=== PATIENT | female | born 2000 | race Caucasian/White ===

== ENCOUNTER 2024-05-12 10:10 | Emergency (ER) | payer BC, OTHER ==
[2024-05-12] MEDS ORDERED: KETOROLAC 30 MG/ML INJ ONE (10:41)
[2024-05-12] MEDS ORDERED: ACETAMINOPHEN 500 MG TAB ONE (10:41)
--- NOTE | 2024-05-12 11:19 | RAD REPORT ---
Exam:Ankle Left 3 View HISTORY: left ankle pain FINDINGS: No fracture or dislocation is seen
--- NOTE | 2024-05-12 11:22 | EDPHYS ---
Physician Documentation [facility] Name: Eugene Andrew Age: 23 yrs Sex: Female : 2000 Arrival Date: 05/12/2024 Time: 10:10 Bed 7 Private MD: ED Physician Desean Hammer HPI: 05/12 10:45 This 23 yrs old Female presents to ER via Wheelchair with complaints of Ankle ec2 Injury. 10:45 Patient arrives today for evaluation of a left ankle injury. Patient reports that she ec2 was walking and subsequently twisted her ankle while trying to get off a seesaw. No other injuries. No head injury. No neck pain. Complaining of isolated left ankle pain. No wounds.. 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 - Infectious Disease History:: Denies. - Social history:: Smoking status: Reported history of juuling and/or vaping. Patient denies any tobacco usage or history of. ROS: 10:45 Constitutional: as per hpi ec2 Exam: 10:45 Constitutional: GEN: NAD Head: atraumatic Eyes: EOMI Ears: External ears are ec2 normal. CV: regular rate LUNGS: no respiratory distress ABD: non-distended SKIN: no evidence of rashes MSK: Left lower extremity with TTP throughout, worse at the medial malleolus. Intact distal neurovascular status. Vital Signs: 10:21 BP 127 / 82; Pulse 78; Resp 18; Temp 97.3; Pulse Ox 98% ; Weight 99.79 kg; Height 5 ft. ll1 5 in. ; Pain 10/10; 11:35 BP 116 / 65; Pulse 78; Resp 16; Temp 97.5; Pulse Ox 98% on R/A; ap3 10:21 Body Mass Index 36.61 (99.79 kg, 165.1 cm) ll1 10:21 Pain Scale: Adult ll1 MDM: 10:45 Data reviewed: vital signs. ED course: Patient arrives today for evaluation of a left ec2 ankle injury. Examination remarkable for well-appearing nontoxic dividual's otherwise in no acute distress with a reassuring examination with left ankle findings above. Will obtain radiograph of left ankle. Differential includes ankle sprain, fracture. . 11:21 ED course: Ankle x-ray independently reviewed and interpreted by me, shows no bony ec2 fracture or dislocation. Suspect ankle sprain. Will discharge home. Return precautions given. . 11:21 Patient medically screened. ec2 05/12 10:23 Order name: Ankle Left 3 View XRAY; Complete Time: 11:21 ec2 05/12 11:24 Order name: Jose E Wrap; Complete Time: 11:35 ec2 05/12 11:24 Order name: Crutches; Complete Time: 11:35 ec2 Administered Medications: 10:47 Drug: Acetaminophen PO 1000 mg PO once Route: PO; ap3 11:35 Follow up: Response: No adverse reaction; Pain is decreased ap3 10:47 Drug: Ketorolac IM 30 mg IM once Route: IM; Site: right vastus lateralis; ap3 11:35 Follow up: Response: No adverse reaction; Pain is decreased ap3 Disposition Summary: 05/12/24 11:21 Discharge Ordered Notes: Location: Home ec2 Condition: Stable ec2 Diagnosis - Sprain of ankle ec2 Followup: ec2 - With: Private Physician - When: - Reason: Re-evaluation by your physician Discharge Instructions: - Discharge Summary Sheet ec2 - Ankle Sprain, [id number] ec2 Forms: - Medication Reconciliation Form ec2 - Antibiotic Education ec2 - Prescription Opioid Use ec2 - Patient Portal Instructions ec2 - Leadership Thank You Letter ec2 Prescriptions: - methocarbamol 500 mg Oral tablet - take 2 tablet ORAL route 4 times per day; 30 tablet; Refills: 0, Product ec2 Selection Permitted Signatures: Dispatcher [employer] Michelle Mcgarry RN RN ap3 Mariza Jones RN RN ll1 Desean Hammer MD MD ec2
--- NOTE | 2024-05-12 11:22 | ER ---
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 Coronavirus screen: Client denies travel out of the [place] in the last 14 days. At this time, the client does not indicate any symptoms associated with coronavirus-19. Ebola Screen: Patient denies travel to an Ebola-affected area in the 21 days before illness onset. Initial Sepsis Screen: Does the patient meet any 2 criteria? No. Patient's initial sepsis screen is negative. Does the patient have a suspected source of infection? No. Patient's initial sepsis screen is negative. Risk Assessment: Do you want to hurt yourself or someone else? Patient reports no desire to harm self or others. Onset of symptoms was May 12, 2024. 10:21 Method Of Arrival: Wheelchair ll1 10:21 Acuity: MIRTHA 4 ll1 Triage Assessment: 10:22 General: Appears uncomfortable, Behavior is calm, cooperative, appropriate for age. ll1 Pain: Complains of pain in left ankle Quality of pain is described as aching. Musculoskeletal: Circulation, motion, and sensation intact. Capillary refill < 3 seconds, in left toes. Reports pain in left ankle. Injury Description: Bruise. 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 - Infectious Disease History:: Denies. - Social history:: Smoking status: Reported history of juuling and/or vaping. Patient denies any tobacco usage or history of. Screenin:48 [facility] ED Fall Risk Assessment (Adult) History of falling in the last 3 months, ap3 including since admission Yes- single mechanical fall (1 pt) Confusion or Disorientation No (0 pts) Intoxicated or Sedated No (0 pts) Impaired Gait No (0 pts) Mobility Assist Device Used No (0 pt) Altered Elimination No (0 pt) Score/Fall Risk Level 0 - 2 = Low Risk Oriented to surroundings, Maintained a safe environment, Educated pt \T\ family on fall prevention, incl call for assistance when getting out of bed, Assessed \T\ reinforced patient's understanding of fall precautions, Hourly rounding (assess needs \T\ fall precautionary measures) done, Used ambulatory aids as needed (educated on \T\ assisted with), Used gait belt as appropriate. Abuse screen: Denies threats or abuse. Nutritional screening: No deficits noted. Tuberculosis screening: No symptoms or risk factors identified. Assessment: 10:47 General: Appears in no apparent distress. Behavior is calm, cooperative, appropriate ap3 for age. Pain: Complains of pain in left ankle Pain currently is 7 out of 10 on a pain scale. Neuro: Level of Consciousness is awake, alert, obeys commands, Oriented to person, place, time, situation, Appropriate for age. Cardiovascular: Patient's skin is warm and dry. Respiratory: Airway is patent Respiratory effort is even, unlabored, Respiratory pattern is regular, symmetrical. Musculoskeletal: Range of motion: limited in left ankle. Vital Signs: 10:21 BP 127 / 82; Pulse 78; Resp 18; Temp 97.3; Pulse Ox 98% ; Weight 99.79 kg; Height 5 ft. ll1 5 in. ; Pain 10/10; 11:35 BP 116 / 65; Pulse 78; Resp 16; Temp 97.5; Pulse Ox 98% on R/A; ap3 10:21 Body Mass Index 36.61 (99.79 kg, 165.1 cm) ll1 10:21 Pain Scale: Adult ll1 ED Course: 10:15 Patient arrived in ED. mg5 10:15 Desean Hammer MD is Attending Physician. ec2 10:22 Triage completed. ll1 10:22 Arm band placed on Patient placed in an exam room, on a stretcher. ll1 10:29 Nayana Acuña RN is Primary Nurse. mb9 10:49 Patient has correct armband on for positive identification. Call light in reach. Side ap3 rails up X 1. Adult w/ patient. Pulse ox on. NIBP on. 10:50 Provided Education on: medications prior to administration . ap3 11:06 Ankle Left 3 View XRAY In Process Unspecified. EDMS 11:36 No provider procedures requiring assistance completed. Patient did not have IV access ap3 during this emergency room visit. Administered Medications: 10:47 Drug: Acetaminophen PO 1000 mg PO once Route: PO; ap3 11:35 Follow up: Response: No adverse reaction; Pain is decreased ap3 10:47 Drug: Ketorolac IM 30 mg IM once Route: IM; Site: right vastus lateralis; ap3 11:35 Follow up: Response: No adverse reaction; Pain is decreased ap3 Medication: 11:36 VIS not applicable for this client. ap3 Outcome: 11:21 Discharge ordered by . ec2 11:36 Discharged to home with crutches, ap3 11:36 Condition: good 11:36 Discharge instructions given to patient, family, Instructed on discharge instructions, follow up and referral plans. crutch walking, Demonstrated understanding of instructions, follow-up care, medications, Prescriptions given X 1, 11:36 Patient left the ED. ap3 Signatures: Dispatcher [employer] Michelle Mcgarry RN RN ap3 Mariza Jones RN RN ll1 Nayana Acuña RN RN mb9 Rochelle Acosta mg5 Desean Hammer MD MD ec2
[2024-05-12 11:50] VITALS: O2SAT 98
[2024-05-12 11:51] VITALS: BP 127/82; TEMP 97.3
== END 2024-05-12 11:36 | disposition home or self-care (01) ==
LOC: ER 10:10
DX: S93.402A Sprain of unspecified ligament of left ankle, initial encounter (principal)

== ENCOUNTER 2024-09-26 23:46 | Emergency (ER) | payer SELFPAY ==
--- OUTSIDE RECORDS SUMMARY | 2024-09-26 23:52 | XMS REPORT | Continuity of Care Document ---
Author Name Unknown Address [address] [facility] [address] [place] [address] [facility] thconnect Address [address] [facility] [address] [place] [address] Support Name Relationship Address Phone OTHER, UNK O [address] [place] [address] [phone] Unavailable E Unknown Unavailable Unavailable Personal Relationship Unknown UnaSALLIE Grijalva F Unknown [phone] [place] [address] MARTITA COLES Personal Relationship [address] [place] [address] ZABRINA COLES Personal Relationship [address] [place] [address] JEANNE COLES Personal Relationship [address] [place] [address] 1 SALLIE Unknown Unavailable 2 SALLIE Unknown Unavailable 3 Personal Relationship Unknown SALLIE Yuan F [address] [place] [address] Unavailable MARTITA COLES [address] [place] [address] Unavailable RAMSEY TRIANA Significant Unknown JEANNE TAM F [address] [place] [address] MARTITA COLES M [address] [place] [address] Unavailable RAAD CERDA Significant [address] [place] [address] L Martita Coles Mother [address] [place] [address] RAAD CERDA Significant [address] [place] [address] Care Team Providers Care Supervisor Baking Name Role Phone PCP, PATIENT DOES NOT HAVE A Primary Care Physic jose Unavailable DULCE MERCEDES Attending Clinician Unavailable DULCE MERCEDES Attending Clinician Unavailable Doctor Unassigned, [place] Attending Clinician U navailable ARLEY BARRY Attending Clinician Unavailable ARLEY BARRY Attending Clinician Unavailable Arley Barry PA-C Attending Clinician [phone] SHAD COMER Attending Clinician Unavailable Richard Eason MD Attending Clinician RICHARD EASON Attending Clinician Porsha vailable Shad Marin Attending Clinician [phone] AMIE ZHANG Attending Clinician Unavailable Amie Zhang PA-C Attending Clinician [phone] Unknown, Attending Attending Clinician Unavailab le UNKNOWN, ATTENDING Attending Clinician Unavailab le Lab, Ang - Db Attending Clinician Unavailable Nurse, [facility] Attending Clinician Un available Dulce Mercedes MD Attending Clinician [phone] DONALD WATSON Attending Clinician Unavailabl MARISA Finch Attending Clinician Unavailable MARISA GAGE Attending Clinician Unavailable DALTON HAWKINS Attending Clinician Unavailable Dalton Hawkins MD Attending Clinician [phone] Shad Marin Attending Clinician [phone] TOBIN SANTOS Attending Clinician Unava ilMILAGRO Billy Attending Clinician UnavailMilagro Mauro Attending Clinician + [phone] Doctor Unassigned, [place] Attending Clinician U navailable IVAN DUVAL Attending Clinician Unav ailable GC_GCBZW_Kadiyala_S Attending Clinician Unavaila ROCIO Menon Attending Clinician Unavailable Lab, Ang - Db Attending Clinician Unavailable ROCIO WESTON Attending Clinician Unavailable Alexandru TOLBERT, Amna Abarca Attending Clinician + Stevo Sow MD Attending Clinicia n Kristen De León RN Attending Clinician Unavailab le TRITSCHLER, CHERYAL Attending Clinician UnavailJOSEPH Ortiz Attending Clinician Unavaila Graham Jordan PT Attending Clinician Unavailable Rina, [facility] Attending Clinician Unavailfidelia Sung RN, Janna Attending Clinician UnavailJudd Holley MD Attending Clinician [phone] JUDD AUGUSTIN Attending Clinician Unavailable 2, [facility] Attending Clinician UnavailSorin Kathleen MD Attending Clinician [phone] SORIN MONTERROSO Attending Clinician UnavailGERMÁN Jones Attending Clinician Unavailable Germán Moses MD Attending Clinician [phone] Dulce GERMAN Attending Clinician Unavailable Dulce Linton Attending Clinician [phone] SUMMER BURK Attending Clinician Unavailable BRITNEY BLUM Attending Clinician Unavailab Britney Green DO Attending Clinician [phone] Maxi GRAF-CSummer Attending Clinician [phone] MARSHALL BORJA Attending Clinician Unava manju Ascencio RN, Pinky Rand Attending Clinician Unavailab Jeanette Rodney Attending Clinician + JEANETTE LEMUS Attending Clinician UnaNed Barney DO Attending Clinician [phone] Radiology Attending Clinician Unavailable RADIOLOGY Attending Clinician Unavailable Shaun Sheridan Attending Clinician Unavailable DULCE MERCEDES Admitting Clinician Unavailable MILAGRO CLIFTON Admitting Clinician Unavaila henry GC_GCBZW_Kadiyala_S Admitting Clinician Unavaila Dulce Erwin MD Admitting Clinician [phone] Dulce GERMAN Admitting Clinician Unavailable JOSEPH LIU Admitting Clinician Unavaillanden reddy Payers Payer Name Policy Type Policy Number Effective Date Expirati on Date Source [employer] [place] - OUT OF STATE [id number] 2016 00:00:00 [facility] [place] [facility] [id number] 2021 00:00:00 [facility] KIDS [id number] 2020 00:00:00 [place] [id number] 2021 00:00:00 BCBS 2 [id number] 2020 00:00:00 Problems Condition Name Condition Details Condition Category Status Onset Date Resolution Date Last Treatment Date Treating Clinician Comments Source Epigastric pain Epigastric pain Disease Active 2023-07 0- 00:00: 00 [facility] Family history of Crohn's disease Family history of Crohn's disease Disease Active 2023-07 0- 00:00: 00 [facility] Chronic nonintract able headache, unspecifie d headache type Chronic nonintract able headache, unspecifie d headache type Disease Active 8 00:00: 00 [facility] Nausea Nausea Disease Active 03-08 00:00: 00 [facility] Gastroesop hageal reflux disease without esophagiti s Gastroesop hageal reflux disease without esophagiti s Disease Active 03-08 00:00: 00 [facility] Diarrhea, unspecifie d type Diarrhea, unspecifie d type Disease Active 03-08 00:00: 00 [facility] Chronic idiopathic constipati on Chronic idiopathic constipati on Disease Active 03-08 00:00: 00 [facility] Fatigue, unspecifie d type Fatigue, unspecifie d type Disease Active 5 00:00: 00 [facility] Anemia of mother in , antepartum Anemia of mother in , antepartum Disease Active 9 00:00: 00 [facility] Vitamin D deficiency Vitamin D deficiency Disease Active 8- 00:00: 00 [facility] Hypothyroi dism Hypothyroi dism Disease Active 8 00:00: 00 [facility] History of depression History of depression Disease Active 4 00:00: 00 [facility] Current every day vaping Current every day vaping Disease Active 4 00:00: 00 [facility] Current mild episode of major depressive disorder without prior episode Current mild episode of major depressive disorder without prior episode Disease Active 406 00:00: 00 Overview: Formattin g of this note might be different from the original. Formattin g of this note might be different from the original. Dr. Bruno in [facility] AMY (generaliz ed anxiety disorder) AMY (generaliz ed anxiety disorder) Disease Active 4-06 00:00: 00 [facility] History of suicide attempt History of suicide attempt Disease Active 406 00:00: 00 [facility] Panic attacks Panic attacks Disease Active 4 00:00: 00 [facility] No known active problems No known active problems Disease [facility] Anemia due to acute blood loss Anemia due to acute blood loss Disease Resolve d 2022-0 5-09 00:00: 00 2023-06-01 00:00:00 2023-06-01 13:21:09 [facility] Other immediate hemorrhage Other immediate hemorrhage Disease Resolve d 2021-1 2-30 00:00: 00 2022-08-17 00:00:00 2022-08-17 17:11:10 Overview: Formattin g of this note might be different from the original. Uterine atony [facility] Morbid obesity with body mass index of 40.0-49.9 Morbid obesity with body mass index of 40.0-49.9 Disease Resolve d 2021-1 2-30 00:00: 00 2022-08-17 00:00:00 2022-08-17 17:11:23 [facility] Liveborn infant by vaginal delivery Liveborn infant by vaginal delivery Disease Resolve d 2021-1 2-29 00:00: 00 2022-08-17 00:00:00 2022-08-17 15:56:38 [facility] Anemia of mother in , antepartum Anemia of mother in , antepartum Disease Resolve d 2021-0 9-27 00:00: 00 2022-08-17 00:00:00 2022-08-17 17:11:13 [facility] Obesity in , antepartum Obesity in , antepartum Disease Resolve d 2021-0 8-02 00:00: 00 2022-08-17 00:00:00 2022-08-17 17:11:25 [facility] Nausea and vomiting in prior to 22 weeks gestation Nausea and vomiting in prior to 22 weeks gestation Disease Resolve d 2021-0 5-23 00:00: 00 2022-08-17 00:00:00 2022-08-17 17:11:24 [facility] Nausea and vomiting in prior to 22 weeks gestation Nausea and vomiting in prior to 22 weeks gestation Disease Resolve d 2021-0 5-23 00:00: 00 2022-08-17 00:00:00 2022-08-17 17:11:24 [facility] 39 weeks gestation of 39 weeks gestation of Disease Resolve d 2021-1 2-29 00:00: 00 2022-07-30 00:00:00 2022-07-30 07:52:05 [facility] Encounter for induction of labor Encounter for induction of labor Disease Resolve d 2021-1 2-28 00:00: 00 2022-07-30 00:00:00 2022-07-30 07:52:04 [facility] Pelvic pressure in Pelvic pressure in Disease Resolve d 2021-1 1-10 00:00: 00 2022-07-30 00:00:00 2022-07-30 07:51:25 [facility] History of hypothyroi dism History of hypothyroi dism Disease Resolve d 2021-1 0-11 00:00: 00 2022-07-30 00:00:00 2022-07-30 07:51:34 [facility] 10 weeks gestation of 10 weeks gestation of Disease Resolve d 2021-0 6-06 00:00: 00 2022-07-30 00:00:00 2022-07-30 07:52:17 [facility] Genetic screening Genetic screening Disease Resolve d 2021-0 6-06 00:00: 00 2022-07-30 00:00:00 2022-07-30 07:52:19 [facility] Supervisio n of normal first , antepartum Supervisio n of normal first , antepartum Disease Resolve d 2021-0 5-23 00:00: 00 2022-07-30 00:00:00 2022-07-30 07:52:23 [facility] with inconclusi ve viability, single or unspecifie d fetus with inconclusi ve viability, single or unspecifie d fetus Disease Resolve d 2021-0 4-25 00:00: 00 2022-07-30 00:00:00 2022-07-30 07:51:52 [facility] Missed menses Missed menses Disease Resolve d 2021-0 4-25 00:00: 00 2022-07-30 00:00:00 2022-07-30 07:51:47 [facility] Vaginal discharge during , antepartum Vaginal discharge during , antepartum Disease Resolve d 2021-0 4-25 00:00: 00 2022-07-30 00:00:00 2022-07-30 07:51:43 [facility] Dysuria Dysuria Disease Resolve d 2021-0 4-25 00:00: 00 2022-07-30 00:00:00 2022-07-30 07:51:41 [facility] with inconclusi ve viability, single or unspecifie d fetus with inconclusi ve viability, single or unspecifie d fetus Disease Resolve d 2021-0 4-25 00:00: 00 2022-07-30 00:00:00 2022-07-30 07:51:52 [facility] Allergies, Adverse Reactions, Alerts Allergy Name Allergy Type Status Severity Reaction(s) Onset Date Inactive Date Treating Clinician Comments Source NO KNOWN ALLERGIE S Drug Class Active [facility] Social History Social Habit Start Date Stop Date Quantity Comments Source ASSERTION 2021-11-06 00:00:00 [facility] Gender identity [facility] Alcoholic beverage intake 2024-05-23 00:00:00 2024-05-23 00:00:00 Ex-drinker (finding) [facility] History of Social function 2024-05-01 00:00:00 2024-05-01 00:00:00 [facility] Alcohol intake 2023-11-01 00:00:00 2023-11-01 00:00:00 Ex-drinker (finding) [facility] Exposure to SARS-CoV-2 (event) 2022-11-26 00:00:00 2022-12-06 09:51:00 Not sure [facility] Tobacco Comment 2022-07-27 00:00:00 2022-07-27 00:00:00 Use of vape prior to [facility] Tobacco use and exposure 2022-07-27 00:00:00 2022-07-27 00:00:00 Former smokeless tobacco user [facility] Sex Assigned At 2001 00:00:00 2000 00:00:00 [facility] Smoking Status Start Date Stop Date Source Unknown if ever smoked [facility] Never smoked tobacco Juanis Bolden Medications Ordered Medication Name Filled Medication Name Start Date Stop Date Current Medication? Ordering Clinician Indication Dosage Frequency Signature (SIG) Comments Components Source methylPREDN ISolone (MEDROL, SALLY,) 4 mg tablets 2023-07 00:00: 00 Yes [id number] Take by mouth SEE-INSTRU CTIONS. follow package directions [facility] naproxen 500 mg tablet 2023-07 00:00: 00 07-23 05:59 :00 No [id number] 500mg Take 1 tablet by mouth in the morning and 1 tablet in the evening. Take with meals. Do all this for 60 days. [facility] ibuprofen 600 mg tablet 2023-07 00:00: 00 Yes [id number] 600mg Take 1 tablet by mouth in the morning and 1 tablet at noon and 1 tablet in the evening. Take with meals. [facility] pantoprazol e 40 mg EC tablet 2023-07 00:00: 00 Yes [id number] 40mg Take 1 tablet by mouth in the morning. [facility] ondansetron (ZOFRAN) 4 mg tablet 2023-07 00:00: 00 05-12 04:59 :00 No [id number] 4mg Take 1 tablet by mouth every 8 (eight) hours as needed for Nausea and Vomiting (N/V) for up to 10 days. [facility] medroxyPROG ESTERone (DEPO-PROVE RA) syringe 150 mg 04-17 20:15: 00 04-17 19:37 :00 No [id number] 150mg 150 mg, Intramuscu lar, ONCE, 1 dose, On Mon04/17/24 at 1515, Routine [facility] LEVOTHYROXI NE 25 mcg tablet 02-26 00:00: 00 Yes [id number] 25ug TAKE 1 TABLET BY MOUTH EVERY MORNING [facility] cefpodoxime 200 mg tablet 12-15 00:00: 00 05-01 00:00 :00 No [id number] 200mg Take 1 tablet by mouth in the morning and 1 tablet in the evening. [facility] phenazopyri dine 200 mg tablet 12-15 00:00: 00 05-01 00:00 :00 No [id number] 200mg Take 1 tablet by mouth in the morning and 1 tablet at noon and 1 tablet in the evening. [facility] levothyroxi ne 25 mcg tablet 12-04 00:00: 00 02-26 00:00 :00 No [id number] 25ug TAKE 1 TABLET BY MOUTH EVERY MORNING [facility] cefTRIAXone (ROCEPHIN) 350 mg/mL in Lidocaine 1 % injection 1,000 mg 11-01 06:30: 00 11-01 06:30 :00 No 1000mg 1,000 mg, Intramuscu lar, ONCE, 1 dose, On Mon11/02/23 at 0130, STAT
Re ason for Anti-Infec tive: Documented Infection< br>Documen jose rafael Infection Site: Urine
D uration of Therapy: Once (ED) [facility] ketorolac (TORADOL) injection 30 mg 11-01 06:00: 00 11-01 05:07 :00 No 30mg 30 mg, Intramuscu lar, ONCE, 1 dose, On Sarah 11/02/23 at 0100, DO [facility] cefUROXime 500 mg tablet 11-01 00:00: 00 11-09 04:59 :00 No [id number] 500mg Take 1 tablet by mouth in the morning and 1 tablet in the evening. Do all this for 7 days. [facility] escitalopra m oxalate 20 mg tablet 2022-07 00:00: 00 Yes 20mg Take 1 tablet by mouth every morning. [facility] buPROPion XL 150 mg 24 hr tablet 2022-07 00:00: 00 Yes 150mg Take 1 tablet by mouth every morning. [facility] levothyroxi ne 25 mcg tablet 03-17 00:00: 00 12-04 00:00 :00 No [id number] 25ug Take 1 tablet by mouth every morning. [facility] levothyroxi ne (TIROSINT-S OL) 112 mcg/mL Soln 03-08 11:06: 24 03-08 00:00 :00 No 1 ml in the morning before breakfast [facility] SUMAtriptan 50 mg tablet 03-08 00:00: 00 05-01 00:00 :00 No [id number] Take on one onset of migraine , may repeat in 1 hr if needed. Max dosage 200mg in 24hrs. [facility] escitalopra m oxalate 10 mg tablet 09-07 00:00: 00 05-01 00:00 :00 No [id number] 10mg Take 1 tablet by mouth in the morning. [facility] norelgestro min-ethinyl estradiol (XULANE) 150-35 mcg/24 hr patch 09-07 00:00: 00 05-01 00:00 :00 No [id number] 1{patch } Apply 1 Patch to skin weekly. [facility] levothyroxi ne (TIROSINT-S OL) 112 mcg/mL Soln 2021-07 20:00: 01 Yes 1 ml in the morning before breakfast [facility] vit no.124/iron /folic ( VITAMIN ORAL) 2021-07 18:23: 05 07-29 00:00 :00 No Take by mouth. [facility] escitalopra m oxalate (LEXAPRO) tablet 10 mg 2021-07 14:00: 00 Yes 10mg 10 mg, Oral, DAILY, First dose on Mon07/29/22 at 0800, Until Discontinu ed, Routine [facility] methylergon ovine (METHERGINE ) tablet 200 mcg 2021-07 12:00: 00 07-30 05:59 :00 No 200ug 200 mcg, Oral, Q6H, 3 doses, First dose on Mon07/29/22 at 0600, Last dose on Mon07/29/22 at 1800, Routine [facility] methylergon ovine (METHERGINE ) injection 0.2 mg 2021-07 08:30: 00 07-29 07:44 :00 No .2mg 0.2 mg, Intramuscu lar, ONCE NOW, 1 dose, On Mon07/29/22 at 0230, Routine [facility] miSOPROStoL (CYTOTEC) tablet 1,000 mcg 2021-07 07:30: 00 07-29 06:45 :00 No 1000ug 1,000 mcg, Rectal, ONCE NOW, 1 dose, On Mon07/29/22 at 0130, Routine [facility] NaCl 0.9% (NS) IV infusion 1,000 mL 2021-07 07:15: 00 Yes 1000mL at 999 mL/hr, IV Infusion, CONTINUOUS , Starting on Mon07/29/22 at 0115, Until Discontinu ed, Routine
500 bolus then change rate to 50 ml/hr
[facility] FENTanyl PF (SUBLIMAZE (PF)) injection 100 mcg 2021-07 07:00: 00 07-29 06:24 :00 No 100ug 100 mcg, Slow IV Push, ONCE, 1 dose, On Mon07/29/22 at 0100, Routine [facility] HYDROmorpho ne (DILAUDID) injection 1 mg 2021-07 06:45: 00 07-29 06:45 :00 No 1mg 1 mg, Slow IV Push, ONCE, 1 dose, On Mon07/29/22 at 0045, Routine
Use approved by (Faculty): [employer]/ONC [employer] [facility] vitamin w/FA tablet 2021-07 00:00: 00 Yes [id number] 1{tbl} Take 1 tablet by mouth in the morning. [facility] vitamin w/FA tablet 2021-07 00:00: 00 03-08 00:00 :00 No [id number] 1{tbl} Take 1 tablet by mouth in the morning. [facility] ferrous sulfate 325 mg (65 mg iron) tablet 2021-07 00:00: 00 03-08 00:00 :00 No [id number] 325mg Take 1 tablet by mouth in the morning and 1 tablet in the evening. [facility] ibuprofen 600 mg tablet 2021-07 00:00: 00 03-08 00:00 :00 No [id number] 600mg Take 1 tablet by mouth every 6 (six) hours as needed (Pain). Take with food or milk. [facility] escitalopra m oxalate 10 mg tablet 2021-07 00:00: 00 09-07 00:00 :00 No [id number] 10mg Take 1 tablet by mouth in the morning. [facility] docusate 100 mg capsule 2021-07 00:00: 00 08-17 00:00 :00 No [id number] 200mg Take 2 capsules by mouth once daily as needed for Constipati on. [facility] HYDROcodone -acetaminop hen (NORCO 5) 5-325 mg tablet 1 tablet 2021-07 23:47: 17 Yes 1{tbl} 1 tablet, Oral, Q6HPRN, Starting on Sarah 07/28/22 at 1747, Until Discontinu ed, Routine, Pain (scale 7-10) [facility] ibuprofen (IBU) tablet 600 mg 2021-07 23:47: 16 Yes 600mg 600 mg, Oral, Q6HPRN, Starting on Mon07/28/22 at 1747, Until Discontinu ed, Routine, Pain (scale 4-6) [facility] acetaminoph en (TYLENOL) tablet 650 mg 2021-07 23:47: 16 Yes 650mg 650 mg, Oral, Q6HPRN, Starting on Mon07/28/22 at 1747, Until Discontinu ed, Routine, Pain (scale 1-3) [facility] diphenhydrA MINE (BENADRYL) tablet 25 mg 2021-07 23:47: 16 Yes 25mg 25 mg, Oral, Q6HPRN, Starting on Mon07/28/22 at 1747, Until Discontinu ed, Routine, Sleep, Itching [facility] ondansetron (ZOFRAN (PF)) injection 4 mg 2021-07 23:47: 16 Yes 4mg 4 mg, Slow IV Push, Q8HPRN, Starting on Mon07/28/22 at 1747, Until Discontinu ed, Routine, Nausea and Vomiting (N/V) [facility] simethicone (GAS RELIEF (SIMETHICON E)) chewable tablet 160 mg 2021-07 23:47: 16 Yes 160mg 160 mg, Oral, PC+HSPRN, Starting on Mon07/28/22 at 1747, Until Discontinu ed, Routine, Gas [facility] docusate (COLACE) capsule 200 mg 2021-07 23:47: 16 Yes 200mg 200 mg, Oral, QDAILYPRN, Starting on Mon07/28/22 at 1747, Until Discontinu ed, Routine, Constipati on [facility] magnesium hydroxide (MILK OF MAGNESIA) 400 mg/5 mL suspension 30 mL 2021-07 23:47: 16 Yes 30mL 30 mL, Oral, QDAILYPRN, Starting on Mon07/28/22 at 1747, Until Discontinu ed, Routine, Constipati on [facility] benzocaine- menthol (DERMOPLAST ) 20-0.5 % topical spray 2021-07 23:47: 16 Yes Topical, PRN, Starting on Mon07/28/22 at 1747, Until Discontinu ed, Routine, Perineum discomfort [facility] fentaNYL-ro pivacaine 2 mcg/mL-0.1 % (PF) in NS 200 mL epidural infusion RTU 2021-07 12:40: 00 07-29 02:18 :14 No Epidural, ONCE INTRA PROCEDURE, Starting on Mon07/28/22 at 0640, Until Mon07/28/22 at 2018, Routine, Intra-op [facility] lidocaine-e pinephrine (XYLOCAINE W/EPINEPHRI NE) 1.5 %-1:200,000 injection 2021-07 12:35: 00 07-29 02:18 :14 No Intraderma l, ONCE INTRA PROCEDURE, Starting on Mon07/28/22 at 0635, Until Mon07/28/22 at 2018, Routine, Intra-op [facility] misoprostol (CYTOTEC) quarter-tab let 25 mcg 2021-07 04:45: 00 07-28 14:50 :33 No 25ug 25 mcg, Vaginal, Q4H ABX, First dose on Mon07/27/22 at 2245, Until Discontinu ed, Routine [facility] misoprostol (CYTOTEC) quarter-tab let 25 mcg 2021-07 04:30: 00 07-28 03:56 :00 No 25ug 25 mcg, Oral, ONCE, 1 dose, On Mon07/27/22 at 2230, Routine [facility] butorphanol (STADOL) injection 2 mg 2021-07 01:50: 13 07-28 23:48 :22 No 2mg 2 mg, IV Push, Q3HPRN, Starting on Mon07/27/22 at 1950, Until Mon07/28/22 at 1748, Routine, Pain (scale 1-3), Pain (scale 4-6), Pain (scale 7-10) [facility] ondansetron (ZOFRAN (PF)) injection 4 mg 2021-07 01:50: 13 07-28 23:48 :22 No 4mg 4 mg, Slow IV Push, Q6HPRN, Starting on Mon07/27/22 at 1950, Until Sarah 07/28/22 at 1748, Routine, Nausea and Vomiting (N/V) [facility] oxytocin (PITOCIN) 30 units in NS 500 mL IV infusion 2021-07 01:50: 08 07-28 23:48 :22 No 2mU/min at 2-40 mL/hr, IV Infusion, TITRATE, Starting on Mon07/27/22 at 1950, Until Sarah 07/28/22 at 1748, DO [facility] lactated ringers IV infusion 500 mL 2021-07 01:50: 08 07-28 23:48 :22 No 500mL at 999 mL/hr, 500 mL, IV Infusion, PRN - SEE INSTRUCTIO NS, Starting on Mon07/27/22 at 1950, Until Sarah 07/28/22 at 1748, Routine [facility] D5W-LR IV infusion 1,000 mL 2021-07 01:50: 08 07-28 23:48 :22 No 1000mL at 1-125 mL/hr, IV Infusion, TITRATE, Starting on Mon07/27/22 at 1950, Until Sarah 07/28/22 at 1748, Routine [facility] vit no.124/iron /folic ( VITAMIN ORAL) 2021-07 18:50: 02 Yes Take by mouth. [facility] levothyroxi ne (TIROSINT-S OL) 112 mcg[facility] 2021-[facility] 18:50: 02 Yes 1 ml in the morning before breakfast [facility] levothyroxi ne (TIROSINT-S OL) 112 mcg/mL [facility] 2021-07 15:53: 04 Yes 1 ml in the morning before breakfast [facility] vit no.124/iron /folic ( VITAMIN ORAL) 2021-07 20:51: 02 Yes Take by mouth. [facility] levothyroxi ne (TIROSINT-S OL) 112 mcg/mL [facility] 2021-07 20:51: 02 Yes 1 ml in the morning before breakfast [facility] levothyroxi ne (TIROSINT-S OL) 112 mcg/mL [facility] 2021-07 10:10: 03 Yes 1 ml in the morning before breakfast [facility] vit no.124/iron /folic ( VITAMIN ORAL) 2021-07 01:51: 09 Yes Take by mouth. [facility] terconazole 80 mg vaginal suppository 2021-07 00:00: 00 06-15 05:59 :00 No [id number] 80mg Insert 1 Suppositor y into vagina at bedtime for 3 days. [facility] vit no.124/iron /folic ( VITAMIN ORAL) 04-26 09:34: 40 Yes Take by mouth. [facility] ferrous sulfate (IRON, FERROUS SULFATE,) 325 mg (65 mg iron) tablet 04-26 00:00: 00 07-29 00:00 :00 No [id number] 325mg Take 1 tablet by mouth in the morning and 1 tablet at noon and 1 tablet in the evening. Take with meals. [facility] ascorbic acid, vitamin C, 500 mg tablet 04-26 00:00: 00 07-29 00:00 :00 No [id number] 500mg Take 1 tablet by mouth in the morning. [facility] metoclopram uriel HCl 10 mg tablet 5-23 00:00: 00 07-26 00:00 :00 No [id number] Take 10mg tablet by mouth every 8 hours as needed for nausea and vomiting in . [facility] Ondansetron (Zofran ODT) 4 MG oral TABLET DISPERSIBLE 2-21 00:00: 00 Yes [id number] 4mg Q8H Take 1 tablet (4 mg total) by mouth every 8 hours as needed for nausea Juanis Bolden Promethazin e HCl 25 MG oral Tablet 09-20 00:00: 00 Yes [id number] 25mg Q6H Take 1 tablet (25 mg total) by mouth every 6 hours as needed for nausea Juanis Bolden Loperamide HCl 2 MG oral Tablet 09-20 00:00: 00 Yes [id number] 2mg Q.25D Take 1 tablet (2 mg total) by mouth 4 times daily as needed for diarrhea Juanis Bolden Azithromyci n 500 MG oral Tablet 09-20 00:00: 00 09-25 05:59 :00 No [id number] Take 2 tablets (1,000 mg total) by mouth daily for 1 day, THEN 1 tablet (500 mg total) daily for 3 days. Juanis Bolden ondansetron (ZOFRAN-ODT ) disintegrat ing tablet 4 mg 08-27 15:15: 00 08-27 14:19 :00 No 4mg 4 mg, Oral, ONCE, 1 dose, On Mon08/27/21 at 0915, Routine [facility] ondansetron 4 mg disintegrat ing tablet 08-27 00:00: 00 Yes [id number] 4mg Take 1 tablet by mouth every 8 (eight) hours as needed for Nausea and Vomiting (N/V). [facility] Levothyroxi ne Sodium (Synthroid) 112 MCG oral Tablet 08-19 08:54: 56 Yes 112ug Take 112 mcg by mouth daily Juanis Bolden Escitalopra m Oxalate (Lexapro) 20 MG oral Tablet 08-19 08:54: 56 Yes 20mg Take 20 mg by mouth daily Juanis Bolden Trazodone HCl 50 MG oral Tablet 08-19 08:54: 56 Yes 50mg Take 50 mg by mouth nightly Juanis Bolden Lamotrigine 100 MG oral Tablet 08-19 08:54: 56 Yes 100mg Take 100 mg by mouth daily Juanis Bolden methylPREDN ISolone 4 MG oral Tablet Therapy Pack 08-19 00:00: 00 Yes [id number] 1{sally} Take 1 sally by mouth See Admin Instructio ns Use as directed Juanis Bolden Celecoxib (CeleBREX) 200 MG oral Capsule 08-19 00:00: 00 Yes [id number] 200mg Take 1 capsule (200 mg total) by mouth 2 times daily Juanis Bolden Azithromyci n 250 MG oral Tablet 08-19 00:00: 00 08-25 05:59 :00 No [id number] Take 2 tablets by mouth on day 1 then 1 tablet by mouth daily for 4 days thereafter . Juanis Bolden Immunizations Ordered Immunization Name Filled Immunization Name Date Status Comments Source AP 2022-06-30 00:00:00 Completed [facility] TDAP 2022-06-30 00:00:00 Completed [facility] TDAP 2022-06-30 00:00:00 Completed [facility] TDAP 2022-06-30 00:00:00 Completed [facility] TDAP 2022-06-30 00:00:00 Completed [facility] TDAP 2022-06-30 00:00:00 Completed [facility] TDAP 2022-06-30 00:00:00 Completed [facility] TDAP 2022-06-30 00:00:00 Completed [facility] TDAP 2022-06-30 00:00:00 Completed [facility] TDAP 2022-06-30 00:00:00 Completed [facility] TDAP 2022-06-30 00:00:00 Completed [facility] Influenza Virus Vaccine Quad IM Multi-dose 6+ MO 2020-11-03 00:00:00 Completed [facility] TDAP 2020-11-03 00:00:00 Completed [facility] Influenza Virus Vaccine Quad IM Multi-dose 6+ MO 2020-11-03 00:00:00 Completed [facility] TDAP 2020-11-03 00:00:00 Completed [facility] Influenza Virus Vaccine Quad IM Multi-dose 6+ MO 2020-11-03 00:00:00 Completed [facility] TDAP 2020-11-03 00:00:00 Completed [facility] Influenza Virus Vaccine Quad IM Multi-dose 6+ MO 2020-11-03 00:00:00 Completed [facility] TDAP 2020-11-03 00:00:00 Completed [facility] Influenza Virus Vaccine Quad IM Multi-dose 6+ MO 2020-11-03 00:00:00 Completed [facility] TDAP 2020-11-03 00:00:00 Completed [facility] Influenza Virus Vaccine Quad IM Multi-dose 6+ MO 2020-11-03 00:00:00 Completed [facility] TDAP 2020-11-03 00:00:00 Completed [facility] Influenza Virus Vaccine Quad IM Multi-dose 6+ MO 2020-11-03 00:00:00 Completed [facility] TDAP 2020-11-03 00:00:00 Completed [facility] Influenza Virus Vaccine Quad IM Multi-dose 6+ MO 2020-11-03 00:00:00 Completed [facility] TDAP 2020-11-03 00:00:00 Completed [facility] Influenza Virus Vaccine Quad IM Multi-dose 6+ MO 2020-11-03 00:00:00 Completed [facility] TDAP 2020-11-03 00:00:00 Completed [facility] Influenza Virus Vaccine Quad IM Multi-dose 6+ MO 2020-11-03 00:00:00 Completed [facility] TDAP 2020-11-03 00:00:00 Completed [facility] Influenza Virus Vaccine Quad IM Multi-dose 6+ MO 2020-11-03 00:00:00 Completed [facility] TDAP 2020-11-03 00:00:00 Completed [facility] Influenza Virus Vaccine Quad IM Multi-dose 6+ MO 2020-11-03 00:00:00 Completed [facility] TDAP 2020-11-03 00:00:00 Completed [facility] Influenza Virus Vaccine Quad IM Multi-dose 6+ MO 2020-11-03 00:00:00 Completed [facility] TDAP 2020-11-03 00:00:00 Completed [facility] Influenza Virus Vaccine Quad IM Multi-dose 6+ MO 2020-11-03 00:00:00 Completed [facility] TDAP 2020-11-03 00:00:00 Completed [facility] Influenza Virus Vaccine Quad IM Multi-dose 6+ MO 2020-11-03 00:00:00 Completed [facility] TDAP 2020-11-03 00:00:00 Completed [facility] Influenza Virus Vaccine Quad IM Multi-dose 6+ MO 2020-11-03 00:00:00 Completed [facility] TDAP 2020-11-03 00:00:00 Completed [facility] Influenza Virus Vaccine Quad IM Multi-dose 6+ MO 2020-11-03 00:00:00 Completed [facility] TDAP 2020-11-03 00:00:00 Completed [facility] Influenza Virus Vaccine Quad IM Multi-dose 6+ MO 2020-11-03 00:00:00 Completed [facility] TDAP 2020-11-03 00:00:00 Completed [facility] Influenza Virus Vaccine Quad IM Multi-dose 6+ MO 2020-11-03 00:00:00 Completed TDAP 2020-11-03 00:00:00 Completed Influenza Virus Vaccine Quad IM Multi-dose 6+ MO 2020-11-03 00:00:00 Completed TDAP 2020-11-03 00:00:00 Completed Influenza Virus Vaccine Quad IM Multi-dose 6+ MO 2020-11-03 00:00:00 Completed TDAP 2020-11-03 00:00:00 Completed Influenza Virus Vaccine Quad IM Multi-dose 6+ MO 2020-11-03 00:00:00 Completed TDAP 2020-11-03 00:00:00 Completed Influenza Virus Vaccine Quad IM Multi-dose 6+ MO 2020-11-03 00:00:00 Completed [facility] TDAP 2020-11-03 00:00:00 Completed [facility] Influenza Virus Vaccine Quad IM Multi-dose 6+ MO 2020-11-03 00:00:00 Completed [facility] TDAP 2020-11-03 00:00:00 Completed [facility] Influenza Virus Vaccine Quad IM Multi-dose 6+ MO 2020-11-03 00:00:00 Completed [facility] TDAP 2020-11-03 00:00:00 Completed [facility] Influenza Virus Vaccine Quad IM Multi-dose 6+ MO 2020-11-03 00:00:00 Completed [facility] TDAP 2020-11-03 00:00:00 Completed [facility] Influenza Virus Vaccine Quad IM Multi-dose 6+ MO 2020-11-03 00:00:00 Completed [facility] TDAP 2020-11-03 00:00:00 Completed [facility] Influenza Virus Vaccine Quad IM Multi-dose 6+ MO 2020-11-03 00:00:00 Completed [facility] TDAP 2020-11-03 00:00:00 Completed [facility] Influenza Virus Vaccine Quad IM Multi-dose 6+ MO 2020-11-03 00:00:00 Completed [facility] TDAP 2020-11-03 00:00:00 Completed [facility] Influenza Virus Vaccine Quad IM Multi-dose 6+ MO 2020-11-03 00:00:00 Completed [facility] TDAP 2020-11-03 00:00:00 Completed [facility] Influenza Virus Vaccine Quad IM Multi-dose 6+ MO 2020-11-03 00:00:00 Completed [facility] TDAP 2020-11-03 00:00:00 Completed [facility] Influenza Virus Vaccine Quad IM Multi-dose 6+ MO 2020-11-03 00:00:00 Completed [facility] TDAP 2020-11-03 00:00:00 Completed [facility] Influenza Virus Vaccine Quad IM Multi-dose 6+ MO 2020-11-03 00:00:00 Completed [facility] TDAP 2020-11-03 00:00:00 Completed [facility] Influenza Virus Vaccine Quad IM Multi-dose 6+ MO 2020-11-03 00:00:00 Completed [facility] TDAP 2020-11-03 00:00:00 Completed [facility] Influenza Virus Vaccine Quad IM Multi-dose 6+ MO 2020-11-03 00:00:00 Completed [facility] TDAP 2020-11-03 00:00:00 Completed [facility] Influenza Virus Vaccine Quad IM Multi-dose 6+ MO 2020-11-03 00:00:00 Completed [facility] TDAP 2020-11-03 00:00:00 Completed [facility] Influenza Virus Vaccine Quad IM Multi-dose 6+ MO 2020-11-03 00:00:00 Completed [facility] TDAP 2020-11-03 00:00:00 Completed [facility] Influenza Virus Vaccine Quad IM Multi-dose 6+ MO 2020-11-03 00:00:00 Completed [facility] TDAP 2020-11-03 00:00:00 Completed [facility] Influenza Virus Vaccine Quad IM Multi-dose 6+ MO 2020-11-03 00:00:00 Completed [facility] TDAP 2020-11-03 00:00:00 Completed [facility] Influenza Virus Vaccine Quad IM Multi-dose 6+ MO 2020-11-03 00:00:00 Completed [facility] TDAP 2020-11-03 00:00:00 Completed [facility] Influenza Virus Vaccine Quad IM Multi-dose 6+ MO 2020-11-03 00:00:00 Completed [facility] TDAP 2020-11-03 00:00:00 Completed [facility] Influenza Virus Vaccine Quad IM Multi-dose 6+ MO 2020-11-03 00:00:00 Completed [facility] TDAP 2020-11-03 00:00:00 Completed [facility] Influenza Virus Vaccine Quad IM Multi-dose 6+ MO 2020-11-03 00:00:00 Completed [facility] TDAP 2020-11-03 00:00:00 Completed [facility] Influenza Virus Vaccine Quad IM Multi-dose 6+ MO 2020-11-03 00:00:00 Completed [facility] TDAP 2020-11-03 00:00:00 Completed [facility] Influenza Virus Vaccine Quad IM Multi-dose 6+ MO 2020-11-03 00:00:00 Completed [facility] TDAP 2020-11-03 00:00:00 Completed [facility] Influenza Virus Vaccine Quad IM Multi-dose 6+ MO 2020-11-03 00:00:00 Completed [facility] TDAP 2020-11-03 00:00:00 Completed [facility] Influenza Virus Vaccine, age 6 months and up 2020-11-03 00:00:00 Completed Juanis Bolden Tdap- (Boostrix, Adacel) 2020-11-03 00:00:00 Completed Juanis Bolden Influenza Virus Vaccine, age 6 months and up 2020-11-03 00:00:00 Completed Juanis Bolden Tdap- (Boostrix, Adacel) 2020-11-03 00:00:00 Completed Juanis Bolden HEPATITIS A 2006-10-26 00:00:00 Completed [facility] Proquad (MMR/VARICELLA) 2006-10-26 00:00:00 Completed [facility] HEPATITIS A 2006-10-26 00:00:00 Completed [facility] Proquad (MMR/VARICELLA) 2006-10-26 00:00:00 Completed [facility] HEPATITIS A 2006-10-26 00:00:00 Completed [facility] Proquad (MMR/VARICELLA) 2006-10-26 00:00:00 Completed [facility] HEPATITIS A 2006-10-26 00:00:00 Completed [facility] Proquad (MMR/VARICELLA) 2006-10-26 00:00:00 Completed [facility] HEPATITIS A 2006-10-26 00:00:00 Completed [facility] Proquad (MMR/VARICELLA) 2006-10-26 00:00:00 Completed [facility] HEPATITIS A 2006-10-26 00:00:00 Completed [facility] Proquad (MMR/VARICELLA) 2006-10-26 00:00:00 Completed [facility] HEPATITIS A 2006-10-26 00:00:00 Completed [facility] Proquad (MMR/VARICELLA) 2006-10-26 00:00:00 Completed [facility] HEPATITIS A 2006-10-26 00:00:00 Completed [facility] Proquad (MMR/VARICELLA) 2006-10-26 00:00:00 Completed [facility] HEPATITIS A 2006-10-26 00:00:00 Completed [facility] Proquad (MMR/VARICELLA) 2006-10-26 00:00:00 Completed [facility] HEPATITIS A 2006-10-26 00:00:00 Completed [facility] Proquad (MMR/VARICELLA) 2006-10-26 00:00:00 Completed [facility] HEPATITIS A 2006-10-26 00:00:00 Completed [facility] Proquad (MMR/VARICELLA) 2006-10-26 00:00:00 Completed [facility] HEPATITIS A 2006-10-26 00:00:00 Completed [facility] Proquad (MMR/VARICELLA) 2006-10-26 00:00:00 Completed [facility] HEPATITIS A 2006-10-26 00:00:00 Completed [facility] Proquad (MMR/VARICELLA) 2006-10-26 00:00:00 Completed [facility] HEPATITIS A 2006-10-26 00:00:00 Completed [facility] Proquad (MMR/VARICELLA) 2006-10-26 00:00:00 Completed [facility] HEPATITIS A 2006-10-26 00:00:00 Completed [facility] Proquad (MMR/VARICELLA) 2006-10-26 00:00:00 Completed [facility] HEPATITIS A 2006-10-26 00:00:00 Completed [facility] Proquad (MMR/VARICELLA) 2006-10-26 00:00:00 Completed [facility] HEPATITIS A 2006-10-26 00:00:00 Completed [facility] Proquad (MMR/VARICELLA) 2006-10-26 00:00:00 Completed [facility] HEPATITIS A 2006-10-26 00:00:00 Completed [facility] Proquad (MMR/VARICELLA) 2006-10-26 00:00:00 Completed [facility] HEPATITIS A 2006-10-26 00:00:00 Completed Proquad (MMR/VARICELLA) 2006-10-26 00:00:00 Completed HEPATITIS A 2006-10-26 00:00:00 Completed Proquad (MMR/VARICELLA) 2006-10-26 00:00:00 Completed HEPATITIS A 2006-10-26 00:00:00 Completed Proquad (MMR/VARICELLA) 2006-10-26 00:00:00 Completed HEPATITIS A 2006-10-26 00:00:00 Completed Proquad (MMR/VARICELLA) 2006-10-26 00:00:00 Completed HEPATITIS A 2006-10-26 00:00:00 Completed [facility] Proquad (MMR/VARICELLA) 2006-10-26 00:00:00 Completed [facility] HEPATITIS A 2006-10-26 00:00:00 Completed [facility] Proquad (MMR/VARICELLA) 2006-10-26 00:00:00 Completed [facility] HEPATITIS A 2006-10-26 00:00:00 Completed [facility] Proquad (MMR/VARICELLA) 2006-10-26 00:00:00 Completed [facility] HEPATITIS A 2006-10-26 00:00:00 Completed [facility] Proquad (MMR/VARICELLA) 2006-10-26 00:00:00 Completed [facility] HEPATITIS A 2006-10-26 00:00:00 Completed [facility] Proquad (MMR/VARICELLA) 2006-10-26 00:00:00 Completed [facility] HEPATITIS A 2006-10-26 00:00:00 Completed [facility] Proquad (MMR/VARICELLA) 2006-10-26 00:00:00 Completed [facility] HEPATITIS A 2006-10-26 00:00:00 Completed [facility] Proquad (MMR/VARICELLA) 2006-10-26 00:00:00 Completed [facility] HEPATITIS A 2006-10-26 00:00:00 Completed [facility] Proquad (MMR/VARICELLA) 2006-10-26 00:00:00 Completed [facility] HEPATITIS A 2006-10-26 00:00:00 Completed [facility] Proquad (MMR/VARICELLA) 2006-10-26 00:00:00 Completed [facility] HEPATITIS A 2006-10-26 00:00:00 Completed [facility] Proquad (MMR/VARICELLA) 2006-10-26 00:00:00 Completed [facility] HEPATITIS A 2006-10-26 00:00:00 Completed [facility] Proquad (MMR/VARICELLA) 2006-10-26 00:00:00 Completed [facility] HEPATITIS A 2006-10-26 00:00:00 Completed [facility] Proquad (MMR/VARICELLA) 2006-10-26 00:00:00 Completed [facility] HEPATITIS A 2006-10-26 00:00:00 Completed [facility] Proquad (MMR/VARICELLA) 2006-10-26 00:00:00 Completed [facility] HEPATITIS A 2006-10-26 00:00:00 Completed [facility] Proquad (MMR/VARICELLA) 2006-10-26 00:00:00 Completed [facility] HEPATITIS A 2006-10-26 00:00:00 Completed [facility] Proquad (MMR/VARICELLA) 2006-10-26 00:00:00 Completed [facility] HEPATITIS A 2006-10-26 00:00:00 Completed [facility] Proquad (MMR/VARICELLA) 2006-10-26 00:00:00 Completed [facility] HEPATITIS A 2006-10-26 00:00:00 Completed [facility] Proquad (MMR/VARICELLA) 2006-10-26 00:00:00 Completed [facility] HEPATITIS A 2006-10-26 00:00:00 Completed [facility] Proquad (MMR/VARICELLA) 2006-10-26 00:00:00 Completed [facility] HEPATITIS A 2006-10-26 00:00:00 Completed [facility] Proquad (MMR/VARICELLA) 2006-10-26 00:00:00 Completed [facility] HEPATITIS A 2006-10-26 00:00:00 Completed [facility] Proquad (MMR/VARICELLA) 2006-10-26 00:00:00 Completed [facility] HEPATITIS A 2006-10-26 00:00:00 Completed [facility] Proquad (MMR/VARICELLA) 2006-10-26 00:00:00 Completed [facility] HEPATITIS A 2006-10-26 00:00:00 Completed [facility] Proquad (MMR/VARICELLA) 2006-10-26 00:00:00 Completed [facility] HEPATITIS A 2006-10-26 00:00:00 Completed [facility] Proquad (MMR/VARICELLA) 2006-10-26 00:00:00 Completed [facility] HEPATITIS A 2006-10-26 00:00:00 Completed [facility] Proquad (MMR/VARICELLA) 2006-10-26 00:00:00 Completed [facility] HEPATITIS A- PEDI/ADOL 2006-10-26 00:00:00 Completed Juanis Bolden MMR/Varicella (ProQuad) 2006-10-26 00:00:00 Completed Juanis Bolden HEPATITIS A- PEDI/ADOL 2006-10-26 00:00:00 Completed Juanis Bolden MMR/Varicella (ProQuad) 2006-10-26 00:00:00 Completed Juanis Bolden HEPATITIS A Unknown Completed [facility] Influenza Virus Vaccine Quad IM Multi-dose 6+ MO Unknown Completed [facility] Proquad (MMR/VARICELLA) Unknown Completed [facility] TDAP Unknown Completed [facility] HEPATITIS A Unknown Completed [facility] Influenza Virus Vaccine Quad IM Multi-dose 6+ MO Unknown Completed [facility] Proquad (MMR/VARICELLA) Unknown Completed [facility] TDAP Unknown Completed [facility] HEPATITIS A Unknown Completed [facility] Influenza Virus Vaccine Quad IM Multi-dose 6+ MO Unknown Completed [facility] Proquad (MMR/VARICELLA) Unknown Completed [facility] TDAP Unknown Completed [facility] HEPATITIS A Unknown Completed [facility] Influenza Virus Vaccine Quad IM Multi-dose 6+ MO Unknown Completed [facility] Proquad (MMR/VARICELLA) Unknown Completed [facility] TDAP Unknown Completed [facility] HEPATITIS A Unknown Completed [facility] Influenza Virus Vaccine Quad IM Multi-dose 6+ MO Unknown Completed [facility] Proquad (MMR/VARICELLA) Unknown Completed [facility] TDAP Unknown Completed [facility] HEPATITIS A Unknown Completed [facility] Influenza Virus Vaccine Quad IM Multi-dose 6+ MO Unknown Completed [facility] Proquad (MMR/VARICELLA) Unknown Completed [facility] TDAP Unknown Completed [facility] HEPATITIS A Unknown Completed [facility] Influenza Virus Vaccine Quad IM Multi-dose 6+ MO Unknown Completed [facility] Proquad (MMR/VARICELLA) Unknown Completed [facility] TDAP Unknown Completed [facility] HEPATITIS A Unknown Completed [facility] Influenza Virus Vaccine Quad IM Multi-dose 6+ MO Unknown Completed [facility] Proquad (MMR/VARICELLA) Unknown Completed [facility] TDAP Unknown Completed [facility] HEPATITIS A Unknown Completed [facility] Influenza Virus Vaccine Quad IM Multi-dose 6+ MO Unknown Completed [facility] Proquad (MMR/VARICELLA) Unknown Completed [facility] TDAP Unknown Completed [facility] HEPATITIS A Unknown Completed [facility] Influenza Virus Vaccine Quad IM Multi-dose 6+ MO Unknown Completed [facility] Proquad (MMR/VARICELLA) Unknown Completed [facility] TDAP Unknown Completed [facility] HEPATITIS A Unknown Completed [facility] Influenza Virus Vaccine Quad IM Multi-dose 6+ MO Unknown Completed [facility] Proquad (MMR/VARICELLA) Unknown Completed [facility] TDAP Unknown Completed [facility] HEPATITIS A Unknown Completed [facility] Influenza Virus Vaccine Quad IM Multi-dose 6+ MO Unknown Completed [facility] Proquad (MMR/VARICELLA) Unknown Completed [facility] TDAP Unknown Completed [facility] HEPATITIS A Unknown Completed [facility] Influenza Virus Vaccine Quad IM Multi-dose 6+ MO Unknown Completed [facility] Proquad (MMR/VARICELLA) Unknown Completed [facility] TDAP Unknown Completed [facility] Vital Signs Vital Name Observation Time Observation Value Comments S ource Systolic blood pressure 2024-09-03 22:14:00 115 mm[Hg] [facility] Diastolic blood pressure 2024-09-03 22:14:00 71 mm[Hg] [facility] Heart rate 2024-09-03 22:14:00 60 [facility] Body temperature 2024-09-03 22:14:00 37 Kait [facility] Respiratory rate 2024-09-03 22:14:00 18 /min [facility] Body height 2024-09-03 22:14:00 165.1 cm [facility] Body weight 2024-09-03 22:14:00 99.791 kg [facility] BMI 2024-09-03 22:14:00 36.61 kg/m2 [facility] Oxygen saturation in Arterial blood by Pulse oximetry 2024-09-03 22:14:00 96 /min [facility] Systolic blood pressure 2024-05-23 13:35:00 147 mm[Hg] [facility] Diastolic blood pressure 2024-05-23 13:35:00 98 mm[Hg] [facility] Heart rate 2024-05-23 13:35:00 94 /min [facility] Body temperature 2024-05-23 13:35:00 36.17 Kait [facility] Body height 2024-05-23 13:35:00 165.1 cm [facility] Body weight 2024-05-23 13:35:00 99.791 kg [facility] BMI 2024-05-23 13:35:00 36.61 kg/m2 [facility] Systolic blood pressure 2024-05-17 14:37:00 130 mm[Hg] [facility] Diastolic blood pressure 2024-05-17 14:37:00 82 mm[Hg] [facility] Heart rate 2024-05-17 14:37:00 74 /min [facility] Body temperature 2024-05-17 14:37:00 36.61 Kait [facility] Respiratory rate 2024-05-17 14:37:00 17 /min [facility] Body height 2024-05-17 14:37:00 165.1 cm [facility] Body weight 2024-05-17 14:37:00 101.634 kg [facility] BMI 2024-05-17 14:37:00 37.29 kg/m2 [facility] Oxygen saturation in Arterial blood by Pulse oximetry 2024-05-17 14:37:00 98 /min [facility] Systolic blood pressure 2024-05-01 20:21:00 112 mm[Hg] [facility] Diastolic blood pressure 2024-05-01 20:21:00 76 mm[Hg] [facility] Heart rate 2024-05-01 20:21:00 75 /min [facility] Body temperature 2024-05-01 20:21:00 36.78 Kait [facility] Respiratory rate 2024-05-01 20:21:00 18 /min [facility] Body height 2024-05-01 20:21:00 165.1 cm [facility] Body weight 2024-05-01 20:21:00 101.56 kg [facility] BMI 2024-05-01 20:21:00 37.26 kg/m2 [facility] Oxygen saturation in Arterial blood by Pulse oximetry 2024-05-01 20:21:00 96 /min [facility] Systolic blood pressure 2024-04-17 19:21:00 124 mm[Hg] [facility] Diastolic blood pressure 2024-04-17 19:21:00 73 mm[Hg] [facility] Heart rate 2024-04-17 19:21:00 72 [facility] Body temperature 2024-04-17 19:21:00 36.89 Kait [facility] Respiratory rate 2024-04-17 19:21:00 16 /min [facility] Body height 2024-04-17 19:21:00 175.3 cm [facility] Body weight 2024-04-17 19:21:00 101.152 kg [facility] BMI 2024-04-17 19:21:00 32.93 kg/m2 [facility] Systolic blood pressure 2024-04-09 19:14:00 122 mm[Hg] [facility] Diastolic blood pressure 2024-04-09 19:14:00 67 mm[Hg] [facility] Heart rate 2024-04-09 19:14:00 74 [facility] Body temperature 2024-04-09 19:14:00 36.5 Kait [facility] Respiratory rate 2024-04-09 19:14:00 18 /min [facility] Body height 2024-04-09 19:14:00 165.1 cm [facility] Body weight 2024-04-09 19:14:00 104.781 kg [facility] BMI 2024-04-09 19:14:00 38.44 kg/m2 [facility] Systolic blood pressure 2023-12-16 11:02:00 110 mm[Hg] [facility] Diastolic blood pressure 2023-12-16 11:02:00 71 mm[Hg] [facility] Heart rate 2023-12-16 11:02:00 79 /min [facility] Body temperature 2023-12-16 11:02:00 36.61 Kait [facility] Respiratory rate 2023-12-16 11:02:00 18 /min [facility] Oxygen saturation in Arterial blood by Pulse oximetry 2023-12-16 11:02:00 97 /min [facility] Body height 2023-12-16 09:16:00 165.1 cm [facility] Body weight 2023-12-16 09:16:00 100.925 kg [facility] BMI 2023-12-16 09:16:00 37.03 kg/m2 [facility] Systolic blood pressure 2023-11-02 06:38:00 131 mm[Hg] [facility] Diastolic blood pressure 2023-11-02 06:38:00 77 mm[Hg] [facility] Heart rate 2023-11-02 06:38:00 64 /min [facility] Body temperature 2023-11-02 06:38:00 36.61 Kait [facility] Respiratory rate 2023-11-02 06:38:00 18 /min [facility] Oxygen saturation in Arterial blood by Pulse oximetry 2023-11-02 06:38:00 100 /min [facility] Body height 2023-11-02 04:22:00 165.1 cm [facility] Body weight 2023-11-02 04:22:00 103.465 kg [facility] BMI 2023-11-02 04:22:00 37.96 kg/m2 [facility] Systolic blood pressure 2023-08-04 14:41:00 136 mm[Hg] [facility] Diastolic blood pressure 2023-08-04 14:41:00 85 mm[Hg] [facility] Heart rate 2023-08-04 14:41:00 90 /min [facility] Body height 2023-08-04 14:41:00 165.1 cm [facility] Body weight 2023-08-04 14:41:00 110.133 kg [facility] BMI 2023-08-04 14:41:00 40.40 kg/m2 [facility] Oxygen saturation in Arterial blood by Pulse oximetry 2023-08-04 14:41:00 98 /min [facility] Systolic blood pressure 2023-06-01 18:01:00 115 mm[Hg] [facility] Diastolic blood pressure 2023-06-01 18:01:00 62 mm[Hg] [facility] Heart rate 2023-06-01 18:01:00 79 [facility] Body temperature 2023-06-01 18:01:00 36.67 Kait [facility] Respiratory rate 2023-06-01 18:01:00 18 /min [facility] Body weight 2023-06-01 18:01:00 112.674 kg [facility] BMI 2023-06-01 18:01:00 41.34 kg/m2 [facility] Systolic blood pressure 2023-03-08 16:03:00 102 mm[Hg] [facility] Diastolic blood pressure 2023-03-08 16:03:00 70 mm[Hg] [facility] Heart rate 2023-03-08 16:03:00 73 /[facility] Body height 2023-03-08 16:03:00 165.1 cm [facility] Body weight 2023-03-08 16:03:00 115.214 kg [facility] BMI 2023-03-08 16:03:00 42.27 kg/m2 [facility] Oxygen saturation in Arterial blood by Pulse oximetry 2023-03-08 16:03:00 98 /min [facility] Systolic blood pressure 2022-12-06 15:23:00 105 mm[Hg] [facility] Diastolic blood pressure 2022-12-06 15:23:00 68 mm[Hg] [facility] Heart rate 2022-12-06 15:22:00 79 /min [facility] Body temperature 2022-12-06 15:22:00 36.94 Kait [facility] Body height 2022-12-06 15:22:00 165.1 cm [facility] Body weight 2022-12-06 15:22:00 111.131 kg [facility] BMI 2022-12-06 15:22:00 40.77 kg/m2 [facility] Oxygen saturation in Arterial blood by Pulse oximetry 2022-12-06 15:22:00 98 /min [facility] Systolic blood pressure 2022-09-07 17:04:00 104 mm[Hg] [facility] Diastolic blood pressure 2022-09-07 17:04:00 68 mm[Hg] [facility] Heart rate 2022-09-07 17:04:00 80 /min [facility] Body temperature 2022-09-07 17:04:00 36.83 Kait [facility] Respiratory rate 2022-09-07 17:04:00 17 /min [facility] Body height 2022-09-07 17:04:00 165.1 cm [facility] Body weight 2022-09-07 17:04:00 107.457 kg [facility] BMI 2022-09-07 17:04:00 39.42 kg/m2 [facility] Systolic blood pressure 2022-08-17 22:05:00 132 mm[Hg] [facility] Diastolic blood pressure 2022-08-17 22:05:00 84 mm[Hg] [facility] Heart rate 2022-08-17 22:05:00 74 /min [facility] Body temperature 2022-08-17 22:05:00 36.67 Kait [facility] Respiratory rate 2022-08-17 22:05:00 16 /min [facility] Body height 2022-08-17 22:05:00 165.1 cm [facility] Body weight 2022-08-17 22:05:00 107.775 kg [facility] BMI 2022-08-17 22:05:00 39.54 kg/m2 [facility] Oxygen saturation in Arterial blood by Pulse oximetry 2022-08-17 22:05:00 96 /min [facility] Systolic blood pressure 2022-07-29 19:30:00 121 mm[Hg] [facility] Diastolic blood pressure 2022-07-29 19:30:00 60 mm[Hg] [facility] Heart rate 2022-07-29 19:30:00 99 /min [facility] Body temperature 2022-07-29 19:30:00 36.11 Kait [facility] Respiratory rate 2022-07-29 19:30:00 18 /min [facility] Oxygen saturation in Arterial blood by Pulse oximetry 2022-07-29 19:30:00 100 /min [facility] Body height 2022-07-28 03:15:00 165.1 cm [facility] Body weight 2022-07-28 03:15:00 118.933 kg [facility] BMI 2022-07-28 03:15:00 43.63 kg/m2 [facility] Systolic blood pressure 2022-07-26 20:24:00 118 mm[Hg] [facility] Diastolic blood pressure 2022-07-26 20:24:00 89 mm[Hg] [facility] Heart rate 2022-07-26 19:28:00 108 /min [facility] Body height 2022-07-26 19:28:00 165.1 cm [facility] Body weight 2022-07-26 19:28:00 119.75 kg [facility] BMI 2022-07-26 19:28:00 43.93 kg/m2 [facility] Oxygen saturation in Arterial blood by Pulse oximetry 2022-07-26 19:28:00 97 /min [facility] Systolic blood pressure 2022-07-19 21:52:00 124 mm[Hg] [facility] Diastolic blood pressure 2022-07-19 21:52:00 86 mm[Hg] [facility] Heart rate 2022-07-19 21:49:00 101 /min [facility] Body temperature 2022-07-19 21:49:00 36.44 Kait [facility] Respiratory rate 2022-07-19 21:49:00 18 /min [facility] Body height 2022-07-19 21:49:00 165.1 cm [facility] Body weight 2022-07-19 21:49:00 117.482 kg [facility] BMI 2022-07-19 21:49:00 43.10 kg/m2 [facility] Systolic blood pressure 2022-07-15 02:00:00 125 mm[Hg] [facility] Diastolic blood pressure 2022-07-15 02:00:00 78 mm[Hg] [facility] Heart rate 2022-07-15 02:00:00 84 /min [facility] Oxygen saturation in Arterial blood by Pulse oximetry 2022-07-15 02:00:00 100 /min [facility] Body height 2022-07-15 00:37:00 165.1 cm [facility] Body weight 2022-07-15 00:37:00 115.486 kg [facility] BMI 2022-07-15 00:37:00 42.37 kg/m2 [facility] Body temperature 2022-07-15 00:00:00 37.11 Kait [facility] Respiratory rate 2022-07-15 00:00:00 20 /min [facility] Systolic blood pressure 2022-07-12 22:03:00 119 mm[Hg] [facility] Diastolic blood pressure 2022-07-12 22:03:00 82 mm[Hg] [facility] Heart rate 2022-07-12 21:52:00 75 /min [facility] Body temperature 2022-07-12 21:52:00 36.72 Kait [facility] Respiratory rate 2022-07-12 21:52:00 18 /min [facility] Body height 2022-07-12 21:52:00 165.1 cm [facility] Body weight 2022-07-12 21:52:00 115.667 kg [facility] BMI 2022-07-12 21:52:00 42.43 kg/m2 [facility] Heart rate 2022-07-05 17:14:00 100 /min [facility] Systolic blood pressure 2022-07-05 16:08:00 119 mm[Hg] [facility] Diastolic blood pressure 2022-07-05 16:08:00 71 mm[Hg] [facility] Body temperature 2022-07-05 16:08:00 36.61 Kait [facility] Respiratory rate 2022-07-05 16:08:00 16 /min [facility] Body height 2022-07-05 16:08:00 165.1 cm [facility] Body weight 2022-07-05 16:08:00 114.896 kg [facility] BMI 2022-07-05 16:08:00 42.15 kg/m2 [facility] Oxygen saturation in Arterial blood by Pulse oximetry 2022-07-05 16:08:00 97 /min [facility] Systolic blood pressure 2022-06-29 07:15:00 125 mm[Hg] [facility] Diastolic blood pressure 2022-06-29 07:15:00 68 mm[Hg] [facility] Heart rate 2022-06-29 07:15:00 87 [facility] Oxygen saturation in Arterial blood by Pulse oximetry 2022-06-29 07:15:00 99 /min [facility] Body temperature 2022-06-29 05:10:00 36.67 Kait [facility] Respiratory rate 2022-06-29 05:10:00 16 /min [facility] Body height 2022-06-29 05:10:00 165.1 cm [facility] Body weight 2022-06-29 05:10:00 111.358 kg [facility] BMI 2022-06-29 05:10:00 40.85 kg/m2 [facility] Heart rate 2022-06-27 15:46:00 132 /min [facility] Body temperature 2022-06-27 15:46:00 36.61 Kait [facility] Respiratory rate 2022-06-27 15:46:00 16 /min [facility] Body height 2022-06-27 15:46:00 165.1 cm [facility] Body weight 2022-06-27 15:46:00 114.76 kg [facility] BMI 2022-06-27 15:46:00 42.10 kg/m2 [facility] Oxygen saturation in Arterial blood by Pulse oximetry 2022-06-27 15:46:00 98 /min [facility] Systolic blood pressure 2022-06-27 15:46:00 127 mm[Hg] [facility] Diastolic blood pressure 2022-06-27 15:46:00 86 mm[Hg] [facility] Systolic blood pressure 2022-06-09 15:39:00 122 mm[Hg] [facility] Diastolic blood pressure 2022-06-09 15:39:00 86 mm[Hg] [facility] Heart rate 2022-06-09 15:37:00 123 /min [facility] Body temperature 2022-06-09 15:37:00 36.56 Kait [facility] Respiratory rate 2022-06-09 15:37:00 18 /min [facility] Body height 2022-06-09 15:37:00 165.1 cm [facility] Body weight 2022-06-09 15:37:00 109.317 kg [facility] BMI 2022-06-09 15:37:00 40.10 kg/m2 [facility] Systolic blood pressure 2022-05-26 14:33:00 115 mm[Hg] [facility] Diastolic blood pressure 2022-05-26 14:33:00 82 mm[Hg] [facility] Heart rate 2022-05-26 14:33:00 105 /min [facility] Body temperature 2022-05-26 14:33:00 36.44 Kait [facility] Respiratory rate 2022-05-26 14:33:00 16 /min [facility] Body height 2022-05-26 14:33:00 165.1 cm [facility] Body weight 2022-05-26 14:33:00 109.272 kg [facility] BMI 2022-05-26 14:33:00 40.09 kg/m2 [facility] Oxygen saturation in Arterial blood by Pulse oximetry 2022-05-26 14:33:00 9 /min [facility] Systolic blood pressure 2022-05-10 14:21:00 114 mm[Hg] [facility] Diastolic blood pressure 2022-05-10 14:21:00 79 mm[Hg] [facility] Heart rate 2022-05-10 14:21:00 107 /min [facility] Body temperature 2022-05-10 14:21:00 36.67 Kait [facility] Respiratory rate 2022-05-10 14:21:00 18 /min [facility] Body height 2022-05-10 14:21:00 165.1 cm [facility] Body weight 2022-05-10 14:21:00 107.502 kg [facility] BMI 2022-05-10 14:21:00 39.44 kg/m2 [facility] Systolic blood pressure 2022-04-26 14:33:00 132 mm[Hg] [facility] Diastolic blood pressure 2022-04-26 14:33:00 84 mm[Hg] [facility] Heart rate 2022-04-26 14:33:00 101 /min [facility] Body temperature 2022-04-26 14:33:00 36.56 Kait [facility] Respiratory rate 2022-04-26 14:33:00 18 /min [facility] Body height 2022-04-26 14:33:00 165.1 cm [facility] Body weight 2022-04-26 14:33:00 107.956 kg [facility] BMI 2022-04-26 14:33:00 39.61 kg/m2 [facility] Systolic blood pressure 2022-03-30 15:58:00 113 mm[Hg] [facility] Diastolic blood pressure 2022-03-30 15:58:00 80 mm[Hg] [facility] Heart rate 2022-03-30 15:58:00 117 /min [facility] Body temperature 2022-03-30 15:58:00 36.44 Kait [facility] Respiratory rate 2022-03-30 15:58:00 18 /min [facility] Body height 2022-03-30 15:58:00 165.1 cm [facility] Body weight 2022-03-30 15:58:00 105.688 kg [facility] BMI 2022-03-30 15:58:00 38.77 kg/m2 [facility] Oxygen saturation in Arterial blood by Pulse oximetry 2022-03-30 15:58:00 96 /min [facility] Systolic blood pressure 2021-08-27 14:13:00 138 mm[Hg] [facility] Diastolic blood pressure 2021-08-27 14:13:00 96 mm[Hg] [facility] Heart rate 2021-08-27 14:13:00 100 /min [facility] Body temperature 2021-08-27 14:13:00 37.11 Kait [facility] Respiratory rate 2021-08-27 14:13:00 18 /min [facility] Body weight 2021-08-27 14:13:00 92.987 kg [facility] Oxygen saturation in Arterial blood by Pulse oximetry 2021-08-27 14:13:00 98 /min [facility] Systolic blood pressure 2021-08-19 14:50:00 124 mm[Hg] Juan[facility] eve [facility] Diastolic blood pressure 2021-08-19 14:50:00 71 mm[Hg] [facility] Heart rate 2021-08-19 14:50:00 84 /min Sujey kiran Niceyblen Body temperature 2021-08-19 14:50:00 36.67 Kait Juanis Bolden Respiratory rate 2021-08-19 14:50:00 14 /min Juanis Bolden Body height 2021-08-19 14:50:00 165.1 cm Yodit Bolden Body weight 2021-08-19 14:50:00 94.802 kg Yodit Bolden BMI 2021-08-19 14:50:00 34.78 kg/m2 Yodit Bolden Body mass index (BMI) [Percentile] Per age and sex 2021-08-19 14:50:00 96.92 % Juanis Alexis ld Procedures Procedure Date / Time Performed Performing Clinician Source LIPASE 2024-09-03 23:28:00 Arley Barry [facility] TEST, URINE 2024-09-03 23:28:00 Otis Phillips [facility] COMP. METABOLIC PANEL (71885) 2024-09-03 23:28:00 Arley Barry [facility] CBC WITH DIFF 2024-09-03 23:28:00 Jhonny Arley [facility] URINALYSIS 2024-09-03 23:28:00 Arley Barry [facility] HB ABO GROUPING 2024-09-03 23:28:00 Arley Barry [facility] XR KNEE 3 VW LEFT 2024-05-17 15:09:42 Amie Zhang [facility] POCT TEST 2024-04-17 19:26:00 AdDulce zaman [facility] URINALYSIS 2023-12-16 09:35:00 Dalton Hawkins [facility] POCT TEST 2023-12-16 09:35:00 Madisyn Hawkins [facility] CT ABDOMEN PELVIS WO CONTRAST 2023-11-02 05:31:11 Milagro Clifton [facility] URINALYSIS 2023-11-02 05:04:00 Milagro Clifton [facility] POCT TEST 2023-11-02 05:04:00 Manolo Clifton [facility] MEDICAL RELEASE/CLEARANCE FORMS 2023-08-04 06:01:00 Doctor Unassigned, [place] [facility] BI ULTRASOUND BREAST COMPLETE RIGHT 2023-06-13 17:32:39 AdumDulce [facility] ASSIGNMENT OF BENEFITS 2023-06-01 17:46:06 Docto r Unassigned, [place] [facility] AUTHORIZATION FOR RELEASE OF PHI 2023-03-14 05:01:00 Doctor Unassigned, [place] [facility] CONSENT FOR CONTRACEPTION 2022-09-07 06:01:00 Doctor Unassigned, [place] [facility] POCT TEST 2022-09-07 00:00:00 Adum, Dulce Blankenship [facility] CBC WITHOUT DIFF 2022-07-29 22:07:00 [facility]um, [facility] 2022-07-29 16:45:11 Adum, Dulce Blankenship [facility] CBC WITH DIFF 2022-07-29 12:01:00 Adum, Dulce Sotelo [facility] CBC WITH DIFF 2022-07-29 06:27:00 Adum, Dulce Sotelo [facility] CENTRAL NEURAXIAL BLOCK 2022-07-28 20:10:49 Stevo Barrera [facility] CENTRAL NEURAXIAL BLOCK 2022-07-28 12:59:33 Case y, Amna Tevin [facility] CBC WITH DIFF 2022-07-28 03:00:00 Adum, Dulce Sotelo [facility] HEPATITIS B SURFACE ANTIGEN 2022-07-28 03:00:00 Adum, Dulce Blankenship [facility] HB ABO GROUPING 2022-07-28 03:00:00 Adum, Dulce Rachel [facility] ADC OR FABI ONLY - RPR 2022-07-28 03:00:00 Adum, Dulce Blankenship [facility] HIV 1/2 AG-AB WITH REFLEX 2022-07-28 03:00:00 Adum, Dulce Blankenship [facility] HOSPITAL ADMISSION 2022-07-27 06:01:00 Doctor Un assigned, [place] [facility] POCT URINALYSIS 2022-07-26 19:32:00 Adum, Dulce Rachel [facility] ASSIGNMENT OF BENEFITS 2022-07-19 22:55:08 Docto r Unassigned, [place] [facility] POCT URINALYSIS W/O SPECIFIC GRAVITY 2022-07-19 00:00:00 Adum, Dulce Krzysztof [facility] SGOT (ASPARTATE AMINO TRANSFER) 2022-07-15 01:29:00 Adum, Dulce Krzysztof [facility] CREATININE 2022-07-15 01:29:00 Adum, Dulce L [facility] ALANINE AMINO TRANSFERASE(SGPT 2022-07-15 01:29:00 Adum, Dulce Krzysztof [facility] LACTATE DEHYDROGENASE 2022-07-15 01:29:00 Adum, Dulce Krzysztof [facility] URIC ACID 2022-07-15 01:29:00 [facility] CBC WITH DIFF 2022-07-15 01:29:00 Adum, Dulce Blankenship [facility] CONSENT/REFUSAL FOR DIAGNOSIS AND TREATMENT 2022-07-15 00:30:53 Doctor Unassigned, [place] [facility] POCT URINALYSIS W/O SPECIFIC GRAVITY 2022-07-12 22:01:00 Adum, Dulce Krzysztof [facility] POCT URINALYSIS W/O SPECIFIC GRAVITY 2022-07-05 00:00:00 Adum, Dulce Krzysztof [facility] DME/SUPPLY JUSTIFICATION 2022-06-30 06:01:00 Doc tor Unassigned, [place] [facility] DSU PRE-OP 2022-06-27 06:01:00 Doctor Unass igned, [place] [facility] POCT URINALYSIS W/O SPECIFIC GRAVITY 2022-06-27 00:00:00 [facility] W/O SPECIFIC GRAVITY 2022-06-09 00:00:00 Alexa [facility] POCT URINALYSIS W/O SPECIFIC GRAVITY 2022-05-26 00:00:00 Alexa [facility] ASSIGNMENT OF BENEFITS 2022-05-23 16:41:39 Docto r Unassigned, [place] [facility] ASSIGNMENT OF BENEFITS 2022-05-10 13:43:54 Docto r Unassigned, [place] [facility] POCT URINALYSIS W/O SPECIFIC GRAVITY 2022-05-10 00:00:00 YeseniaifeanyichachaJoseph smith [facility] POCT URINALYSIS W/O SPECIFIC GRAVITY 2022-04-26 00:00:00 AlexaJoseph [facility] POCT URINALYSIS 2022-03-30 16:00:00 Dulce Mercedes [facility] POCT TEST 2021-08-27 14:21:00 Lana Blum ra [facility] URINALYSIS 2021-08-27 14:18:00 [facility] RAPID INFLUENZA A/B 2021-08-27 14:18:00 Lana Blum ra [facility] NOTICE OF PRIVACY PRACTICES 2021-08-27 14:05:33 Doctor Unassigned, [place] [facility] NOTICE OF PRIVACY PRACTICES 2021-08-27 14:04:21 Doctor Unassigned, [place] [facility] NOTICE OF PRIVACY PRACTICES 2017-02-09 22:08:14 Doctor Unassigned, [place] [facility] CONSENT/REFUSAL FOR DIAGNOSIS AND TREATMENT 2017-02-09 22:07:59 Doctor Unassigned, [place] [facility] ASSIGNMENT OF BENEFITS 2017-02-09 22:07:48 Docto r Unassigned, [place] [facility] Encounters Start Date/Time End Date/Time Encounter Type Admission Type Attending [facility] Care Facility Care Department Encounter ID Source 2022-06-29 01:51:13 Outpatient P [facility] [id number] [facility] 2021-05-31 12:24:50 Emergency [facility] [id number] [facility] 2024-10-03 15:15:00 2024-10-03 15:15:00 Outpatient R DULCE MERCEDES VIVIAN [facility] [id number] [facility] 2024-09-26 14:00:00 2024-09-26 14:00:00 Outpatient DULCE JOHN VIVIAN [facility] [id number] [facility] 2017-02-09 00:00:00 2024 03:43:57 Orders Only Doctor Unassigned, [place] Doctor Unassigned, [place] [facility] ([facility] 1.2.840.114 350.1.13.10 4.2.7.2.686 [id number] [facility] 2024-09-03 16:16:00 2024-09-03 20:54:00 Emergency X ARLEY BARRY [facility] [id number] [facility] 2024-09-03 16:16:00 2024-09-03 20:54:00 Emergency Arley Barry [facility] 1.2.840.114 350.1.13.10 4.2.7.2.686 [id number] [facility] 2024-07-09 00:00:00 2024-08-10 18:17:00 Patient Secure Msg Doctor Unassigned, [place] Doctor Unassigned, [place] [facility] PROFESSIO REPLACED BY [facility] 1.2.840.114 350.1.13.10 4.2.7.2.686 [id number] [facility] 2024-08-09 14:30:00 2024-08-09 14:30:00 Outpatient R DULCE MERCEDES VIVIAN [facility] [id number] [facility] 2024-07-11 10:30:00 2024-07-11 10:30:00 Outpatient R [facility] [id number] [facility] 2024-07-09 15:00:00 2024-07-09 15:00:00 Outpatient R DULCE MERCEDES VIVIAN [facility] [id number] [facility] 2024-05-09 00:00:00 2024-06-15 18:26:51 Patient Secure Msg Doctor Unassigned, [place] Doctor Unassigned, [place] [facility] ([facility] 1.2840.114 350.1.13.10 4.2.7.2.686 [id number] [facility] 2024-05-31 13:30:00 2024-05-31 13:30:00 Outpatient SHAD ANN [facility] [id number] [facility] 2024-05-29 00:00:00 2024-05-29 17:06:56 Telephone Richard Eason [facility] 1.2840.114 350.1.13.10 4.2.7.2.686 [id number] [facility] 2024-05-23 08:30:00 2024-05-23 09:38:50 Outpatient R RICHARD EASON [facility] [id number] [facility] 2024-05-23 08:30:00 2024-05-23 09:38:50 Office Visit Richard Eason [facility] 1.840.114 350.1.13.10 4.2.7.2.686 [id number] [facility] 2024-05-20 00:00:00 2024-05-23 07:15:50 Patient Secure Shad Olson [facility] 1..840.114 350.1.13.10 4.2.7.2.686 [id number] [facility] 2024-05-17 09:53:05 2024-05-17 23:59:00 Outpatient R LEATHAAMIE [facility] [id number] [facility] 2024-05-17 09:53:05 2024-05-17 23:59:00 Hospital Encounter Guillermovenkata Amie [facility] 1..840.114 350.1.13.10 4.2.7.2.686 [id number] [facility] 2024-05-17 09:40:00 2024-05-17 10:35:49 Urgent Care Amie Zhang Unknown, Attending [facility] 1.2840.114 350.1.13.10 4.2.7.2.686 [id number] [facility] 2024-05-16 16:00:00 2024-05-16 16:00:00 Outpatient R UNKNOWN, ATTENDING [facility] [id number] [facility] 2024-05-03 00:00:00 2024-05-03 14:01:04 Letter (Out) [facility] (SHAUN) 1.840.114 350.1.13.10 4.2.7.2.686 [id number] [facility] 2024-05-01 16:00:00 2024-05-01 16:25:55 Car Bracer Visit Lab, Shad Harrington, Dusty Meza [facility] 1.2840.114 350.1.13.10 4.2.7.2.686 [id number] [facility] 2024-05-01 16:00:00 2024-05-01 16:00:00 Outpatient R SHAD COMER [facility] [id number] [facility] 2024-05-01 15:30:00 2024-05-01 15:54:53 Office Visit Shad Comer [facility] 1.2840.114 350.1.13.10 4.2.7.2.686 [id number] [facility] 2024-04-17 14:00:00 2024-04-17 14:15:00 Nurse Visit Nurse, [facility]ce Mercedes [facility] 1.284.114 350.1.13.10 4.2.7.2.686 [id number] [facility] 2024-04-17 14:00:00 2024-04-17 14:00:00 Outpatient R DULCE MERCEDES VIVIAN [facility] [id number] [facility] 2024-04-09 14:00:00 2024-04-09 14:40:04 Outpatient R DULCE MERCEDES VIVIAN [facility] [id number] [facility] 2024-04-09 14:00:00 2024-04-09 14:40:04 Office Visit Dulce Mercedes [facility] 1.2.840.114 350.1.13.10 4.2.7.2.686 [id number] [facility] 2024-03-04 00:00:00 2024-04-06 18:22:48 Patient Secure Msg Doctor Unassigned, [place] Doctor Unassigned, [place] [facility] 1.2.840.114 350.1.13.10 4.2.7.2.686 [id number] [facility] 2024-03-13 13:45:00 2024-03-13 13:45:00 Outpatient R DULCE MERCEDES DULCE [facility] [id number] [facility] 2024-02-27 00:00:00 2024-02-27 15:00:23 Refill Shad Comer [facility] 1.2.840.114 350.1.13.10 4.2.7.2.686 [id number] [facility] 2024-01-04 13:00:00 2024-01-04 13:00:00 Outpatient R DONALD WATSON [facility] [id number] [facility] 2023-12-18 09:30:00 2023-12-18 09:30:00 Outpatient SHAD ANN [facility] [id number] [facility] 2023-12-16 04:19:00 2023-12-16 06:10:00 Emergency X DALTON HAWKINS [facility] ERT [id number] [facility] 2023-12-16 04:19:00 2023-12-16 06:10:00 Emergency Dalton Hawkins [facility] 1.2.840.114 350.1.13.10 4.2.7.2.686 [id number] [facility] 2023-12-03 00:00:00 2023-12-05 11:08:27 Shad Guzmán [facility] 1.2.840.114 350.1.13.10 4.2.7.2.686 [id number] [facility] 2023-11-27 00:00:00 2023-11-27 00:00:00 Outpatient TOBIN RAYA [facility] [id number] [facility] 2023-11-01 23:25:00 2023-11-02 01:41:00 Emergency X MILAGRO CLIFTON [facility] ERT [id number] [facility] 2023-11-01 23:25:00 2023-11-02 01:41:00 Emergency Milagro Clifton [facility] 1.2.840.114 350.1.13.10 4.2.7.2.686 [id number] [facility] 2023-10-23 16:30:00 2023-10-23 16:30:00 Outpatient SHAD ANN [facility] [id number] [facility] 2023-09-27 10:30:00 2023-09-27 10:30:00 Outpatient SHAD ANN [facility] [id number] [facility] 2023-08-04 08:30:00 2023-08-04 09:01:44 Outpatient R SHAD COMER [facility] [id number] [facility] 2023-08-04 08:30:00 2023-08-04 09:01:44 [facility] 1.114 350.1.13.10 4.2.7.2.686 [id number] [facility] 2023-08-04 00:00:00 2023-08-04 00:00:00 Orders Only Doctor Unassigned, [place] [facility] 1.114 350.1.13.10 4.2.7.2.686 [id number] [facility] 2023-06-14 09:00:00 2023-06-14 09:00:00 Outpatient R IVAN WALSH [facility] [id number] [facility] 2023-06-13 09:47:20 2023-06-13 23:59:00 Outpatient R ELISEDULCE ZAMAN [facility] [id number] [facility] 2023-06-13 09:47:20 2023-06-13 23:59:00 Hospital Encounter Dulce Mercedes [facility] 1.114 350.1.13.10 4.2.7.2.686 [id number] [facility] 2023-06-01 13:00:00 2023-06-01 13:20:36 Outpatient R DULCE MERCEDES [facility] [id number] [facility] 2023-06-01 13:00:00 2023-06-01 13:20:36 Office Visit Daren Dulce [facility] PROFESSIO NAL BUILDING 1.114 350.1.13.10 4.2.7.2.686 [id number] [facility] 2023-06-01 00:00:00 2023-06-01 00:00:00 Orders Only Doctor Unassigned, [place] [facility] 1.2.840.114 350.1.13.10 4.2.7.2.686 [id number] [facility] 2023-05-30 00:00:00 2023-05-30 00:00:00 Outpatient [id number] [email or web address]_S [facility] [id number] [facility] 2023-03-20 10:00:00 2023-03-20 10:00:00 Outpatient ROCIO TAYLOR [facility] [id number] [facility] 2023-03-17 00:00:00 2023-03-17 00:00:00 Patient Secure Msg [facility] 1.2.840.114 350.1.13.10 4.2.7.2.686 [id number] [facility] 2023-03-14 00:00:00 2023-03-14 00:00:00 Orders Only Doctor Unassigned, [place] [facility] 1.2.840.114 350.1.13.10 4.2.7.2.686 [id number] [facility] 2023-03-08 12:00:00 2023-03-08 12:15:00 Car Bracer Visit Lab, Dusty Comer Shad [facility] 1.2.840.114 350.1.13.10 4.2.7.2.686 [id number] [facility] 2023-03-08 11:00:00 2023-03-08 11:39:59 Outpatient R SHAD COMER [facility] [id number] [facility] 2023-03-08 11:00:00 2023-03-08 11:39:59 [facility] 1.2.840.114 350.1.13.10 4.2.7.2.686 [id number] [facility] 2022-12-07 00:00:00 2022-12-07 00:00:00 Telephone Shad Comer [facility] 1.2840.114 350.1.13.10 4.2.7.2.686 [id number] [facility] 2022-12-06 10:30:00 2022-12-06 10:45:00 Car Bracer Visit Lab, Dusty Meza Shad Comer [facility] 1.2.840.114 350.1.13.10 4.2.7.2.686 [id number] [facility] 2022-12-06 10:00:00 2022-12-06 10:27:11 Outpatient R SHAD COMER [facility] [id number] [facility] 2022-12-06 10:00:00 2022-12-06 10:27:11 Office Visit Shad Comer [facility] 1.2.840.114 350.1.13.10 4.2.7.2.686 [id number] [facility] 2022-12-06 00:00:00 2022-12-06 00:00:00 Telephone Shad Comer [facility] 1.2.840.114 350.1.13.10 4.2.7.2.686 [id number] [facility] 2022-10-10 12:30:00 2022-10-10 12:30:00 Outpatient R RCOIO WESTON [facility] [id number] [facility] 2022-10-05 00:00:00 2022-10-05 00:00:00 Telephone Adum, Dulce Blankenship [facility] 1.2.840.114 350.1.13.10 4.2.7.2.686 [id number] [facility] 2022-09-07 11:00:00 2022-09-07 11:27:10 Outpatient R ADUM [facility] [id number] [facility] 2022-09-07 11:00:00 2022-09-07 11:27:10 Routine Visit Adum, Dulce [facility] 1.2.840.114 350.1.13.10 4.2.7.2.686 [id number] [facility] 2022-09-07 00:00:00 2022-09-07 00:00:00 Orders Only Doctor Unassigned, [place] [facility] 1.2.840.114 350.1.13.10 4.2.7.2.686 [id number] [facility] 2022-08-17 15:30:00 2022-08-17 16:23:38 Outpatient R ADAUSTYN DULCE [facility] [id number] [facility] 2022-08-17 15:30:00 2022-08-17 16:23:38 Routine Visit Adum, Dulce [facility] 1.2.840.114 350.1.13.10 4.2.7.2.686 [id number] [facility] 2022-08-17 13:30:00 2022-08-17 13:30:00 Outpatient R ADAUSTYN [facility] [id number] [facility] 2022-07-27 18:50:00 2022-07-29 19:50:00 Inpatient P [facility] [id number] [facility] 2022-07-27 18:50:00 2022-07-29 19:50:00 Hospital Encounter AdDulce zaman [facility] 1.2.840.114 350.1.13.10 4.2.7.2.686 [id number] [facility] 2022-07-28 06:30:00 2022-07-28 20:18:00 Anesthesia Event Amna Horvath Fernando [facility] 1.2.840.114 350.1.13.10 4.2.7.2.686 [id number] [facility] 2022-07-27 00:00:00 2022-07-27 00:00:00 Orders Only Doctor Unassigned, [place] [facility] 1.2.840.114 350.1.13.10 4.2.7.2.686 [id number] [facility] 2022-07-26 13:15:00 2022-07-26 14:00:47 Outpatient R ADAUSTYN [facility] [id number] [facility] 2022-07-26 13:15:00 2022-07-26 14:00:47 Routine Visit Ad, [facility] 1.2.840.114 350.1.13.10 4.2.7.2.686 [id number] [facility] 2022-07-19 15:45:00 2022-07-19 16:17:30 Routine Visit Ad, [facility] 1.2.840.114 350.1.13.10 4.2.7.2.686 [id number] [facility] 2022-07-19 15:45:00 2022-07-19 16:17:30 Outpatient R ADUM [facility] [id number] [facility] 2022-07-19 00:00:00 2022-07-19 00:00:00 Orders Only Doctor Unassigned, [place] [facility] 1.2.840.114 350.1.13.10 4.2.7.2.686 [id number] [facility] 2022-07-14 18:47:00 2022-07-14 20:20:00 Outpatient X ADUM, [facility] [id number] [facility] 2022-07-14 18:47:00 2022-07-14 20:20:00 Emergency Adum, [facility] 1.2.840.114 350.1.13.10 4.2.7.2.686 [id number] [facility] 2022-07-14 00:00:00 2022-07-14 00:00:00 Orders Only Doctor Unassigned, [place] [facility] 1.2.840.114 350.1.13.10 4.2.7.2.686 [id number] [facility] 2022-07-12 15:30:00 2022-07-12 15:45:00 Routine Visit Adum, [facility] 1.2.840.114 350.1.13.10 4.2.7.2.686 [id number] [facility] 2022-07-12 15:30:00 2022-07-12 15:30:00 Outpatient R ADUM, [facility] [id number] [facility] 2022-07-05 10:00:00 2022-07-05 10:43:56 Outpatient R ADUM, [facility] [id number] [facility] 2022-07-05 10:00:00 2022-07-05 10:43:56 Routine Visit Adum, [facility] 1.2.840.114 350.1.13.10 4.2.7.2.686 [id number] [facility] 2022-06-30 00:00:00 2022-06-30 00:00:00 Orders Only Doctor Unassigned, [place] [facility] 1.2.840.114 350.1.13.10 4.2.7.2.686 [id number] [facility] 2022-06-28 23:03:00 2022-06-29 01:35:00 Outpatient P DULCE MERCEDES [facility]I [id number] [facility] 2022-06-28 23:03:00 2022-06-29 01:35:00 Hospital Encounter Adaustyn Dulce Krzysztof [facility] 1.2.840.114 350.1.13.10 4.2.7.2.686 [id number] [facility] 2022-06-29 00:00:00 2022-06-29 00:00:00 Telephone Adaustyn Dulce Krzysztof [facility] 1.2.840.114 350.1.13.10 4.2.7.2.686 [id number] 134 [id number] [facility] 2022-06-28 00:00:00 2022-06-28 00:00:00 [facility] 1.2.840.114 350.1.13.10 4.2.7.2.686 [id number] [facility] 2022-06-27 09:30:00 2022-06-27 10:04:13 Outpatient R JOSEPH LIU CHERYAL [facility] [id number] [facility] 2022-06-27 09:30:00 2022-06-27 10:04:13 Routine Visit Joseph Liu [facility] 1.2.840.114 350.1.13.10 4.2.7.2.686 [id number] 134 [id number] [facility] 2022-06-27 00:00:00 2022-06-27 00:00:00 Orders Only Doctor Unassigned, [place] [facility] 1..114 350.1.13.10 4.2.7.2.686 [id number] [facility] 2022-06-11 00:00:00 2022-06-11 00:00:00 [facility]114 350.1.13.10 4.2.7.2.686 [id number] 134 [id number] [facility] 2022-06-11 00:00:00 2022-06-11 00:00:00 Letter (Out) Graham Torres [facility] 1.114 350.1.13.10 4.2.7.2.686 [id number] [facility] 2022-06-09 09:30:00 2022-06-09 10:00:36 [facility]patient [facility] [id number] [facility] 2022-06-09 09:30:00 2022-06-09 10:00:36 Routine Visit Joseph Liu [facility] 1.114 350.1.13.10 4.2.7.2.686 [id number] 134 [id number] [facility] 2022-05-26 09:30:00 2022-05-26 09:57:24 Outpatient R [facility]SEPH [facility] [id number] [facility] 2022-05-26 09:30:00 2022-05-26 09:57:24 Routine Visit Joseph Liu [facility] 1.114 350.1.13.10 4.2.7.2.686 [id number] 134 [id number] [facility] 2022-05-24 09:45:00 2022-05-24 09:45:00 Outpatient R JOSEPH LIU CHERYAL [facility] [id number] [facility] 2022-05-23 12:30:00 2022-05-23 12:45:00 Car Bracer Visit Rina, [facility] 1..114 350.1.13.10 4.2.7.2.686 [id number] [facility] [facility] 2022-05-23 12:30:00 2022-05-23 12:30:00 [facility] [id number] [facility] 2022-05-23 00:00:00 2022-05-23 00:00:00 Orders Only Doctor Unassigned, [place] [facility] 1..114 350.1.13.10 4.2.7.2.686 [id number] [id number] [facility] 2022-05-11 00:00:00 2022-05-11 00:00:00 Telephone Janna Sung [facility] 1.114 350.1.13.10 4.2.7.2.686 [id number] 134 [id number] [facility] 2022-05-10 09:00:00 2022-05-10 09:37:08 Outpatient R JOSEPH LIU [facility] [id number] [facility] 2022-05-10 09:00:00 2022-05-10 09:37:08 Routine Visit GaleJoseph almazan [facility] 1.114 350.1.13.10 4.2.7.2.686 [id number] 134 [id number] [facility] 2022-05-10 00:00:00 2022-05-10 00:00:00 Orders Only Doctor Unassigned, [place] [facility] 1.840.114 350.1.13.10 4.2.7.2.686 [id number] [facility] 2022-04-27 09:30:00 2022-04-27 09:30:00 [facility] [id number] [facility] 2022-04-26 09:30:00 2022-04-26 09:49:31 Outpatient R JOSEPH LIU [facility] [id number] [facility] 2022-04-26 09:30:00 2022-04-26 09:49:31 Routine Visit Joseph Liu [facility] 1.840.114 350.1.13.10 4.2.7.2.686 [id number] 134 [id number] [facility] 2022-04-25 08:00:00 2022-04-25 08:15:00 Car Bracer Visit Lab, Judd Valentin [facility] 1.840.114 350.1.13.10 4.2.7.2.686 [id number] [facility] 2022-04-25 08:00:00 2022-04-25 08:00:00 Outpatient R CHARLI JUDD [facility] [id number] [facility] 2022-03-30 11:00:00 2022-03-30 12:07:43 Outpatient R DULCE MERCEDES [facility] [id number] [facility] 2022-03-30 11:00:00 2022-03-30 12:07:43 Routine Visit Dulce Mercedes [facility] 1.840.114 350.1.13.10 4.2.7.2.686 [id number] 134 [id number] [facility] 2022-03-30 09:30:00 2022-03-30 09:30:00 Outpatient R JOSEPH LIU CHERYAL [facility] [id number] [facility] 2022-03-29 09:30:00 2022-03-29 09:30:00 Outpatient R JOSEPH LIU CHERYAL [facility] [id number] [facility] 2022-03-24 12:45:00 2022-03-24 13:00:00 Car Bracer Visit Pob, Kaleigh Lab Main Joseph Liu [facility] 1..840.114 350.1.13.10 4.2.7.2.686 [id number] [facility] 2022-03-24 12:45:00 2022-03-24 12:45:00 Outpatient R JOSEPH LIU CHERYAL [facility] [id number] [facility] 2022-03-22 14:45:00 2022-03-22 16:03:03 Car Bracer Visit 2, [facility] Room AlberSorin [facility] 1.840.114 350.1.13.10 4.2.7.2.686 [id number] [facility] 2022-03-22 14:45:00 2022-03-22 14:45:00 Outpatient P SORIN MONTERROSO [facility] [id number] [facility] 2022-03-11 09:30:00 2022-03-11 09:30:00 Outpatient P [facility] [id number] [facility] 2022-03-11 09:30:00 2022-03-11 09:30:00 Outpatient P [facility] [id number] [facility] 2022-03-03 02:26:00 2022-03-03 04:34:00 Emergency X GERMÁN MOSES [facility] ERT [id number] [facility] 2022-03-03 02:26:00 2022-03-03 04:34:00 Emergency Germán Moses [facility] 1.840.114 350.1.13.10 4.2.7.2.686 [id number] [id number] [facility] 2022-03-03 00:00:00 2022-03-03 00:00:00 Telephone Judd Augustin [facility] 1..114 350.1.13.10 4.2.7.2.686 [id number] 134 [id number] [facility] 2022-03-01 09:30:00 2022-03-01 10:11:20 [facility] [id number] [facility] 2022-03-01 09:30:00 2022-03-01 10:11:20 Routine Visit Alexa [facility] 1.284.114 350.1.13.10 4.2.7.2.686 [id number] 134 [id number] [facility] 2022-03-01 09:30:00 2022-03-01 10:11:20 Outpatient R JOSEPH LIU [facility] [id number] [facility] 2022-02-11 00:00:00 2022-02-11 00:00:00 Telephone Charli Judd [facility] 1.84.114 350.1.13.10 4.2.7.2.686 [id number] 134 [id number] [facility] 2022-02-11 00:00:00 2022-02-11 00:00:00 Case Management Joseph Liu [facility] 1..840.114 350.1.13.10 4.2.7.2.686 [id number] 134 [id number] [facility] 2022-02-01 09:30:00 2022-02-01 10:14:29 [facility] [id number] [facility] 2022-02-01 09:30:00 2022-02-01 10:14:29 Routine Visit Joseph Liu [facility] 1..840.114 350.1.13.10 4.2.7.2.686 [id number] 134 [id number] [facility] 2022-02-01 09:30:00 2022-02-01 10:14:29 Outpatient R JOSEPH LIU [facility] [id number] [facility] 2022-01-17 09:45:00 2022-01-17 10:36:11 Outpatient R JOSEPH LIU [facility] [id number] [facility] 2022-01-17 09:45:00 2022-01-17 10:36:11 [facility] [id number] [facility] 2022-01-17 09:45:00 2022-01-17 10:00:00 Car Bracer Visit Lab, Ang - Db [facility] 1.2.840.114 350.1.13.10 4.2.7.2.686 [id number] [facility] 2022-01-17 09:30:00 2022-01-17 09:30:00 Outpatient R JOSEPH LIU [facility] [id number] [facility] 2022-01-17 00:00:00 2022-01-17 00:00:00 Orders Only Doctor Unassigned, [place] [facility] 1.2.840.114 350.1.13.10 4.2.7.2.686 [id number] [id number] [facility] 2022-01-03 13:00:00 2022-01-03 13:34:08 Outpatient R ALEXAJOSEPH ALEXA [facility] [id number] [facility] 2022-01-03 13:00:00 2022-01-03 13:34:08 [facility] 1..840.114 350.1.13.10 4.2.7.2.686 [id number] 134 [id number] [facility] 2022-01-03 13:00:00 2022-01-03 13:34:08 Outpatient R ALEXAJOSEPH PABLOLUIS [facility] [id number] [facility] 2022-01-03 00:00:00 2022-01-03 00:00:00 Telephone Alexa [facility] 1..840.114 350.1.13.10 4.2.7.2.686 [id number] 134 [id number] [facility] 2021-12-20 09:30:00 2021-12-20 10:00:36 Outpatient R PABLOJOSEPH SMITH [facility] [id number] [facility] 2021-12-20 09:30:00 2021-12-20 10:00:36 [facility] 1.2.840.114 350.1.13.10 4.2.7.2.686 [id number] 134 [id number] [facility] 2021-12-16 09:35:00 2021-12-16 13:22:00 Emergency X ISABELLA, K [facility] ERT [id number] [facility] 2021-12-16 09:35:00 2021-12-16 13:22:00 Emergency Dulce German [facility] 1.2.840.114 350.1.13.10 4.2.7.2.686 [id number] [id number] [facility] 2021-12-16 00:00:00 2021-12-16 00:00:00 Patient Secure Msg Alexa [facility] 1.2.840.114 350.1.13.10 4.2.7.2.686 [id number] 134 [id number] [facility] 2021-12-15 00:00:00 2021-12-15 00:00:00 [facility] 1.2.840.114 350.1.13.10 4.2.7.2.686 [id number] 134 [id number] [facility] 2021-12-13 14:33:34 2021-12-13 23:59:00 Outpatient R JOSEPH LIU [facility] [id number] [facility] 2021-12-13 14:33:34 2021-12-13 23:59:00 Hospital Encounter Joseph Liu [facility] 1.2.840.114 350.1.13.10 4.2.7.2.686 [id number] [facility] 2021-11-24 00:00:00 2021-11-24 00:00:00 Telephone Yeseniaemily [facility] 1.2.840.114 350.1.13.10 4.2.7.2.686 [id number] 134 [id number] [facility] 2021-11-23 00:00:00 2021-11-23 00:00:00 Case Management Joseph Liu [facility] 1.2.840.114 350.1.13.10 4.2.7.2.686 [id number] 134 [id number] [facility] 2021-11-22 09:30:00 2021-11-22 11:02:50 [facility] [id number] [facility] 2021-11-22 09:30:00 2021-11-22 11:02:50 [facility] 1.2.840.114 350.1.13.10 4.2.7.2.686 [id number] 134 [id number] [facility] 2021-09-20 14:00:00 2021-09-20 14:00:00 Telemedici ne [facility] Farina 1.2.840.114 350.1.13.13 1.2.7.2.686 [id number] 0 [id number] Juanis [facility] 2021-09-20 11:00:00 2021-09-20 11:00:00 Outpatient [facility] [id number] Juanis [facility] 2021-08-27 08:16:00 2021-08-27 10:07:00 Emergency X BRITNEY BLUM [facility] ERT [id number] [facility] 2021-08-27 08:16:00 2021-08-27 10:07:00 Emergency X BRITNEY BLUM [facility] ERT [id number] [facility] 2021-08-27 08:16:00 2021-08-27 10:07:00 Emergency Britney Blum [facility] 1.2.840.114 350.1.13.10 4.2.7.2.686 [id number] [facility] 2021-08-19 09:00:00 2021-08-19 09:30:00 Office Visit Summer Burk 1.840.114 350.1.13.13 1.2.7.2.686 [id number] Juanis Bolden 2021-07-12 15:00:00 2021-07-12 15:00:00 Outpatient MARSHALL BORJA JUANIS [id number] Juanis [facility] 2021-05-10 00:00:00 2021-05-10 00:00:00 Letter (Out) Pinky Ascencio [facility] 1.84.114 350.1.13.10 4.2.7.2.686 [id number] [facility] 2021-05-09 09:58:53 2021-05-09 12:37:14 [facility] 1.84.114 350.1.13.10 4.2.7.2.686 [id number] [facility] 2021-05-09 10:00:00 2021-05-09 10:00:00 Outpatient R FABRICE Amado [facility] [id number] [facility] 2021-05-09 00:00:00 2021-05-09 00:00:00 Orders Only Doctor Unassigned, [place] [facility] 1..114 350.1.13.10 4.2.7.2.686 [id number] [id number] [facility] 2021-03-01 11:09:00 2021-03-01 12:27:00 Emergency Ned Phillips [facility] 1.84.114 350.1.13.10 4.2.7.2.686 [id number] [id number] [facility] 2021-03-01 00:00:00 2021-03-01 00:00:00 Orders Only Doctor Unassigned, [place] [facility] 1.2.840.114 350.1.13.10 4.2.7.2.686 [id number] [id number] [facility] 2020-03-23 15:37:26 2020-03-23 23:59:00 Hospital Encounter Radiology [facility] 1.2.840.114 350.1.13.10 4.2.7.2.686 [id number] [facility] 2020-03-23 00:00:00 2020-03-23 00:00:00 Outpatient R RADIOLOGY [facility] [id number] [facility] 2020-03-23 00:00:00 2020-03-23 00:00:00 Orders Only Doctor Unassigned, [place] [facility] 1.2.840.114 350.1.13.10 4.2.7.2.686 [id number] [id number] [facility] 2020-03-18 15:00:00 2020-03-18 15:00:00 Outpatient Shaun Sheridan [facility] [id number] [address] [facility] Results Test Description Test Time Test Comments Results Result Co mments Source [facility]2025-02-05 00:19:56* Test Item Value Reference Range Interpretation Comme nts LIPASE (test code = 7828551563) 175 U/L 0-220 Lab Interpretation (test cod e = 09283-2) Normal [facility] FallsCB WITH [id number] 00:06:55* Test Item Value Reference Range Interpretation Comme nts WBC (test code = 6690-2) 11.44 4.30-11.10 H RBC (test code = 789-8) 4.34 3.93-5.25 HGB (test code = 718-7) 12.4 g/dL 11.6-15.0 HCT (test code = 4544-3) 39.2 % 35.7-45.2 MCV (test code = 787-2) 90.3 fL 80.6-95.5 MCH (test code = 785-6) 28.6 pg 25.9-32.8 MCHC (test code = 786-4) 31.6 g/dL 31.6-35.1 RDW-SD (test code = 64381-1) 43.5 fL 39.0-49.9 RDW-CV (test code = 788-0) 13.0 % 12.0-15.5 PLT (test code = 777-3) 386 166-358 H MPV (test code = 86181-0) 9.0 fL 9.5-12.9 L NRBC/100 WBC (test code = 9525534520) 0.0 0.0-10.0 NRBC x10^3 (test code = 0875192902) See_Comment [Automated messa ge] The system which generated this result transmitted reference range: 10*3/?L. The reference range was not used to interpret this result as normal/abnormal. GRAN MAT (NEUT) % (test code = 770-8) 60.5 % IMM GRAN % (test code = 1471963794) 0.30 % LYMPH % (test code = 736-9) 31.9 % MONO % (test code = 5905-5) 6.5 % EOS % (test code = 713-8) 0.4 % BASO % (test code = 706-2) 0.4 % GRAN MAT x10^3(ANC) (test code = 8234122257) 6.91 10*3/uL 1.88-7.09 IMM GRAN x10^3 (test code = 2847505010) 0.04 10*3/uL 0.00-0.06 LYMPH x10^3 (test code = 731-0) 3.65 10*3/uL 1.32-3.29 H MONO x10^3 (test code = 742-7) 0.74 10*3/uL 0.33-0.92 EOS x10^3 (test code = 711-2) 0.05 10*3/uL 0.03-0.39 BASO x10^3 (test code = 704-7) 0.05 10*3/uL 0.01-0.07 Lab Interpretation (test code = 34314-5) Abnormal [facility] FallsType and Screen - ONCE [id number] 00:02:00* Test Item Value Reference Range Interpretation Comme nts ABO & RH (test code = 20) A POSITIVE IAT (test code = 1185) Negative [facility] FallsXR KNEE 3 VW [id number] 02:59:29Ordering Physician: RELL VIERA HISTORY: Left knee pain COMPARISON: none FINDINGS:Three views of the left knee. ?There is no fracture or dislocation. ?Thereis no joint effusion. The joint spacesare normal. Soft tissues are normal. [facility] FallsPOCT [id number] 19:26:00* Test Item Value Reference Range Interpretation Comme nts POCT PREG (test code = 1605) Negative On board controls acceptable with C Line (test code = 3574) Yes POCT PREG LOT # (test code = 3575) [id number] POCT PREG TEST DATE (test code = 3576) 2025-10-16 LOGAN (test code = LOGAN) accurate developme nt and interpretation of all internal controls Lab Interpretation (test code = 24352-9) Normal [facility] FallsPOCT [id number] 09:35:00* Test Item Value Reference Range Interpretation Comme nts POCT PREG (test code = 1605) Negative On board controls acceptable with C Line (test code = 3574) Yes POCT PREG LOT # (test code = 3575) [id number] POCT PREG TEST DATE ( test code = 3576) 224-12-01 Lab Interpretation (test cod e = 30019-0) Normal [facility] ABDOMEN PELVIS WO [id number] 06:13:00Exam: CT Abdomen and Pelvis without Contrast, 11/02/2023 12:15 AM. Ordering Physician: MILAGRO CLIFTON. History: LLQ abdominal pain . Comparison: None. Technique: CT abdomen and pelvis was obtained without intravenous contrast.CT was performed according to ALARA (As Low As Reasonably Achievable). Technical Quality: Adequate. Findings: LOWER CHEST:Normal. ABDOMEN/PELVIS:Liver: Normal.Gallbladder/biliary: Normal gallbladder. No biliary ductal dilation.Pancreas: Inflammatory strandingSpleen: Normal. Adrenal glands: Normal.Kidneys and ureters: Punctate stone in the right upper kidney. No stones onthe left. No ureter stones. Mild stranding about the left proximal todistal ureter. Bladder: Diffuse wall thickeningReproductive organs: Normal for age. Stomach/bowel: Bowel is decompressed. Normal appendix. Prominent number ofnonenlarged mesenteric nodes. Lymph nodes: No lymphadenopathy.Peritoneum: No intraperitoneal free air. No intraperitoneal free fluid.Vessels: Imaged vasculature has a normal noncontrast appearance. MUSCULOSKELETAL:Bones: No acute osseous abnormality.Soft tissues: Unremarkable.[facility] [id number] 05:04:00* Test Item Value Reference Range Interpretation Comme nts POCT PREG (test code = 1605) Negative On board controls acceptable with C Line (test code = 3574) Yes POCT PREG LOT # (test code = 3575) [id number] POCT PREG TEST DATE ( test code = 3576) 2024-11-05 Lab Interpretation (test cod e = 94531-4) Normal [facility] [id number] 17:02:00* Test Item Value Reference Range Interpretation Comme nts POCT PREG (test code = 1605) Negative On board controls acceptable with C Line (test code = 3574) Yes POCT PREG LOT # (test code = 3575) POCT PREG TEST DATE ( test code = 3576) [facility] FallsPrepar Packed RBC (in units)2022-07-29 16:45:11* Test Item Value Reference Range Interpretation Comme nts Cross Match Result (test code = 4409) Compatible ISBT Blood Type Code (test code = 267973) Unit Blood Type (test code = 4410) A Pos Unit Number (test code = 4411) [id number] Blood Expiration Date & Time (test code = 740795) Status Information (test code = 4412) Issued Product Identification (test code = 4413) Red Blood Cells Product Code (test code = 4414) [id number] Performed at [facility] B Laboratory Services - [facility] Blood [address] [place] [id number] Free: [phone] No. [id number] [facility] with Ezjhiabrdsah1218-90-38 12:51:12* Test Item Value Reference Range Interpretation Comme nts WBC (test code = 6690-2) See_Comment H [Automated message] The system which generated this result transmitted reference range: 4.30 - 11.10 10*3/?L. The reference range was not used to interpret this result as normal/abnormal. RBC (test code = 789-8) See_Comment L [Automated message] The system which generated this result transmitted reference range: 3.93 - 5.25 10*6/?L. The reference range was not used to interpret this result as normal/abnormal. HGB (test code = 718-7) 6.9 g/dL 11.6-15.0 L HCT (test code = 4544-3) 22.0 % 35.7-45.2 L MCV (test code = 787-2) 85.3 fL 80.6-95.5 MCH (test code = 785-6) 26.7 pg 25.9-32.8 MCHC (test code = 786-4) 31.4 g/dL 31.6-35.1 L RDW-SD (test code = 63368-1) 42.5 fL 39.0-49.9 RDW-CV (test code = 788-0) 14.0 % 12.0-15.5 PLT (test code = 777-3) See_Comment [Automated message] The system which generated this result transmitted reference range: 166 - 358 10*3/?L. The reference range was not used to interpret this result as normal/abnormal. MPV (test code = 38258-1) 9.8 fL 9.5-12.9 NRBC/100 WBC (test code = 3963684130) See_Comment [Automated message] The system which generated this result transmitted reference range: 0.0 - 10.0 /100 WBCs. The reference range was not used to interpret this result as normal/abnormal. NRBC x10^3 (test code = 6823303741) See_Comment [Automated message] The system which generated this result transmitted reference range: 10*3/?L. The reference range was not used to interpret this result as normal/abnormal. GRAN MAT (NEUT) % (test code = 770-8) 71.4 % IMM GRAN % (test code = 0685963999) 0.80 % LYMPH % (test code = 736-9) 20.0 % MONO % (test code = 5905-5) 7.5 % EOS % (test code = 713-8) 0.1 % BASO % (test code = 706-2) 0.2 % GRAN MAT x10^3(ANC) (test code = 3017911962) 12.36 10*3/uL 1.88-7.09 H IMM GRAN x10^3 (test code = 0293642954) 0.13 10*3/uL 0.00-0.06 H LYMPH x10^3 (test code = 731-0) 3.47 10*3/uL 1.32-3.29 H MONO x10^3 (test code = 742-7) 1.30 10*3/uL 0.33-0.92 H EOS x10^3 (test code = 711-2) 0.03-0.39 L BASO x10^3 (test code = 704-7) 0.04 10*3/uL 0.01-0.07 Lab Interpretation (test code = 16571-8) Abnormal [facility] WITH [id number] 07:09:59* Test Item Value Reference Range Interpretation Comme nts WBC (test code = 6690-2) See_Comment H [Automated message] The system which generated this result transmitted reference range: 4.30 - 11.10 10*3/?L. The reference range was not used to interpret this result as normal/abnormal. RBC (test code = 789-8) See_Comment L [Automated message] The system which generated this result transmitted reference range: 3.93 - 5.25 10*6/?L. The reference range was not used to interpret this result as normal/abnormal. HGB (test code = 718-7) 8.1 g/dL 11.6-15.0 L HCT (test code = 4544-3) 25.5 % 35.7-45.2 L MCV (test code = 787-2) 84.2 fL 80.6-95.5 MCH (test code = 785-6) 26.7 pg 25.9-32.8 MCHC (test code = 786-4) 31.8 g/dL 31.6-35.1 RDW-SD (test code = 56750-6) 41.4 fL 39.0-49.9 RDW-CV (test code = 788-0) 13.8 % 12.0-15.5 PLT (test code = 777-3) See_Comment [Automated message] The system which generated this result transmitted reference range: 166 - 358 10*3/?L. The reference range was not used to interpret this result as normal/abnormal. MPV (test code = 15046-2) 10.1 fL 9.5-12.9 NRBC/100 WBC (test code = 9081896561) See_Comment [Automated message] The system which generated this result transmitted reference range: 0.0 - 10.0 /100 WBCs. The reference range was not used to interpret this result as normal/abnormal. NRBC x10^3 (test code = 3567176863) See_Comment [Automated message] The system which generated this result transmitted reference range: 10*3/?L. The reference range was not used to interpret this result as normal/abnormal. GRAN MAT (NEUT) % (test code = 770-8) 71.3 % IMM GRAN % (test code = 7647798978) 0.70 % LYMPH % (test code = 736-9) 20.2 % MONO % (test code = 5905-5) 7.5 % EOS % (test code = 713-8) 0.1 % BASO % (test code = 706-2) 0.2 % GRAN MAT x10^3(ANC) (test code = 2955787818) 13.22 10*3/uL 1.88-7.09 H IMM GRAN x10^3 (test code = 3584972572) 0.13 10*3/uL 0.00-0.06 H LYMPH x10^3 (test code = 731-0) 3.75 10*3/uL 1.32-3.29 H MONO x10^3 (test code = 742-7) 1.39 10*3/uL 0.33-0.92 H EOS x10^3 (test code = 711-2) 0.03-0.39 L BASO x10^3 (test code = 704-7) 0.04 10*3/uL 0.01-0.07 Lab Interpretation (test code = 10941-2) [facility] ONCE [id number] 03:46:16 * Test Item Value Reference Range Interpretation Comme nts ABO & RH (test code = 20) A Positive Performed at [facility] Blood [address] Free: [phone] No. [id number] IAT (test code = 1185) Negative Performed at [facility] Blood [place] [id number] Free: [phone] No. [id number] [facility] URINALYSIS W SPECIFIC [id number] 19:32:00* Test Item Value Reference Range Interpretation Comme nts POCT U SP GRAV (test code = 3255) N/A 1.005-1.025 POCT PH U (test code = 3254) N/A 5-8 POCT U LEUK EST (test code = 3263) N/A Negative - Negative POCT U NIT (test code = 3262) N/A Negative - Negati ve POCT U PROT (test code = 3259) Trace Negative - Negat alina POCT U GLU (test code = 3256) Negative Negative - Negati ve POCT U KETONE (test code = 3258) N/A Negative - Neg ative POCT U UROBILI (test code = 3260) N/A 0.2-1 POCT U BILI (test code = 3261) N/A Negative - Negat alina POCT U BLD (test code = 3257) N/A Negative - Negati ve POCT U COLOR (test code = 3266) yellow POCT U APPEAR (test code = 3267) clear [facility] URINALYSIS W/O SPECIFIC [id number] 21:54:00* Test Item Value Reference Range Interpretation Comme nts POCT PH U (test code = 3254) N/A 5-8 POCT U LEUK EST (test code = 3263) N/A Negative - Negative POCT U NIT (test code = 3262) N/A Negative - Negati ve POCT U PROT (test code = 3259) Negative Negative - Negat alina POCT U GLU (test code = 3256) Negative Negative - Negati ve POCT U KETONE (test code = 3258) N/A Negative - Neg ative POCT U BLD (test code = 3257) N/A Negative - Negati ve [facility] FallsLACTATE [id number] 01:56:02* Test Item Value Reference Range Interpretation Comme nts LDH (test code = 9534841840) 147 U/L 120-246 Lab Interpretation (test cod e = 98460-7) Normal [facility] FallsALANINE AMINO TRANSFERASE([id number] 01:55:21* Test Item Value Reference Range Interpretation Comme nts ALTv (test code = 1742-6) 13 U/L 5-35 Lab Interpretation (test cod e = 02951-0) Normal [facility] (ASPARTATE AMINO TRANSFER)2022-07-15 01:55:21* Test Item Value Reference Range Interpretation Comme nts AST(SGOT) (test code = 1602908229) 18 U/L 13-40 Lab Interpretation (test cod e = 50407-0) Normal [facility] FallsURIC [id number] 01:55:21* Test Item Value Reference Range Interpretation Comme nts URIC ACID (test code = 5133587674) 3.3 mg/dL 2.9-6.0 Lab Interpretation (test cod e = 84312-8) Normal [facility]CREATININE2022-12-16 01:55:00* Test Item Value Reference Range Interpretation Comme nts CREATININE (test code = 8350383268) 0.55 mg/dL 0.50-1.04 eGFR (test code = 0024301333) mL/min/1.73m2 LOGAN (test code = LOGAN) Association of Glomerular Filtration Rate (GFR) and Staging of Kidney Disease* + + +- +| GFR (mL/min/1.73 m2) ?| With Kidney Damage ?| ?Without Kidney Damage+ ------+ ----+ ------+| ?>90 ?| ?Stage one ?| ? Normal ?+ -+ + -+| ?60-89 ?| ?Stage two ?| ? Decreased GFR ? + + +- +| ?30-59 ?| ?Stage three ?| ? Stage three ? + + +- +| ?15-29 ?| ?Stage four ? | ? Stage four ?+ -+ + -+| ?<15 (or dialysis) ? ?| ?Stage five ? | ? Stage five ?+ -+ + -+ *Each stage assumes the associated GFR level has been in effect for at least three months. ?Stages 1 to 5, with or without kidney disease, indicate chronic kidney disease. Notes: Determination of stages one and two (with eGFR >59mL/min/1.73 m2) requires estimation of kidney damage for at least three months as defined by structural or functional abnormalities of the kidney, manifested by either:Pathological abnormalities or Markers of kidney damage (including abnormalities in the composition of the blood or urine or abnormalities in imaging tests). [facility] WITH [id number] 01:48:20* Test Item Value Reference Range Interpretation Comme nts WBC (test code = 6690-2) See_Comment H [Automated message] The system which generated this result transmitted reference range: 4.30 - 11.10 10*3/?L. The reference range was not used to interpret this result as normal/abnormal. RBC (test code = 789-8) See_Comment L [Automated message] The system which generated this result transmitted reference range: 3.93 - 5.25 10*6/?L. The reference range was not used to interpret this result as normal/abnormal. HGB (test code = 718-7) 9.9 g/dL 11.6-15.0 L HCT (test code = 4544-3) 30.4 % 35.7-45.2 L MCV (test code = 787-2) 83.7 fL 80.6-95.5 MCH (test code = 785-6) 27.3 pg 25.9-32.8 MCHC (test code = 786-4) 32.6 g/dL 31.6-35.1 RDW-SD (test code = 32266-0) 37.5 fL 39.0-49.9 L RDW-CV (test code = 788-0) 12.3 % 12.0-15.5 PLT (test code = 777-3) See_Comment H [Automated message] The system which generated this result transmitted reference range: 166 - 358 10*3/?L. The reference range was not used to interpret this result as normal/abnormal. MPV (test code = 90209-0) 9.9 fL 9.5-12.9 NRBC/100 WBC (test code = 6807624962) See_Comment [Automated message] The system which generated this result transmitted reference range: 0.0 - 10.0 /100 WBCs. The reference range was not used to interpret this result as normal/abnormal. NRBC x10^3 (test code = 0862085289) See_Comment [Automated message] The system which generated this result transmitted reference range: 10*3/?L. The reference range was not used to interpret this result as normal/abnormal. GRAN MAT (NEUT) % (test code = 770-8) 69.6 % IMM GRAN % (test code = 1833581712) 0.80 % LYMPH % (test code = 736-9) 22.5 % MONO % (test code = 5905-5) 6.7 % EOS % (test code = 713-8) 0.2 % BASO % (test code = 706-2) 0.2 % GRAN MAT x10^3(ANC) (test code = 9701792681) 11.06 10*3/uL 1.88-7.09 H IMM GRAN x10^3 (test code = 6379742076) 0.12 10*3/uL 0.00-0.06 H LYMPH x10^3 (test code = 731-0) 3.57 10*3/uL 1.32-3.29 H MONO x10^3 (test code = 742-7) 1.06 10*3/uL 0.33-0.92 H EOS x10^3 (test code = 711-2) 0.03 10*3/uL 0.03-0.39 BASO x10^3 (test code = 704-7) 0.03 10*3/uL 0.01-0.07 Lab Interpretation (test code = 74255-6) Abnormal [facility] URINALYSIS W/O SPECIFIC [id number] 22:03:00* Test Item Value Reference Range Interpretation Comme nts POCT PH U (test code = 3254) n/a 5-8 POCT U LEUK EST (test code = 3263) n/a Negative - Negative POCT U NIT (test code = 3262) n/a Negative - Negati ve POCT U PROT (test code = 3259) negative Negative - Negat alina POCT U GLU (test code = 3256) negative Negative - Negati ve POCT U KETONE (test code = 3258) n/a Negative - Neg ative POCT U BLD (test code = 3257) n/a Negative - Negati ve [facility] URINALYSIS W/O SPECIFIC [id number] 16:13:00* Test Item Value Reference Range Interpretation Comme nts POCT PH U (test code = 3254) n/a 5-8 POCT U LEUK EST (test code = 3263) n/a Negative - Negative POCT U NIT (test code = 3262) n/a Negative - Negati ve POCT U PROT (test code = 3259) negative Negative - Negat alina POCT U GLU (test code = 3256) negative Negative - Negati ve POCT U KETONE (test code = 3258) n/a Negative - Neg ative POCT U BLD (test code = 3257) n/a Negative - Negati ve [facility] URINALYSIS W/O SPECIFIC [id number] 15:49:00* Test Item Value Reference Range Interpretation Comme nts POCT PH U (test code = 3254) n/a 5-8 POCT U LEUK EST (test code = 3263) n/a Negative - Negative POCT U NIT (test code = 3262) n/a Negative - Negati ve POCT U PROT (test code = 3259) negative Negative - Negat alina POCT U GLU (test code = 3256) negative Negative - Negati ve POCT U KETONE (test code = 3258) n/a Negative - Neg ative POCT U BLD (test code = 3257) n/a Negative - Negati ve [facility] URINALYSIS W/O SPECIFIC [id number] 15:43:00* Test Item Value Reference Range Interpretation Comme nts POCT PH U (test code = 3254) N/A 5-8 POCT U LEUK EST (test code = 3263) N/A Negative - Negative POCT U NIT (test code = 3262) N/A Negative - Negati ve POCT U PROT (test code = 3259) Negative Negative - Negat alina POCT U GLU (test code = 3256) Negative Negative - Negati ve POCT U KETONE (test code = 3258) N/A Negative - Neg ative POCT U BLD (test code = 3257) N/A Negative - Negati ve [facility] URINALYSIS W/O SPECIFIC [id number] 14:48:00* Test Item Value Reference Range Interpretation Comme nts POCT PH U (test code = 3254) n/a 5-8 POCT U LEUK EST (test code = 3263) n/a Negative - Negative POCT U NIT (test code = 3262) n/a Negative - Negati ve POCT U PROT (test code = 3259) negative Negative - Negat alina POCT U GLU (test code = 3256) negative Negative - Negati ve POCT U KETONE (test code = 3258) n/a Negative - Neg ative POCT U BLD (test code = 3257) n/a Negative - Negati ve [facility] URINALYSIS W/O SPECIFIC [id number] 14:29:00* Test Item Value Reference Range Interpretation Comme nts POCT PH U (test code = 3254) N/A 5-8 POCT U LEUK EST (test code = 3263) N/A Negative - Negative POCT U NIT (test code = 3262) N/A Negative - Negati ve POCT U PROT (test code = 3259) Negative Negative - Negat alina POCT U GLU (test code = 3256) Negative Negative - Negati ve POCT U KETONE (test code = 3258) N/A Negative - Neg ative POCT U BLD (test code = 3257) N/A Negative - Negati ve [facility] URINALYSIS W/O SPECIFIC [id number] 14:39:00* Test Item Value Reference Range Interpretation Comme nts POCT PH U (test code = 3254) N/A 5-8 POCT U LEUK EST (test code = 3263) N/A Negative - Negative POCT U NIT (test code = 3262) N/A Negative - Negati ve POCT U PROT (test code = 3259) Negative Negative - Negat alina POCT U GLU (test code = 3256) Negative Negative - Negati ve POCT U KETONE (test code = 3258) N/A Negative - Neg ative POCT U BLD (test code = 3257) N/A Negative - Negati ve [facility] URINALYSIS W/O SPECIFIC [id number] 14:39:00* Test Item Value Reference Range Interpretation Comme nts POCT PH U (test code = 3254) N/A 5-8 POCT U LEUK EST (test code = 3263) N/A Negative - Negative POCT U NIT (test code = 3262) N/A Negative - Negati ve POCT U PROT (test code = 3259) Negative Negative - Negat alina POCT U GLU (test code = 3256) Negative Negative - Negati ve POCT U KETONE (test code = 3258) N/A Negative - Neg ative POCT U BLD (test code = 3257) N/A Negative - Negati ve [facility] URINALYSIS W SPECIFIC [id number] 16:01:00* Test Item Value Reference Range Interpretation Comme nts POCT U SP GRAV (test code = 3255) N/A 1.005-1.025 POCT PH U (test code = 3254) N/A 5-8 POCT U LEUK EST (test code = 3263) N/A Negative - Negative POCT U NIT (test code = 3262) N/A Negative - Negati ve POCT U PROT (test code = 3259) Negative Negative - Negat alina POCT U GLU (test code = 3256) Negative Negative - Negati ve POCT U KETONE (test code = 3258) N/A Negative - Neg ative POCT U UROBILI (test code = 3260) N/A 0.2-1 POCT U BILI (test code = 3261) N/A Negative - Negat alina POCT U BLD (test code = 3257) N/A Negative - Negati ve POCT U COLOR (test code = 3266) yellow POCT U APPEAR (test code = 3267) clear [facility]PO[facility] [id number] 14:21:00* Test Item Value Reference Range Interpretation Comme nts POCT PREG (test code = 1605) negative On board controls acceptable with C Line (test code = 3574) present POCT PREG LOT # (test code = 3575) [id number] POCT PREG TEST DATE ( test code = 3576) Lab Interpretation (test cod e = 69018-2) Normal [facility] Notes Date/Time Note Provider Source 2024-09-03 20:52:53 Pt did not want to wait any longer for US, removed IV, refused to sign AMA pw EAD TECHNICIAN Michelle Blum RN [facility] 2024-09-03 16:13:46 Pt to ED CO vaginal bleeding x 6 months. Reports fatigue x 2 days. Received depo shot in March and has been bleeding since. Goes through 5-6 tampons on heavy days. Also reports some mild cramping. EAD TECHNICIAN Regla Moncada RN [facility] 2024-05-29 17:05:22 PT order, face sheet and 05/23/2024 office visit notes faxed to [facility] @ Martita Merchant LVN [facility] 2024-05-29 12:50:08 [facility] is calling for PT orders to be sent over . Ph:[phone] Ankur Carpenter [facility] 2024-05-01 16:00:00 Patient was a hard stick and will return another day for her blood work.Patient was also given a stool collection kit with instructions to return at her convenience.Ashley Espinosa 05/01/2024 4:24 PM [facility] 2024-05-01 15:30:00 Addended by: SHAD COMER on: 05/01/2024 08:19 PM Modules accepted: Orders [facility] 2024-03-04 18:01:14 Unable to leave a voice mail. Sent [employer] message to schedule an appt Bri Fontaine [facility] 2024-02-28 09:31:20 Please call and schedule patient appointment for follow and labs for further medication refills. Erlinda Bazan RN [facility] 2024-02-27 11:33:21 Images from the original note were not included. Endocrinology: Hypothyroid Agents Vmtylx8502/27/2024 11:23 AM Protocol Details Manual Review: ENT providers forward refill request to PCP. TSH in normal range and within 360 days Valid encounter within last 12 months Recent Visits Date Type Provider Dept 08/04/23 Office Visit Shad Comer FNP [facility] 03/08/23 Office Visit Shad Comer FNP [facility] 12/06/22 Office Visit Shad Comer FNP [facility] Showing recent visits within past 540 days with a meds authorizing provider and meeting all other requirements Future Appointments No visits were found meeting these conditions. Showing future appointments within next 150 days with a meds authorizing provider and meeting all other requirements TSH 03/08/2023 Please review and advise. Erlinda Bazan RN [facility] 2023-12-16 06:05:57 Pt given printed and verbal discharge instructions regarding hematuria/pyelonephritis, encouraged hydration, Prescriptions provided Discussed ibuprofen and to take with food to avoid GI distress, alternate with Tylenol to help with pain and/or fever Discussed antibiotic therapy and to take until all completed unless adverse reaction occurs - if occurs, discontinue medication and follow up with pcp/seek medical attention Pt verbalized understanding of instructions,pt encouraged to follow up with pcp Advised to seek medical attention for new/prolonged/worsening of symptoms, Awake, alert oriented, resp reg unlabored, skin w/d, pt leaving in no apparent distress, OT Michelle Mendez RN [facility] 2023-12-16 04:12:15 Pt arrives ambulatory to ED reporting hematuria and abdominal pain. She says she was seen here about a month ago and was given abx for a UTI and says she only took them for a couple of days and forgot about them. Today she says she woke ap and was "peeing blood," and was in pain so she came in to be seen. 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 She says she was seen here about a month ago and was given abx for a UTI and says she only took them for a couple of days and forgot about them. Today she says she woke ap and was "peeing blood," and was in pain so she came in to be seen. HPI History provided by: Patient Difficulty Urinating Pain quality: Aching and sharp Pain severity: Moderate Onset quality: Gradual Timing: Constant Chronicity: New Relieved by: Nothing Worsened by: Nothing Urinary symptoms: hematuria Associated symptoms: abdominal pain Associated symptoms: no fever, no flank pain, no nausea and no vomiting Past Medical History / Immunizations Past Medical History: Diagnosis Date Anemia of mother in , antepartum 04/26/2022 Anxiety Depression Hypothyroidism 03/01/2022 Thyroid disease Tetanus received in last 5 years: Yes Past Surgical History No past surgical history on file. Allergies No Known Allergies Social History Tobacco Use Never Smokeless Tobacco: Former user of smokeless tobacco. Comments: Use of vape prior to Vaping Use Every day; Started 05/29/2021; Counseling given; Substances: Nicotine; Devices: Pre-filled or refillable cartridge Passive vaping exposure Advised Ms. Ronnie Coles to discontinue vaping Alcohol Use Not Currently. Drug Use Never. Sexual Activity Sexually active; Partners: Male; Control/Protection: None. Review of Systems Review of Systems Constitutional: Negative. Negative for chills, fatigue, fever and unexpected weight change. HENT: Negative. Eyes: Negative. Negative for discharge and itching. Respiratory: Negative. Negative for cough, chest tightness, shortness of breath and wheezing. Cardiovascular: Negative. Negative for chest pain and palpitations. Gastrointestinal: Positive for abdominal pain. Negative for abdominal distention, nausea and vomiting. Genitourinary: Positive for hematuria and difficulty urinating. Negative for dysuria, urgency, frequency and flank pain. Musculoskeletal: Negative. Skin: Negative. Negative for color change, pallor and wound. Neurological: Negative. Negative for dizziness, syncope, light-headedness and headaches. Psychiatric/Behavioral: Negative. Negative for agitation and behavioral problems. Endocrine: Endocrine negative Physical Exam ED Triage Vitals [12/16/23 0416] Weight 100.9 kg (222 lb 8 oz) Actual or estimated Actual Height 1.651 m (5' 5") BP (!) 115/103 Pulse 93 Resp 18 Temp 36.4 ?C (97.5 ?F) Temp source Oral SpO2 98 % Measured on Room air Physical Exam Vitals reviewed. Constitutional: Appearance: She is well-developed. HENT: Head: Normocephalic and atraumatic. Nose: Nose normal. Eyes: Conjunctiva/sclera: Conjunctivae normal. Neck: Trachea: No tracheal deviation. Cardiovascular: Rate and Rhythm: Normal rate. Heart sounds: Normal heart sounds. No murmur heard. No friction rub. Pulmonary: Effort: Pulmonary effort is normal. No respiratory distress. Breath sounds: Normal breath sounds. Abdominal: General: Bowel sounds are normal. There is no distension. Palpations: Abdomen is soft. Tenderness: There is no abdominal tenderness. There is no guarding or rebound. Musculoskeletal: General: Normal range of motion. Arms: Cervical back: Normal range of motion and neck supple. Skin: General: Skin is warm and dry. Neurological: Mental Status: She is alert and oriented to person, place, and time. Psychiatric: Behavior: Behavior normal. Thought Content: Thought content normal. Judgment: Judgment normal. Labs Lab Results URINALYSIS - Abnormal Result Value Ref Range APPEARANCE Cloudy (*) Clear COLOR Yellow Yellow PH 5.0 4.8 - 8.0 SP GRAVITY 1.025 1.003 - 1.030 GLU U QUAL Normal Normal BLOOD 3+ (*) Negative KETONES Negative Negative PROTEIN 100 mg/dL (*) Negative UROBILIN Normal Normal BILIRUBIN Negative Negative NITRITE Negative Negative LEUK MYRANDA 500/uL (*) Negative RBC/HPF >182 (*) 0 - 3 HPF WBC/HPF >182 (*) 0 - 5 HPF BACTERIA Negative Negative MUCOUS Moderate (*) Negative LPF SQ EPITH 3 HPF WBC CLUMPS 19 (*) <=1 HPF POCT TEST - Normal POCT PREG Negative On board controls acceptable with C Line Yes POCT PREG LOT # [id number] POCT PREG TEST DATE 224-12-01 Imaging No orders to display Orders and Treatments Orders Placed This Encounter Procedures POCT TEST URINALYSIS Orders Placed This Encounter Medications cefpodoxime 200 mg tablet phenazopyridine 200 mg tablet Procedures Procedures Notes & MDM Patient was evaluated for an emergency medical condition related to Hematuria and Abdominal Pain DDX Cystitis UTI Pyelonephritis Diagnosis/Impression as of 12/16/23 0558 Hematuria, unspecified type Pyelonephritis Medical Decision Making Problems Addressed: Hematuria, unspecified type: acute illness or injury Amount and/or Complexity of Data Reviewed Labs: ordered. Decision-making details documented in ED Course. Risk Prescription drug management. Limitations to patient care and compliance: none. The patient presents for UTI. She has recurrent viral infections. She complains of left flank pain. She does have an infected urine. She will be treated for pyelonephritis. She will be sent home with a course of cefpodoxime for ten days and Pyridium. Also gave the patient referral to Dr. Gage for SUPER[facility] [employer] urology. She was discharged to follow-up. She can return for any questions or concerns. History, physical exam findings, results of visit, differential diagnosis, medication regimens and plan of future care have been considered. Additional MDM may be found in the ED course. Differential diagnosis considered and final disposition made based on information gathered during evaluation and may not be completely ruled out or specifically listed. Vital signs were rechecked before final disposition. Diagnosis Final diagnoses: [R31.9] Hematuria, unspecified type (Primary) [N12] Pyelonephritis Disposition & Follow Up ED Disposition ED Disposition Disch - Home Condition Stable Comment -- Patient's Medications START taking these medications CEFPODOXIME 200 MG TABLET Take 1 tablet by mouth in the morning and 1 tablet in the evening. PHENAZOPYRIDINE 200 MG TABLET Take 1 tablet by mouth in the morning and 1 tablet at noon and 1 tablet in the evening. CONTINUE taking these medications which have NOT CHANGED BUPROPION XL 150 MG 24 HR TABLET Take 1 tablet by mouth every morning. ESCITALOPRAM OXALATE 10 MG TABLET Take 1 tablet by mouth in the morning. ESCITALOPRAM OXALATE 20 MG TABLET Take 1 tablet by mouth every morning. LEVOTHYROXINE 25 MCG TABLET TAKE 1 TABLET BY MOUTH EVERY MORNING NORELGESTROMIN-ETHINYL ESTRADIOL (XULANE) 150-35 MCG/24 HR PATCH Apply 1 Patch to skin weekly. SUMATRIPTAN 50 MG TABLET Take on one onset of migraine , may repeat in 1 hr if needed. Max dosage 200mg in 24hrs. START taking Modified Medications as Prescribed No medications on file STOP taking these medications No medications on file Contact information for follow-up Shad Comer FNP Specialty: PERMIT SPECIALIST-FAMILY Relationship: PCP - General [facility] [address] [facility] [id number] Future Appointments In 2 days Shad Comer FNP [facility], DUSTY Rey Jr., MD Clinical Accounting Supervisor [facility] Emergency Department [employer] Dictation Software is used frequently and may produce errors. Promptly contact for obvious discrepancies. Dalton Hawkins MD 12/16/23 0559 [facility] 2023-12-04 09:22:19 Images from the original note were not included. Requested Renewals Name from pharmacy: LEVOTHYROXINE 0.025MG (25MCG) TAB Will file in chart as: LEVOTHYROXINE 25 mcg tablet Sig: Take 1 tablet by mouth every morning. Original sig: TAKE 1 TABLET BY MOUTH EVERY MORNING Disp: 90 tablet Refills: 1 (Pharmacy requested: Not specified) Start: 12/03/2023 Class: eRX For: Acquired hypothyroidism Last ordered: 8 months ago (03/17/2023) by LESIA Arciniega Last refill: 09/04/2023 Rx #: [id number]|0|1 Endocrinology: Hypothyroid Agents Zpsoow5812/03/2023 05:22 AM Protocol Details Manual Review: ENT providers forward refill request to PCP. TSH in normal range and within 360 days Valid encounter within last 12 months To be filled at: [id number] - [place], [place] - [address] [facility] [address] Recent Labs 03/08/23 1156 TSH 5.44* Recent Visits Date Type Provider Dept 08/04/23 Office Visit Shad Comer FNP [facility] 03/08/23 Office Visit Shad Comer FNP [facility] 12/06/22 Office Visit Shad Comer FNP [facility] Showing recent visits within past 540 days with a meds authorizing provider and meeting all other requirements Future Appointments No visits were found meeting these conditions. Showing future appointments within next 150 days with a meds authorizing provider and meeting all other requirements Sheridan Martinez LVN [facility] 2023-11-02 01:40:01 Pt given printed and verbal discharge instructions regarding UTI's in women, & abd pain, encouraged hydration. Prescriptions provided Discussed antibiotic therapy and to take until all completed unless adverse reaction occurs - if occurs, discontinue medication and follow up with pcp/seek medical attention Pt verbalized understanding of instructions, pt awake alert oriented, resp reg unlabored, skin w/d, color appropriate for race, moves all ext well,pt encouraged to follow up with pcp. Advised to seek medical attention for new/prolonged/worsening of symptoms. No adverse reaction to meds given in ER noted upon discharge. Awake, alert oriented, resp reg unlabored, skin w/d, pt leaving amb with steady gait, in no apparent distress. Michelle Blum RN [facility] 2023-11-01 23:20:13 CC: Pt reports left sided abdominal pain that goes through to her back, nausea x since 1730 today. Pt reports similar pain 1 month ago. Pt reports normal BM yesterday. Pt reports some discomfort with urination. LMP: last week, reports possibility of PMHx: hypothyroidism, IBS Awake, alert, oriented, resp reg unlabored, skin warm, color appropriate for race, moves all ext without difficulty, amb with steady gait Michelle Mendez RN [facility] 2023-03-17 10:38:02 Formatting of this n ote might be different from the original. Please review and send medication to requested pharmacy if appropriate. Erlinda Bazan RN [facility] 2023-03-08 12:00:00 Formatting of this n ote is different from the original. Images from the original note were not included. Venipuncture collection performed by clean technique on the right anticubitus. Total of 1 attempts were made. Slight pressure and a bandage/dressing were applied to the site(s). The patient experienced no complications. The following specimens were processed according to instructions and sent to [facility] laboratories per lab order on today: LT BLUE SST 5 RED LAV 1 PPT DK GREEN (LiHep) DK GREEN (SodH) PINEDO DK BLUE (K2) DK BLUE (S) ACD Blood Culture NIPT/NTD [facility]
[2024-09-27 00:55] LABS: Absolute Lymphocytes (CBC) 3.9 K/uL (0.7-4.9); Absolute Monocytes 1.1 K/uL (0.1-1.3); Absolute Neutrophil 9.5 K/uL (1.8-8.0); Basophils % 0.2 % (0-1.3); Eosinophils % 0.2 % (0-4.4); Hemoglobin 11.9 g/dL (12.0-15.0); MCH 28.7 pg (27.0-35.0); MCHC 33.1 g/dL (32.0-36.0); MCV 86.5 fL (80-100); MPV 7.6 fL (7.6-11.3); Monocytes % 7.4 % (3.3-12.3); Neutrophils % 65.2 % (41.7-73.7); Nucleated Red Blood Cells % 0.1 % (0-0); Platelets 370 thou/uL (152-406); RBC Red Blood Cell Count 4.16 M/uL (3.86-4.86); Red Cell Distribution Width 13.6 % (12.1-15.2)
[2024-09-27 01:01] LABS: Specific Gravity > 1.030 (1.005-1.030); Sqamous Epithelial <5 /HPF (None Seen); Urine Bacteria None Seen /HPF (<20); Urine Bilirubin NEGATIVE (Negative); Urine Blood 1+ (Negative); Urine Clarity Clear (Clear); Urine Color Light-Yellow (Yellow); Urine Culture Reflex Order NOT NEEDED; Urine Glucose NEGATIVE (Negative); Urine Ketones NEGATIVE (Negative); Urine Microscopic Reflex YN ORDER UMIC; Urine Mucus 2+ /HPF (None Seen); Urine Nitrite NEGATIVE (Negative); Urine Protein TRACE (Negative); Urine RBC <5 /HPF (None Seen); Urine Urobilinogen Normal (Normal); Urine WBC <5 /HPF (<5); Urine pH 5.5 (5.0-7.0)
[2024-09-27 01:06] LABS: Albumin 3.1 g/dL (3.4-5.0); Albumin/Globulin Ratio 0.7 (1.1-1.8); Anion Gap 7.7 mEq/L (5.0-15.0); Bilirubin Total 0.2 mg/dL (0.2-1.0); Globulin 4.3 g/dL (2.3-3.5); Potassium 3.7 mEq/L (3.5-5.1); Protein, Total 7.4 g/dL (6.4-8.2)
[2024-09-27 01:15] LABS: PT Prothrombin Time 11.3 SECONDS (10.0-13.0); Protime INR 0.99
[2024-09-27 01:25] LABS: Thyroid Stimulating Hormone 9.57 uIU/mL (0.358-3.740)
--- NOTE | 2024-09-27 01:30 | RAD REPORT ---
EXAM: US Pelvis Transvaginal CLINICAL HISTORY: The patient is 24 years old and is Female; vaginal bleeding for 6 moths TECHNIQUE: Real-time transvaginal pelvic ultrasound with image documentation. Transvaginal imaging was used for better evaluation of the endometrium and adnexa. COMPARISON: No relevant prior studies available. FINDINGS: UTERUS/CERVIX: The uterus measures 8.1 x 3.7 x 4.6 cm. The endometrium measures 0.3 cm. No myom etrial mass. RIGHT OVARY: The right ovary measures 2.3 x 2.2 x 2.1 cm. Normal blood flow. LEFT OVARY: The left ovary measures 2.5 x 1.8 x 2.0 cm. Normal blood flow. FREE FLUID: No free fluid. BLADDER: Empty bladder which cannot be evaluated with this probe. IMPRESSION: Unremarkable pelvic ultrasound. Electronically signed by: Tatyana Triplett MD 09/27/2024 01:22 AM [facility] Due to temporary technical issues with the PACS/MyActivityPal[employer]IR [employer] reporting system, reports are being signed by the in-house radiologist without review as a courtesy to ensure prompt reporting the interpreting radiologist is fully responsible for the content of the report. Transcribed Date/Time: 09/27/2024 1:29 AM
--- NOTE | 2024-09-27 01:43 | ER ---
Nurse's Notes [facility] Name: Eugene Andrew Age: 24 yrs Sex: Female : 2000 Arrival Date: 09/26/2024 Time: 23:46 Bed 2 Private MD: Diagnosis: Dysfunctional uterine bleeding, Menorrhagia Presentation: 09/26 23:50 Chief complaint: Patient states: VAGINAL BLEEDING X6 MONTHS AFTER GETTING THE BC DEPO jj7 INJECTION. STATES 2 DAYS AGO SHE STARTED HAVING RIGHT SIDED PELVIC PAIN. DOES NOT HAVE INSURANCE SO SHE NEVER WENT BACK TO HER OB DR. Coronavirus screen: At this time, the client does not indicate any symptoms associated with coronavirus-19. Ebola Screen: No symptoms or risks identified at this time. Initial Sepsis Screen: Does the patient meet any 2 criteria? No. Patient's initial sepsis screen is negative. Does the patient have a suspected source of infection? No. Patient's initial sepsis screen is negative. Risk Assessment: Do you want to hurt yourself or someone else? Patient reports no desire to harm self or others. Onset of symptoms was March 27, 2024. 23:50 Method Of Arrival: Ambulatory [facility] 23:50 Acuity: MIRTHA 3 jj7 Triage Assessment: 09/27 00:34 General: Appears in no apparent distress. comfortable, Behavior is calm, cooperative, jj7 appropriate for age. Pain: Complains of pain in right femoral area. : Reports vaginal bleeding that is heavy flow. 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 - Infectious Disease History:: Denies. - Social history:: Smoking status: Reported history of juuling and/or vaping. Patient/guardian denies using alcohol, street drugs, IV drugs. - Family history:: not pertinent. Screenin:37 [facility] ED Fall Risk Assessment (Adult) History of falling in the last 3 months, jj7 including since admission No falls in past 3 months (0 pts) Confusion or Disorientation No (0 pts) Intoxicated or Sedated No (0 pts) Impaired Gait No (0 pts) Mobility Assist Device Used No (0 pt) Altered Elimination No (0 pt) Score/Fall Risk Level 0 - 2 = Low Risk Oriented to surroundings, Maintained a safe environment, Educated pt \T\ family on fall prevention, incl call for assistance when getting out of bed, Assessed \T\ reinforced patient's understanding of fall precautions. Abuse screen: Denies threats or abuse. Nutritional screening: No deficits noted. Tuberculosis screening: No symptoms or risk factors identified. Assessment: 01:50 Reassessment: Patient appears in no apparent distress at this time. Patient and/or bm8 family updated on plan of care and expected duration. Pain level reassessed. Patient is alert, oriented x 3, equal unlabored respirations, skin warm/dry/pink. pt instructed to follow up with OBGYN Patient denies pain at this time. Patient states feeling better. Patient states symptoms have improved. Vital Signs: 09/26 23:50 BP 112 / 65; Pulse 86; Resp 18; Temp 98.8; Pulse Ox 99% ; Weight 99.79 kg; Height 5 ft. [facility] 5 in. ; Pain 4/10; 09/27 01:50 BP 110 / 62; Pulse 81; Resp 17; Temp 98.5; Pulse Ox 100% ; Pain 0/10; bm8 09/26 23:50 Body Mass Index 36.61 (99.79 kg, 165.1 cm) [facility] 09/26 23:50 Pain Scale: Adult [facility] 09/27 01:50 Pain Scale: Adult 8 Shy Coma Score: 01:50 Eye Response: spontaneous(4). Motor Response: obeys commands(6). Verbal Response: bm8 oriented(5). Total: 15. 04:46 Eye Response: spontaneous(4). Motor Response: obeys commands(6). Verbal Response: sp4 oriented(5). Total: 15. ED Course: 09/26 23:48 Patient arrived in ED. 6 09/27 00:04 Skyler Perez MD is Attending Physician. sp4 00:33 Inserted saline lock: 20 gauge in right antecubital area, using aseptic technique. af3 Blood collected. Flushed with 10 mL NS. 00:33 Initial lab(s) drawn, by me, sent to lab. af3 00:34 Triage completed. jj7 00:34 Arm band placed on right wrist. Patient placed in an exam room, on a stretcher. jj7 00:53 WENDY AMADO, RN is Primary Nurse. dd2 00:55 No provider procedures requiring assistance completed. Patient maintains SpO2 dd2 saturation greater than 95% on room air. 00:55 Patient has correct armband on for positive identification. Bed in low position. Call dd2 light in reach. Side rails up X 1. Client placed on continuous cardiac and pulse oximetry monitoring. NIBP monitoring applied. Door closed. Noise minimized. Warm blanket given. Pillow given. Verbal reassurance given. 01:08 Transvaginal Study Probe In Process Unspecified. EDMS 01:41 Hue Fragoso MD is Referral Physician. sp4 01:50 IV discontinued, intact, bleeding controlled, No redness/swelling at site. Pressure bm8 dressing applied. 01:50 Provided Education on: post er care. bm8 Administered Medications: No medications were administered Medication: 00:55 VIS not applicable for this client. dd2 Outcome: 01:42 Discharge ordered by . sp4 01:50 Discharged to home ambulatory, with family, bm8 01:50 Condition: stable 01:50 Discharge instructions given to patient, family, Instructed on discharge instructions, follow up and referral plans. no drinking with medication, no driving heavy equipment, medication usage, safety practices, Demonstrated understanding of instructions, follow-up care, medications, Prescriptions given X 1, 01:52 Patient left the ED. bm8 Signatures: Dispatcher [employer] EDMS Martita Hall jj6 Kieran Reardon RN RN jj7 Skyler Perez MD MD sp4 Marquez Cazares RN RN bm8 Shira Millan af3 WENDY AMADO, RN RN dd2
--- NOTE | 2024-09-27 01:43 | EDPHYS ---
Physician Documentation [facility] Name: Eugene Andrew Age: 24 yrs Sex: Female : 2000 Arrival Date: 09/26/2024 Time: 23:46 Bed 2 Private MD: ED Physician Skyler Perez HPI: 09/27 00:04 This 24 yrs old Female presents to ER via Unassigned with complaints of 6 sp4 MONTHS VAGINAL BLEEDING, PELVIC PAIN. 04:46 24-year-old female presents with persistent daily vaginal bleeding for the past 6 sp4 months. History of unsuccessful -0-0-1. History of hypothyroidism currently off Synthroid for the past 3 years. Patient also takes Lexapro Wellbutrin and BuSpar daily patient has history of Depo-Provera injection in February 2024. Patient is concerned about persistent vaginal bleeding for the past 6 months associated with pelvic cramping. 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 - Infectious Disease History:: Denies. - Social history:: Smoking status: Reported history of juuling and/or vaping. Patient/guardian denies using alcohol, street drugs, IV drugs. - Family history:: not pertinent. ROS: 04:46 Constitutional: Negative for fever, chills, and weight loss, positive pelvic cramping , sp4 positive vaginal bleeding 04:46 All other systems are negative, Exam: 04:46 Constitutional: This is a well developed, well nourished patient who is awake, alert, sp4 and in no acute distress. Head/Face: Normocephalic, atraumatic. Eyes: Pupils equal round and reactive to light, extra-ocular motions intact. Lids and lashes normal. Conjunctiva and sclera are not injected. Cornea within normal limits. Periorbital areas with no swelling, redness, or edema. ENT: Nares patent. No nasal discharge, no septal abnormalities noted. Tympanic membranes are normal and external auditory canals are clear. Oropharynx with no redness, swelling, or masses, exudates, or evidence of obstruction, uvula midline. Mucous membranes moist. Neck: Trachea midline, no thyromegaly or masses palpated, and no cervical lymphadenopathy. Supple, full range of motion without nuchal rigidity, or vertebral point tenderness. Chest/axilla: Normal chest wall appearance and motion. Nontender with no deformity. No lesions are appreciated. Cardiovascular: Regular rate and rhythm with a normal S1 and S2. No gallops, murmurs, or rubs. Normal PMI, no JVD. No pulse deficits. Respiratory: Lungs have equal breath sounds bilaterally, clear to auscultation and percussion. No rales, rhonchi or wheezes noted. No increased work of breathing, no retractions or nasal flaring. Abdomen/GI: Soft, with normal bowel sounds. No distension or tympany. No guarding or rebound. No evidence of tenderness throughout. Back: No spinal tenderness. No costovertebral tenderness. Skin: Warm, dry with normal turgor. Normal color with no rashes, no lesions, and no evidence of cellulitis. MS/ Extremity: Pulses equal, no cyanosis. Neurovascular intact. Full, normal range of motion. Neuro: Awake and alert, GCS 15, oriented to person, place, time, and situation. Cranial nerves II-XII grossly intact. Motor strength 5/5 in all extremities. Sensory grossly intact. Psych: Awake, alert, with orientation to person, place and time. Behavior, mood, and affect are within normal limits Vital Signs: 09/26 23:50 BP 112 / 65; Pulse 86; Resp 18; Temp 98.8; Pulse Ox 99% ; Weight 99.79 kg; Height 5 ft. j7 5 in. ; Pain 4/10; 09/27 01:50 BP 110 / 62; Pulse 81; Resp 17; Temp 98.5; Pulse Ox 100% ; Pain 0/10; bm8 09/26 23:50 Body Mass Index 36.61 (99.79 kg, 165.1 cm) 7 09/26 23:50 Pain Scale: Adult 7 09/27 01:50 Pain Scale: Adult bm8 Syh Coma Score: 01:50 Eye Response: spontaneous(4). Motor Response: obeys commands(6). Verbal Response: bm8 oriented(5). Total: 15. 04:46 Eye Response: spontaneous(4). Motor Response: obeys commands(6). Verbal Response: sp4 oriented(5). Total: 15. MDM: 01:26 Medical Screening Exam initiated sp4 01:36 ED course: EXAM: US Pelvis Transvaginal CLINICAL HISTORY: The patient is 24 years old sp4 and is Female; vaginal bleeding for 6 moths TECHNIQUE: Real-time transvaginal pelvic ultrasound with image documentation. Transvaginal imaging was used for better evaluation of the endometrium and adnexa. COMPARISON: No relevant prior studies available. FINDINGS: UTERUS/CERVIX: The uterus measures 8.1 x 3.7 x 4.6 cm. The endometrium measures 0.3 cm. No myometrial mass. RIGHT OVARY: The right ovary measures 2.3 x 2.2 x 2.1 cm. Normal blood flow. LEFT OVARY: The left ovary measures 2.5 x 1.8 x 2.0 cm. Normal blood flow. FREE FLUID: No free fluid. BLADDER: Empty bladder which cannot be evaluated with this probe. IMPRESSION: Unremarkable pelvic ultrasound. 04:46 Differential diagnosis: oswaldo infection, cervicitis, dysmenorrhea, menometrorrhagia, sp4 menorrhea. Data reviewed: vital signs, nurses notes, lab test result(s), CBC, hepatic panel, radiologic studies, ultrasound. Consideration of Admission/Observation Escalation of care including admission/observation considered. ED course: Patient was prescribed Sprintec and attempt to decrease menstrual flow. Advised follow-up with Dr. Pollock or Dr. Jama for management of persistent vaginal bleeding. Probably dysfunctional uterine bleeding. 09/27 00:05 Order name: Test, Urine; Complete Time: sp4 09/27 00:05 Order name: CBC with Diff; Complete Time: :36 sp4 09/27 00:05 Order name: CMP; Complete Time: sp4 09/27 00:05 Order name: Lipase; Complete Time: sp4 09/27 00:05 Order name: Urinalysis w/ reflexes; Complete Time: 36 sp4 09/27 00:26 Order name: CRP; Complete Time: 01:44 sp4 09/27 00:44 Order name: TSH; Complete Time: sp4 09/27 00:44 Order name: T4 Free; Complete Time: 36 sp4 09/27 00:44 Order name: PT-INR; Complete Time: 01:36 sp4 09/27 01:08 Order name: Transvaginal Study Probe; Complete Time: 01:36 EDMS 09/27 00:05 Order name: IV Saline Lock; Complete Time: 00:32 sp4 09/27 00:05 Order name: Labs collected and sent; Complete Time: 00:32 sp4 Administered Medications: No medications were administered Disposition Summary: 09/27/24 01:42 Discharge Ordered Notes: Location: Home sp4 Problem: new sp4 Symptoms: have improved sp4 Condition: Stable sp4 Diagnosis - Dysfunctional uterine bleeding, Menorrhagia sp4 Followup: sp4 - With: Hue Fragoso MD - When: 7 - 10 days - Reason: Recheck today's complaints Discharge Instructions: - Discharge Summary Sheet sp4 - Dysfunctional Uterine Bleeding sp4 Forms: - Patient Portal Instructions sp4 Prescriptions: - Sprintec (28) 0.25-35 mg-mcg Oral tablet - take 1 tablet ORAL route daily for 30 days take daily as directed; 1 Pack; sp4 Refills: 0, Product Selection Permitted Signatures: Dispatcher [employer] Kieran Atwood RN RN jj7 Skyler Perez MD MD sp4 Corrections: (The following items were deleted from the chart) 00:27 00:27 Pelvis Complete+US.RAD.BRZ ordered. EDMS EDMS
[2024-09-27 02:12] VITALS: BP 110/62; TEMP 98.5; O2SAT 100
== END 2024-09-27 01:52 | disposition home or self-care (01) ==
LOC: ER 23:46
DX: N93.9 Abnormal uterine and vaginal bleeding, unspecified (principal); N92.0 Excessive and frequent menstruation with regular cycle; F17.290 Nicotine dependence, other tobacco product, uncomplicated
CPT/HCPCS: 36415; 76830; 80053; 81001; 81025; 83690; 84439; 84443; 85025; 85610; 86140; 99284

== ENCOUNTER 2025-03-09 17:01 | Emergency (ER) | payer SELFPAY ==
--- OUTSIDE RECORDS SUMMARY | 2025-03-09 17:10 | XMS REPORT | Continuity of Care Document ---
Author Name Unknown Address [address] [facility]. [address] [place] [address] [facility] [place] Address [address] [facility] [address] [place] [address] Support Name Relationship Address Phone OTHER, UNK O [address] [place] [address] [phone] Unavailable E Unknown Unavailable Unavailable Personal Relationship Unknown [place] [address] MARTITA COLES Personal Relationship [address] [facility] [place] [address] ZABRINA COLES Personal Relationship [address] [facility] [place] [address] JEANNE COLES Personal Relationship [address] [facility] [place] [address] [place] Miko Father Unknown [phone] MIKO Unknown Unavailable 2 MIKO Unknown Unavailable 3 Personal Relationship Unknown UnaMIKO Grijalva F [address] [place] [address] Unavailable MARTITA COLES [address] [place] [address] Unavailable RAMSEY TRIANA Significant Unknown JEANNE TAM F [address] [place] [address] MARTITA COLES M [address] [place] [address] Unavailable RAAD CERDA Significant [address] [place] [address] L Martita Coles Mother [address] [place] [address] RAAD CERDA Significant [address] [place], [facility] Care Team Providers Care Cafeteria Aide Name Role Phone Zachary Mobley MD Primary Care Physician [phone] UNKNOWN, ATTENDING Attending Clinician Unavailab DULCE Kendall Attending Clinician Unavailable DULCE MERCEDES Attending Clinician Unavailable Doctor Unassigned, [place] Attending Clinician U navailable ARLEY BARRY Attending Clinician Unavailable ARLEY BARRY Attending Clinician Unavailable Arley Barry PA-C Attending Clinician [phone] SHAD COMER Attending Clinician Unavailable Richard Eason MD Attending Clinician RICHARD EASON Attending Clinician Porsha vailable Shad Marin Attending Clinician [phone] AMIE ZHANG Attending Clinician Unavailable Amie Zhang PA-C Attending Clinician [phone] Unknown, Attending Attending Clinician Unavailab le Lab, Ang - Db Attending Clinician Unavailable Nurse, [facility] Attending Clinician Un available Dulce Mercedes MD Attending Clinician [phone] DONALD WATSON Attending Clinician UnavailMARISA Ponce Attending Clinician Unavailable MARISA GAGE Attending Clinician Unavailable DALTON HAWKINS Attending Clinician Unavailable Dalton Hawkins MD Attending Clinician [phone] Shad Marin Attending Clinician [phone] TOBIN SANTOS Attending Clinician Unava ilMILAGRO Billy Attending Clinician Unavaila Milagro Avery Attending Clinician + [phone] Doctor Unassigned, [place] Attending Clinician U navailable IVAN DUVAL Attending Clinician Unav ROCIO Joseph Attending Clinician Unavailable Lab, Ang - Db Attending Clinician Unavailable ROCIO WESTON Attending Clinician Unavailable Alexandru TOLBERT, Amna Abarca Attending Clinician + Stevo Sow MD Attending Clinicia n Kristen De León RN Attending Clinician Unavailab JOSEPH Westbrook Attending Clinician UnavailJOSEPH Ortiz Attending Clinician Unavaila Graham Jordan PT Attending Clinician Unavailable Pob, [facility] Main Attending Clinician Unavailfidelia Sung RN, Janna Attending Clinician UnavailJudd Holley MD Attending Clinician [phone] JUDD AUGUSTIN Attending Clinician Unavailable 2, [facility] Us Room Attending Clinician Unavaila Sorin Maldonado MD Attending Clinician [phone] SORIN CAMPO Attending Clinician UnavailGERMÁN Jones Attending Clinician Unavailable Germán Moses MD Attending Clinician [phone] Dulce GERMAN Attending Clinician Unavailable Dulce Linton Attending Clinician [phone] SUMMER BURK Attending Clinician Unavailable BRITNEY BLUM Attending Clinician Unavailab Britney Green DO Attending Clinician [phone] Maxi GRAF-CSummer Attending Clinician [phone] MARSHALL BORJA Attending Clinician Unaamor Ascencio RN, Pinky Rand Attending Clinician Unavailab Jeanette Rodney Attending Clinician + JEANETTE LEMUS Attending Clinician UnaNed Barney DO Attending Clinician [phone] Radiology Attending Clinician Unavailable RADIOLOGY Attending Clinician Unavailable Shanu Sheridan Attending Clinician Unavailable DULCE MERCEDES Admitting Clinician Unavailable MILAGRO CLIFTON Admitting Clinician UnavailDulce Atkins MD Admitting Clinician [phone] Dulce GERMAN Admitting Clinician Unavailable JOSEPH LIU Admitting Clinician Unavailconrado reddy Payers Payer Name Policy Type Policy Number Effective Date Expirati on Date Source [facility] [id number] 2016 00:00:00 [facility] [place] [facility] [id number] 2021 00:00:00 [facility] KIDS [id number] 2020 00:00:00 [place] [id number] 2021 00:00:00 BCBS 2 [id number] 2020 00:00:00 Problems Condition Name Condition Details Condition Category Status Onset Date Resolution Date Last Treatment Date Treating Clinician Comments Source Epigastric pain Epigastric pain Disease Active 2023-07 0- 00:00: 00 [facility] Family history of Crohn's disease Family history of Crohn's disease Disease Active 2023-07 0- 00:00: 00 [facility] Chronic nonintract able headache, unspecifie d headache type Chronic nonintract able headache, unspecifie d headache type Disease Active 8- 00:00: 00 [facility] Nausea Nausea Disease Active 8 00:00: 00 [facility] Gastroesop hageal reflux disease without esophagiti s Gastroesop hageal reflux disease without esophagiti s Disease Active 8- 00:00: 00 [facility] Diarrhea, unspecifie d type Diarrhea, unspecifie d type Disease Active 8- 00:00: 00 [facility] Chronic idiopathic constipati on Chronic idiopathic constipati on Disease Active 8- 00:00: 00 [facility] Fatigue, unspecifie d type Fatigue, unspecifie d type Disease Active 5- 00:00: 00 [facility] Anemia of mother in , antepartum Anemia of mother in , antepartum Disease Active 9-27 00:00: 00 [facility] Vitamin D deficiency Vitamin D deficiency Disease Active 8- 00:00: 00 [facility] Hypothyroi dism Hypothyroi dism Disease Active 8- 00:00: 00 [facility] History of depression History of depression Disease Active 4 00:00: 00 [facility] Current every day vaping Current every day vaping Disease Active 4- 00:00: 00 [facility] Current mild episode of major depressive disorder without prior episode Current mild episode of major depressive disorder without prior episode Disease Active 4-06 00:00: 00 Overview: Formattin g of this note might be different from the original. Formattin g of this note might be different from the original. Dr. Bruno in [facility] AMY (generaliz ed anxiety disorder) AMY (generaliz ed anxiety disorder) Disease Active 4-06 00:00: 00 [facility] History of suicide attempt History of suicide attempt Disease Active 406 00:00: 00 [facility] Panic attacks Panic attacks Disease Active 406 00:00: 00 [facility] No known active problems No known active problems Disease [facility] Anemia due to acute blood loss Anemia due to acute blood loss Disease Resolve d 2022-0 5-09 00:00: 00 2023-06-01 00:00:00 2023-06-01 13:21:09 [facility] Other immediate hemorrhage Other immediate hemorrhage Disease Resolve d 2021-1 2-30 00:00: 00 2022-08-17 00:00:00 2022-08-17 17:11:10 Overview: Formattin g of this note might be different from the original. Uterine atony [facility] Morbid obesity with body mass index of 40.0-49.9 Morbid obesity with body mass index of 40.0-49.9 Disease Resolve d 2021-1 2-30 00:00: 00 2022-08-17 00:00:00 2022-08-17 17:11:23 [facility] Liveborn infant by vaginal delivery Liveborn by vaginal delivery Disease Resolve d 2021-1 2-29 00:00: 00 2022-08-17 00:00:00 2022-08-17 15:56:38 [facility] Anemia of mother in , antepartum Anemia of mother in , antepartum Disease Resolve d 2021-0 9-27 00:00: 00 2022-08-17 00:00:00 2022-08-17 17:11:13 [facility] Obesity in , antepartum Obesity in , antepartum Disease Resolve d 2021-0 8-02 00:00: 00 2022-08-17 00:00:00 2022-08-17 17:11:25 [facility] Nausea and vomiting in prior to 22 weeks gestation Nausea and vomiting in prior to 22 weeks gestation Disease Resolve d 2021-0 5-23 00:00: 00 2022-08-17 00:00:00 2022-08-17 17:11:24 [facility] Nausea and vomiting in prior to 22 weeks gestation Nausea and vomiting in prior to 22 weeks gestation Disease Resolve d 2021-0 5-23 00:00: 00 2022-08-17 00:00:00 2022-08-17 17:11:24 [facility] 39 weeks gestation of 39 weeks gestation of Disease Resolve d 2021-1 2-29 00:00: 00 2022-07-30 00:00:00 2022-07-30 07:52:05 [facility] Encounter for induction of labor Encounter for induction of labor Disease Resolve d 2021-1 2-28 00:00: 00 2022-07-30 00:00:00 2022-07-30 07:52:04 [facility] Pelvic pressure in Pelvic pressure in Disease Resolve d 2021-1 1-10 00:00: 00 2022-07-30 00:00:00 2022-07-30 07:51:25 [facility] History of hypothyroi dism History of hypothyroi dism Disease Resolve d 2021-1 0-11 00:00: 00 2022-07-30 00:00:00 2022-07-30 07:51:34 [facility] 10 weeks gestation of 10 weeks gestation of Disease Resolve d 2021-0 6-06 00:00: 00 2022-07-30 00:00:00 2022-07-30 07:52:17 [facility] Genetic screening Genetic screening Disease Resolve d 2021-0 6-06 00:00: 00 2022-07-30 00:00:00 2022-07-30 07:52:19 [facility] Supervisio n of normal first , antepartum Supervisio n of normal first , antepartum Disease Resolve d 2021-0 5-23 00:00: 00 2022-07-30 00:00:00 2022-07-30 07:52:23 [facility] with inconclusi ve viability, single or unspecifie d fetus with inconclusi ve viability, single or unspecifie d fetus Disease Resolve d 0 4-25 00:00: 00 2022-07-30 00:00:00 2022-07-30 07:51:52 [facility] Missed menses Missed menses Disease Resolve d 0 4-25 00:00: 00 2022-07-30 00:00:00 2022-07-30 07:51:47 [facility] Vaginal discharge during , antepartum Vaginal discharge during , antepartum Disease Resolve d 0 4-25 00:00: 00 2022-07-30 00:00:00 2022-07-30 07:51:43 [facility] Dysuria Dysuria Disease Resolve d 4-25 00:00: 00 2022-07-30 00:00:00 2022-07-30 07:51:41 [facility] with inconclusi ve viability, single or unspecifie d fetus with inconclusi ve viability, single or unspecifie d fetus Disease Resolve d 0 4-25 00:00: 00 2022-07-30 00:00:00 2022-07-30 07:51:52 [facility] Allergies, Adverse Reactions, Alerts Allergy Name Allergy Type Status Severity Reaction(s) Onset Date Inactive Date Treating Clinician Comments Source NO KNOWN ALLERGIE S Drug Class Active [facility] Social History Social Habit Start Date Stop Date Quantity Comments Source ASSERTION 2021-11-06 00:00:00 [facility] Gender identity [facility] Sexual orientation [facility] Alcoholic beverage intake 2024-05-23 00:00:00 2024-05-23 00:00:00 Ex-drinker (finding) [facility] History of Social function 2024-05-01 00:00:00 2024-05-01 00:00:00 [facility] Alcohol intake 2023-11-01 00:00:00 2023-11-01 00:00:00 Ex-drinker (finding) [facility] Exposure to SARS-CoV-2 (event) 2022-11-26 00:00:00 2022-12-06 09:51:00 Not sure [facility] Tobacco Comment 2022-07-27 00:00:00 2022-07-27 00:00:00 Use of vape prior to [facility] Tobacco use and exposure 2022-07-27 00:00:00 2022-07-27 00:00:00 Former smokeless tobacco user [facility] Sex Assigned At 2000 00:00:00 2000 00:00:00 [facility] Smoking Status Start Date Stop Date Source Unknown if ever smoked [facility] Never smoked tobacco Juanis Bolden Medications Ordered Medication Name Filled Medication Name Start Date Stop Date Current Medication? Ordering Clinician Indication Dosage Frequency Signature (SIG) Comments Components Source methylPREDN ISolone (MEDROL, SALLY,) 4 mg tablets 2023-07 00:00: 00 Yes [id number] Take by mouth SEE-INSTRU CTIONS. follow package directions [facility] naproxen 500 mg tablet 2023-07 00:00: 00 07-23 05:59 :00 No [id number] 500mg Take 1 tablet by mouth in the morning and 1 tablet in the evening. Take with meals. Do all this for 60 days. [facility] ibuprofen 600 mg tablet 2023-07 00:00: 00 Yes [id number] 600mg Take 1 tablet by mouth in the morning and 1 tablet at noon and 1 tablet in the evening. Take with meals. [facility] pantoprazol e 40 mg EC tablet 2023-07 00:00: 00 Yes [id number] 40mg Take 1 tablet by mouth in the morning. [facility] ondansetron (ZOFRAN) 4 mg tablet 2023-07 00:00: 00 05-12 04:59 :00 No [id number] 4mg Take 1 tablet by mouth every 8 (eight) hours as needed for Nausea and Vomiting (N/V) for up to 10 days. [facility] medroxyPROG ESTERone (DEPO-PROVE RA) syringe 150 mg 04-17 20:15: 00 04-17 19:37 :00 No [id number] 150mg 150 mg, Intramuscu lar, ONCE, 1 dose, On Mon04/17/24 at 1515, Routine [facility] LEVOTHYROXI NE 25 mcg tablet 02-26 00:00: 00 Yes [id number] 25ug TAKE 1 TABLET BY MOUTH EVERY MORNING [facility] cefpodoxime 200 mg tablet 12-15 00:00: 00 05-01 00:00 :00 No [id number] 200mg Take 1 tablet by mouth in the morning and 1 tablet in the evening. [facility] phenazopyri dine 200 mg tablet 12-15 00:00: 00 05-01 00:00 :00 No [id number] 200mg Take 1 tablet by mouth in the morning and 1 tablet at noon and 1 tablet in the evening. [facility] levothyroxi ne 25 mcg tablet 12-04 00:00: 00 02-26 00:00 :00 No [id number] 25ug TAKE 1 TABLET BY MOUTH EVERY MORNING [facility] cefTRIAXone (ROCEPHIN) 350 mg/mL in Lidocaine 1 % injection 1,000 mg 11-01 06:30: 00 11-01 06:30 :00 No 1000mg 1,000 mg, Intramuscu lar, ONCE, 1 dose, On Mon11/02/23 at 0130, STAT
Re ason for Anti-Infec tive: Documented Infection< br>Documen jose rafael Infection Site: Urine
D uration of Therapy: Once (ED) [facility] ketorolac (TORADOL) injection 30 mg 11-01 06:00: 00 11-01 05:07 :00 No 30mg 30 mg, Intramuscu lar, ONCE, 1 dose, On Sarah 4/4/24 at 0100, DO [facility] cefUROXime 500 mg tablet 4-04 00:00: 00 11-09 04:59 :00 No [id number] 500mg Take 1 tablet by mouth in the morning and 1 tablet in the evening. Do all this for 7 days. [facility] escitalopra m oxalate 20 mg tablet 2022-07- 00:00: 00 Yes 20mg Take 1 tablet by mouth every morning. [facility] buPROPion XL 150 mg 24 hr tablet 2022-07-12 00:00: 00 Yes 150mg Take 1 tablet by mouth every morning. [facility] levothyroxi ne 25 mcg tablet - 00:00: 00 12-04 00:00 :00 No [id number] 25ug Take 1 tablet by mouth every morning. [facility] levothyroxi ne (TIROSINT-S OL) 112 mcg/mL Soln - 11:06: 24 03-08 00:00 :00 No 1 ml in the morning before breakfast [facility] SUMAtriptan 50 mg tablet 03-08 00:00: 00 05-01 00:00 :00 No [id number] Take on one onset of migraine , may repeat in 1 hr if needed. Max dosage 200mg in 24hrs. [facility] escitalopra m oxalate 10 mg tablet 09-07 00:00: 00 05-01 00:00 :00 No [id number] 10mg Take 1 tablet by mouth in the morning. [facility] norelgestro min-ethinyl estradiol (XULANE) 150-35 mcg/24 hr patch 2- 00:00: 00 05-01 00:00 :00 No [id number] 1{patch } Apply 1 Patch to skin weekly. [facility] levothyroxi ne (TIROSINT-S OL) 112 mcg/mL Soln 2021-07 2 20:00: 01 Yes 1 ml in the morning before breakfast [facility] vit no.124/iron /folic ( VITAMIN ORAL) 2021-07 18:23: 05 07-29 00:00 :00 No Take by mouth. [facility] escitalopra m oxalate (LEXAPRO) tablet 10 mg 2021-07 14:00: 00 Yes 10mg 10 mg, Oral, DAILY, First dose on Mon07/29/22 at 0800, Until Discontinu ed, Routine [facility] methylergon ovine (METHERGINE ) tablet 200 mcg 2021-07 12:00: 00 07-30 05:59 :00 No 200ug 200 mcg, Oral, Q6H, 3 doses, First dose on Mon07/29/22 at 0600, Last dose on Mon07/29/22 at 1800, Routine [facility] methylergon ovine (METHERGINE ) injection 0.2 mg 2021-07 08:30: 00 07-29 07:44 :00 No .2mg 0.2 mg, Intramuscu lar, ONCE NOW, 1 dose, On Mon07/29/22 at 0230, Routine [facility] miSOPROStoL (CYTOTEC) tablet 1,000 mcg 2021-07 07:30: 00 07-29 06:45 :00 No 1000ug 1,000 mcg, Rectal, ONCE NOW, 1 dose, On Mon07/29/22 at 0130, Routine [facility] NaCl 0.9% (NS) IV infusion 1,000 mL 2021-07 07:15: 00 Yes 1000mL at 999 mL/hr, IV Infusion, CONTINUOUS , Starting on Mon07/29/22 at 0115, Until Discontinu ed, Routine
500 bolus then change rate to 50 ml/hr
[facility] FENTanyl PF (SUBLIMAZE (PF)) injection 100 mcg 2021-07 07:00: 00 07-29 06:24 :00 No 100ug 100 mcg, Slow IV Push, ONCE, 1 dose, On Mon07/29/22 at 0100, Routine [facility] HYDROmorpho ne (DILAUDID) injection 1 mg 2021-07 06:45: 00 07-29 06:45 :00 No 1mg 1 mg, Slow IV Push, ONCE, 1 dose, On 07/29/22 at 0045, Routine
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 [facility] vitamin w/FA tablet 2021-07 00:00: 00 03-08 00:00 :00 No [id number] 1{tbl} Take 1 tablet by mouth in the morning. [facility] ferrous sulfate 325 mg (65 mg iron) tablet 2021-07 00:00: 00 03-08 00:00 :00 No [id number] 325mg Take 1 tablet by mouth in the morning and 1 tablet in the evening. [facility] ibuprofen 600 mg tablet 2021-07 00:00: 03-08 00:00 :00 No [id number] 600mg Take 1 tablet by mouth every 6 (six) hours as needed (Pain). Take with food or milk. [facility] escitalopra m oxalate 10 mg tablet 2021-07 00:00: 00 09-07 00:00 :00 No [id number] 10mg Take 1 tablet by mouth in the morning. [facility] docusate 100 mg capsule 2021-07 00:00: 00 08-17 00:00 :00 No [id number] 200mg Take 2 capsules by mouth once daily as needed for Constipati on. [facility] HYDROcodone -acetaminop hen (NORCO 5) 5-325 mg tablet 1 tablet 2021-07 23:47: 17 Yes 1{tbl} 1 tablet, Oral, Q6HPRN, Starting on Sarah 07/28/22 at 1747, Until Discontinu ed, Routine, Pain (scale 7-10) [facility] ibuprofen (IBU) tablet 600 mg 2021-07 23:47: 16 Yes 600mg 600 mg, Oral, Q6HPRN, Starting on Mon07/28/22 at 1747, Until Discontinu ed, Routine, Pain (scale 4-6) [facility] acetaminoph en (TYLENOL) tablet 650 mg 2021-07 23:47: 16 Yes 650mg 650 mg, Oral, Q6HPRN, Starting on Mon07/28/22 at 1747, Until Discontinu ed, Routine, Pain (scale 1-3) [facility] diphenhydrA MINE (BENADRYL) tablet 25 mg 2021-07 23:47: 16 Yes 25mg 25 mg, Oral, Q6HPRN, Starting on Mon07/28/22 at 1747, Until Discontinu ed, Routine, Sleep, Itching [facility] ondansetron (ZOFRAN (PF)) injection 4 mg 2021-07 23:47: 16 Yes 4mg 4 mg, Slow IV Push, Q8HPRN, Starting on Mon07/28/22 at 1747, Until Discontinu ed, Routine, Nausea and Vomiting (N/V) [facility] simethicone (GAS RELIEF (SIMETHICON E)) chewable tablet 160 mg 2021-07 23:47: 16 Yes 160mg 160 mg, Oral, PC+HSPRN, Starting on Mon07/28/22 at 1747, Until Discontinu ed, Routine, Gas [facility] docusate (COLACE) capsule 200 mg 2021-07 23:47: 16 Yes 200mg 200 mg, Oral, QDAILYPRN, Starting on Mon07/28/22 at 1747, Until Discontinu ed, Routine, Constipati on [facility] magnesium hydroxide (MILK OF MAGNESIA) 400 mg/5 mL suspension 30 mL 2021-07 23:47: 16 Yes 30mL 30 mL, Oral, QDAILYPRN, Starting on Mon07/28/22 at 1747, Until Discontinu ed, Routine, Constipati on [facility] benzocaine- menthol (DERMOPLAST ) 20-0.5 % topical spray 2021-07 23:47: 16 Yes Topical, PRN, Starting on Mon07/28/22 at 1747, Until Discontinu ed, Routine, Perineum discomfort [facility] fentaNYL-ro pivacaine 2 mcg/mL-0.1 % (PF) in NS 200 mL epidural infusion RTU 2021-07 12:40: 00 07-29 02:18 :14 No Epidural, ONCE INTRA PROCEDURE, Starting on Mon07/28/22 at 0640, Until Mon07/28/22 at 2018, Routine, Intra-op [facility] lidocaine-e pinephrine (XYLOCAINE W/EPINEPHRI NE) 1.5 %-1:200,000 injection 2021-07 12:35: 00 07-29 02:18 :14 No Intraderma l, ONCE INTRA PROCEDURE, Starting on Mon07/28/22 at 0635, Until Mon07/28/22 at 2018, Routine, Intra-op [facility] misoprostol (CYTOTEC) quarter-tab let 25 mcg 2021-07 04:45: 00 07-28 14:50 :33 No 25ug 25 mcg, Vaginal, Q4H ABX, First dose on Mon07/27/22 at 2245, Until Discontinu ed, Routine [facility] misoprostol (CYTOTEC) quarter-tab let 25 mcg 2021-07 04:30: 00 07-28 03:56 :00 No 25ug 25 mcg, Oral, ONCE, 1 dose, On Mon07/27/22 at 2230, Routine [facility] butorphanol (STADOL) injection 2 mg 2021-07 01:50: 13 07-28 23:48 :22 No 2mg 2 mg, IV Push, Q3HPRN, Starting on Mon07/27/22 at 1950, Until Mon07/28/22 at 1748, Routine, Pain (scale 1-3), Pain (scale 4-6), Pain (scale 7-10) [facility] ondansetron (ZOFRAN (PF)) injection 4 mg 2021-07 01:50: 13 07-28 23:48 :22 No 4mg 4 mg, Slow IV Push, Q6HPRN, Starting on Mon07/27/22 at 1950, Until Sarah 07/28/22 at 1748, Routine, Nausea and Vomiting (N/V) [facility] oxytocin (PITOCIN) 30 units in NS 500 mL IV infusion 2021-07 01:50: 08 07-28 23:48 :22 No 2mU/min at 2-40 mL/hr, IV Infusion, TITRATE, Starting on Mon07/27/22 at 1950, Until Sarah 07/28/22 at 1748, DO [facility] lactated ringers IV infusion 500 mL 2021-07 01:50: 08 07-28 23:48 :22 No 500mL at 999 mL/hr, 500 mL, IV Infusion, PRN - SEE INSTRUCTIO NS, Starting on Mon07/27/22 at 1950, Until Sarah 07/28/22 at 1748, Routine [facility] D5W-LR IV infusion 1,000 mL 2021-07 01:50: 08 07-28 23:48 :22 No 1000mL at 1-125 mL/hr, IV Infusion, TITRATE, Starting on Mon07/27/22 at 1950, Until Sarah 07/28/22 at 1748, Routine [facility] vit no.124/iron /folic ( VITAMIN ORAL) 2021-07 18:50: 02 Yes Take by mouth. [facility] levothyroxi ne (TIROSINT-S OL) 112 mcg/mL [facility] 2021-07 18:50: 02 Yes 1 ml in the morning before breakfast [facility] levothyroxi ne (TIROSINT-S OL) 112 mcg/mL [facility] 2021-07 15:53: 04 Yes 1 ml in the morning before breakfast [facility] vit no.124/iron /folic ( VITAMIN ORAL) 2021-07 20:51: 02 Yes Take by mouth. [facility] levothyroxi ne (TIROSINT-S OL) 112 mcg/mL [facility] 2021-07 2-15 20:51: 02 Yes 1 ml in the morning before breakfast [facility] levothyroxi ne (TIROSINT-S OL) 112 mcg/mL [facility] 2021-07 2-06 10:10: 03 Yes 1 ml in the morning before breakfast [facility] vit no.124/iron /folic ( VITAMIN ORAL) 2021-07 01:51: 09 Yes Take by mouth. [facility] terconazole 80 mg vaginal suppository 2021-07 00:00: 00 06-15 05:59 :00 No [id number] 80mg Insert 1 Suppositor y into vagina at bedtime for 3 days. [facility] vit no.124/iron /folic ( VITAMIN ORAL) 04-26 09:34: 40 Yes Take by mouth. [facility] ferrous sulfate (IRON, FERROUS SULFATE,) 325 mg (65 mg iron) tablet 04-26 00:00: 00 07-29 00:00 :00 No [id number] 325mg Take 1 tablet by mouth in the morning and 1 tablet at noon and 1 tablet in the evening. Take with meals. [facility] ascorbic acid, vitamin C, 500 mg tablet 04-26 00:00: 00 07-29 00:00 :00 No [id number] 500mg Take 1 tablet by mouth in the morning. [facility] metoclopram uriel HCl 10 mg tablet -23 00:00: 00 07-26 00:00 :00 No [id number] Take 10mg tablet by mouth every 8 hours as needed for nausea and vomiting in . [facility] Ondansetron (Zofran ODT) 4 MG oral TABLET DISPERSIBLE 09-20 00:00: 00 Yes [id number] 4mg Q8H Take 1 tablet (4 mg total) by mouth every 8 hours as needed for nausea Juanis Bolden Promethazin e HCl 25 MG oral Tablet 09-20 00:00: 00 Yes [id number] 25mg Q6H Take 1 tablet (25 mg total) by mouth every 6 hours as needed for nausea Juanis Bolden Loperamide HCl 2 MG oral Tablet 09-20 00:00: 00 Yes [id number] 2mg Q.25D Take 1 tablet (2 mg total) by mouth 4 times daily as needed for diarrhea Juanis Bolden Azithromyci n 500 MG oral Tablet 09-20 00:00: 00 09-25 05:59 :00 No [id number] Take 2 tablets (1,000 mg total) by mouth daily for 1 day, THEN 1 tablet (500 mg total) daily for 3 days. Juanis Bolden ondansetron (ZOFRAN-ODT ) disintegrat ing tablet 4 mg 08-27 15:15: 00 08-27 14:19 :00 No 4mg 4 mg, Oral, ONCE, 1 dose, On Mon08/27/21 at 0915, Routine [facility] ondansetron 4 mg disintegrat ing tablet 08-27 00:00: 00 Yes [id number] 4mg Take 1 tablet by mouth every 8 (eight) hours as needed for Nausea and Vomiting (N/V). [facility] Levothyroxi ne Sodium (Synthroid) 112 MCG [...] Tablet Therapy Pack 08-19 00:00: 00 Yes [id number] 1{sally} Take 1 sally by mouth See Admin Instructio ns Use as directed Juanis Bolden Celecoxib (CeleBREX) 200 MG oral Capsule 08-19 00:00: 00 Yes [id number] 200mg Take 1 capsule (200 mg total) by mouth 2 times daily Juanis Galvinithantoinetteyci n 250 MG oral Tablet 08-19 00:00: 00 08-25 05:59 :00 No [id number] Take 2 tablets by mouth on day 1 then 1 tablet by mouth daily for 4 days thereafter . Juanis Bolden Immunizations Ordered Immunization Name Filled Immunization Name Date Status Comments Source TDAP 2022-06-30 00:00:00 Completed [facility] TDAP 2022-06-30 00:00:00 Completed [facility] TDAP 2022-06-30 00:00:00 Completed [facility] TDAP 2022-06-30 00:00:00 Completed [facility] TDAP 2022-06-30 00:00:00 Completed [facility] TDAP 2022-06-30 00:00:00 Completed [facility] TDAP 2022-06-30 00:00:00 Completed [facility] TDAP 2022-06-30 00:00:00 Completed [facility] TDAP 2022-06-30 00:00:00 Completed [facility] TDAP 2022-06-30 00:00:00 Completed [facility] TDAP 2022-06-30 00:00:00 Completed [facility] Influenza Virus Vaccine Quad IM Multi-dose 6+ MO 2020-11-03 00:00:00 Completed [facility] TDAP 2020-11-03 00:00:00 Completed [facility] Influenza Virus Vaccine Quad IM Multi-dose 6+ MO 2020-11-03 00:00:00 Completed [facility] TDAP 2020-11-03 00:00:00 Completed [facility] Influenza Virus Vaccine Quad IM Multi-dose 6+ MO 2020-11-03 00:00:00 Completed [facility] TDAP 2020-11-03 00:00:00 Completed [facility] Influenza Virus Vaccine Quad IM Multi-dose 6+ MO 2020-11-03 00:00:00 Completed [facility] TDAP 2020-11-03 00:00:00 Completed [facility] Influenza Virus Vaccine Quad IM Multi-dose 6+ MO 2020-11-03 00:00:00 Completed [facility] TDAP 2020-11-03 00:00:00 Completed [facility] Influenza Virus Vaccine Quad IM Multi-dose 6+ MO 2020-11-03 00:00:00 Completed [facility] TDAP 2020-11-03 00:00:00 Completed [facility] Influenza Virus Vaccine Quad IM Multi-dose 6+ MO 2020-11-03 00:00:00 Completed [facility] TDAP 2020-11-03 00:00:00 Completed [facility] Influenza Virus Vaccine Quad IM Multi-dose 6+ MO 2020-11-03 00:00:00 Completed [facility] TDAP 2020-11-03 00:00:00 Completed [facility] Influenza Virus Vaccine Quad IM Multi-dose 6+ MO 2020-11-03 00:00:00 Completed [facility] TDAP 2020-11-03 00:00:00 Completed [facility] Influenza Virus Vaccine Quad IM Multi-dose 6+ MO 2020-11-03 00:00:00 Completed [facility] TDAP 2020-11-03 00:00:00 Completed [facility] Influenza Virus Vaccine Quad IM Multi-dose 6+ MO 2020-11-03 00:00:00 Completed [facility] TDAP 2020-11-03 00:00:00 Completed [facility] Influenza Virus Vaccine Quad IM Multi-dose 6+ MO 2020-11-03 00:00:00 Completed [facility] TDAP 2020-11-03 00:00:00 Completed [facility] Influenza Virus Vaccine Quad IM Multi-dose 6+ MO 2020-11-03 00:00:00 Completed [facility] TDAP 2020-11-03 00:00:00 Completed [facility] Influenza Virus Vaccine Quad IM Multi-dose 6+ MO 2020-11-03 00:00:00 Completed [facility] TDAP 2020-11-03 00:00:00 Completed [facility] Influenza Virus Vaccine Quad IM Multi-dose 6+ MO 2020-11-03 00:00:00 Completed [facility] TDAP 2020-11-03 00:00:00 Completed [facility] Influenza Virus Vaccine Quad IM Multi-dose 6+ MO 2020-11-03 00:00:00 Completed [facility] TDAP 2020-11-03 00:00:00 Completed [facility] Influenza Virus Vaccine Quad IM Multi-dose 6+ MO 2020-11-03 00:00:00 Completed [facility] TDAP 2020-11-03 00:00:00 Completed [facility] Influenza Virus Vaccine Quad IM Multi-dose 6+ MO 2020-11-03 00:00:00 Completed [facility] TDAP 2020-11-03 00:00:00 Completed [facility] Influenza Virus Vaccine Quad IM Multi-dose 6+ [...] IM Multi-dose 6+ MO 2020-11-03 00:00:00 Completed [facility] TDAP 2020-11-03 00:00:00 Completed [facility] Influenza Virus Vaccine Quad IM Multi-dose 6+ MO 2020-11-03 00:00:00 Completed [facility] TDAP 2020-11-03 00:00:00 Completed [facility] Influenza Virus Vaccine Quad IM Multi-dose 6+ MO 2020-11-03 00:00:00 Completed [facility] TDAP 2020-11-03 00:00:00 Completed [facility] Influenza Virus Vaccine Quad IM Multi-dose 6+ MO 2020-11-03 00:00:00 Completed [facility] TDAP 2020-11-03 00:00:00 Completed [facility] Influenza Virus Vaccine Quad IM Multi-dose 6+ MO 2020-11-03 00:00:00 Completed [facility] TDAP 2020-11-03 00:00:00 Completed [facility] Influenza Virus Vaccine Quad IM Multi-dose 6+ MO 2020-11-03 00:00:00 Completed [facility] TDAP 2020-11-03 00:00:00 Completed [facility] Influenza Virus Vaccine Quad IM Multi-dose 6+ MO 2020-11-03 00:00:00 Completed [facility] TDAP 2020-11-03 00:00:00 Completed [facility] Influenza Virus Vaccine Quad IM Multi-dose 6+ MO 2020-11-03 00:00:00 Completed [facility] TDAP 2020-11-03 00:00:00 Completed [facility] Influenza Virus Vaccine Quad IM Multi-dose 6+ MO 2020-11-03 00:00:00 Completed [facility] TDAP 2020-11-03 00:00:00 Completed [facility] Influenza Virus Vaccine Quad IM Multi-dose 6+ MO 2020-11-03 00:00:00 Completed [facility] TDAP 2020-11-03 00:00:00 Completed [facility] Influenza Virus Vaccine Quad IM Multi-dose 6+ MO 2020-11-03 00:00:00 Completed [facility] TDAP 2020-11-03 00:00:00 Completed [facility] Influenza Virus Vaccine Quad IM Multi-dose 6+ MO 2020-11-03 00:00:00 Completed [facility] TDAP 2020-11-03 00:00:00 Completed [facility] Influenza Virus Vaccine Quad IM Multi-dose 6+ MO 2020-11-03 00:00:00 Completed [facility] TDAP 2020-11-03 00:00:00 Completed [facility] Influenza Virus Vaccine Quad IM Multi-dose 6+ MO 2020-11-03 00:00:00 Completed [facility] TDAP 2020-11-03 00:00:00 Completed [facility] Influenza Virus Vaccine Quad IM Multi-dose 6+ MO 2020-11-03 00:00:00 Completed [facility] TDAP 2020-11-03 00:00:00 Completed [facility] Influenza Virus Vaccine Quad IM Multi-dose 6+ MO 2020-11-03 00:00:00 Completed [facility] TDAP 2020-11-03 00:00:00 Completed [facility] Influenza Virus Vaccine Quad IM Multi-dose 6+ MO 2020-11-03 00:00:00 Completed [facility] TDAP 2020-11-03 00:00:00 Completed [facility] Influenza Virus Vaccine Quad IM Multi-dose 6+ MO 2020-11-03 00:00:00 Completed [facility] TDAP 2020-11-03 00:00:00 Completed [facility] Influenza Virus Vaccine Quad IM Multi-dose 6+ MO 2020-11-03 00:00:00 Completed [facility] TDAP 2020-11-03 00:00:00 Completed [facility] Influenza Virus Vaccine Quad IM Multi-dose 6+ MO 2020-11-03 00:00:00 Completed [facility] TDAP 2020-11-03 00:00:00 Completed [facility] Influenza Virus Vaccine Quad IM Multi-dose 6+ MO 2020-11-03 00:00:00 Completed [facility] TDAP 2020-11-03 00:00:00 Completed [facility] Influenza Virus Vaccine Quad IM Multi-dose 6+ MO 2020-11-03 00:00:00 Completed [facility] TDAP 2020-11-03 00:00:00 Completed [facility] Influenza Virus Vaccine Quad IM Multi-dose 6+ MO 2020-11-03 00:00:00 Completed [facility] TDAP 2020-11-03 00:00:00 Completed [facility] Influenza Virus Vaccine Quad IM Multi-dose 6+ MO 2020-11-03 00:00:00 Completed [facility] TDAP 2020-11-03 00:00:00 Completed [facility] Influenza Virus Vaccine, age 6 months and up 2020-11-03 00:00:00 Completed Juanis Bolden Tdap- (Boostrix, Adacel) 2020-11-03 00:00:00 Completed Juanis Bolden Influenza Virus Vaccine, age 6 months and up 2020-11-03 00:00:00 Completed Juanis Bolden Tdap- (Boostrix, Adacel) 2020-11-03 00:00:00 Completed Juanis Bolden HEPATITIS A 2006-10-26 00:00:00 Completed [facility] Proquad (MMR/VARICELLA) 2006-10-26 00:00:00 Completed [facility] HEPATITIS A 2006-10-26 00:00:00 Completed [facility] Proquad (MMR/VARICELLA) 2006-10-26 00:00:00 Completed [facility] HEPATITIS A 2006-10-26 00:00:00 Completed [facility] Proquad (MMR/VARICELLA) 2006-10-26 00:00:00 Completed [facility] HEPATITIS A 2006-10-26 00:00:00 Completed [facility] Proquad (MMR/VARICELLA) 2006-10-26 00:00:00 Completed [facility] HEPATITIS A 2006-10-26 00:00:00 Completed [facility] Proquad (MMR/VARICELLA) 2006-10-26 00:00:00 Completed [facility] HEPATITIS A 2006-10-26 00:00:00 Completed [facility] Proquad (MMR/VARICELLA) 2006-10-26 00:00:00 Completed [facility] HEPATITIS A 2006-10-26 00:00:00 Completed [facility] Proquad (MMR/VARICELLA) 2006-10-26 00:00:00 Completed [facility] HEPATITIS A 2006-10-26 00:00:00 Completed [facility] Proquad (MMR/VARICELLA) 2006-10-26 00:00:00 Completed [facility] HEPATITIS A 2006-10-26 00:00:00 Completed [facility] Proquad (MMR/VARICELLA) 2006-10-26 00:00:00 Completed [facility] HEPATITIS A 2006-10-26 00:00:00 Completed [facility] Proquad (MMR/VARICELLA) 2006-10-26 00:00:00 Completed [facility] HEPATITIS A 2006-10-26 00:00:00 Completed [facility] Proquad (MMR/VARICELLA) 2006-10-26 00:00:00 Completed [facility] HEPATITIS A 2006-10-26 00:00:00 Completed [facility] Proquad (MMR/VARICELLA) 2006-10-26 00:00:00 Completed [facility] HEPATITIS A 2006-10-26 00:00:00 Completed [facility] Proquad (MMR/VARICELLA) 2006-10-26 00:00:00 Completed [facility] HEPATITIS A 2006-10-26 00:00:00 Completed [facility] Proquad (MMR/VARICELLA) 2006-10-26 00:00:00 Completed [facility] HEPATITIS A 2006-10-26 00:00:00 Completed [facility] Proquad (MMR/VARICELLA) 2006-10-26 00:00:00 Completed [facility] HEPATITIS A 2006-10-26 00:00:00 Completed [facility] Proquad (MMR/VARICELLA) 2006-10-26 00:00:00 Completed [facility] HEPATITIS A 2006-10-26 00:00:00 Completed [facility] Proquad (MMR/VARICELLA) 2006-10-26 00:00:00 Completed [facility] HEPATITIS A 2006-10-26 00:00:00 Completed [facility] Proquad (MMR/VARICELLA) 2006-10-26 00:00:00 Completed [facility] HEPATITIS A 2006-10-26 00:00:00 Completed Proquad (MMR/VARICELLA) 2006-10-26 00:00:00 Completed HEPATITIS A 2006-10-26 00:00:00 Completed Proquad (MMR/VARICELLA) 2006-10-26 00:00:00 Completed HEPATITIS A 2006-10-26 00:00:00 Completed Proquad (MMR/VARICELLA) 2006-10-26 00:00:00 Completed HEPATITIS A 2006-10-26 00:00:00 Completed Proquad (MMR/VARICELLA) 2006-10-26 00:00:00 Completed HEPATITIS A 2006-10-26 00:00:00 Completed [facility] Proquad (MMR/VARICELLA) 2006-10-26 00:00:00 Completed [facility] HEPATITIS A 2006-10-26 00:00:00 Completed [facility] Proquad (MMR/VARICELLA) 2006-10-26 00:00:00 Completed [facility] HEPATITIS A 2006-10-26 00:00:00 Completed [facility] Proquad (MMR/VARICELLA) 2006-10-26 00:00:00 Completed [facility] HEPATITIS A 2006-10-26 00:00:00 Completed [facility] Proquad (MMR/VARICELLA) 2006-10-26 00:00:00 Completed [facility] HEPATITIS A 2006-10-26 00:00:00 Completed [facility] Proquad (MMR/VARICELLA) 2006-10-26 00:00:00 Completed [facility] HEPATITIS A 2006-10-26 00:00:00 Completed [facility] Proquad (MMR/VARICELLA) 2006-10-26 00:00:00 Completed [facility] HEPATITIS A 2006-10-26 00:00:00 Completed [facility] Proquad (MMR/VARICELLA) 2006-10-26 00:00:00 Completed [facility] HEPATITIS A 2006-10-26 00:00:00 Completed [facility] Proquad (MMR/VARICELLA) 2006-10-26 00:00:00 Completed [facility] HEPATITIS A 2006-10-26 00:00:00 Completed [facility] Proquad (MMR/VARICELLA) 2006-10-26 00:00:00 Completed [facility] HEPATITIS A 2006-10-26 00:00:00 Completed [facility] Proquad (MMR/VARICELLA) 2006-10-26 00:00:00 Completed [facility] HEPATITIS A 2006-10-26 00:00:00 Completed [facility] Proquad (MMR/VARICELLA) 2006-10-26 00:00:00 Completed [facility] HEPATITIS A 2006-10-26 00:00:00 Completed [facility] Proquad (MMR/VARICELLA) 2006-10-26 00:00:00 Completed [facility] HEPATITIS A 2006-10-26 00:00:00 Completed [facility] Proquad (MMR/VARICELLA) 2006-10-26 00:00:00 Completed [facility] HEPATITIS A 2006-10-26 00:00:00 Completed [facility] Proquad (MMR/VARICELLA) 2006-10-26 00:00:00 Completed [facility] HEPATITIS A 2006-10-26 00:00:00 Completed [facility] Proquad (MMR/VARICELLA) 2006-10-26 00:00:00 Completed [facility] HEPATITIS A 2006-10-26 00:00:00 Completed [facility] Proquad (MMR/VARICELLA) 2006-10-26 00:00:00 Completed [facility] HEPATITIS A 2006-10-26 00:00:00 Completed [facility] Proquad (MMR/VARICELLA) 2006-10-26 00:00:00 Completed [facility] HEPATITIS A 2006-10-26 00:00:00 Completed [facility] Proquad (MMR/VARICELLA) 2006-10-26 00:00:00 Completed [facility] HEPATITIS A 2006-10-26 00:00:00 Completed [facility] Proquad (MMR/VARICELLA) 2006-10-26 00:00:00 Completed [facility] HEPATITIS A 2006-10-26 00:00:00 Completed [facility] Proquad (MMR/VARICELLA) 2006-10-26 00:00:00 Completed [facility] HEPATITIS A 2006-10-26 00:00:00 Completed [facility] Proquad (MMR/VARICELLA) 2006-10-26 00:00:00 Completed [facility] HEPATITIS A 2006-10-26 00:00:00 Completed [facility] Proquad (MMR/VARICELLA) 2006-10-26 00:00:00 Completed [facility] HEPATITIS A 2006-10-26 00:00:00 Completed [facility] Proquad (MMR/VARICELLA) 2006-10-26 00:00:00 Completed [facility] HEPATITIS A 2006-10-26 00:00:00 Completed [facility] Proquad (MMR/VARICELLA) 2006-10-26 00:00:00 Completed [facility] HEPATITIS A- PEDI/ADOL 2006-10-26 00:00:00 Completed Juanis Bolden MMR/Varicella (ProQuad) 2006-10-26 00:00:00 Completed Juanis Bolden HEPATITIS A- PEDI/ADOL 2006-10-26 00:00:00 Completed Juanis Bolden MMR/Varicella (ProQuad) 2006-10-26 00:00:00 Completed Juanis Bolden HEPATITIS A Unknown Completed [facility] Influenza Virus Vaccine Quad IM Multi-dose 6+ MO Unknown Completed [facility] Proquad (MMR/VARICELLA) Unknown Completed [facility] TDAP Unknown Completed [facility] HEPATITIS A Unknown Completed [facility] Influenza Virus Vaccine Quad IM Multi-dose 6+ MO Unknown Completed [facility] Proquad (MMR/VARICELLA) Unknown Completed [facility] TDAP Unknown Completed [facility] HEPATITIS A Unknown Completed [facility] Influenza Virus Vaccine Quad IM Multi-dose 6+ MO Unknown Completed [facility] Proquad (MMR/VARICELLA) Unknown Completed [facility] TDAP Unknown Completed [facility] HEPATITIS A Unknown Completed [facility] Influenza Virus Vaccine Quad IM Multi-dose 6+ MO Unknown Completed [facility] Proquad (MMR/VARICELLA) Unknown Completed [facility] TDAP Unknown Completed [facility] HEPATITIS A Unknown Completed [facility] Influenza Virus Vaccine Quad IM Multi-dose 6+ MO Unknown Completed [facility] Proquad (MMR/VARICELLA) Unknown Completed [facility] TDAP Unknown Completed [facility] HEPATITIS A Unknown Completed [facility] Influenza Virus Vaccine Quad IM Multi-dose 6+ MO Unknown Completed [facility] Proquad (MMR/VARICELLA) Unknown Completed [facility] TDAP Unknown Completed [facility] HEPATITIS A Unknown Completed [facility] Influenza Virus Vaccine Quad IM Multi-dose 6+ MO Unknown Completed [facility] Proquad (MMR/VARICELLA) Unknown Completed [facility] TDAP Unknown Completed [facility] HEPATITIS A Unknown Completed [facility] Influenza Virus Vaccine Quad IM Multi-dose 6+ MO Unknown Completed [facility] Proquad (MMR/VARICELLA) Unknown Completed [facility] TDAP Unknown Completed [facility] HEPATITIS A Unknown Completed [facility] Influenza Virus Vaccine Quad IM Multi-dose 6+ MO Unknown Completed [facility] Proquad (MMR/VARICELLA) Unknown Completed [facility] TDAP Unknown Completed [facility] HEPATITIS A Unknown Completed [facility] Influenza Virus Vaccine Quad IM Multi-dose 6+ MO Unknown Completed [facility] Proquad (MMR/VARICELLA) Unknown Completed [facility] TDAP Unknown Completed [facility] HEPATITIS A Unknown Completed [facility] Influenza Virus Vaccine Quad IM Multi-dose 6+ MO Unknown Completed [facility] Proquad (MMR/VARICELLA) Unknown Completed [facility] TDAP Unknown Completed [facility] HEPATITIS A Unknown Completed [facility] Influenza Virus Vaccine Quad IM Multi-dose 6+ MO Unknown Completed [facility] Proquad (MMR/VARICELLA) Unknown Completed [facility] TDAP Unknown Completed [facility] HEPATITIS A Unknown Completed [facility] Influenza Virus Vaccine Quad IM Multi-dose 6+ MO Unknown Completed [facility] Proquad (MMR/VARICELLA) Unknown Completed [facility] TDAP Unknown Completed [facility] Vital Signs Vital Name Observation Time Observation Value Comments S ource Systolic blood pressure 2024-09-03 22:14:00 115 mm[Hg] [facility] Diastolic blood pressure 2024-09-03 22:14:00 71 mm[Hg] [facility] Heart rate 2024-09-03 22:14:00 60 /min [facility] Body temperature 2024-09-03 22:14:00 37 Kait [facility] Respiratory rate 2024-09-03 22:14:00 18 /min [facility] Body height 2024-09-03 22:14:00 165.1 cm [facility] Body weight 2024-09-03 22:14:00 99.791 kg [facility] BMI 2024-09-03 22:14:00 36.61 kg/m2 [facility] Oxygen saturation in Arterial blood by Pulse oximetry 2024-09-03 22:14:00 96 /min [facility] Systolic blood pressure 2024-05-23 13:35:00 147 mm[Hg] [facility] Diastolic blood pressure 2024-05-23 13:35:00 98 mm[Hg] [facility] Heart rate 2024-05-23 13:35:00 94 /min [facility] Body temperature 2024-05-23 13:35:00 36.17 Kait [facility] Body height 2024-05-23 13:35:00 165.1 cm [facility] Body weight 2024-05-23 13:35:00 99.791 kg [facility] BMI 2024-05-23 13:35:00 36.61 kg/m2 [facility] Systolic blood pressure 2024-05-17 14:37:00 130 mm[Hg] [facility] Diastolic blood pressure 2024-05-17 14:37:00 82 mm[Hg] [facility] Heart rate 2024-05-17 14:37:00 74 /min [facility] Body temperature 2024-05-17 14:37:00 36.61 Kait [facility] Respiratory rate 2024-05-17 14:37:00 17 /min [facility] Body height 2024-05-17 14:37:00 165.1 cm [facility] Body weight 2024-05-17 14:37:00 101.634 kg [facility] BMI 2024-05-17 14:37:00 37.29 kg/m2 [facility] Oxygen saturation in Arterial blood by Pulse oximetry 2024-05-17 14:37:00 98 /min [facility] Systolic blood pressure 2024-05-01 20:21:00 112 mm[Hg] [facility] Diastolic blood pressure 2024-05-01 20:21:00 76 mm[Hg] [facility] Heart rate 2024-05-01 20:21:00 75 /min [facility] Body temperature 2024-05-01 20:21:00 36.78 Kait [facility] Respiratory rate 2024-05-01 20:21:00 18 /min [facility] Body height 2024-05-01 20:21:00 165.1 cm [facility] [facility] Body weight 2024-05-01 20:21:00 101.56 kg [facility] BMI 2024-05-01 20:21:00 37.26 kg/m2 [facility] Oxygen saturation in Arterial blood by Pulse oximetry 2024-05-01 20:21:00 96 /min [facility] Systolic blood pressure 2024-04-17 19:21:00 124 mm[Hg] [facility] Diastolic blood pressure 2024-04-17 19:21:00 73 mm[Hg] [facility] Heart rate 2024-04-17 19:21:00 72 /min [facility] Body temperature 2024-04-17 19:21:00 36.89 Kait [facility] Respiratory rate 2024-04-17 19:21:00 16 /min [facility] Body height 2024-04-17 19:21:00 175.3 cm [facility] Body weight 2024-04-17 19:21:00 101.152 kg [facility] BMI 2024-04-17 19:21:00 32.93 kg/m2 [facility] Systolic blood pressure 2024-04-09 19:14:00 122 mm[Hg] [facility] Diastolic blood pressure 2024-04-09 19:14:00 67 mm[Hg] [facility] Heart rate 2024-04-09 19:14:00 74 /min [facility] Body temperature 2024-04-09 19:14:00 36.5 Kait [facility] Respiratory rate 2024-04-09 19:14:00 18 /min [facility] Body height 2024-04-09 19:14:00 165.1 cm [facility] Body weight 2024-04-09 19:14:00 104.781 kg [facility] BMI 2024-04-09 19:14:00 38.44 kg/m2 [facility] Systolic blood pressure 2023-12-16 11:02:00 110 mm[Hg] [facility] Diastolic blood pressure 2023-12-16 11:02:00 71 mm[Hg] [facility] Heart rate 2023-12-16 11:02:00 79 /min [facility] Body temperature 2023-12-16 11:02:00 36.61 Kait [facility] Respiratory rate 2023-12-16 11:02:00 18 /min [facility] Oxygen saturation in Arterial blood by Pulse oximetry 2023-12-16 11:02:00 97 /min [facility] Body height 2023-12-16 09:16:00 165.1 cm [facility] Body weight 2023-12-16 09:16:00 100.925 kg [facility] BMI 2023-12-16 09:16:00 37.03 kg/m2 [facility] Systolic blood pressure 2023-11-02 06:38:00 131 mm[Hg] [facility] Diastolic blood pressure 2023-11-02 06:38:00 77 mm[Hg] [facility] Heart rate 2023-11-02 06:38:00 64 /min [facility] Body temperature 2023-11-02 06:38:00 36.61 Kait [facility] Respiratory rate 2023-11-02 06:38:00 18 /min [facility] Oxygen saturation in Arterial blood by Pulse oximetry 2023-11-02 06:38:00 100 /min [facility] Body height 2023-11-02 04:22:00 165.1 cm [facility] Body weight 2023-11-02 04:22:00 103.465 kg [facility] BMI 2023-11-02 04:22:00 37.96 kg/m2 [facility] Systolic blood pressure 2023-08-04 14:41:00 136 mm[Hg] [facility] Diastolic blood pressure 2023-08-04 14:41:00 85 mm[Hg] [facility] Heart rate 2023-08-04 14:41:00 90 /min [facility] Body height 2023-08-04 14:41:00 165.1 cm [facility] Body weight 2023-08-04 14:41:00 110.133 kg [facility] BMI 2023-08-04 14:41:00 40.40 kg/m2 [facility] Oxygen saturation in Arterial blood by Pulse oximetry 2023-08-04 14:41:00 98 /min [facility] Systolic blood pressure 2023-06-01 18:01:00 115 mm[Hg] [facility] Diastolic blood pressure 2023-06-01 18:01:00 62 mm[Hg] [facility] Heart rate 2023-06-01 18:01:00 79 /min [facility] Body temperature 2023-06-01 18:01:00 36.67 Kait [facility] Respiratory rate 2023-06-01 18:01:00 18 /min [facility] Body weight 2023-06-01 18:01:00 112.674 kg [facility] BMI 2023-06-01 18:01:00 41.34 kg/m2 [facility] Systolic blood pressure 2023-03-08 16:03:00 102 mm[Hg] [facility] Diastolic blood pressure 2023-03-08 16:03:00 70 mm[Hg] [facility] Heart rate 2023-03-08 16:03:00 73 /min [facility] Body height 2023-03-08 16:03:00 165.1 cm [facility] Body weight 2023-03-08 16:03:00 115.214 kg [facility] BMI 2023-03-08 16:03:00 42.27 kg/m2 [facility] Oxygen saturation in Arterial blood by Pulse oximetry 2023-03-08 16:03:00 98 /min [facility] Systolic blood pressure 2022-12-06 15:23:00 105 mm[Hg] [facility] Diastolic blood pressure 2022-12-06 15:23:00 68 mm[Hg] [facility] Heart rate 2022-12-06 15:22:00 79 /min [facility] Body temperature 2022-12-06 15:22:00 36.94 Kait [facility] Body height 2022-12-06 15:22:00 165.1 cm [facility] Body weight 2022-12-06 15:22:00 111.131 kg [facility] BMI 2022-12-06 15:22:00 40.77 kg/m2 [facility] Oxygen saturation in Arterial blood by Pulse oximetry 2022-12-06 15:22:00 98 /min [facility] Systolic blood pressure 2022-09-07 17:04:00 104 mm[Hg] [facility] Diastolic blood pressure 2022-09-07 17:04:00 68 mm[Hg] [facility] Heart rate 2022-09-07 17:04:00 80 /min [facility] Body temperature 2022-09-07 17:04:00 36.83 Kait [facility] Respiratory rate 2022-09-07 17:04:00 17 /min [facility] Body height 2022-09-07 17:04:00 165.1 cm [facility] Body weight 2022-09-07 17:04:00 107.457 kg [facility] BMI 2022-09-07 17:04:00 39.42 kg/m2 [facility] Systolic blood pressure 2022-08-17 22:05:00 132 mm[Hg] [facility] Diastolic blood pressure 2022-08-17 22:05:00 84 mm[Hg] [facility] Heart rate 2022-08-17 22:05:00 74 /min [facility] Body temperature 2022-08-17 22:05:00 36.67 Kait [facility] Respiratory rate 2022-08-17 22:05:00 16 /min [facility] Body height 2022-08-17 22:05:00 165.1 cm [facility] Body weight 2022-08-17 22:05:00 107.775 kg [facility] BMI 2022-08-17 22:05:00 39.54 kg/m2 [facility] Oxygen saturation in Arterial blood by Pulse oximetry 2022-08-17 22:05:00 96 /min [facility] Systolic blood pressure 2022-07-29 19:30:00 121 mm[Hg] [facility] Diastolic blood pressure 2022-07-29 19:30:00 60 mm[Hg] [facility] Heart rate 2022-07-29 19:30:00 99 /min [facility] Body temperature 2022-07-29 19:30:00 36.11 Kait [facility] Respiratory rate 2022-07-29 19:30:00 18 /min [facility] Oxygen saturation in Arterial blood by Pulse oximetry 2022-07-29 19:30:00 100 /min [facility] Body height 2022-07-28 03:15:00 165.1 cm [facility] Body weight 2022-07-28 03:15:00 118.933 kg [facility] BMI 2022-07-28 03:15:00 43.63 kg/m2 [facility] Systolic blood pressure 2022-07-26 20:24:00 118 mm[Hg] [facility] Diastolic blood pressure 2022-07-26 20:24:00 89 mm[Hg] [facility] Heart rate 2022-07-26 19:28:00 108 /min [facility] Body height 2022-07-26 19:28:00 165.1 cm [facility] Body weight 2022-07-26 19:28:00 119.75 kg [facility] BMI 2022-07-26 19:28:00 43.93 kg/m2 [facility] Oxygen saturation in Arterial blood by Pulse oximetry 2022-07-26 19:28:00 97 /min [facility] Systolic blood pressure 2022-07-19 21:52:00 124 mm[Hg] [facility] Diastolic blood pressure 2022-07-19 21:52:00 86 mm[Hg] [facility] Heart rate 2022-07-19 21:49:00 101 /min [facility] Body temperature 2022-07-19 21:49:00 36.44 Kait [facility] Respiratory rate 2022-07-19 21:49:00 18 /min [facility] Body height 2022-07-19 21:49:00 165.1 cm [facility] Body weight 2022-07-19 21:49:00 117.482 kg [facility] BMI 2022-07-19 21:49:00 43.10 kg/m2 [facility] Systolic blood pressure 2022-07-15 02:00:00 125 mm[Hg] [facility] Diastolic blood pressure 2022-07-15 02:00:00 78 mm[Hg] [facility] Heart rate 2022-07-15 02:00:00 84 /min [facility] Oxygen saturation in Arterial blood by Pulse oximetry 2022-07-15 02:00:00 100 /min [facility] Body height 2022-07-15 00:37:00 165.1 cm [facility] Body weight 2022-07-15 00:37:00 115.486 kg [facility] BMI 2022-07-15 00:37:00 42.37 kg/m2 [facility] Body temperature 2022-07-15 00:00:00 37.11 Kait [facility] Respiratory rate 2022-07-15 00:00:00 20 /min [facility] Systolic blood pressure 2022-07-12 22:03:00 119 mm[Hg] [facility] Diastolic blood pressure 2022-07-12 22:03:00 82 mm[Hg] [facility] Heart rate 2022-07-12 21:52:00 75 /min [facility] Body temperature 2022-07-12 21:52:00 36.72 Kait [facility] Respiratory rate 2022-07-12 21:52:00 18 /min [facility] Body height 2022-07-12 21:52:00 165.1 cm [facility] Body weight 2022-07-12 21:52:00 115.667 kg [facility] BMI 2022-07-12 21:52:00 42.43 kg/m2 [facility] Heart rate 2022-07-05 17:14:00 100 /min [facility] Systolic blood pressure 2022-07-05 16:08:00 119 mm[Hg] [facility] Diastolic blood pressure 2022-07-05 16:08:00 71 mm[Hg] [facility] Body temperature 2022-07-05 16:08:00 36.61 Kait [facility] Respiratory rate 2022-07-05 16:08:00 16 /min [facility] Body height 2022-07-05 16:08:00 165.1 cm [facility] Body weight 2022-07-05 16:08:00 114.896 kg [facility] BMI 2022-07-05 16:08:00 42.15 kg/m2 [facility] Oxygen saturation in Arterial blood by Pulse oximetry 2022-07-05 16:08:00 97 /min [facility] Systolic blood pressure 2022-06-29 07:15:00 125 mm[Hg] [facility] Diastolic blood pressure 2022-06-29 07:15:00 68 mm[Hg] [facility] Heart rate 2022-06-29 07:15:00 87 /min [facility] Oxygen saturation in Arterial blood by Pulse oximetry 2022-06-29 07:15:00 99 /min [facility] Body height 2022-06-29 05:10:00 165.1 cm [facility] Body weight 2022-06-29 05:10:00 111.358 kg [facility] BMI 2022-06-29 05:10:00 40.85 kg/m2 [facility] Body temperature 2022-06-29 05:10:00 36.67 Kait [facility] Respiratory rate 2022-06-29 05:10:00 16 /min [facility] Systolic blood pressure 2022-06-27 15:46:00 127 mm[Hg] [facility] Diastolic blood pressure 2022-06-27 15:46:00 86 mm[Hg] [facility] Heart rate 2022-06-27 15:46:00 132 /min [facility] Body temperature 2022-06-27 15:46:00 36.61 Kait [facility] Respiratory rate 2022-06-27 15:46:00 16 /min [facility] Body height 2022-06-27 15:46:00 165.1 cm [facility] Body weight 2022-06-27 15:46:00 114.76 kg [facility] BMI 2022-06-27 15:46:00 42.10 kg/m2 [facility] Oxygen saturation in Arterial blood by Pulse oximetry 2022-06-27 15:46:00 98 /min [facility] Systolic blood pressure 2022-06-09 15:39:00 122 mm[Hg] [facility] Diastolic blood pressure 2022-06-09 15:39:00 86 mm[Hg] [facility] Heart rate 2022-06-09 15:37:00 123 /min [facility] Body temperature 2022-06-09 15:37:00 36.56 Kait [facility] Respiratory rate 2022-06-09 15:37:00 18 /min [facility] Body height 2022-06-09 15:37:00 165.1 cm [facility] Body weight 2022-06-09 15:37:00 109.317 kg [facility] BMI 2022-06-09 15:37:00 40.10 kg/m2 [facility] Systolic blood pressure 2022-05-26 14:33:00 115 mm[Hg] [facility] Diastolic blood pressure 2022-05-26 14:33:00 82 mm[Hg] [facility] Heart rate 2022-05-26 14:33:00 105 /min [facility] Body temperature 2022-05-26 14:33:00 36.44 Kait [facility] Respiratory rate 2022-05-26 14:33:00 16 /min [facility] Body height 2022-05-26 14:33:00 165.1 cm [facility] Body weight 2022-05-26 14:33:00 109.272 kg [facility] BMI 2022-05-26 14:33:00 40.09 kg/m2 [facility] Oxygen saturation in Arterial blood by Pulse oximetry 2022-05-26 14:33:00 9 /min [facility] Systolic blood pressure 2022-05-10 14:21:00 114 mm[Hg] [facility] Diastolic blood pressure 2022-05-10 14:21:00 79 mm[Hg] [facility] Heart rate 2022-05-10 14:21:00 107 /min [facility] Body temperature 2022-05-10 14:21:00 36.67 Kait [facility] Respiratory rate 2022-05-10 14:21:00 18 /min [facility] Body height 2022-05-10 14:21:00 165.1 cm [facility] Body weight 2022-05-10 14:21:00 107.502 kg [facility] BMI 2022-05-10 14:21:00 39.44 kg/m2 [facility] Systolic blood pressure 2022-04-26 14:33:00 132 mm[Hg] [facility] Diastolic blood pressure 2022-04-26 14:33:00 84 mm[Hg] [facility] Heart rate 2022-04-26 14:33:00 101 /min [facility] Body temperature 2022-04-26 14:33:00 36.56 Kait [facility] Respiratory rate 2022-04-26 14:33:00 18 /min [facility] Body height 2022-04-26 14:33:00 165.1 cm [facility] Body weight 2022-04-26 14:33:00 107.956 kg [facility] BMI 2022-04-26 14:33:00 39.61 kg/m2 [facility] Systolic blood pressure 2022-03-30 15:58:00 113 mm[Hg] [facility] Diastolic blood pressure 2022-03-30 15:58:00 80 mm[Hg] [facility] Heart rate 2022-03-30 15:58:00 117 /min [facility] Body temperature 2022-03-30 15:58:00 36.44 Kait [facility] Respiratory rate 2022-03-30 15:58:00 18 /min [facility] Body height 2022-03-30 15:58:00 165.1 cm [facility] Body weight 2022-03-30 15:58:00 105.688 kg [facility] BMI 2022-03-30 15:58:00 38.77 kg/m2 [facility] Oxygen saturation in Arterial blood by Pulse oximetry 2022-03-30 15:58:00 96 /min [facility] Systolic blood pressure 2021-08-27 14:13:00 138 mm[Hg] [facility] Diastolic blood pressure 2021-08-27 14:13:00 96 mm[Hg] [facility] Heart rate 2021-08-27 14:13:00 100 /min [facility] Body temperature 2021-08-27 14:13:00 37.11 Kait [facility] Respiratory rate 2021-08-27 14:13:00 18 /min [facility] Body weight 2021-08-27 14:13:00 92.987 kg [facility] Oxygen saturation in Arterial blood by Pulse oximetry 2021-08-27 14:13:00 98 /min [facility] Systolic blood pressure 2021-08-19 14:50:00 124 mm[Hg] Juanis Davieso ld Diastolic blood pressure 2021-08-19 14:50:00 71 mm[Hg] Juanis Niceybo ld Heart rate 2021-08-19 14:50:00 84 /min Kel kiran Niceyblen Body temperature 2021-08-19 14:50:00 36.67 Kait Juanis Niceybold Respiratory rate 2021-08-19 14:50:00 14 /min Juanis Seybold Body height 2021-08-19 14:50:00 165.1 cm Yodit solis Yuan Body weight 2021-08-19 14:50:00 94.802 kg Yodit Bolden BMI 2021-08-19 14:50:00 34.78 kg/m2 Yodit Bolden Body mass index (BMI) [Percentile] Per age and sex 2021-08-19 14:50:00 96.92 % Juanis Sesisrachel ld Procedures Procedure Date / Time Performed Performing Clinician Source LIPASE 2024-09-03 23:28:00 Arley Barry [facility] TEST, URINE 2024-09-03 23:28:00 Otis Phillips [facility] COMP. METABOLIC PANEL (31932) 2024-09-03 23:28:00 Louise Barryshua [facility] CBC WITH DIFF 2024-09-03 23:28:00 Arley Barry [facility] URINALYSIS 2024-09-03 23:28:00 Arley Barry [facility] HB ABO GROUPING 2024-09-03 23:28:00 Louise Barryshua [facility] XR KNEE 3 VW LEFT 2024-05-17 15:09:42 Amie Zhang [facility] POCT TEST 2024-04-17 19:26:00 Adum, Dulce Blankenship [facility] URINALYSIS 2023-12-16 09:35[facility]-16 09:35:00 Madisyn Hawkins [facility] CT ABDOMEN PELVIS WO CONTRAST 2023-11-02 05:31:11 Milagro Clifton [facility] URINALYSIS 2023-11-02 05:04:00 Milagro Clifton [facility] POCT TEST 2023-11-02 05:04:00 Manolo Clifton [facility] MEDICAL RELEASE/CLEARANCE FORMS 2023-08-04 06:01:00 Doctor Unassigned, [place] [facility] BI ULTRASOUND BREAST COMPLETE RIGHT 2023-06-13 17:32:39 Adum, Dulce Blankenship [facility] ASSIGNMENT OF BENEFITS 2023-06-01 17:46:06 Docto r Unassigned, [place] [facility] AUTHORIZATION FOR RELEASE OF PHI 2023-03-14 05:01:00 Doctor Unassigned, [place] [facility] CONSENT FOR CONTRACEPTION 2022-09-07 06:01:00 Doctor Unassigned, [place] [facility] POCT TEST 2022-09-07 00:00:00 Adum, Dulce Blankenship [facility] CBC WITHOUT DIFF 2022-07-29 22:07:00 Adum, Dulce [facility] PREPARE PACKED RBC 2022-07-29 16:45:11 Adum, Dulce Blankenship [facility] CBC WITH DIFF 2022-07-29 12:01:00 Adum, Dulce Sotelo [facility] CBC WITH DIFF 2022-07-29 06:27:00 Adum, Dulce Sotelo [facility] CENTRAL NEURAXIAL BLOCK 2022-07-28 20:10:49 Stevo Barrera [facility] CENTRAL NEURAXIAL BLOCK 2022-07-28 12:59:33 Case y Amnaconrado Abarca [facility] CBC WITH DIFF 2022-07-28 03:00:00 Adum, Dulce Sotelo [facility] HEPATITIS B SURFACE ANTIGEN 2022-07-28 03:00:00 Adum, Dulce Blankenship [facility] HB ABO GROUPING 2022-07-28 03:00:00 Adum, Dulce Rachel [facility] ADC OR FABI ONLY - RPR 2022-07-28 03:00:00 Adum, Dulce Blankenship [facility] HIV 1/2 AG-AB WITH REFLEX 2022-07-28 03:00:00 Adum, Dulce Blankenship [facility] HOSPITAL ADMISSION 2022-07-27 06:01:00 Doctor Un assigned, [place] [facility] POCT URINALYSIS 2022-07-26 19:32:00 Adum, Dulce Rachel [facility] ASSIGNMENT OF BENEFITS 2022-07-19 22:55:08 Docto r Unassigned, [place] [facility] POCT URINALYSIS W/O SPECIFIC GRAVITY 2022-07-19 00:00:00 Adum, Dulce Krzysztof [facility] SGOT (ASPARTATE AMINO TRANSFER) 2022-07-15 01:29:00 Adum, Dulce Krzysztof [facility] CREATININE 2022-07-15 01:29:00 Adum, Dulce Blankenship [facility] ALANINE AMINO TRANSFERASE(SGPT 2022-07-15 01:29:00 Adum, Dulce Krzysztof [facility] LACTATE DEHYDROGENASE 2022-07-15 01:29:00 Adum, Dulce Krzysztof [facility] URIC ACID 2022-07-15 01:29:00 Adum, [facility]ose [facility] CBC WITH DIFF 2022-07-15 01:29:00 Adum, Dulce L [facility] CONSENT/REFUSAL FOR DIAGNOSIS AND TREATMENT 2022-07-15 00:30:53 Doctor Unassigned, [place] [facility] POCT URINALYSIS W/O SPECIFIC GRAVITY 2022-07-12 22:01:00 Adum, Dulce Krzysztof [facility] POCT URINALYSIS W/O SPECIFIC GRAVITY 2022-07-05 00:00:00 Adum, Dulce Krzysztof [facility] DME/SUPPLY JUSTIFICATION 2022-06-30 06:01:00 Doc tor Unassigned, [place] [facility] DSU PRE-OP 2022-06-27 06:01:00 Doctor Unass igned, [place] [facility] POCT URINALYSIS W/O SPECIFIC GRAVITY 2022-06-27 00:00:00 [facility] POCT URINALYSIS W/O SPECIFIC GRAVITY 2022-06-09 00:00:00 Alexa [facility] POCT URINALYSIS W/O SPECIFIC GRAVITY 2022-05-26 00:00:00 Alexa [facility] ASSIGNMENT OF BENEFITS 2022-05-23 16:41:39 Docto r Unassigned, [place] [facility] ASSIGNMENT OF BENEFITS 2022-05-10 13:43:54 Docto r Unassigned, [place] [facility] POCT URINALYSIS W/O SPECIFIC GRAVITY 2022-05-10 00:00:00 Joseph Liu [facility] POCT URINALYSIS W/O SPECIFIC GRAVITY 2022-04-26 00:00:00 Joseph Liu [facility] POCT URINALYSIS 2022-03-30 16:00:00 Dulce Mercedes [facility] POCT TEST 2021-08-27 14:21:00 Lana Blum ra [facility] URINALYSIS 2021-08-27 14:18:00 Britney Blum [facility] RAPID INFLUENZA A/B 2021-08-27 14:18:00 Lana Blum ra [facility] NOTICE OF PRIVACY PRACTICES 2021-08-27 14:05:33 Doctor Unassigned, [place] [facility] NOTICE OF PRIVACY PRACTICES 2021-08-27 14:04:21 Doctor Unassigned, [place] [facility] NOTICE OF PRIVACY PRACTICES 2017-02-09 22:08:14 Doctor Unassigned, [place] [facility] CONSENT/REFUSAL FOR DIAGNOSIS AND TREATMENT 2017-02-09 22:07:59 Doctor Unassigned, [place] [facility] ASSIGNMENT OF BENEFITS 2017-02-09 22:07:48 Docto r Unassigned, [place] [facility] Encounters Start Date/Time End Date/Time Encounter Type Admission Type Attending [facility] Facility Care Department Encounter ID Source 2022-06-29 01:51:13 Outpatient P [facility] [id number] [facility] 2021-05-31 12:24:50 Emergency [facility] [id number] [facility] 2025-02-08 09:00:00 2025-02-08 09:00:00 Outpatient R UNKNOWN, ATTENDING [facility] [id number] [facility] 2024-10-11 14:00:00 2024-10-11 14:00:00 Outpatient R DULCE MERCEDES VIVIAN [facility] [id number] [facility] 2024-10-03 15:15:00 2024-10-03 15:15:00 Outpatient R DULCE MERCEDES [facility]IV[facility] [id number] [facility] 2024-09-26 14:00:00 2024-09-26 14:00:00 Outpatient R DULCE MERCEDES [facility] [id number] [facility] 2017-02-09 00:00:00 2024 03:43:57 Orders Only Doctor Unassigned, [place] Doctor Unassigned, [place] [facility] [id number] [facility] 2024-09-03 16:16:00 2024-09-03 20:54:00 Emergency X [facility]Y [facility] [id number] [facility] 2024-09-03 16:16:00 2024-09-03 20:54:00 Emergency Arley Barry [facility] [id number] [facility] 2024-07-09 00:00:00 2024-08-10 18:17:00 Patient Secure Msg Doctor Unassigned, [place] Doctor Unassigned, [place] [facility] [id number] [facility] 2024-08-09 14:30:00 2024-08-09 14:30:00 Outpatient R DULCE MERCEDES [facility] [id number] [facility] 2024-07-11 10:30:00 2024-07-11 10:30:00 Outpatient R [facility] [id number] [facility] 2024-07-09 15:00:00 2024-07-09 15:00:00 Outpatient R DULCE MERCEDES [facility] [id number] [facility] 2024-05-09 00:00:00 2024-06-15 18:26:51 Patient Secure Msg Doctor Unassigned, [place] Doctor Unassigned, [place] [facility] 1.2.840.114 350.1.13.10 4.2.7.2.686 [id number] [facility] 2024-05-31 13:30:00 2024-05-31 13:30:00 Outpatient R SHAD COMER [facility] [id number] [facility] 2024-05-29 00:00:00 2024-05-29 17:06:56 Telephone Richard Eason [facility] 1.2.840.114 350.1.13.10 4.2.7.2.686 [id number] [facility] 2024-05-23 08:30:00 2024-05-23 09:38:50 Outpatient R RICHARD EASON [facility] [id number] [facility] 2024-05-23 08:30:00 2024-05-23 09:38:50 Office Visit Richard Eason [facility] 1.2.840.114 350.1.13.10 4.2.7.2.686 [id number] [facility] 2024-05-20 00:00:00 2024-05-23 07:15:50 Patient Secure Msg Shad Comer [facility] 1.2.840.114 350.1.13.10 4.2.7.2.686 [id number] [facility] 2024-05-17 09:53:05 2024-05-17 23:59:00 Outpatient AMIE LAKHANI [facility] [id number] [facility] 2024-05-17 09:53:05 2024-05-17 23:59:00 Hospital Encounter Amie Zhang [facility] 1.840.114 350.1.13.10 4.2.7.2.686 [id number] [facility] 2024-05-17 09:40:00 2024-05-17 10:35:49 Urgent Care Amie Zhang Unknown, Attending [facility] MED[facility] OFF[facility] BU[facility] 1.0.114 350.1.13.10 4.2.7.2.686 [id number] [facility] 2024-05-16 16:00:00 2024-05-16 16:00:00 Outpatient R UNKNOWN, ATTENDING [facility] [id number] [facility] 2024-05-03 00:00:00 2024-05-03 14:01:04 Letter (Out) [facility] (SHAUN) 1.0.114 350.1.13.10 4.2.7.2.686 [id number] [facility] 2024-05-01 16:00:00 2024-05-01 16:25:55 Controller Operations And Hr Manager Visit Lab, Shad Harrington Lab, Dusty Meza [facility] MED[facility] OFF[facility] 1.840.114 350.1.13.10 4.2.7.2.686 [id number] [facility] 2024-05-01 16:00:00 2024-05-01 16:00:00 Outpatient R SHAD COMER [facility] [id number] [facility] 2024-05-01 15:30:00 2024-05-01 15:54:53 Office Visit [facility] OFF[facility] BUILD[facility] 1.2840.114 350.1.13.10 4.2.7.2.686 [id number] [facility] 2024-04-17 14:00:00 2024-04-17 14:15:00 Nurse Visit Nurse, [facility] Daren Dulce Krzysztof Nurse, [facility] BUILDING 1..840.114 350.1.13.10 4.2.7.2.686 [id number] [facility] 2024-04-17 14:00:00 2024-04-17 14:00:00 Outpatient R ADUM, DULCE DAREN [facility] [id number] [facility] 2024-04-09 14:00:00 2024-04-09 14:40:04 Outpatient R ADUM DULCE DAREN [facility] [id number] [facility] 2024-04-09 14:00:00 2024-04-09 14:40:04 Office Visit Daren Dulce L [facility] 1..840.114 350.1.13.10 4.2.7.2.686 [id number] [facility] 2024-03-04 00:00:00 2024-04-06 18:22:48 Patient Secure Msg Doctor Unassigned, [place] Doctor Unassigned, [place] [facility] 1.2.840.114 350.1.13.10 4.2.7.2.686 [id number] [facility] 2024-03-13 13:45:00 2024-03-13 13:45:00 Outpatient R ADUM, DULCE OLIVARESAUSTYN [facility] [id number] [facility] 2024-02-27 00:00:00 2024-02-27 15:00:23 Refill Shad Comer [facility] MEDICAL OFFICE BUILDING 1.2.840.114 350.1.13.10 4.2.7.2.686 [id number] [facility] 2024-01-04 13:00:00 2024-01-04 13:00:00 Outpatient DONALD SERRATO [facility] [id number] [facility] 2023-12-18 09:30:00 2023-12-18 09:30:00 Outpatient SHAD ANN [facility] [id number] [facility] 2023-12-16 04:19:00 2023-12-16 06:10:00 Emergency X DALTON HAWKINS [facility] [id number] [facility] 2023-12-16 04:19:00 2023-12-16 06:10:00 Emergency Dalton Hawkins [facility] 1.2.840.114 350.1.13.10 4.2.7.2.686 [id number] [facility] 2023-12-03 00:00:00 2023-12-05 11:08:27 Shad Guzmán [facility] MED[facility] OFFICE BUILDING 1.2.840.114 350.1.13.10 4.2.7.2.686 [id number] [facility] 2023-11-27 00:00:00 2023-11-27 00:00:00 Outpatient JOE SANTOSTOBIN [facility] [id number] [facility] 2023-11-01 23:25:00 2023-11-02 01:41:00 Emergency X MILAGRO CLIFTON [facility] [id number] [facility] 2023-11-01 23:25:00 2023-11-02 01:41:00 Emergency MidlandMilagro [facility] 1.2.840.114 350.1.13.10 4.2.7.2.686 [id number] [facility] 2023-10-23 16:30:00 2023-10-23 16:30:00 Outpatient SHAD ANN [facility] [id number] [facility] 2023-09-27 10:30:00 2023-09-27 10:30:00 Outpatient R SHAD COMER [facility] [id number] [facility] 2023-08-04 08:30:00 2023-08-04 09:01:44 Outpatient R SHAD COMER [facility] [id number] [facility] 2023-08-04 08:30:00 2023-08-04 09:01:44 Office Visit Shad Comer [facility] 1..840.114 350.1.13.10 4.2.7.2.686 [id number] [facility] 2023-08-04 00:00:00 2023-08-04 00:00:00 Orders Only Doctor Unassigned, [place] [facility] 1.840.114 350.1.13.10 4.2.7.2.686 [id number] [facility] 2023-06-14 09:00:00 2023-06-14 09:00:00 Outpatient R IVAN WALSH [facility] [id number] [facility] 2023-06-13 09:47:20 2023-06-13 23:59:00 Outpatient R DULCE MERCEDES [facility] [id number] [facility] 2023-06-13 09:47:20 2023-06-13 23:59:00 Hospital Encounter Dulce Mercedes [facility] 1.840.114 350.1.13.10 4.2.7.2.686 [id number] [facility] 2023-06-01 13:00:00 2023-06-01 13:20:36 Outpatient R DULCE MERCEDES [facility] [id number] [facility] 2023-06-01 13:00:00 2023-06-01 13:20:36 Office Visit EliseDulce chavira [facility] NAL BUILDING 1..840.114 350.1.13.10 4.2.7.2.686 [id number] [facility] 2023-06-01 00:00:00 2023-06-01 00:00:00 Orders Only Doctor Unassigned, [place] [facility] 1.2840.114 350.1.13.10 4.2.7.2.686 [id number] [facility] 2023-03-20 10:00:00 2023-03-20 10:00:00 Outpatient ROCIO TAYLOR [facility] [id number] [facility] 2023-03-17 00:00:00 2023-03-17 00:00:00 Patient Secure Msg Comer [facility] 1.2.840.114 350.1.13.10 4.2.7.2.686 [id number] [id number] [facility] 2023-03-14 00:00:00 2023-03-14 00:00:00 Orders Only Doctor Unassigned, [place] [facility] 1.2840.114 350.1.13.10 4.2.7.2.686 [id number] [facility] 2023-03-08 12:00:00 2023-03-08 12:15:00 Controller Operations And Hr Manager Visit Lab, Dusty Comer Pending sale to [facility] MEDICAL OFFICE BUILDING 1..840.114 350.1.13.10 4.2.7.2.686 [id number] [facility] 2023-03-08 11:00:00 2023-03-08 11:39:59 Outpatient SHAD ANN [facility] [id number] [facility] 2023-03-08 11:00:00 2023-03-08 11:39:59 [facility] 1.2840.114 350.1.13.10 4.2.7.2.686 [id number] 044 [id number] [facility] 2022-12-07 00:00:00 2022-12-07 00:00:00 Telephone [facility]ad [facility] MED[facility] OFFICE BUILDING 1.2840.114 350.1.13.10 4.2.7.2.686 [id number] 044 [id number] [facility] 2022-12-06 10:30:00 2022-12-06 10:45:00 Controller Operations And Hr Manager Visit Lab, Dusty Meza [facility] MED[facility] OFFICE BUILDING 1.84.114 350.1.13.10 4.2.7.2.686 [id number] [facility] 2022-12-06 10:00:00 2022-12-06 10:27:11 Outpatient R SHAD COMER [facility] [id number] [facility] 2022-12-06 10:00:00 2022-12-06 10:27:11 Office [facility] MED[facility] OFFICE BUILDING 1.84.114 350.1.13.10 4.2.7.2.686 [id number] 044 [id number] [facility] 2022-12-06 00:00:00 2022-12-06 00:00:00 Telephone Shad Comer PEND[facility] S[facility] TO [facility] MEDICAL OFFICE BUILDING 1.284.114 350.1.13.10 4.2.7.2.686 [id number] 044 [id number] [facility] 2022-10-10 12:30:00 2022-10-10 12:30:00 Outpatient R ROCIO WESTON [facility] [id number] [facility] 2022-10-05 00:00:00 2022-10-05 00:00:00 Telephone Adum, Dulce Blankenship [facility] 1.2840.114 350.1.13.10 4.2.7.2.686 [id number] 134 [id number] [facility] 2022-09-07 11:00:00 2022-09-07 11:27:10 Outpatient R ADUM, [facility] [id number] [facility] 2022-09-07 11:00:00 2022-09-07 11:27:10 Routine Visit Adaustyn, Dulce [facility] 1.2840.114 350.1.13.10 4.2.7.2.686 [id number] [facility] 2022-09-07 00:00:00 2022-09-07 00:00:00 Orders Only Doctor Unassigned, [place] [facility] 1.2840.114 350.1.13.10 4.2.7.2.686 [id number] [facility] 2022-08-17 15:30:00 2022-08-17 16:23:38 Outpatient R ADAUSTYN [facility] [id number] [facility] 2022-08-17 15:30:00 2022-08-17 16:23:38 Routine Visit Adum, Dulce [facility] 1.2840.114 350.1.13.10 4.2.7.2.686 [id number] [facility] 2022-08-17 13:30:00 2022-08-17 13:30:00 Outpatient R ADAUSTYN [facility] [id number] [facility] 2022-07-27 18:50:00 2022-07-29 19:50:00 Inpatient P ADUM [facility] [id number] [facility] 2022-07-27 18:50:00 2022-07-29 19:50:00 Hospital Encounter AdDulce chavira [facility] 1.2.840.114 350.1.13.10 4.2.7.2.686 [id number] [facility] 2022-07-28 06:30:00 2022-07-28 20:18:00 Anesthesia Event Amna Horvath Fernando [facility] 1.2.840.114 350.1.13.10 4.2.7.2.686 [id number] [facility] 2022-07-27 00:00:00 2022-07-27 00:00:00 Orders Only Doctor Unassigned, [place] [facility] 1.2.840.114 350.1.13.10 4.2.7.2.686 [id number] [facility] 2022-07-26 13:15:00 2022-07-26 14:00:47 Outpatient R DAREN [facility] [id number] [facility] 2022-07-26 13:15:00 2022-07-26 14:00:47 Routine Visit [facility] 1.2.840.114 350.1.13.10 4.2.7.2.686 [id number] 134 [id number] [facility] 2022-07-19 15:45:00 2022-07-19 16:17:30 Routine Visit Ad [facility] 1.2.840.114 350.1.13.10 4.2.7.2.686 [id number] 134 [id number] [facility] 2022-07-19 15:45:00 2022-07-19 16:17:30 Outpatient R ADAUSTYN [facility] [id number] [facility] 2022-07-19 00:00:00 2022-07-19 00:00:00 Orders Only Doctor Unassigned, [place] [facility] 1.2.840.114 350.1.13.10 4.2.7.2.686 [id number] [facility] 2022-07-14 18:47:00 2022-07-14 20:20:00 Outpatient X ADUM, [facility] [id number] [facility] 2022-07-14 18:47:00 2022-07-14 20:20:00 Emergency Adaustyn [facility] 1.2.840.114 350.1.13.10 4.2.7.2.686 [id number] [facility] 2022-07-14 00:00:00 2022-07-14 00:00:00 Orders Only Doctor Unassigned, [place] [facility] 1.2840.114 350.1.13.10 4.2.7.2.686 [id number] [facility] 2022-07-12 15:30:00 2022-07-12 15:45:00 Routine Visit Ad [facility] 1.2.114 350.1.13.10 4.2.7.2.686 [id number] [facility] 2022-07-12 15:30:00 2022-07-12 15:30:00 Outpatient R ADUM [facility] [id number] [facility] 2022-07-05 10:00:00 2022-07-05 10:43:56 Outpatient R ADUM [facility] [id number] [facility] 2022-07-05 10:00:00 2022-07-05 10:43:56 Routine Visit Adaustyn [facility] 1.2.840.114 350.1.13.10 4.2.7.2.686 [id number] [facility] 2022-06-30 00:00:00 2022-06-30 00:00:00 Orders Only Doctor Unassigned, [place] [facility] 1.2.840.114 350.1.13.10 4.2.7.2.686 [id number] [facility] 2022-06-28 23:03:00 2022-06-29 01:35:00 Outpatient P ELISEAUSTYN DULCE [facility] [id number] [facility] 2022-06-28 23:03:00 2022-06-29 01:35:00 Hospital Encounter Eliseaustyn Dulce Krzysztof [facility] 1.2.840.114 350.1.13.10 4.2.7.2.686 [id number] [facility] 2022-06-29 00:00:00 2022-06-29 00:00:00 Telephone Adaustyn Dulce rKzysztof [facility] 1.2.840.114 350.1.13.10 4.2.7.2.686 [id number] 134 [id number] [facility] 2022-06-28 00:00:00 2022-06-28 00:00:00 Nurse Triage Kristen De León [facility] 1.2.840.114 350.1.13.10 4.2.7.2.686 [id number] [facility] 2022-06-27 09:30:00 2022-06-27 10:04:13 Outpatient R JOSEPH LIU CHERYAL [facility] [id number] [facility] 2022-06-27 09:30:00 2022-06-27 10:04:13 Routine Visit Joseph Liu [facility] 1.2.840.114 350.1.13.10 4.2.7.2.686 [id number] [facility] 2022-06-27 00:00:00 2022-06-27 00:00:00 Orders Only Doctor Unassigned, [place] [facility] 1.840.114 350.1.13.10 4.2.7.2.686 [id number] [facility] 2022-06-11 00:00:00 2022-06-11 00:00:00 Case Management Joseph Liu [facility] 1..114 350.1.13.10 4.2.7.2.686 [id number] [facility] 2022-06-11 00:00:00 2022-06-11 00:00:00 Letter (Out) Graham Torres [facility] MEDICAL OFFICE BUILDING 1.840.114 350.1.13.10 4.2.7.2.686 [id number] [facility] 2022-06-09 09:30:00 2022-06-09 10:00:36 [facility] [id number] [facility] 2022-06-09 09:30:00 2022-06-09 10:00:36 Routine Visit Joseph Liu [facility] 1..114 350.1.13.10 4.2.7.2.686 [id number] [facility] 2022-05-26 09:30:00 2022-05-26 09:57:24 Outpatient [facility] [id number] [facility] 2022-05-26 09:30:00 2022-05-26 09:57:24 Routine Visit Joseph Liu [facility] 1.114 350.1.13.10 4.2.7.2.686 [id number] [facility] 2022-05-24 09:45:00 2022-05-24 09:45:00 Outpatient R ALEXAMAURAJOSEPH CONRAD [facility] [id number] [facility] 2022-05-23 12:30:00 2022-05-23 12:45:00 Controller Operations And Hr Manager Visit Pobipin, Adc Lab Main Alexa [facility] 1..114 350.1.13.10 4.2.7.2.686 [id number] [facility] 2022-05-23 12:30:00 2022-05-23 12:30:00 Outpatient R [facility]XA [facility] [id number] [facility] 2022-05-23 00:00:00 2022-05-23 00:00:00 Orders Only Doctor Unassigned, [place] [facility] 1..114 350.1.13.10 4.2.7.2.686 [id number] [facility] 2022-05-11 00:00:00 2022-05-11 00:00:00 Telephone Janna Sung [facility] 1.114 350.1.13.10 4.2.7.2.686 [id number] 134 [id number] [facility] 2022-05-10 09:00:00 2022-05-10 09:37:08 Outpatient R ALEXA JOSEPH MCLAIN [facility] [id number] [facility] 2022-05-10 09:00:00 2022-05-10 09:37:08 Routine Visit Joseph Liu [facility] 1.114 350.1.13.10 4.2.7.2.686 [id number] 134 [id number] [facility] 2022-05-10 00:00:00 2022-05-10 00:00:00 Orders Only Doctor Unassigned, [place] [facility] 1..840.114 350.1.13.10 4.2.7.2.686 [id number] [facility] 2022-04-27 09:30:00 2022-04-27 09:30:00 Outpatient R JOSEPH LIU [facility] [id number] [facility] 2022-04-26 09:30:00 2022-04-26 09:49:31 [facility] [id number] [facility] 2022-04-26 09:30:00 2022-04-26 09:49:31 Routine Visit Joseph Liu [facility] 1..840.114 350.1.13.10 4.2.7.2.686 [id number] 134 [id number] [facility] 2022-04-25 08:00:00 2022-04-25 08:15:00 Controller Operations And Hr Manager Visit Lab, Dusty - Judd Rodriguez [facility]ILD[facility] 1..840.114 350.1.13.10 4.2.7.2.686 [id number] [facility] 2022-04-25 08:00:00 2022-04-25 08:00:00 Outpatient R JUDD AUGUSTIN [facility] [id number] [facility] 2022-03-30 11:00:00 2022-03-30 12:07:43 Outpatient R DULCE MERCEDES [facility] [id number] [facility] 2022-03-30 11:00:00 2022-03-30 12:07:43 Routine Visit Dulce Mercedes [facility] 1.840.114 350.1.13.10 4.2.7.2.686 [id number] [facility] 2022-03-30 09:30:00 2022-03-30 09:30:00 Outpatient R JOSEPH LIU CHERYAL [facility] [id number] [facility] 2022-03-29 09:30:00 2022-03-29 09:30:00 Outpatient R JOSEPH LIU CHERYAL [facility] [id number] [facility] 2022-03-24 12:45:00 2022-03-24 13:00:00 Controller Operations And Hr Manager Visit Rina, Kaleigh Lab Main Joseph Liu [facility] 1.840.114 350.1.13.10 4.2.7.2.686 [id number] [facility] 2022-03-24 12:45:00 2022-03-24 12:45:00 Outpatient R JOSEPH LIU CHERYAL [facility] [id number] [facility] 2022-03-22 14:45:00 2022-03-22 16:03:03 Controller Operations And Hr Manager Visit 2, [facility] Sorin Campo [facility] 1.840.114 350.1.13.10 4.2.7.2.686 [id number] [facility] 2022-03-22 14:45:00 2022-03-22 14:45:00 Outpatient P SORIN CAMPO [facility] [id number] [facility] 2022-03-11 09:30:00 2022-03-11 09:30:00 Outpatient P [facility] [id number] [facility] 2022-03-11 09:30:00 2022-03-11 09:30:00 Outpatient P [facility] [id number] [facility] 2022-03-03 02:26:00 2022-03-03 04:34:00 Emergency X GERMÁN MOSES [facility] ERT [id number] [facility] 2022-03-03 02:26:00 2022-03-03 04:34:00 Emergency Germán Moses [facility] 1.20.114 350.1.13.10 4.2.7.2.686 [id number] [facility] 2022-03-03 00:00:00 2022-03-03 00:00:00 Telephone Judd Augustin [facility] 1..114 350.1.13.10 4.2.7.2.686 [id number] 134 [id number] [facility] 2022-03-01 09:30:00 2022-03-01 10:11:20 Outpatient R PABLOLUISJOSEPH [facility] [id number] [facility] 2022-03-01 09:30:00 2022-03-01 10:11:20 Routine Visit Joseph Liu [facility] 1..114 350.1.13.10 4.2.7.2.686 [id number] [facility] 2022-03-01 09:30:00 2022-03-01 10:11:20 [facility] [id number] [facility] 2022-02-11 00:00:00 2022-02-11 00:00:00 Telephone Judd Augustin [facility] 1..114 350.1.13.10 4.2.7.2.686 [id number] 134 [id number] [facility] 2022-02-11 00:00:00 2022-02-11 00:00:00 [facility] 1..840.114 350.1.13.10 4.2.7.2.686 [id number] [facility] 2022-02-01 09:30:00 2022-02-01 10:14:29 Outpatient R YESENIAWOLFDIONICIOJOSEPH SMITH [facility] [id number] [facility] 2022-02-01 09:30:00 2022-02-01 10:14:29 Routine Visit Alexa [facility] 1..840.114 350.1.13.10 4.2.7.2.686 [id number] 134 [id number] [facility] 2022-02-01 09:30:00 2022-02-01 10:14:29 Outpatient R YESENIAJOSEPH DIAZ YESENIAEMILY [facility] [id number] [facility] 2022-01-17 09:45:00 2022-01-17 10:36:11 Outpatient R YESENIAWOLFDIONICIOJOSEPH SMITHJAIDEN [facility] [id number] [facility] 2022-01-17 09:45:00 2022-01-17 10:36:11 Outpatient R ALEXAJOSEPH YESENIAWOLFJAIDEN [facility] [id number] [facility] 2022-01-17 09:45:00 2022-01-17 10:00:00 Controller Operations And Hr Manager Visit Lab, Dusty - Derrick Liu [facility] DEREK?[facility] 1.2.840.114 350.1.13.10 4.2.7.2.686 [id number] [facility] 2022-01-17 09:30:00 2022-01-17 09:30:00 Outpatient R ALEXAJOSEPH YESENIAWOLFCHLER, [facility] [id number] [facility] 2022-01-17 00:00:00 2022-01-17 00:00:00 Orders Only Doctor Unassigned, [place] [facility] 1.2840.114 350.1.13.10 4.2.7.2.686 [id number] [facility] 2022-01-03 13:00:00 2022-01-03 13:34:08 [facility] [id number] [facility] 2022-01-03 13:00:00 2022-01-03 13:34:08 Routine Visit GaleJoseph almazan [facility] 1..114 350.1.13.10 4.2.7.2.686 [id number] 134 [id number] [facility] 2022-01-03 13:00:00 2022-01-03 13:34:08 Outpatient R JOSEPH LIU [facility] [id number] [facility] 2022-01-03 00:00:00 2022-01-03 00:00:00 Telephone GaleJoseph almazan [facility] 1.840.114 350.1.13.10 4.2.7.2.686 [id number] [facility] 2021-12-20 09:30:00 2021-12-20 10:00:36 Outpatient R JOSEPH LIU [facility] [id number] [facility] 2021-12-20 09:30:00 2021-12-20 10:00:36 [facility] 1.284.114 350.1.13.10 4.2.7.2.686 [id number] [facility] 2021-12-16 09:35:00 2021-12-16 13:22:00 Emergency X Dulce [facility] ERT [id number] [facility] 2021-12-16 09:35:00 2021-12-16 13:22:00 Emergency Dulce German [facility] 1.2.840.114 350.1.13.10 4.2.7.2.686 [id number] [facility] 2021-12-16 00:00:00 2021-12-16 00:00:00 Patient Secure Msg Alexa [facility] 1.2.840.114 350.1.13.10 4.2.7.2.686 [id number] [facility] 2021-12-15 00:00:00 2021-12-15 00:00:00 [facility] 1.2.840.114 350.1.13.10 4.2.7.2.686 [id number] [facility] 2021-12-13 14:33:34 2021-12-13 23:59:00 Outpatient R JOSEPH LIU [facility] [id number] [facility] 2021-12-13 14:33:34 2021-12-13 23:59:00 Hospital Encounter Joseph Liu [facility] 1.2.840.114 350.1.13.10 4.2.7.2.686 [id number] [facility] 2021-11-24 00:00:00 2021-11-24 00:00:00 [facility] 1.2.840.114 350.1.13.10 4.2.7.2.686 [id number] [facility] 2021-11-23 00:00:00 2021-11-23 00:00:00 Case [facility] 1.2.840.114 350.1.13.10 4.2.7.2.686 [id number] [facility] 2021-11-22 09:30:00 2021-11-22 11:02:50 [facility] [id number] [facility] 2021-11-22 09:30:00 2021-11-22 11:02:50 [facility] 1.2.840.114 350.1.13.10 4.2.7.2.686 [id number] 134 [id number] [facility] 2021-09-20 14:00:00 2021-09-20 14:00:00 Telemedici ne [facility] [place] 1.2.840.114 350.1.13.13 1.2.7.2.686 [id number] Juanis anthony 2021-09-20 11:00:00 2021-09-20 11:00:00 Outpatient LEELEEKrzysztof [facility]UANIS PATIÑO [id number] Juanis anthony 2021-08-27 08:16:00 2021-08-27 10:07:00 Emergency X BRITNEY BLUM [facility] ERT [id number] [facility] 2021-08-27 08:16:00 2021-08-27 10:07:00 Emergency Britney Blum [facility] 1.2.840.114 350.1.13.10 4.2.7.2.686 [id number] [facility] 2021-08-27 08:16:00 2021-08-27 10:07:00 Emergency X BRITNEY BLUM [facility] ERT [id number] [facility] 2021-08-19 09:00:00 2021-08-19 09:30:00 Office Visit Summer Burk 1.840.114 350.1.13.13 1.2.7.2.686 [id number] Juanis Bolden 2021-07-12 15:00:00 2021-07-12 15:00:00 Outpatient MARSHALL BROJA JUANIS PATIÑO [id number] Juanis [facility] 2021-05-10 00:00:00 2021-05-10 00:00:00 Letter (Out) Pinky Ascencio [facility] 1.840.114 350.1.13.10 4.2.7.2.686 [id number] [facility] 2021-05-09 09:58:53 2021-05-09 12:37:14 [facility] 1.84.114 350.1.13.10 4.2.7.2.686 [id number] [facility] 2021-05-09 10:00:00 2021-05-09 10:00:00 Outpatient R FABRICE Amado [facility] [id number] [facility] 2021-05-09 00:00:00 2021-05-09 00:00:00 Orders Only Doctor Unassigned, [place] [facility] 1.2.114 350.1.13.10 4.2.7.2.686 [id number] [facility] 2021-03-01 11:09:00 2021-03-01 12:27:00 Emergency Ned Phillips [facility] 1.284.114 350.1.13.10 4.2.7.2.686 [id number] [facility] 2021-03-01 00:00:00 2021-03-01 00:00:00 Orders Only Doctor Unassigned, [place] [facility] 1.2.840.114 350.1.13.10 4.2.7.2.686 [id number] [facility] 2020-03-23 15:37:26 2020-03-23 23:59:00 Hospital Encounter Radiology [facility] 1.2.840.114 350.1.13.10 4.2.7.2.686 [id number] [facility] 2020-03-23 00:00:00 2020-03-23 00:00:00 Outpatient R RAD[facility]OLOGY [facility] [id number] [facility] 2020-03-23 00:00:00 2020-03-23 00:00:00 Orders Only Doctor Unassigned, [place] [facility] 1.2.840.114 350.1.13.10 4.2.7.2.686 [id number] [facility] 2020-03-18 15:00:00 2020-03-18 15:00:00 Outpatient Shaun Sheridan [facility] [id number] [facility] Results Test Description Test Time Test Comments Results Result Co mments Source [facility] 00:19:56* Test Item Value Reference Range Interpretation Comme nts LIPASE (test code = 7747456820) 175 U/L 0-220 Lab Interpretation (test cod e = 92954-9) Normal [facility] TylerCBC WITH [id number] 00:06:55* Test Item Value Reference Range Interpretation [...] 31.6 g/dL 31.6-35.1 RDW-SD (test code = 36657-1) 43.5 fL 39.0-49.9 RDW-CV (test code = 788-0) 13.0 % 12.0-15.5 PLT (test code = 777-3) 386 166-358 H MPV (test code = 22951-8) 9.0 fL 9.5-12.9 L NRBC/100 WBC (test code = 7317651590) 0.0 0.0-10.0 NRBC x10^3 (test code = 5431907305) See_Comment [Automated messa ge] The system which generated this result transmitted reference range: 10*3/?L. The reference range was not used to interpret this result as normal/abnormal. GRAN MAT (NEUT) % (test code = 770-8) 60.5 % IMM GRAN % (test code = 0221579599) 0.30 % LYMPH % (test code = 736-9) 31.9 % MONO % (test code = 5905-5) 6.5 % EOS % (test code = 713-8) 0.4 % BASO % (test code = 706-2) 0.4 % GRAN MAT x10^3(ANC) (test code = 0972812029) 6.91 10*3/uL 1.88-7.09 IMM GRAN x10^3 (test code = 3158469039) 0.04 10*3/uL 0.00-0.06 LYMPH x10^3 (test code = 731-0) 3.65 10*3/uL 1.32-3.29 H MONO x10^3 (test code = 742-7) 0.74 10*3/uL 0.33-0.92 EOS x10^3 (test code = 711-2) 0.05 10*3/uL 0.03-0.39 BASO x10^3 (test code = 704-7) 0.05 10*3/uL 0.01-0.07 Lab Interpretation (test code = 72894-8) [facility]normal [facility] Screen - ONCE [id number] 00:02:00* Test Item Value Reference Range Interpretation Comme nts ABO & RH (test code = 20) A POSITIVE IAT (test code = 1185) Negative [facility] TylerXR KNEE 3 VW [id number] 02:59:29Ordering Physician: RELL VIERA HISTORY: Left knee pain COMPARISON: none FINDINGS:Three views of the left knee. ?There is no fracture or dislocation. ?Thereis no joint effusion. The joint spacesare normal. Soft tissues are normal. [facility] TylerPO[facility] [id number] 19:26:00* Test Item Value Reference Range Interpretation Comme nts POCT PREG (test code = 1605) Negative On board controls acceptable with C Line (test code = 3574) Yes POCT PREG LOT # (test code = 3575) [id number] POCT PREG TEST DATE (test code = 3576) 2025-10-16 LOGAN (test code = LOGAN) accurate developme nt and interpretation of all internal controls Lab Interpretation (test code = 72579-9) Normal [facility] TylerPOCT [id number] 09:35:00* Test Item Value Reference Range Interpretation Comme nts POCT PREG (test code = 1605) Negative On board controls acceptable with C Line (test code = 3574) Yes POCT PREG LOT # (test code = 3575) [id number] POCT PREG TEST DATE ( test code = 3576) 224-12-01 Lab Interpretation (test cod e = 75840-0) Normal [facility] ABDOMEN PELVIS WO [id number] 06:13:00Exam: CT Abdomen and Pelvis without Contrast, [...] appearance. MUSCULOSKELETAL:Bones: No acute osseous abnormality.Soft tissues: Unremarkable.[facility] [id number] 05:04:00* Test Item Value Reference Range Interpretation Comme nts POCT PREG (test code = 1605) Negative On board controls acceptable with C Line (test code = 3574) Yes POCT PREG LOT # (test code = 3575) [id number] POCT PREG TEST DATE ( test code = 3576) 2024-11-05 Lab Interpretation (test cod e = 60818-0) Normal [facility] [id number] 17:02:00* Test Item Value Reference Range Interpretation Comme [facility] POCT PREG (test code = 1605) Negative On board controls acceptable with C Line (test code = 3574) Yes POCT PREG LOT # (test code = 3575) POCT PREG TEST DATE ( test code = 3576) [facility] TylerPrepar Packed RBC (in units)2022-07-29 16:45:11* Test Item Value Reference Range Interpretation Comme nts Cross Match Result (test code = 4409) Compatible ISBT Blood Type Code (test code = 324901) Unit Blood Type (test code = 4410) A Pos Unit Number (test code = 4411) [id number] Blood Expiration Date & Time (test code = 582144) Status Information (test code = 4412) Issued Product Identification (test code = 4413) Red Blood Cells Product Code (test code = 4414) [id number] Performed at [facility] B Laboratory Services - [facility] Blood [address] [place] [address]Swuq Free: [phone] No. [id number] [facility] with [id number] 12:51:12* Test Item Value Reference Range Interpretation Comme [facility] WBC (test code = 6690-2) See_Comment H [...] g/dL 31.6-35.1 L RDW-SD (test code = 86512-5) 42.5 fL 39.0-49.9 RDW-CV (test code = 788-0) 14.0 % 12.0-15.5 PLT (test code = 777-3) See_Comment [Automated message] The system which generated this result transmitted reference range: 166 - 358 10*3/?L. The reference range was not used to interpret this result as normal/abnormal. MPV (test code = 60893-0) 9.8 fL 9.5-12.9 NRBC/100 WBC (test code = 8195707350) See_Comment [Automated message] The system which generated this result transmitted reference range: 0.0 - 10.0 /100 WBCs. The reference range was not used to interpret this result as normal/abnormal. NRBC x10^3 (test code = 8630571420) See_Comment [Automated message] The system which generated this result transmitted reference range: 10*3/?L. The reference range was not used to interpret this result as normal/abnormal. GRAN MAT (NEUT) % (test code = 770-8) 71.4 % IMM GRAN % (test code = 9640680214) 0.80 % LYMPH % (test code = 736-9) 20.0 % MONO % (test code = 5905-5) 7.5 % EOS % (test code = 713-8) 0.1 % BASO % (test code = 706-2) 0.2 % GRAN MAT x10^3(ANC) (test code = 4980816791) 12.36 10*3/uL 1.88-7.09 H IMM GRAN x10^3 (test code = 1032612169) 0.13 10*3/uL 0.00-0.06 H LYMPH x10^3 (test code = 731-0) 3.47 10*3/uL 1.32-3.29 H MONO x10^3 (test code = 742-7) 1.30 10*3/uL 0.33-0.92 H EOS x10^3 (test code = 711-2) 0.03-0.39 L BASO x10^3 (test code = 704-7) 0.04 10*3/uL 0.01-0.07 Lab Interpretation (test code = 61391-9) Abnormal [facility] WITH [id number] 07:09:59* Test Item Value Reference Range Interpretation [...] 31.8 g/dL 31.6-35.1 RDW-SD (test code = 57143-5) 41.4 fL 39.0-49.9 RDW-CV (test code = 788-0) 13.8 % 12.0-15.5 PLT (test code = 777-3) See_Comment [Automated message] The system which generated this result transmitted reference range: 166 - 358 10*3/?L. The reference range was not used to interpret this result as normal/abnormal. MPV (test code = 83580-2) 10.1 fL 9.5-12.9 NRBC/100 WBC (test code = 6973178378) See_Comment [Automated message] The system which generated this result transmitted reference range: 0.0 - 10.0 /100 WBCs. The reference range was not used to interpret this result as normal/abnormal. NRBC x10^3 (test code = 8124023918) See_Comment [Automated message] The system which generated this result transmitted reference range: 10*3/?L. The reference range was not used to interpret this result as normal/abnormal. GRAN MAT (NEUT) % (test code = 770-8) 71.3 % IMM GRAN % (test code = 5781091263) 0.70 % LYMPH % (test code = 736-9) 20.2 % MONO % (test code = 5905-5) 7.5 % EOS % (test code = 713-8) 0.1 % BASO % (test code = 706-2) 0.2 % GRAN MAT x10^3(ANC) (test code = 2509279188) 13.22 10*3/uL 1.88-7.09 H IMM GRAN x10^3 (test code = 5567868671) 0.13 10*3/uL 0.00-0.06 H LYMPH x10^3 (test code = 731-0) 3.75 10*3/uL 1.32-3.29 H MONO x10^3 (test code = 742-7) 1.39 10*3/uL 0.33-0.92 H EOS x10^3 (test code = 711-2) 0.03-0.39 L BASO x10^3 (test code = 704-7) 0.04 10*3/uL 0.01-0.07 Lab Interpretation (test code = 17035-6) Abnormal [facility] Screen - ONCE [id number] 03:46:16 * Test Item Value Reference Range Interpretation Comme nts ABO & RH (test code = 20) A Positive Performed at [facility] Laboratory [facility] Blood [address] Free: [phone] No. [id number] IAT (test code = 1185) Negative Performed at [facility] Blood [address] Free: [phone] No. [id number] [facility] TylerPOCT URINALYSIS W SPECIFIC [id number] 19:32:00* Test Item Value Reference Range Interpretation [...] U APPEAR (test code = 3267) clear [facility]PO[facility] URINAL[facility] W/O SPECIFIC [id number] 21:54:00* Test Item Value Reference Range Interpretation [...] = 3257) N/A Negative - Negati ve [facility] TylerLACTATE UYFNRVKDMESUO2412-31-63 01:56:02* Test Item Value Reference Range Interpretation Comme nts LDH (test code = 7173435076) 147 U/L 120-246 Lab Interpretation (test cod e = 49377-4) Normal [facility] TylerALANINE AMINO TRANSFERASE([id number] 01:55:21* Test Item Value Reference Range Interpretation Comme nts ALTv (test code = 1742-6) 13 U/L 5-35 Lab Interpretation (test cod e = 07709-1) Normal [facility] TylerSGOT (ASPARTATE AMINO TRANSFER)2022-07-15 01:55:21* Test Item Value Reference Range Interpretation Comme nts AST(SGOT) (test code = 8288897494) 18 U/L 13-40 Lab Interpretation (test cod e = 12169-1) Normal [facility] TylerURIC [id number] 01:55:21* Test Item Value Reference Range Interpretation Comme nts URIC ACID (test code = 0290175262) 3.3 mg/dL 2.9-6.0 Lab Interpretation (test cod e = 07962-9) Normal [facility] TylerCREATININE2022-12-16 01:55:00* Test Item Value Reference Range Interpretation Comme nts CREATININE (test code = 7309440502) 0.55 mg/dL 0.50-1.04 eGFR (test code = 9196020701) mL/min/1.73m2 LOGAN (test code = LOGAN) Association [...] or urine or abnormalities in imaging tests). [facility] WITH [id number] 01:48:20* Test Item Value Reference Range Interpretation [...] 32.6 g/dL 31.6-35.1 RDW-SD (test code = 68429-9) 37.5 fL 39.0-49.9 L RDW-CV (test code = 788-0) 12.3 % 12.0-15.5 PLT (test code = 777-3) See_Comment H [Automated message] The system which generated this result transmitted reference range: 166 - 358 10*3/?L. The reference range was not used to interpret this result as normal/abnormal. MPV (test code = 05403-7) 9.9 fL 9.5-12.9 NRBC/100 WBC (test code = 2843351307) See_Comment [Automated message] The system which generated this result transmitted reference range: 0.0 - 10.0 /100 WBCs. The reference range was not used to interpret this result as normal/abnormal. NRBC x10^3 (test code = 1351678675) See_Comment [Automated message] The system which generated this result transmitted reference range: 10*3/?L. The reference range was not used to interpret this result as normal/abnormal. GRAN MAT (NEUT) % (test code = 770-8) 69.6 % IMM GRAN % (test code = 3653401905) 0.80 % LYMPH % (test code = 736-9) 22.5 % MONO % (test code = 5905-5) 6.7 % EOS % (test code = 713-8) 0.2 % BASO % (test code = 706-2) 0.2 % GRAN MAT x10^3(ANC) (test code = 1059345173) 11.06 10*3/uL 1.88-7.09 H IMM GRAN x10^3 (test code = 0195288564) 0.12 10*3/uL 0.00-0.06 H LYMPH x10^3 (test code = 731-0) 3.57 10*3/uL 1.32-3.29 H MONO x10^3 (test code = 742-7) 1.06 10*3/uL 0.33-0.92 H EOS x10^3 (test code = 711-2) 0.03 10*3/uL 0.03-0.39 BASO x10^3 (test code = 704-7) 0.03 10*3/uL 0.01-0.07 Lab Interpretation (test code = 44277-6) Abnormal [facility] URINALYSIS W/O SPECIFIC [id number] 22:03:00* Test Item Value Reference Range Interpretation [...] = 3257) n/a Negative - Negati ve [facility] URINALYSIS W/O SPECIFIC [id number] 16:13:00* Test Item Value Reference Range Interpretation [...] = 3257) n/a Negative - Negati ve [facility] URINALYSIS W/O SPECIFIC [id number] 15:49:00* Test Item Value Reference Range Interpretation [...] = 3257) n/a Negative - Negati ve [facility] URINALYSIS W/O SPECIFIC [id number] 15:43:00* Test Item Value Reference Range Interpretation [...] = 3257) N/A Negative - Negati ve [facility] URINALYSIS W/O SPECIFIC [id number] 14:48:00* Test Item Value Reference Range Interpretation [...] = 3257) n/a Negative - Negati ve [facility] URINALYSIS W/O SPECIFIC [id number] 14:29:00* Test Item Value Reference Range Interpretation [...] = 3257) N/A Negative - Negati ve [facility] URINALYSIS W/O SPECIFIC [id number] 14:39:00* Test Item Value Reference Range Interpretation [...] = 3257) N/A Negative - Negati ve [facility] URINALYSIS W/O SPECIFIC [id number] 14:39:00* Test Item Value Reference Range Interpretation [...] = 3257) N/A Negative - Negati ve [facility] URINALYSIS W SPECIFIC [id number] 16:01:00* Test Item Value Reference Range Interpretation [...] U APPEAR (test code = 3267) clear [facility]PO[facility] [id number] 14:21:00* Test Item Value Reference Range Interpretation Comme nts POCT PREG (test code = 1605) negative On board controls acceptable with C Line (test code = 3574) present POCT PREG LOT # (test code = 3575) [id number] POCT PREG TEST DATE ( test code = 3576) Lab Interpretation (test cod e = 80548-2) Normal [facility] Notes Date/Time Note Provider Source 2024-09-03 20:52:53 Pt did not want to wait any longer for US, removed IV, refused to sign AMA pw 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 Reports fatigue x 2 days. Received depo shot in March and has been bleeding since. Goes through 5-6 tampons on heavy days. Also reports some mild cramping. [employer]OR OF PHYSICAL EDUCATION Regla Moncada RN [facility] 2024-05-29 17:05:22 PT order, face sheet and 05/23/2024 office visit notes faxed to [facility] @ Martita Merchant LVN [facility] 2024-05-29 12:50:08 [facility] is calling for PT orders to be sent over . Ph:[phone] Ankur Carpenter [facility] 2024-05-01 16:00:00 Patient was a hard stick and will return another day for her blood work.Patient was also given a stool collection kit with instructions to return at her convenience.Ashley Espinosa 05/01/2024 4:24 PM [facility] 2024-05-01 15:30:00 Addended by: SHAD COMER on: 05/01/2024 08:19 PM Modules accepted: Orders [facility] 2024-03-04 18:01:14 Unable to leave a voice mail. Sent [employer] message to schedule an appt Bri Fontaine [facility] 2024-02-28 09:31:20 Please call and schedule patient appointment for follow and labs for further medication refills. Erlinda Bazan RN [facility] 2024-02-27 11:33:21 Images from the original note were not included. Endocrinology: Hypothyroid Agents Zwumpe5902/27/2024 11:23 AM Protocol Details Manual Review: ENT [...] Please review and advise. Erlinda Bazan RN [facility] 2023-12-16 06:05:57 Pt given printed and verbal [...] no apparent distress, OT Michelle Mendez RN [facility] 2023-12-16 04:12:15 Pt arrives ambulatory to ED [...] so she came in to be seen. OT Michelle Blum RN [facility] 2023-12-16 04:11:00 EMERGENCY DEPARTMENT ENCOUNTER [facility] Patient Name: Ariella Tam Date of : 2000 23 year old Exam Room:[facility] FT02/OIUC89-96 Primary Care Physician: Souleymane Gusman [facility] Patient Escorted by: Friend [6] Mode of Arrival: Personal means [1] EMS Treatment Prior to ED Arrival: NURSE WOUND CARE treatment: None ED Events Date/Time Event User Comments 05/418 Medical Screening Begins DALTON HAWKINS MD -- 12/16/23418 First Provider Evaluation DALTON HAWKINS MD -- Chief Complaint Chief Complaint Patient presents [...] the patient referral to Dr. 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 She was discharged to follow-up. 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 Promptly contact for obvious discrepancies. Dalton Hawkins MD 12/16/23 0559 [facility] 2023-12-04 09:22:19 Images from the original note [...] LESIA Arciniega Last refill: 09/04/2023 Rx #: [id number]|1|0|1 Endocrinology: Hypothyroid Agents Launna8112/03/2023 05:22 AM Protocol Details Manual Review: ENT providers forward refill request to PCP. TSH in normal range and within 360 days Valid encounter within last 12 months To be filled at: [id number] - [place] [address] [address]ANGEL [address] [facility] [address] Recent Labs 03/08/23 1156 TSH 5.44* Recent Visits Date Type Provider Dept 08/04/23 Office Visit Shad Comer FNP [facility] 03/08/23 Office Visit Shad Comer FNP [facility] 12/06/22 Office Visit Cotta, Shad, [employer] [facility] Showing recent visits within past 540 days with a meds authorizing provider and meeting all other requirements Future Appointments No visits were found meeting these conditions. Showing future appointments within next 150 days with a meds authorizing provider and meeting all other requirements Sheridan Martinez LVN [facility] 2023-11-02 01:40:01 Pt given printed and verbal [...] in no apparent distress. Michelle Blum RN [facility] 2023-11-01 23:20:13 CC: Pt reports left sided [...] amb with steady gait Michelle Mendez RN [facility] 2023-03-17 10:38:02 Formatting of this n ote might be different from the original. Please review and send medication to requested pharmacy if appropriate. Erlinda Bazan RN [facility] 2023-03-08 12:00:00 Formatting of this n ote is different from the original. Images from the original note were not included. Venipuncture collection performed by clean technique on the right anticubitus. Total of 1 attempts were made. Slight pressure and a bandage/dressing were applied to the site(s). The patient experienced no complications. The following specimens were processed according to instructions and sent to [facility] laboratories per lab order on today: LT BLUE SST 5 RED LAV 1 PPT DK GREEN (LiHep) DK GREEN (SodH) [place] DK BLUE (K2) DK BLUE (S) ACD Blood Culture NIPT/NTD [facility]
[2025-03-09] MEDS ORDERED: MAGNES/ALUMIN/SIMET 30ML UCUP ONE (17:17)
[2025-03-09] MEDS ORDERED: AMOX/K CLAV 875 MG TAB ONE (17:17)
[2025-03-09] MEDS ORDERED: LIDOCAINE VISCOUS 2% 10ML ORAL SOLN ONE (17:18)
--- NOTE | 2025-03-09 17:40 | ER ---
Nurse's Notes [facility] Name: Eugene Andrew Age: 24 yrs Sex: Female : 2000 Arrival Date: 03/09/2025 Time: 17:01 Bed IW1 Private MD: Diagnosis: Streptococcal pharyngitis Presentation: 03/09 17:10 Chief complaint: Patient states: I have swollen tonsils and white stuff on them that i jb4 noticed this morning. I have had a sore throat for the past 3 weeks. Coronavirus screen: At this time, the client does not indicate any symptoms associated with coronavirus-19. Ebola Screen: No symptoms or risks identified at this time. Initial Sepsis Screen: Does the patient meet any 2 criteria? No. Patient's initial sepsis screen is negative. Does the patient have a suspected source of infection? No. Patient's initial sepsis screen is negative. Risk Assessment: Do you want to hurt yourself or someone else? Patient reports no desire to harm self or others. Onset of symptoms was March 09, 2025. Transition of care: patient was not received from another setting of care. 17:10 Method Of Arrival: Ambulatory jb4 17:10 Acuity: MIRTHA 4 jb4 Historical: - Allergies: 17:11 No Known Allergies; jb4 - PMHx: 17:11 Depression; thyroid problems; jb4 - PSHx: 17:11 None; jb4 - Immunization history:: Adult Immunizations up to date. - Infectious Disease History:: Denies. - Social history:: Smoking status: Patient denies any tobacco usage or history of. Screenin:[facility] ED Fall Risk Assessment (Adult) History of falling in the last 3 months, jb4 including since admission No falls in past 3 months (0 pts) Confusion or Disorientation No (0 pts) Intoxicated or Sedated No (0 pts) Impaired Gait No (0 pts) Mobility Assist Device Used No (0 pt) Altered Elimination No (0 pt) Score/Fall Risk Level 0 - 2 = Low Risk Oriented to surroundings, Maintained a safe environment. Abuse screen: Denies threats or abuse. Nutritional screening: No deficits noted. Tuberculosis screening: No symptoms or risk factors identified. Assessment: 17:59 General: Appears in no apparent distress. comfortable, Behavior is calm, cooperative, jb4 appropriate for age. Pain: Complains of pain in throat Pain does not radiate. Pain currently is 5 out of 10 on a pain scale. Neuro: Level of Consciousness is awake, alert, obeys commands, Oriented to person, place, time, situation. Cardiovascular: Patient's skin is warm and dry. Respiratory: Airway is patent Respiratory effort is even, unlabored, Respiratory pattern is regular, symmetrical. EENT: Throat is clear is reddened has patchy exudate has enlarged tonsils bilaterally with gag reflex present. Derm: Skin is intact, Skin is pink, warm \T\ dry. Musculoskeletal: Circulation, motion, and sensation intact. Range of motion: intact in all extremities. Vital Signs: 17:10 BP 130 / 72; Pulse 87; Resp 16; Temp 98.5(O); Pulse Ox 97% on R/A; Weight 104.33 kg jb4 (R); Height 5 ft. 5 in. (R); Pain 5/10; 17:10 Body Mass Index 38.27 (104.33 kg, 165.1 cm) jb4 17:10 Pain Scale: Adult jb4 ED Course: 17:05 Patient arrived in ED. gl 17:06 [facility]abil[facility] G[facility]C [facility]. kb 17:06 Britney Mahmood MD is Attending Physician. kb 17:11 Triage completed. jb4 17:11 Arm band placed on right wrist. jb4 17:59 Patient has correct armband on for positive identification. Provided Education on: jb4 discharge instructions.. 17:59 No provider procedures requiring assistance completed. Patient did not have IV access jb4 during this emergency room visit. Administered Medications: 17:27 Drug: GI Cocktail without - (Maalox PO 30 ml, Lidocaine Mucous Membrane 2 % 15 jb4 ml) PO once Route: PO; 18:01 Follow up: Response: No adverse reaction; Marked relief of symptoms; Pain is decreased jb4 17:27 Drug: Dexamethasone IM 10 mg IM once Route: IM; Site: right gluteus; jb4 18:01 Follow up: Response: No adverse reaction; Marked relief of symptoms jb4 17:27 Drug: Amoxicillin-Clavulanate PO 875 mg PO once Route: PO; jb4 18:01 Follow up: Response: No adverse reaction jb4 Medication: 17:59 VIS not applicable for this client. jb4 Outcome: 17:39 Discharge ordered by . justine 17:59 Discharged to home ambulatory, jb4 17:59 Condition: stable 17:59 Discharge instructions given to patient, Instructed on discharge instructions, follow up and referral plans. medication usage, Demonstrated understanding of instructions, follow-up care, medications, Prescriptions given X 1, 18:01 Patient left the ED. jb4 Signatures: Nabila Gage, ROLL INSPECTOR-C ROLL INSPECTOR-Manas Caicedo, RN RN jb4 Angie Kang, Reg Reg gl
--- NOTE | 2025-03-09 17:40 | EDPHYS ---
Physician Documentation [facility] Name: Eugene Andrew Age: 24 yrs Sex: Female : 2000 Arrival Date: 03/09/2025 Time: 17:01 Bed IW1 Private MD: ED Physician Britney Mahmood HPI: 03/09 17:58 This 24 yrs old Female presents to ER via Ambulatory with complaints of Sore Throat. kb 17:58 Pt is a 24 year old female who presents for sore throat, swollen tonsils with white kb patches that started this morning. Denies fever. States pain is worse with swallowing and talking. . Historical: - Allergies: 17:11 No Known Allergies; jb4 - PMHx: 17:11 Depression; thyroid problems; jb4 - PSHx: 17:11 None; jb4 - Immunization history:: Adult Immunizations up to date. - Infectious Disease History:: Denies. - Social history:: Smoking status: Patient denies any tobacco usage or history of. ROS: 17:57 Constitutional: As per HPI kb Exam: 17:57 Constitutional: This is a well developed, well nourished patient who is awake, alert, kb and in no acute distress. Head/Face: Normocephalic, atraumatic. Cardiovascular: Regular rate Respiratory: Respirations even and unlabored. No increased work of breathing. Talking in full sentences Skin: Warm, dry with normal turgor. Normal color. MS/ Extremity: Pulses equal, no cyanosis. Neurovascular intact. Full, normal range of motion. Neuro: Awake and alert, GCS 15, oriented to person, place, time, and situation. 17:57 ENT: Posterior pharynx: Airway: normal, Tonsils: bilaterally enlarged, with erythema, with exudate, Uvula: normal, midline, Vital Signs: 17:10 BP 130 / 72; Pulse 87; Resp 16; Temp 98.5(O); Pulse Ox 97% on R/A; Weight 104.33 kg jb4 (R); Height 5 ft. 5 in. (R); Pain 5/10; 17:10 Body Mass Index 38.27 (104.33 kg, 165.1 cm) jb4 17:10 Pain Scale: Adult jb4 MDM: 17:06 Medical Screening Exam initiated kb 17:57 Differential diagnosis: peritonsillar abscess pharyngitis, tonsillitis, strep. Data kb reviewed: vital signs, nurses notes. I considered the following discharge prescriptions or medication management in the emergency department I discussed and recommended Over The Counter medications, amoxicillin prescribed for strep. Test considered but Not performed: Labs: cbc, cmp considered but pt is nontoxic in appearance, afebrile. 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 Counseling: I had a detailed discussion with the patient and/or guardian regarding the historical points, exam findings, and any diagnostic results supporting the discharge/admit diagnosis, lab results, the need for outpatient follow up, a family practitioner, to return to the emergency department if symptoms worsen or persist or if there are any questions or concerns that arise at home. 03/09 17:09 Order name: Group A Streptococcus Rapid; Complete Time: 18:01 kb Administered Medications: 17:27 Drug: GI Cocktail without - (Maalox PO 30 ml, Lidocaine Mucous Membrane 2 % 15 jb4 ml) PO once Route: PO; 18:01 Follow up: Response: No adverse reaction; Marked relief of symptoms; Pain is decreased jb4 17:27 Drug: Dexamethasone IM 10 mg IM once Route: IM; Site: right gluteus; jb4 18:01 Follow up: Response: No adverse reaction; Marked relief of symptoms jb4 17:27 Drug: Amoxicillin-Clavulanate PO 875 mg PO once Route: PO; jb4 18:01 Follow up: Response: No adverse reaction jb4 Disposition Summary: 03/09/25 17:39 Discharge Ordered Notes: Location: Home kb Condition: Stable kb Diagnosis - Streptococcal pharyngitis kb Followup: kb - With: Emergency Department - When: As needed - Reason: Worsening of condition Followup: kb - With: Private Physician - When: 2 - 3 days - Reason: Recheck today's complaints, Continuance of care, Re-evaluation by your physician Discharge Instructions: - Discharge Summary Sheet kb - Strep Throat, Adult, [id number] kb Forms: - Medication Reconciliation Form kb - Antibiotic Education kb - Prescription Opioid Use kb - Patient Portal Instructions kb - Leadership Thank You Letter kb Prescriptions: - Amoxicillin 875 mg Oral Tablet - take 1 tablet ORAL route every 12 hours for 10 days; 20 tablet; Refills: 0, kb Product Selection Permitted Signatures: Dispatcher [employer] Nabila Lundberg, POLISHER BRASS-C POLISHER BRASS-Ckb Manas Lovelace, RN RN jb4
[2025-03-09 18:27] VITALS: BP 130/72; TEMP 98.5; O2SAT 97
== END 2025-03-09 18:01 | disposition home or self-care (01) ==
LOC: ER 17:01
DX: J02.0 Streptococcal pharyngitis (principal)
CPT/HCPCS: 36415; 87070; 96372; 99284; J1100

== ENCOUNTER 2025-04-28 23:02 | Emergency (ER) | payer SELFPAY ==
--- OUTSIDE RECORDS SUMMARY | 2025-04-28 23:11 | XMS REPORT | Continuity of Care Document ---
Author Name Unknown Address [address] [facility] [place] [address] [facility] [place] Address [address] [facility] [place] [address] Support Name Relationship Address Phone OTHER, UNK O [address] [address] [phone] Unavailable E Unknown Unavailable Unavailable Personal Relationship Unknown [place]aadonis [place] [address] MARTITA COLES Personal Relationship [address] [place] [address] ZABRINA COLES Personal Relationship [address] [place] [address] JEANNE COLES Personal Relationship [address] [place] [address] Miko Coles Father Unknown [phone] MIKO Unknown Unavailable 2 MIKO Unknown Unavailable 3 Personal Relationship Unknown UnavaMIKO Rendon F [address] [place] [address] Unavailable MARTITA COLES [address] [place] [address] Unavailable RAMSEY TRIANA Significant Unknown JEANNE TAM F [address] [place] [address] MARTITA COLES M [address] [place] [address] Unavailable RAAD CERDA Significant [address] [place] [address] L Martita Coles Mother [address] [place] [address] RAAD CERDA Significant [address] [place] [address] Care Team Providers Care Webmaster Name Role Phone Zachary Mobley MD Primary Care Physician [phone] UNKNOWN, ATTENDING Attending Clinician Unavailab DULCE Kendall Attending Clinician Unavailable DULCE MERCEDES Attending Clinician Unavailable Doctor Unassigned, Wamic Attending Clinician U navailable ARLEY BARRY Attending Clinician Unavailable ARLEY BARRY Attending Clinician Unavailable Arley Barry PA-C Attending Clinician [phone] SHAD COMER Attending Clinician Unavailable Richard Eason MD Attending Clinician RICHARD EASON Attending Clinician Porsha vailable Shad Marin Attending Clinician [phone] AMIE ZHANG Attending Clinician Unavailable Amie Zhang PA-C Attending Clinician [phone] Unknown, Attending Attending Clinician Unavailab le Lab, Ang - Db Attending Clinician Unavailable Nurse, [facility] Attending Clinician Un available Dulce Mercedes MD Attending Clinician [phone] DONALD WATSON Attending Clinician UnavailMARISA Ponce Attending Clinician Unavailable MARISA GAGE Attending Clinician Unavailable DALTON HAWKINS Attending Clinician Unavailable Dalton Hawkins MD Attending Clinician [phone] Shad Marin Attending Clinician [phone] TOBIN SANTOS Attending Clinician Unava ilMILAGRO Billy Attending Clinician Unavaila Milagro Avery Attending Clinician + [phone] Doctor Unassigned, Wamic Attending Clinician U navailable IVAN DUVAL Attending Clinician Unav ROCIO Joseph Attending Clinician Unavailable Lab, Ang - Db Attending Clinician Unavailable ROCIO [place] Attending Clinician Unavailable Alexandru TOLBERT, Amna Abarca Attending Clinician + Stevo Sow MD Attending Clinicia n Kristen De León RN Attending Clinician Unavailab JOSEPH [place] Attending Clinician Unavaila ble TRITSCHLER, CHERYAL Attending Clinician Unavaila Graham Jordan PT Attending Clinician Unavailable Pob, [facility] Main Attending Clinician Unavailfidelia Sung RN, Janna Attending Clinician UnavailJudd Holley MD Attending Clinician [phone] JUDD AUGUSTIN Attending Clinician Unavailable 2, [facility] Us Room Attending Clinician UnavailSorin Kathleen MD Attending Clinician [phone] SORIN MONTERROSO Attending Clinician UnavailGERMÁN Jones Attending Clinician Unavailable Germán Moses MD Attending Clinician [phone] Dulce GERMAN Attending Clinician Unavailable Dulce Linton Attending Clinician [phone] SUMMER BURK Attending Clinician Unavailable BRITNEY BLUM Attending Clinician Unavailab Britney Green DO Attending Clinician [phone] Maxi PENSION ADVISER-CSummer Attending Clinician [phone] MARSHALL BORJA Attending Clinician Unava manju Ascencio RN, Pinky Rand Attending Clinician Unavailab Jeanette Rodney Attending Clinician + JEANETTE LEMUS Attending Clinician UnaNed Barney DO Attending Clinician [phone] Radiology Attending Clinician Unavailable RADIOLOGY Attending Clinician Unavailable Shaun Sheridan Attending Clinician Unavailable DULCE MERCEDES Admitting Clinician Unavailable MILAGRO CLIFTON Admitting Clinician UnavailDulce Atkins MD Admitting Clinician [phone] Dulce GERMAN Admitting Clinician Unavailable JOSEPH LIU Admitting Clinician Unavailconrado reddy Payers Payer Name Policy Type Policy Number Effective Date Expirati on Date Source [facility] STATE [id number] 2016 00:00:00 [facility] [id number] 2021 00:00:00 [facility] [id number] 2020 00:00:00 [place] [id number] 2021 00:00:00 BCBS 2 [id number] 2020 00:00:00 Problems Condition Name Condition Details Condition Category Status Onset Date Resolution Date Last Treatment Date Treating Clinician Comments Source Epigastric pain Epigastric pain Disease Active 2023-07 0- 00:00: 00 [facility] Family history of Crohn's disease Family history of Crohn's disease Disease Active 2023-07 0- 00:00: 00 [facility] Chronic nonintract able headache, unspecifie d headache type Chronic nonintract able headache, unspecifie d headache type Disease Active 8- 00:00: 00 [facility] Nausea Nausea Disease Active 8 00:00: 00 [facility] Gastroesop hageal reflux disease without esophagiti s Gastroesop hageal reflux disease without esophagiti s Disease Active 8 00:00: 00 [facility] Diarrhea, unspecifie d type Diarrhea, unspecifie d type Disease Active 8- 00:00: 00 [facility] Chronic idiopathic constipati on Chronic idiopathic constipati on Disease Active 8 00:00: 00 [facility] Fatigue, unspecifie d type Fatigue, unspecifie d type Disease Active 5 00:00: 00 [facility] Anemia of mother in , antepartum Anemia of mother in , antepartum Disease Active 9-27 00:00: 00 [facility] Vitamin D deficiency Vitamin D deficiency Disease Active 8- 00:00: 00 [facility] Hypothyroi dism Hypothyroi dism Disease Active 8- 00:00: 00 [facility] History of depression History of depression Disease Active 4 00:00: 00 [facility] Current every day vaping Current every day vaping Disease Active 4 00:00: 00 [facility] Current mild episode of major depressive disorder without prior episode Current mild episode of major depressive disorder without prior episode Disease Active 2021-0 4-06 00:00: 00 Overview: Formattin g of this note might be different from the original. Formattin g of this note might be different from the original. Dr. Bruno in [facility] AMY (generaliz ed anxiety disorder) AMY (generaliz ed anxiety disorder) Disease Active 4-06 00:00: 00 [facility] History of suicide attempt History of suicide attempt Disease Active 4-06 00:00: 00 [facility] Panic attacks Panic attacks Disease Active 406 00:00: 00 [facility] No known active problems No known active problems Disease [facility] Anemia due to acute blood loss Anemia due to acute blood loss Disease Resolve d 0 5-09 00:00: 00 2023-06-01 00:00:00 2023-06-01 13:21:09 [facility] Other immediate hemorrhage Other immediate hemorrhage Disease Resolve d 1 2-30 00:00: 00 2022-08-17 00:00:00 2022-08-17 17:11:10 Overview: Formattin g of this note might be different from the original. Uterine atony [facility] Morbid obesity with body mass index of 40.0-49.9 Morbid obesity with body mass index of 40.0-49.9 Disease Resolve d 2021-1 2-30 00:00: 00 2022-08-17 00:00:00 2022-08-17 17:11:23 [facility] Liveborn by vaginal delivery Liveborn infant by vaginal delivery Disease Resolve d 2021-1 2-29 00:00: 00 2022-08-17 00:00:00 2022-08-17 15:56:38 [facility] Anemia of mother in , antepartum Anemia of mother in , antepartum Disease Resolve d 2021-0 9-27 00:00: 00 2022-08-17 00:00:00 2022-08-17 17:11:13 [facility] Obesity in , antepartum Obesity in , antepartum Disease Resolve d 2021-0 8-02 00:00: 00 2022-08-17 00:00:00 2022-08-17 17:11:25 [facility] Nausea and vomiting in prior to 22 weeks gestation Nausea and vomiting in prior to 22 weeks gestation Disease Resolve d 2021-0 5-23 00:00: 00 2022-08-17 00:00:00 2022-08-17 17:11:24 [facility] Nausea and vomiting in prior to 22 weeks gestation Nausea and vomiting in prior to 22 weeks gestation Disease Resolve d 2021-0 5-23 00:00: 00 2022-08-17 00:00:00 2022-08-17 17:11:24 [facility] 39 weeks gestation of 39 weeks gestation of Disease Resolve d 2021-1 2-29 00:00: 00 2022-07-30 00:00:00 2022-07-30 07:52:05 [facility] Encounter for induction of labor Encounter for induction of labor Disease Resolve d 2021-1 2-28 00:00: 00 2022-07-30 00:00:00 2022-07-30 07:52:04 [facility] Pelvic pressure in Pelvic pressure in Disease Resolve d 2021-1 1-10 00:00: 00 2022-07-30 00:00:00 2022-07-30 07:51:25 [facility] History of hypothyroi dism History of hypothyroi dism Disease Resolve d 2021-1 0-11 00:00: 00 2022-07-30 00:00:00 2022-07-30 07:51:34 [facility] 10 weeks gestation of 10 weeks gestation of Disease Resolve d 2021-0 6-06 00:00: 00 2022-07-30 00:00:00 2022-07-30 07:52:17 [facility] Genetic screening Genetic screening Disease Resolve d 2021-0 6-06 00:00: 00 2022-07-30 00:00:00 2022-07-30 07:52:19 [facility] Supervisio n of normal first , antepartum Supervisio n of normal first , antepartum Disease Resolve d 2021-0 5-23 00:00: 00 2022-07-30 00:00:00 2022-07-30 07:52:23 [facility] with inconclusi ve viability, single or unspecifie d fetus with inconclusi ve viability, single or unspecifie d fetus Disease Resolve d 0 4-25 00:00: 00 2022-07-30 00:00:00 2022-07-30 07:51:52 [facility] Missed menses Missed menses Disease Resolve d 0 4-25 00:00: 00 2022-07-30 00:00:00 2022-07-30 07:51:47 [facility] Vaginal discharge during , antepartum Vaginal discharge during , antepartum Disease Resolve d 0 4-25 00:00: 00 2022-07-30 00:00:00 2022-07-30 07:51:43 [facility] Dysuria Dysuria Disease Resolve d 0 4-25 00:00: 00 2022-07-30 00:00:00 2022-07-30 07:51:41 [facility] with inconclusi ve viability, single or unspecifie d fetus with inconclusi ve viability, single or unspecifie d fetus Disease Resolve d 0 4-25 00:00: 00 2022-07-30 00:00:00 2022-07-30 07:51:52 [facility] Allergies, Adverse Reactions, Alerts Allergy Name Allergy Type Status Severity Reaction(s) Onset Date Inactive Date Treating Clinician Comments Source NO KNOWN ALLERGIE S Drug Class Active [facility] Social History Social Habit Start Date Stop Date Quantity Comments Source ASSERTION 2021-11-06 00:00:00 [facility] Alcoholic beverage intake 2024-05-23 00:00:00 2024-05-23 00:00:00 Ex-drinker (finding) [facility] History of Social function 2024-05-01 00:00:00 2024-05-01 00:00:00 [facility] Alcohol intake 2023-11-01 00:00:00 2023-11-01 00:00:00 Ex-drinker (finding) [facility] Exposure to SARS-CoV-2 (event) 2022-11-26 00:00:00 2022-12-06 09:51:00 Not sure [facility] Tobacco Comment 2022-07-27 00:00:00 2022-07-27 00:00:00 Use of vape prior to [facility] Tobacco use and exposure 2022-07-27 00:00:00 2022-07-27 00:00:00 Former smokeless tobacco user [facility] Sex Assigned At 2000 00:00:00 2000 00:00:00 [facility] Smoking Status Start Date Stop Date Source Unknown if ever smoked [facility] Never smoked tobacco Juanis Bolden Medications Ordered Medication Name Filled Medication Name Start Date Stop Date Current Medication? Ordering Clinician Indication Dosage Frequency Signature (SIG) Comments Components Source methylPREDN ISolone (MEDROL, SALLY,) 4 mg tablets 2023-07 00:00: 00 Yes [id number] Take by mouth SEE-INSTRU CTIONS. follow package directions [facility] naproxen 500 mg tablet 2023-07 00:00: 00 07-23 05:59 :00 No [id number] 500mg Take 1 tablet by mouth in the morning and 1 tablet in the evening. Take with meals. Do all this for 60 days. [facility] ibuprofen 600 mg tablet 2023-07 00:00: 00 Yes [id number] 600mg Take 1 tablet by mouth in the morning and 1 tablet at noon and 1 tablet in the evening. Take with meals. [facility] pantoprazol e 40 mg EC tablet 2023-07 00:00: 00 Yes [id number] 40mg Take 1 tablet by mouth in the morning. [facility] ondansetron (ZOFRAN) 4 mg tablet 2023-07 00:00: 00 05-12 04:59 :00 No [id number] 4mg Take 1 tablet by mouth every 8 (eight) hours as needed for Nausea and Vomiting (N/V) for up to 10 days. [facility] medroxyPROG ESTERone (DEPO-PROVE RA) syringe 150 mg 04-17 20:15: 00 04-17 19:37 :00 No [id number] 150mg 150 mg, Intramuscu lar, ONCE, 1 dose, On Mon04/17/24 at 1515, Routine [facility] LEVOTHYROXI NE 25 mcg tablet 02-26 00:00: 00 Yes [id number] 25ug TAKE 1 TABLET BY MOUTH EVERY MORNING [facility] cefpodoxime 200 mg tablet 12-15 00:00: 00 05-01 00:00 :00 No [id number] 200mg Take 1 tablet by mouth in the morning and 1 tablet in the evening. [facility] phenazopyri dine 200 mg tablet 12-15 00:00: 00 05-01 00:00 :00 No [id number] 200mg Take 1 tablet by mouth in the morning and 1 tablet at noon and 1 tablet in the evening. [facility] levothyroxi ne 25 mcg tablet 12-04 00:00: 00 02-26 00:00 :00 No [id number] 25ug TAKE 1 TABLET BY MOUTH EVERY MORNING [facility] cefTRIAXone (ROCEPHIN) 350 mg/mL in Lidocaine 1 % injection 1,000 mg 11-01 06:30: 00 11-01 06:30 :00 No 1000mg 1,000 mg, Intramuscu lar, ONCE, 1 dose, On Mon11/02/23 at 0130, STAT
Re ason for Anti-Infec tive: Documented Infection< br>Documen jose rafael Infection Site: Urine
D uration of Therapy: Once (ED) [facility] ketorolac (TORADOL) injection 30 mg 11-01 06:00: 00 11-01 05:07 :00 No 30mg 30 mg, Intramuscu lar, ONCE, 1 dose, On Mon11/02/23 at 0100, DO [facility] cefUROXime 500 mg tablet 4-04 00:00: 00 11-09 04:59 :00 No [id number] 500mg Take 1 tablet by mouth in the morning and 1 tablet in the evening. Do all this for 7 days. [facility] escitalopra m oxalate 20 mg tablet 2022-07 2-12 00:00: 00 Yes 20mg Take 1 tablet by mouth every morning. [facility] buPROPion XL 150 mg 24 hr tablet 2022-07 2-12 00:00: 00 Yes 150mg Take 1 tablet by mouth every morning. [facility] levothyroxi ne 25 mcg tablet 8-18 00:00: 00 12-04 00:00 :00 No [id number] 25ug Take 1 tablet by mouth every morning. [facility] levothyroxi ne (TIROSINT-S OL) 112 mcg/mL Soln - 11:06: 24 03-08 00:00 :00 No 1 ml in the morning before breakfast [facility] SUMAtriptan 50 mg tablet 03-08 00:00: 00 05-01 00:00 :00 No [id number] Take on one onset of migraine , may repeat in 1 hr if needed. Max dosage 200mg in 24hrs. [facility] escitalopra m oxalate 10 mg tablet 2- 00:00: 00 05-01 00:00 :00 No [id number] 10mg Take 1 tablet by mouth in the morning. [facility] norelgestro min-ethinyl estradiol (XULANE) 150-35 mcg/24 hr patch 2-08 00:00: 00 05-01 00:00 :00 No [id number] 1{patch } Apply 1 Patch to skin weekly. [facility] levothyroxi ne (TIROSINT-S OL) 112 mcg/mL Soln 2021-07 2-30 20:00: 01 Yes 1 ml in the morning before breakfast [facility] vit no.124/iron /folic ( VITAMIN ORAL) 2021-07 18:23: 05 07-29 00:00 :00 No Take by mouth. [facility] escitalopra m oxalate (LEXAPRO) tablet 10 mg 2021-07 14:00: 00 Yes 10mg 10 mg, Oral, DAILY, First dose on Mon07/29/22 at 0800, Until Discontinu ed, [facility] (METHERGINE ) tablet 200 mcg 2021-07 12:00: 00 07-30 05:59 :00 No 200ug 200 mcg, Oral, Q6H, 3 doses, First dose on Mon07/29/22 at 0600, Last dose on Mon07/29/22 at 1800, Routine [facility] methylergon ovine (METHERGINE ) injection 0.2 mg 2021-07 08:30: 00 07-29 07:44 :00 No .2mg 0.2 mg, Intramuscu lar, ONCE NOW, 1 dose, On Mon07/29/22 at 0230, Routine [facility] miSOPROStoL (CYTOTEC) tablet 1,000 mcg 2021-07 07:30: 00 07-29 06:45 :00 No 1000ug 1,000 mcg, Rectal, ONCE NOW, 1 dose, On Mon07/29/22 at 0130, Routine [facility] NaCl 0.9% (NS) IV infusion 1,000 mL 2021-07 07:15: 00 Yes 1000mL at 999 mL/hr, IV Infusion, CONTINUOUS , Starting on Mon07/29/22 at 0115, Until Discontinu ed, Routine
500 bolus then change rate to 50 ml/hr
[facility] FENTanyl PF (SUBLIMAZE (PF)) injection 100 mcg 2021-07 07:00: 00 07-29 06:24 :00 No 100ug 100 mcg, Slow IV Push, ONCE, 1 dose, On Mon07/29/22 at 0100, Routine [facility] HYDROmorpho ne (DILAUDID) injection 1 mg 2021-07 06:45: 00 07-29 06:45 :00 No 1mg 1 mg, Slow IV Push, ONCE, 1 dose, On 07/29/22 at 0045, Routine
Use approved by (Faculty): VAT SKIMMER/ONC FACULTY [facility] vitamin w/FA tablet 2021-07 00:00: 00 Yes [id number] 1{tbl} Take 1 tablet by mouth in the morning. [facility] vitamin w/FA tablet 2021-07 00:00: 00 03-08 00:00 :00 No [id number] 1{tbl} Take 1 tablet by mouth in the morning. [facility] ferrous sulfate 325 mg (65 mg iron) tablet 2021-07 00:00: 00 03-08 00:00 :00 No [id number] 325mg Take 1 tablet by mouth in the morning and 1 tablet in the evening. [facility] ibuprofen 600 mg tablet 2021-07 00:00: 00 03-08 00:00 :00 No [id number] 600mg Take 1 tablet by mouth every 6 (six) hours as needed (Pain). Take with food or milk. [facility] escitalopra m oxalate 10 mg tablet 2021-07 00:00: 00 09-07 00:00 :00 No [id number] 10mg Take 1 tablet by mouth in the morning. [facility] docusate 100 mg capsule 2021-07 00:00: 00 08-17 00:00 :00 No [id number] 200mg Take 2 capsules by mouth once daily as needed for Constipati on. [facility] HYDROcodone -acetaminop hen (NORCO 5) 5-325 mg tablet 1 tablet 2021-07 23:47: 17 Yes 1{tbl} 1 tablet, Oral, Q6HPRN, Starting on Sarah 07/28/22 at 1747, Until Discontinu ed, Routine, Pain (scale 7-10) [facility] ibuprofen (IBU) tablet 600 mg 2021-07 23:47: 16 Yes 600mg 600 mg, Oral, Q6HPRN, Starting on Mon07/28/22 at 1747, Until Discontinu ed, Routine, Pain (scale 4-6) [facility] acetaminoph en (TYLENOL) tablet 650 mg 2021-07 23:47: 16 Yes 650mg 650 mg, Oral, Q6HPRN, Starting on Mon07/28/22 at 1747, Until Discontinu ed, Routine, Pain (scale 1-3) [facility] diphenhydrA MINE (BENADRYL) tablet 25 mg 2021-07 23:47: 16 Yes 25mg 25 mg, Oral, Q6HPRN, Starting on Mon07/28/22 at 1747, Until Discontinu ed, Routine, Sleep, Itching [facility] ondansetron (ZOFRAN (PF)) injection 4 mg 2021-07 23:47: 16 Yes 4mg 4 mg, Slow IV Push, Q8HPRN, Starting on Mon07/28/22 at 1747, Until Discontinu ed, Routine, Nausea and Vomiting (N/V) [facility] simethicone (GAS RELIEF (SIMETHICON E)) chewable tablet 160 mg 2021-07 23:47: 16 Yes 160mg 160 mg, Oral, PC+HSPRN, Starting on Mon07/28/22 at 1747, Until Discontinu ed, Routine, Gas [facility] docusate (COLACE) capsule 200 mg 2021-07 23:47: 16 Yes 200mg 200 mg, Oral, QDAILYPRN, Starting on Mon07/28/22 at 1747, Until Discontinu ed, Routine, Constipati on [facility] magnesium hydroxide (MILK OF MAGNESIA) 400 mg/5 mL suspension 30 mL 2021-07 23:47: 16 Yes 30mL 30 mL, Oral, QDAILYPRN, Starting on Mon07/28/22 at 1747, Until Discontinu ed, Routine, Constipati on [facility] benzocaine- menthol (DERMOPLAST ) 20-0.5 % topical spray 2021-07 23:47: 16 Yes Topical, PRN, Starting on Mon07/28/22 at 1747, Until Discontinu ed, Routine, Perineum discomfort [facility] fentaNYL-ro pivacaine 2 mcg/mL-0.1 % (PF) in NS 200 mL epidural infusion RTU 2021-07 12:40: 00 07-29 02:18 :14 No Epidural, ONCE INTRA PROCEDURE, Starting on Mon07/28/22 at 0640, Until Mon07/28/22 at 2018, Routine, Intra-op [facility] lidocaine-e pinephrine (XYLOCAINE W/EPINEPHRI NE) 1.5 %-1:200,000 injection 2021-07 12:35: 00 07-29 02:18 :14 No Intraderma l, ONCE INTRA PROCEDURE, Starting on Mon07/28/22 at 0635, Until Mon07/28/22 at 2018, Routine, Intra-op [facility] misoprostol (CYTOTEC) quarter-tab let 25 mcg 2021-07 04:45: 00 07-28 14:50 :33 No 25ug 25 mcg, Vaginal, Q4H ABX, First dose on Mon07/27/22 at 2245, Until Discontinu ed, Routine [facility] misoprostol (CYTOTEC) quarter-tab let 25 mcg 2021-07 04:30: 00 07-28 03:56 :00 No 25ug 25 mcg, Oral, ONCE, 1 dose, On Mon07/27/22 at 2230, Routine [facility] butorphanol (STADOL) injection 2 mg 2021-07 01:50: 13 07-28 23:48 :22 No 2mg 2 mg, IV Push, Q3HPRN, Starting on Mon07/27/22 at 1950, Until Mon07/28/22 at 1748, Routine, Pain (scale 1-3), Pain (scale 4-6), Pain (scale 7-10) [facility] ondansetron (ZOFRAN (PF)) injection 4 mg 2021-07 01:50: 13 07-28 23:48 :22 No 4mg 4 mg, Slow IV Push, Q6HPRN, Starting on Mon07/27/22 at 1950, Until Mon07/28/22 at 1748, Routine, Nausea and Vomiting (N/V) [facility] oxytocin (PITOCIN) 30 units in NS 500 mL IV infusion 2021-07 01:50: 08 07-28 23:48 :22 No 2mU/min at 2-40 mL/hr, IV Infusion, TITRATE, Starting on Mon07/27/22 at 1950, Until Sarah 07/28/22 at 1748, DO [facility] lactated ringers IV infusion 500 mL 2021-07 01:50: 08 07-28 23:48 :22 No 500mL at 999 mL/hr, 500 mL, IV Infusion, PRN - SEE INSTRUCTIO NS, Starting on Mon07/27/22 at 1950, Until Mon07/28/22 at 1748, Routine [facility] D5W-LR IV infusion 1,000 mL 2021-07 01:50: 08 07-28 23:48 :22 No 1000mL at 1-125 mL/hr, IV Infusion, TITRATE, Starting on Mon07/27/22 at 1950, Until Sarah 07/28/22 at 1748, Routine [facility] vit no.124/iron /folic ( VITAMIN ORAL) 2021-07 18:50: 02 Yes Take by mouth. [facility] levothyroxi ne (TIROSINT-S OL) 112 mcg/mL [facility] 2021-07 18:50: 02 Yes 1 ml in the morning before breakfast [facility] levothyroxi ne (TIROSINT-S OL) 112 mcg/mL [facility] 2021-07 15:53: 04 Yes 1 ml in the morning before breakfast [facility] vit no.124/iron /folic ( VITAMIN ORAL) 2021-07 20:51: 02 Yes Take by mouth. [facility] levothyroxi ne (TIROSINT-S OL) 112 mcg/mL [facility] 2021-07 2-15 20:51: 02 Yes 1 ml in the morning before breakfast [facility] levothyroxi ne (TIROSINT-S OL) 112 mcg/mL [facility] 2021-07 2-06 10:10: 03 Yes 1 ml in the morning before breakfast [facility] vit no.124/iron /folic ( VITAMIN ORAL) 2021-07 01:51: 09 Yes Take by mouth. [facility] terconazole 80 mg vaginal suppository 2021-07 00:00: 00 06-15 05:59 :00 No [id number] 80mg Insert 1 Suppositor y into vagina at bedtime for 3 days. [facility] vit no.124/iron /folic ( VITAMIN ORAL) 04-26 09:34: 40 Yes Take by mouth. [facility] ferrous sulfate (IRON, FERROUS SULFATE,) 325 mg (65 mg iron) tablet 04-26 00:00: 00 07-29 00:00 :00 No [id number] 325mg Take 1 tablet by mouth in the morning and 1 tablet at noon and 1 tablet in the evening. Take with meals. [facility] ascorbic acid, vitamin C, 500 mg tablet 04-26 00:00: 00 07-29 00:00 :00 No [id number] 500mg Take 1 tablet by mouth in the morning. [facility] metoclopram uriel HCl 10 mg tablet 12-20 00:00: 00 07-26 00:00 :00 No [id number] Take 10mg tablet by mouth every 8 hours as needed for nausea and vomiting in . [facility] Ondansetron (Zofran ODT) 4 MG oral TABLET DISPERSIBLE 09-20 00:00: 00 Yes [id number] 4mg Q8H Take 1 tablet (4 mg total) by mouth every 8 hours as needed for nausea Juanis Bolden Promethazin e HCl 25 MG oral Tablet 09-20 00:00: 00 Yes [id number] 25mg Q6H Take 1 tablet (25 mg total) by mouth every 6 hours as needed for nausea Juanis Bolden Loperamide HCl 2 MG oral Tablet 09-20 00:00: 00 Yes [id number] 2mg Q.25D Take 1 tablet (2 mg total) by mouth 4 times daily as needed for diarrhea Juanis Bolden Azithromyci n 500 MG oral Tablet 09-20 00:00: 00 09-25 05:59 :00 No [id number] Take 2 tablets (1,000 mg total) by mouth daily for 1 day, THEN 1 tablet (500 mg total) daily for 3 days. Juanis Bolden ondansetron (ZOFRAN-ODT ) disintegrat ing tablet 4 mg 08-27 15:15: 00 08-27 14:19 :00 No 4mg 4 mg, Oral, ONCE, 1 dose, On Mon08/27/21 at 0915, Routine [facility] ondansetron 4 mg disintegrat ing tablet 08-27 00:00: 00 Yes [id number] 4mg Take 1 tablet by mouth every 8 (eight) hours as needed for Nausea and Vomiting (N/V). [facility] Levothyroxi ne Sodium (Synthroid) 112 MCG oral [...] Tablet Therapy Pack 08-19 00:00: 00 Yes [id number] 1{sally} Take 1 sally by mouth See Admin Instructio ns Use as directed Juanis Bolden Celecoxib (CeleBREX) 200 MG oral Capsule 08-19 00:00: 00 Yes [id number] 200mg Take 1 capsule (200 mg total) by mouth 2 times daily Juanis Bolden Azithromyci n 250 MG oral Tablet 08-19 00:00: 00 08-25 05:59 :00 No [id number] Take 2 tablets by mouth on day 1 then 1 tablet by mouth daily for 4 days thereafter . Juanis Bolden Immunizations Ordered Immunization Name Filled Immunization Name Date Status Comments Source TDAP 2022-06-30 00:00:00 Completed [facility] TDAP 2022-06-30 00:00:00 Completed [facility] TDAP 2022-06-30 00:00:00 Completed [facility] TDAP 2022-06-30 00:00:00 Completed [facility] TDAP 2022-06-30 00:00:00 Completed [facility] TDAP 2022-06-30 00:00:00 Completed [facility] TDAP 2022-06-30 00:00:00 Completed [facility] TDAP 2022-06-30 00:00:00 Completed [facility] TDAP 2022-06-30 00:00:00 Completed [facility] TDAP 2022-06-30 00:00:00 Completed [facility] TDAP 2022-06-30 00:00:00 Completed [facility] Influenza Virus Vaccine Quad IM Multi-dose 6+ MO 2020-11-03 00:00:00 Completed [facility] TDAP 2020-11-03 00:00:00 Completed [facility] Influenza Virus Vaccine Quad IM Multi-dose 6+ MO 2020-11-03 00:00:00 Completed [facility] TDAP 2020-11-03 00:00:00 Completed [facility] Influenza Virus Vaccine Quad IM Multi-dose 6+ MO 2020-11-03 00:00:00 Completed [facility] TDAP 2020-11-03 00:00:00 Completed [facility] Influenza Virus Vaccine Quad IM Multi-dose 6+ MO 2020-11-03 00:00:00 Completed [facility] TDAP 2020-11-03 00:00:00 Completed [facility] Influenza Virus Vaccine Quad IM Multi-dose 6+ MO 2020-11-03 00:00:00 Completed [facility] TDAP 2020-11-03 00:00:00 Completed [facility] Influenza Virus Vaccine Quad IM Multi-dose 6+ MO 2020-11-03 00:00:00 Completed [facility] TDAP 2020-11-03 00:00:00 Completed [facility] Influenza Virus Vaccine Quad IM Multi-dose 6+ MO 2020-11-03 00:00:00 Completed [facility] TDAP 2020-11-03 00:00:00 Completed [facility] Influenza Virus Vaccine Quad IM Multi-dose 6+ MO 2020-11-03 00:00:00 Completed [facility] TDAP 2020-11-03 00:00:00 Completed [facility] Influenza Virus Vaccine Quad IM Multi-dose 6+ MO 2020-11-03 00:00:00 Completed [facility] TDAP 2020-11-03 00:00:00 Completed [facility] Influenza Virus Vaccine Quad IM Multi-dose 6+ MO 2020-11-03 00:00:00 Completed [facility] TDAP 2020-11-03 00:00:00 Completed [facility] Influenza Virus Vaccine Quad IM Multi-dose 6+ MO 2020-11-03 00:00:00 Completed [facility] TDAP 2020-11-03 00:00:00 Completed [facility] Influenza Virus Vaccine Quad IM Multi-dose 6+ MO 2020-11-03 00:00:00 Completed [facility] TDAP 2020-11-03 00:00:00 Completed [facility] Influenza Virus Vaccine Quad IM Multi-dose 6+ MO 2020-11-03 00:00:00 Completed [facility] TDAP 2020-11-03 00:00:00 Completed [facility] Influenza Virus Vaccine Quad IM Multi-dose 6+ MO 2020-11-03 00:00:00 Completed [facility] TDAP 2020-11-03 00:00:00 Completed [facility] Influenza Virus Vaccine Quad IM Multi-dose 6+ MO 2020-11-03 00:00:00 Completed [facility] TDAP 2020-11-03 00:00:00 Completed [facility] Influenza Virus Vaccine Quad IM Multi-dose 6+ MO 2020-11-03 00:00:00 Completed [facility] TDAP 2020-11-03 00:00:00 Completed [facility] Influenza Virus Vaccine Quad IM Multi-dose 6+ MO 2020-11-03 00:00:00 Completed [facility] TDAP 2020-11-03 00:00:00 Completed [facility] Influenza Virus Vaccine Quad IM Multi-dose 6+ MO 2020-11-03 00:00:00 Completed [facility] TDAP 2020-11-03 00:00:00 Completed [facility] Influenza Virus Vaccine Quad IM Multi-dose 6+ [...] [facility] TDAP 2020-11-03 00:00:00 Completed [facility] Influenza Virus Vaccine Quad IM Multi-dose 6+ MO 2020-11-03 00:00:00 Completed [facility] TDAP 2020-11-03 00:00:00 Completed [facility] Influenza Virus Vaccine Quad IM Multi-dose 6+ MO 2020-11-03 00:00:00 Completed [facility] TDAP 2020-11-03 00:00:00 Completed [facility] Influenza Virus Vaccine Quad IM Multi-dose 6+ MO 2020-11-03 00:00:00 Completed [facility] TDAP 2020-11-03 00:00:00 Completed [facility] Influenza Virus Vaccine Quad IM Multi-dose 6+ MO 2020-11-03 00:00:00 Completed [facility] TDAP 2020-11-03 00:00:00 Completed [facility] Influenza Virus Vaccine Quad IM Multi-dose 6+ MO 2020-11-03 00:00:00 Completed [facility] TDAP 2020-11-03 00:00:00 Completed [facility] Influenza Virus Vaccine Quad IM Multi-dose 6+ MO 2020-11-03 00:00:00 Completed [facility] TDAP 2020-11-03 00:00:00 Completed [facility] Influenza Virus Vaccine Quad IM Multi-dose 6+ MO 2020-11-03 00:00:00 Completed [facility] TDAP 2020-11-03 00:00:00 Completed [facility] Influenza Virus Vaccine Quad IM Multi-dose 6+ MO 2020-11-03 00:00:00 Completed [facility] TDAP 2020-11-03 00:00:00 Completed [facility] Influenza Virus Vaccine Quad IM Multi-dose 6+ MO 2020-11-03 00:00:00 Completed [facility] TDAP 2020-11-03 00:00:00 Completed [facility] Influenza Virus Vaccine Quad IM Multi-dose 6+ MO 2020-11-03 00:00:00 Completed [facility] TDAP 2020-11-03 00:00:00 Completed [facility] Influenza Virus Vaccine Quad IM Multi-dose 6+ MO 2020-11-03 00:00:00 Completed [facility] TDAP 2020-11-03 00:00:00 Completed [facility] Influenza Virus Vaccine Quad IM Multi-dose 6+ MO 2020-11-03 00:00:00 Completed [facility] TDAP 2020-11-03 00:00:00 Completed [facility] Influenza Virus Vaccine Quad IM Multi-dose 6+ MO 2020-11-03 00:00:00 Completed [facility] TDAP 2020-11-03 00:00:00 Completed [facility] Influenza Virus Vaccine Quad IM Multi-dose 6+ MO 2020-11-03 00:00:00 Completed [facility] TDAP 2020-11-03 00:00:00 Completed [facility] Influenza Virus Vaccine Quad IM Multi-dose 6+ MO 2020-11-03 00:00:00 Completed [facility] TDAP 2020-11-03 00:00:00 Completed [facility] Influenza Virus Vaccine Quad IM Multi-dose 6+ MO 2020-11-03 00:00:00 Completed [facility] TDAP 2020-11-03 00:00:00 Completed [facility] Influenza Virus Vaccine Quad IM Multi-dose 6+ MO 2020-11-03 00:00:00 Completed [facility] TDAP 2020-11-03 00:00:00 Completed [facility] Influenza Virus Vaccine Quad IM Multi-dose 6+ MO 2020-11-03 00:00:00 Completed [facility] TDAP 2020-11-03 00:00:00 Completed [facility] Influenza Virus Vaccine Quad IM Multi-dose 6+ MO 2020-11-03 00:00:00 Completed [facility] TDAP 2020-11-03 00:00:00 Completed [facility] Influenza Virus Vaccine Quad IM Multi-dose 6+ MO 2020-11-03 00:00:00 Completed [facility] TDAP 2020-11-03 00:00:00 Completed [facility] Influenza Virus Vaccine Quad IM Multi-dose 6+ MO 2020-11-03 00:00:00 Completed [facility] TDAP 2020-11-03 00:00:00 Completed [facility] Influenza Virus Vaccine Quad IM Multi-dose 6+ MO 2020-11-03 00:00:00 Completed [facility] TDAP 2020-11-03 00:00:00 Completed [facility] Influenza Virus Vaccine Quad IM Multi-dose 6+ MO 2020-11-03 00:00:00 Completed [facility] TDAP 2020-11-03 00:00:00 Completed [facility] Influenza Virus Vaccine, age 6 months and up 2020-11-03 00:00:00 Completed Juanis Bolden Tdap- (Boostrix, Adacel) 2020-11-03 00:00:00 Completed Juanis Bolden Influenza Virus Vaccine, age 6 months and up 2020-11-03 00:00:00 Completed Juanis Bolden Tdap- (Boostrix, Adacel) 2020-11-03 00:00:00 Completed Juanis Bolden HEPATITIS A 2006-10-26 00:00:00 Completed [facility] Proquad (MMR/VARICELLA) 2006-10-26 00:00:00 Completed [facility] HEPATITIS A 2006-10-26 00:00:00 Completed [facility] Proquad (MMR/VARICELLA) 2006-10-26 00:00:00 Completed [facility] HEPATITIS A 2006-10-26 00:00:00 Completed [facility] Proquad (MMR/VARICELLA) 2006-10-26 00:00:00 Completed [facility] HEPATITIS A 2006-10-26 00:00:00 Completed [facility] Proquad (MMR/VARICELLA) 2006-10-26 00:00:00 Completed [facility] HEPATITIS A 2006-10-26 00:00:00 Completed [facility] Proquad (MMR/VARICELLA) 2006-10-26 00:00:00 Completed [facility] HEPATITIS A 2006-10-26 00:00:00 Completed [facility] Proquad (MMR/VARICELLA) 2006-10-26 00:00:00 Completed [facility] HEPATITIS A 2006-10-26 00:00:00 Completed [facility] Proquad (MMR/VARICELLA) 2006-10-26 00:00:00 Completed [facility] HEPATITIS A 2006-10-26 00:00:00 Completed [facility] Proquad (MMR/VARICELLA) 2006-10-26 00:00:00 Completed [facility] HEPATITIS A 2006-10-26 00:00:00 Completed [facility] Proquad (MMR/VARICELLA) 2006-10-26 00:00:00 Completed [facility] HEPATITIS A 2006-10-26 00:00:00 Completed [facility] Proquad (MMR/VARICELLA) 2006-10-26 00:00:00 Completed [facility] HEPATITIS A 2006-10-26 00:00:00 Completed [facility] Proquad (MMR/VARICELLA) 2006-10-26 00:00:00 Completed [facility] HEPATITIS A 2006-10-26 00:00:00 Completed [facility] Proquad (MMR/VARICELLA) 2006-10-26 00:00:00 Completed [facility] HEPATITIS A 2006-10-26 00:00:00 Completed [facility] Proquad (MMR/VARICELLA) 2006-10-26 00:00:00 Completed [facility] HEPATITIS A 2006-10-26 00:00:00 Completed [facility] Proquad (MMR/VARICELLA) 2006-10-26 00:00:00 Completed [facility] HEPATITIS A 2006-10-26 00:00:00 Completed [facility] Proquad (MMR/VARICELLA) 2006-10-26 00:00:00 Completed [facility] HEPATITIS A 2006-10-26 00:00:00 Completed [facility] Proquad (MMR/VARICELLA) 2006-10-26 00:00:00 Completed [facility] HEPATITIS A 2006-10-26 00:00:00 Completed [facility] Proquad (MMR/VARICELLA) 2006-10-26 00:00:00 Completed [facility] HEPATITIS A 2006-10-26 00:00:00 Completed [facility] Proquad (MMR/VARICELLA) 2006-10-26 00:00:00 Completed [facility] HEPATITIS A 2006-10-26 00:00:00 Completed Proquad (MMR/VARICELLA) 2006-10-26 00:00:00 Completed HEPATITIS A 2006-10-26 00:00:00 Completed Proquad (MMR/VARICELLA) 2006-10-26 00:00:00 Completed HEPATITIS A 2006-10-26 00:00:00 Completed Proquad (MMR/VARICELLA) 2006-10-26 00:00:00 Completed HEPATITIS A 2006-10-26 00:00:00 Completed Proquad (MMR/VARICELLA) 2006-10-26 00:00:00 Completed HEPATITIS A 2006-10-26 00:00:00 Completed [facility] Proquad (MMR/VARICELLA) 2006-10-26 00:00:00 Completed [facility] HEPATITIS A 2006-10-26 00:00:00 Completed [facility] Proquad (MMR/VARICELLA) 2006-10-26 00:00:00 Completed [facility] HEPATITIS A 2006-10-26 00:00:00 Completed [facility] Proquad (MMR/VARICELLA) 2006-10-26 00:00:00 Completed [facility] HEPATITIS A 2006-10-26 00:00:00 Completed [facility] Proquad (MMR/VARICELLA) 2006-10-26 00:00:00 Completed [facility] HEPATITIS A 2006-10-26 00:00:00 Completed [facility] Proquad (MMR/VARICELLA) 2006-10-26 00:00:00 Completed [facility] HEPATITIS A 2006-10-26 00:00:00 Completed [facility] Proquad (MMR/VARICELLA) 2006-10-26 00:00:00 Completed [facility] HEPATITIS A 2006-10-26 00:00:00 Completed [facility] Proquad (MMR/VARICELLA) 2006-10-26 00:00:00 Completed [facility] HEPATITIS A 2006-10-26 00:00:00 Completed [facility] Proquad (MMR/VARICELLA) 2006-10-26 00:00:00 Completed [facility] HEPATITIS A 2006-10-26 00:00:00 Completed [facility] Proquad (MMR/VARICELLA) 2006-10-26 00:00:00 Completed [facility] HEPATITIS A 2006-10-26 00:00:00 Completed [facility] Proquad (MMR/VARICELLA) 2006-10-26 00:00:00 Completed [facility] HEPATITIS A 2006-10-26 00:00:00 Completed [facility] Proquad (MMR/VARICELLA) 2006-10-26 00:00:00 Completed [facility] HEPATITIS A 2006-10-26 00:00:00 Completed [facility] Proquad (MMR/VARICELLA) 2006-10-26 00:00:00 Completed [facility] HEPATITIS A 2006-10-26 00:00:00 Completed [facility] Proquad (MMR/VARICELLA) 2006-10-26 00:00:00 Completed [facility] HEPATITIS A 2006-10-26 00:00:00 Completed [facility] Proquad (MMR/VARICELLA) 2006-10-26 00:00:00 Completed [facility] HEPATITIS A 2006-10-26 00:00:00 Completed [facility] Proquad (MMR/VARICELLA) 2006-10-26 00:00:00 Completed [facility] HEPATITIS A 2006-10-26 00:00:00 Completed [facility] Proquad (MMR/VARICELLA) 2006-10-26 00:00:00 Completed [facility] HEPATITIS A 2006-10-26 00:00:00 Completed [facility] Proquad (MMR/VARICELLA) 2006-10-26 00:00:00 Completed [facility] HEPATITIS A 2006-10-26 00:00:00 Completed [facility] Proquad (MMR/VARICELLA) 2006-10-26 00:00:00 Completed [facility] HEPATITIS A 2006-10-26 00:00:00 Completed [facility] Proquad (MMR/VARICELLA) 2006-10-26 00:00:00 Completed [facility] HEPATITIS A 2006-10-26 00:00:00 Completed [facility] Proquad (MMR/VARICELLA) 2006-10-26 00:00:00 Completed [facility] HEPATITIS A 2006-10-26 00:00:00 Completed [facility] Proquad (MMR/VARICELLA) 2006-10-26 00:00:00 Completed [facility] HEPATITIS A 2006-10-26 00:00:00 Completed [facility] Proquad (MMR/VARICELLA) 2006-10-26 00:00:00 Completed [facility] HEPATITIS A 2006-10-26 00:00:00 Completed [facility] Proquad (MMR/VARICELLA) 2006-10-26 00:00:00 Completed [facility] HEPATITIS A 2006-10-26 00:00:00 Completed [facility] Proquad (MMR/VARICELLA) 2006-10-26 00:00:00 Completed [facility] HEPATITIS A- PEDI/ADOL 2006-10-26 00:00:00 Completed Juanis Bolden MMR/Varicella (ProQuad) 2006-10-26 00:00:00 Completed Juanis Bolden HEPATITIS A- PEDI/ADOL 2006-10-26 00:00:00 Completed Juanis Bolden MMR/Varicella (ProQuad) 2006-10-26 00:00:00 Completed Juanis Bolden HEPATITIS A Unknown Completed [facility] Influenza Virus Vaccine Quad IM Multi-dose 6+ MO Unknown Completed [facility] Proquad (MMR/VARICELLA) Unknown Completed [facility] TDAP Unknown Completed [facility] HEPATITIS A Unknown Completed [facility] Influenza Virus Vaccine Quad IM Multi-dose 6+ MO Unknown Completed [facility] Proquad (MMR/VARICELLA) Unknown Completed [facility] TDAP Unknown Completed [facility] HEPATITIS A Unknown Completed [facility] Influenza Virus Vaccine Quad IM Multi-dose 6+ MO Unknown Completed [facility] Proquad (MMR/VARICELLA) Unknown Completed [facility] TDAP Unknown Completed [facility] HEPATITIS A Unknown Completed [facility] Influenza Virus Vaccine Quad IM Multi-dose 6+ MO Unknown Completed [facility] Proquad (MMR/VARICELLA) Unknown Completed [facility] TDAP Unknown Completed [facility] HEPATITIS A Unknown Completed [facility] Influenza Virus Vaccine Quad IM Multi-dose 6+ MO Unknown Completed [facility] Proquad (MMR/VARICELLA) Unknown Completed [facility] TDAP Unknown Completed [facility] HEPATITIS A Unknown Completed [facility] Influenza Virus Vaccine Quad IM Multi-dose 6+ MO Unknown Completed [facility] Proquad (MMR/VARICELLA) Unknown Completed [facility] TDAP Unknown Completed [facility] HEPATITIS A Unknown Completed [facility] Influenza Virus Vaccine Quad IM Multi-dose 6+ MO Unknown Completed [facility] Proquad (MMR/VARICELLA) Unknown Completed [facility] TDAP Unknown Completed [facility] HEPATITIS A Unknown Completed [facility] Influenza Virus Vaccine Quad IM Multi-dose 6+ MO Unknown Completed [facility] Proquad (MMR/VARICELLA) Unknown Completed [facility] TDAP Unknown Completed [facility] HEPATITIS A Unknown Completed [facility] Influenza Virus Vaccine Quad IM Multi-dose 6+ MO Unknown Completed [facility] Proquad (MMR/VARICELLA) Unknown Completed [facility] TDAP Unknown Completed [facility] HEPATITIS A Unknown Completed [facility] Influenza Virus Vaccine Quad IM Multi-dose 6+ MO Unknown Completed [facility] Proquad (MMR/VARICELLA) Unknown Completed [facility] TDAP Unknown Completed [facility] HEPATITIS A Unknown Completed [facility] Influenza Virus Vaccine Quad IM Multi-dose 6+ MO Unknown Completed [facility] Proquad (MMR/VARICELLA) Unknown Completed [facility] TDAP Unknown Completed [facility] HEPATITIS A Unknown Completed [facility] Influenza Virus Vaccine Quad IM Multi-dose 6+ MO Unknown Completed [facility] Proquad (MMR/VARICELLA) Unknown Completed [facility] TDAP Unknown Completed [facility] HEPATITIS A Unknown Completed [facility] Influenza Virus Vaccine Quad IM Multi-dose 6+ MO Unknown Completed [facility] Proquad (MMR/VARICELLA) Unknown Completed [facility] TDAP Unknown Completed [facility] Vital Signs Vital Name Observation Time Observation Value Comments S ource Systolic blood pressure 2024-09-03 22:14:00 115 mm[Hg] [facility] Diastolic blood pressure 2024-09-03 22:14:00 71 mm[Hg] [facility] Heart rate 2024-09-03 22:14:00 60 /min [facility] Body temperature 2024-09-03 22:14:00 37 Kait [facility] Respiratory rate 2024-09-03 22:14:00 18 /min [facility] Body height 2024-09-03 22:14:00 165.1 cm [facility] Body weight 2024-09-03 22:14:00 99.791 kg [facility] BMI 2024-09-03 22:14:00 36.61 kg/m2 [facility] Oxygen saturation in Arterial blood by Pulse oximetry 2024-09-03 22:14:00 96 /min [facility] Systolic blood pressure 2024-05-23 13:35:00 147 mm[Hg] [facility] Diastolic blood pressure 2024-05-23 13:35:00 98 mm[Hg] [facility] Heart rate 2024-05-23 13:35:00 94 /min [facility] Body temperature 2024-05-23 13:35:00 36.17 Kait [facility] Body height 2024-05-23 13:35:00 165.1 cm Univ [facility] Body weight 2024-05-23 13:35:00 99.791 kg Univ [facility] BMI 2024-05-23 13:35:00 36.61 kg/m2 Univ [facility] Systolic blood pressure 2024-05-17 14:37:00 130 mm[Hg] [facility] Diastolic blood pressure 2024-05-17 14:37:00 82 mm[Hg] [facility] Heart rate 2024-05-17 14:37:00 74 /min [facility] Body temperature 2024-05-17 14:37:00 36.61 Kait [facility] Respiratory rate 2024-05-17 14:37:00 17 /min [facility] Body height 2024-05-17 14:37:00 165.1 cm Univ [facility] Body weight 2024-05-17 14:37:00 101.634 kg [facility] BMI 2024-05-17 14:37:00 37.29 kg/m2 [facility] Oxygen saturation in Arterial blood by Pulse oximetry 2024-05-17 14:37:00 98 /min [facility] Systolic blood pressure 2024-05-01 20:21:00 112 mm[Hg] [facility] Diastolic blood pressure 2024-05-01 20:21:00 76 mm[Hg] [facility] Heart rate 2024-05-01 20:21:00 75 /min [facility] Body temperature 2024-05-01 20:21:00 36.78 Kait [facility] Respiratory rate 2024-05-01 20:21:00 18 /min [facility] Body height 2024-05-01 20:21:00 165.1 cm Univ [facility] Body weight 2024-05-01 20:21:00 101.56 kg [facility] BMI 2024-05-01 20:21:00 37.26 kg/m2 [facility] Oxygen saturation in Arterial blood by Pulse oximetry 2024-05-01 20:21:00 96 /min [facility] Systolic blood pressure 2024-04-17 19:21:00 124 mm[Hg] [facility] Diastolic blood pressure 2024-04-17 19:21:00 73 mm[Hg] [facility] Heart rate 2024-04-17 19:21:00 72 [facility] 2024-04-17 19:21:00 36.89 Kait [facility] Respiratory rate 2024-04-17 19:21:00 16 /min [facility] Body height 2024-04-17 19:21:00 175.3 cm [facility] Body weight 2024-04-17 19:21:00 101.152 kg [facility] BMI 2024-04-17 19:21:00 32.93 kg/m2 [facility] Systolic blood pressure 2024-04-09 19:14:00 122 mm[Hg] [facility] Diastolic blood pressure 2024-04-09 19:14:00 67 mm[Hg] [facility] Heart rate 2024-04-09 19:14:00 74 /min [facility] Body temperature 2024-04-09 19:14:00 36.5 Kait [facility] Respiratory rate 2024-04-09 19:14:00 18 /min [facility] Body height 2024-04-09 19:14:00 165.1 cm [facility] Body weight 2024-04-09 19:14:00 104.781 kg [facility] BMI 2024-04-09 19:14:00 38.44 kg/m2 [facility] Systolic blood pressure 2023-12-16 11:02:00 110 mm[Hg] [facility] Diastolic blood pressure 2023-12-16 11:02:00 71 mm[Hg] [facility] Heart rate 2023-12-16 11:02:00 79 /min [facility] Body temperature 2023-12-16 11:02:00 36.61 Kait [facility] Respiratory rate 2023-12-16 11:02:00 18 /min [facility] Oxygen saturation in Arterial blood by Pulse oximetry 2023-12-16 11:02:00 97 /min [facility] Body height 2023-12-16 09:16:00 165.1 cm Univ [facility] Body weight 2023-12-16 09:16:00 100.925 kg [facility] BMI 2023-12-16 09:16:00 37.03 kg/m2 [facility] Systolic blood pressure 2023-11-02 06:38:00 131 mm[Hg] [facility] Diastolic blood pressure 2023-11-02 06:38:00 77 mm[Hg] [facility] Heart rate 2023-11-02 06:38:00 64 /min [facility] Body temperature 2023-11-02 06:38:00 36.61 Kait [facility] Respiratory rate 2023-11-02 06:38:00 18 /min [facility] Oxygen saturation in Arterial blood by Pulse oximetry 2023-11-02 06:38:00 100 /min [facility] Body height 2023-11-02 04:22:00 165.1 cm Univ [facility] Body weight 2023-11-02 04:22:00 103.465 kg [facility] BMI 2023-11-02 04:22:00 37.96 kg/m2 [facility] Systolic blood pressure 2023-08-04 14:41:00 136 mm[Hg] [facility] Diastolic blood pressure 2023-08-04 14:41:00 85 mm[Hg] [facility] Heart rate 2023-08-04 14:41:00 90 /min [facility] Body height 2023-08-04 14:41:00 165.1 cm Univ [facility] Body weight 2023-08-04 14:41:00 110.133 kg [facility] BMI 2023-08-04 14:41:00 40.40 kg/m2 [facility] Oxygen saturation in Arterial blood by Pulse oximetry 2023-08-04 14:41:00 98 /min [facility] Systolic blood pressure 2023-06-01 18:01:00 115 mm[Hg] [facility] Diastolic blood pressure 2023-06-01 18:01:00 62 mm[Hg] [facility] Heart rate 2023-06-01 18:01:00 79 /min [facility] Body temperature 2023-06-01 18:01:00 36.67 Kait [facility] Respiratory rate 2023-06-01 18:01:00 18 /min [facility] Body weight 2023-06-01 18:01:00 112.674 kg [facility] BMI 2023-06-01 18:01:00 41.34 kg/m2 [facility] Systolic blood pressure 2023-03-08 16:03:00 102 mm[Hg] [facility] Diastolic blood pressure 2023-03-08 16:03:00 70 mm[Hg] [facility] Heart rate 2023-03-08 16:03:00 73 /min [facility] Body height 2023-03-08 16:03:00 165.1 cm [facility] Body weight 2023-03-08 16:03:00 115.214 kg [facility] BMI 2023-03-08 16:03:00 42.27 kg/m2 [facility] Oxygen saturation in Arterial blood by Pulse oximetry 2023-03-08 16:03:00 98 /min [facility] Systolic blood pressure 2022-12-06 15:23:00 105 mm[Hg] [facility] Diastolic blood pressure 2022-12-06 15:23:00 68 mm[Hg] [facility] Heart rate 2022-12-06 15:22:00 79 /min [facility] Body temperature 2022-12-06 15:22:00 36.94 Kait [facility] Body height 2022-12-06 15:22:00 165.1 cm Univ [facility] Body weight 2022-12-06 15:22:00 111.131 kg Univ [facility] BMI 2022-12-06 15:22:00 40.77 kg/m2 Univ [facility] Oxygen saturation in Arterial blood by Pulse oximetry 2022-12-06 15:22:00 98 /min [facility] Systolic blood pressure 2022-09-07 17:04:00 104 mm[Hg] [facility] Diastolic blood pressure 2022-09-07 17:04:00 68 mm[Hg] [facility] Heart rate 2022-09-07 17:04:00 80 /min [facility] Body temperature 2022-09-07 17:04:00 36.83 Kait [facility] Respiratory rate 2022-09-07 17:04:00 17 /min [facility] Body height 2022-09-07 17:04:00 165.1 cm Univ [facility] Body weight 2022-09-07 17:04:00 107.457 kg [facility] BMI 2022-09-07 17:04:00 39.42 kg/m2 Univ [facility] Systolic blood pressure 2022-08-17 22:05:00 132 mm[Hg] [facility] Diastolic blood pressure 2022-08-17 22:05:00 84 mm[Hg] [facility] Heart rate 2022-08-17 22:05:00 74 /min [facility] Body temperature 2022-08-17 22:05:00 36.67 Kait [facility] Respiratory rate 2022-08-17 22:05:00 16 /min [facility] Body height 2022-08-17 22:05:00 165.1 cm Univ [facility] Body weight 2022-08-17 22:05:00 107.775 kg Univ [facility] BMI 2022-08-17 22:05:00 39.54 kg/m2 Univ [facility] Oxygen saturation in Arterial blood by Pulse oximetry 2022-08-17 22:05:00 96 /min [facility] Systolic blood pressure 2022-07-29 19:30:00 121 mm[Hg] [facility] Diastolic blood pressure 2022-07-29 19:30:00 60 mm[Hg] [facility] Heart rate 2022-07-29 19:30:00 99 /min [facility] Body temperature 2022-07-29 19:30:00 36.11 Kait [facility] Respiratory rate 2022-07-29 19:30:00 18 /min [facility] Oxygen saturation in Arterial blood by Pulse oximetry 2022-07-29 19:30:00 100 /min [facility] Body height 2022-07-28 03:15:00 165.1 cm [facility] Body weight 2022-07-28 03:15:00 118.933 kg [facility] BMI 2022-07-28 03:15:00 43.63 kg/m2 [facility] Systolic blood pressure 2022-07-26 20:24:00 118 mm[Hg] [facility] Diastolic blood pressure 2022-07-26 20:24:00 89 mm[Hg] [facility] Heart rate 2022-07-26 19:28:00 108 /min [facility] Body height 2022-07-26 19:28:00 165.1 cm [facility] Body weight 2022-07-26 19:28:00 119.75 kg [facility] BMI 2022-07-26 19:28:00 43.93 kg/m2 [facility] Oxygen saturation in Arterial blood by Pulse oximetry 2022-07-26 19:28:00 97 /min [facility] Systolic blood pressure 2022-07-19 21:52:00 124 mm[Hg] [facility] Diastolic blood pressure 2022-07-19 21:52:00 86 mm[Hg] [facility] Heart rate 2022-07-19 21:49:00 101 /min [facility] Body temperature 2022-07-19 21:49:00 36.44 Kait [facility] Respiratory rate 2022-07-19 21:49:00 18 /min [facility] Body height 2022-07-19 21:49:00 165.1 cm Univ [facility] Body weight 2022-07-19 21:49:00 117.482 kg [facility] BMI 2022-07-19 21:49:00 43.10 kg/m2 Univ [facility] Systolic blood pressure 2022-07-15 02:00:00 125 mm[Hg] [facility] Diastolic blood pressure 2022-07-15 02:00:00 78 mm[Hg] [facility] Heart rate 2022-07-15 02:00:00 84 /min [facility] Oxygen saturation in Arterial blood by Pulse oximetry 2022-07-15 02:00:00 100 /min [facility] Body height 2022-07-15 00:37:00 165.1 cm [facility] Body weight 2022-07-15 00:37:00 115.486 kg [facility] BMI 2022-07-15 00:37:00 42.37 kg/m2 [facility] Body temperature 2022-07-15 00:00:00 37.11 Kait [facility] Respiratory rate 2022-07-15 00:00:00 20 /min [facility] Systolic blood pressure 2022-07-12 22:03:00 119 mm[Hg] [facility] Diastolic blood pressure 2022-07-12 22:03:00 82 mm[Hg] [facility] Heart rate 2022-07-12 21:52:00 75 /min [facility] Body temperature 2022-07-12 21:52:00 36.72 Kait [facility] Respiratory rate 2022-07-12 21:52:00 18 /min [facility] Body height 2022-07-12 21:52:00 165.1 cm Univ [facility] Body weight 2022-07-12 21:52:00 115.667 kg [facility] BMI 2022-07-12 21:52:00 42.43 kg/m2 [facility] Heart rate 2022-07-05 17:14:00 100 /min [facility] Systolic blood pressure 2022-07-05 16:08:00 119 mm[Hg] [facility] Diastolic blood pressure 2022-07-05 16:08:00 71 mm[Hg] [facility] Body temperature 2022-07-05 16:08:00 36.61 Kait [facility] Respiratory rate 2022-07-05 16:08:00 16 /min [facility] Body height 2022-07-05 16:08:00 165.1 cm [facility] Body weight 2022-07-05 16:08:00 114.896 kg [facility] BMI 2022-07-05 16:08:00 42.15 kg/m2 [facility] Oxygen saturation in Arterial blood by Pulse oximetry 2022-07-05 16:08:00 97 /min [facility] Systolic blood pressure 2022-06-29 07:15:00 125 mm[Hg] [facility] Diastolic blood pressure 2022-06-29 07:15:00 68 mm[Hg] [facility] Heart rate 2022-06-29 07:15:00 87 [facility] Oxygen saturation in Arterial blood by Pulse oximetry 2022-06-29 07:15:00 99 /min [facility] Body height 2022-06-29 05:10:00 165.1 cm [facility] Body weight 2022-06-29 05:10:00 111.358 kg [facility] BMI 2022-06-29 05:10:00 40.85 kg/m2 [facility] Body temperature 2022-06-29 05:10:00 36.67 Kait [facility] Respiratory rate 2022-06-29 05:10:00 16 /min [facility] Systolic blood pressure 2022-06-27 15:46:00 127 mm[Hg] [facility] Diastolic blood pressure 2022-06-27 15:46:00 86 mm[Hg] [facility] Heart rate 2022-06-27 15:46:00 132 /min [facility] Body temperature 2022-06-27 15:46:00 36.61 Kait [facility] Respiratory rate 2022-06-27 15:46:00 16 /min [facility] Body height 2022-06-27 15:46:00 165.1 cm Univ [facility] Body weight 2022-06-27 15:46:00 114.76 kg Univ [facility] BMI 2022-06-27 15:46:00 42.10 kg/m2 [facility] Oxygen saturation in Arterial blood by Pulse oximetry 2022-06-27 15:46:00 98 /min [facility] Systolic blood pressure 2022-06-09 15:39:00 122 mm[Hg] [facility] Diastolic blood pressure 2022-06-09 15:39:00 86 mm[Hg] [facility] Heart rate 2022-06-09 15:37:00 123 /min [facility] Body temperature 2022-06-09 15:37:00 36.56 Akit [facility] Respiratory rate 2022-06-09 15:37:00 18 /min [facility] Body height 2022-06-09 15:37:00 165.1 cm [facility] Body weight 2022-06-09 15:37:00 109.317 kg [facility] BMI 2022-06-09 15:37:00 40.10 kg/m2 [facility] Systolic blood pressure 2022-05-26 14:33:00 115 mm[Hg] [facility] Diastolic blood pressure 2022-05-26 14:33:00 82 mm[Hg] [facility] Heart rate 2022-05-26 14:33:00 105 /min [facility] Body temperature 2022-05-26 14:33:00 36.44 Kait [facility] Respiratory rate 2022-05-26 14:33:00 16 /min [facility] Body height 2022-05-26 14:33:00 165.1 cm Univ [facility] Body weight 2022-05-26 14:33:00 109.272 kg Univ [facility] BMI 2022-05-26 14:33:00 40.09 kg/m2 [facility] Oxygen saturation in Arterial blood by Pulse oximetry 2022-05-26 14:33:00 9 /min [facility] Systolic blood pressure 2022-05-10 14:21:00 114 mm[Hg] [facility] Diastolic blood pressure 2022-05-10 14:21:00 79 mm[Hg] [facility] Heart rate 2022-05-10 14:21:00 107 /min [facility] Body temperature 2022-05-10 14:21:00 36.67 Kait [facility] Respiratory rate 2022-05-10 14:21:00 18 /min [facility] Body height 2022-05-10 14:21:00 165.1 cm Univ [facility] Body weight 2022-05-10 14:21:00 107.502 kg [facility] BMI 2022-05-10 14:21:00 39.44 kg/m2 [facility] Systolic blood pressure 2022-04-26 14:33:00 132 mm[Hg] [facility] Diastolic blood pressure 2022-04-26 14:33:00 84 mm[Hg] [facility] Heart rate 2022-04-26 14:33:00 101 /min [facility] Body temperature 2022-04-26 14:33:00 36.56 Kait [facility] Respiratory rate 2022-04-26 14:33:00 18 /min [facility] Body height 2022-04-26 14:33:00 165.1 cm Univ [facility] Body weight 2022-04-26 14:33:00 107.956 kg [facility] BMI 2022-04-26 14:33:00 39.61 kg/m2 [facility] Systolic blood pressure 2022-03-30 15:58:00 113 mm[Hg] [facility] Diastolic blood pressure 2022-03-30 15:58:00 80 mm[Hg] [facility] Heart rate 2022-03-30 15:58:00 117 /min [facility] Body temperature 2022-03-30 15:58:00 36.44 Kait [facility] Respiratory rate 2022-03-30 15:58:00 18 /min [facility] Body height 2022-03-30 15:58:00 165.1 cm [facility] Body weight 2022-03-30 15:58:00 105.688 kg [facility] BMI 2022-03-30 15:58:00 38.77 kg/m2 [facility] Oxygen saturation in Arterial blood by Pulse oximetry 2022-03-30 15:58:00 96 /min [facility] Systolic blood pressure 2021-08-27 14:13:00 138 mm[Hg] [facility] Diastolic blood pressure 2021-08-27 14:13:00 96 mm[Hg] [facility] Heart rate 2021-08-27 14:13:00 100 /min [facility] Body temperature 2021-08-27 14:13:00 37.11 Kait [facility] Respiratory rate 2021-08-27 14:13:00 18 /min [facility] Body weight 2021-08-27 14:13:00 92.987 kg [facility] Oxygen saturation in Arterial blood by Pulse oximetry 2021-08-27 14:13:00 98 /min [facility] Systolic blood pressure 2021-08-19 14:50:00 124 mm[Hg] Juanis Davieso ld Diastolic blood pressure 2021-08-19 14:50:00 71 mm[Hg] [facility] Heart rate 2021-08-19 14:50:00 84 /min Sujey Bolden Body temperature 2021-08-19 14:50:00 36.67 Kait Juanis Niceyblen Respiratory rate 2021-08-19 14:50:00 14 /min Juanis Bolden Body height 2021-08-19 14:50:00 165.1 cm Yodit solis Yuan Body weight 2021-08-19 14:50:00 94.802 kg Yodit Bolden BMI 2021-08-19 14:50:00 34.78 kg/m2 Yodit Bolden Body mass index (BMI) [Percentile] Per age and sex 2021-08-19 14:50:00 96.92 % Juanis Sesisrachel ld Procedures Procedure Date / Time Performed Performing Clinician Source LIPASE 2024-09-03 23:28:00 Arley Barry [facility] TEST, URINE 2024-09-03 23:28:00 Otis Phillips [facility] COMP. METABOLIC PANEL (18810) 2024-09-03 23:28:00 Louise Barryshua [facility] CBC WITH DIFF 2024-09-03 23:28:00 Arley Barry [facility] URINALYSIS 2024-09-03 23:28:00 Arley Barry [facility] HB ABO GROUPING 2024-09-03 23:28:00 Louise Barryshua [facility] XR KNEE 3 VW LEFT 2024-05-17 15:09:42 Amie Zhang [facility] POCT TEST 2024-04-17 19:26:00 Adum, Dulce Blankenship [facility] URINALYSIS 2023-12-16 09:35[facility]23-12-16 09:35:00 Madisyn Hawkins [facility] CT ABDOMEN PELVIS WO CONTRAST 2023-11-02 05:31:11 Milagro Clifton [facility] URINALYSIS 2023-11-02 05:04:00 Milagro Clifton [facility] POCT TEST 2023-11-02 05:04:00 Manolo Clifton [facility] MEDICAL RELEASE/CLEARANCE FORMS 2023-08-04 06:01:00 Doctor Unassigned, Wamic [facility] BI ULTRASOUND BREAST COMPLETE RIGHT 2023-06-13 17:32:39 Adum, Dulce Blankenship [facility] ASSIGNMENT OF BENEFITS 2023-06-01 17:46:06 Docto r Unassigned, Wamic [facility] AUTHORIZATION FOR RELEASE OF PHI 2023-03-14 05:01:00 Doctor Unassigned, Wamic [facility] CONSENT FOR CONTRACEPTION 2022-09-07 06:01:00 Doctor Unassigned, W[place] [facility] POCT TEST 2022-09-07 00:00:00 Adum, Dulce Blankenship [facility] CBC WITHOUT DIFF 2022-07-29 22:07:00 [facility] 2022-07-29 16:45:11 Adum, Dulce Blankenship [facility] CBC WITH DIFF 2022-07-29 12:01:00 Adum, Dulce Sotelo [facility] CBC WITH DIFF 2022-07-29 06:27:00 Adum, Dulce Sotelo [facility] CENTRAL NEURAXIAL BLOCK 2022-07-28 20:10:49 Stevo Barrera [facility] CENTRAL NEURAXIAL BLOCK 2022-07-28 12:59:33 Case yAmna [facility] CBC WITH DIFF 2022-07-28 03:00:00 Adum, Dulce Sotelo [facility] HEPATITIS B SURFACE ANTIGEN 2022-07-28 03:00:00 Adum, Dulce Blankenship [facility] HB ABO GROUPING 2022-07-28 03:00:00 Adum, Dulce Rachel [facility] ADC OR FABI ONLY - RPR 2022-07-28 03:00:00 Adum, Dulce Blankenship [facility] HIV 1/2 AG-AB WITH REFLEX 2022-07-28 03:00:00 Adum, Dulce Blankenship [facility] HOSPITAL ADMISSION 2022-07-27 06:01:00 Doctor Un assigned, Wamic [facility] POCT URINALYSIS 2022-07-26 19:32:00 Adum, Dulce Rachel [facility] ASSIGNMENT OF BENEFITS 2022-07-19 22:55:08 Docto r Unassigned, Wamic [facility] POCT URINALYSIS W/O SPECIFIC GRAVITY 2022-07-19 00:00:00 Adum, Dulce Krzysztof [facility] SGOT (ASPARTATE AMINO TRANSFER) 2022-07-15 01:29:00 Adum, Dulce Blankenship [facility] CREATININE 2022-07-15 01:29:00 Adum, Dulce Blankenship [facility] ALANINE AMINO TRANSFERASE(SGPT 2022-07-15 01:29:00 Adum, Dulce Blankenship [facility] [facility] LACTATE DEHYDROGENASE 2022-07-15 01:29:00 Adum, Dulce Blankenship [facility] URIC ACID 2022-07-15 01:29:00 Adum, Dulce Krzysztof Eason [facility] CBC WITH DIFF 2022-07-15 01:29:00 Adum, Dulce Krzysztof Sotelo [facility] CONSENT/REFUSAL FOR DIAGNOSIS AND TREATMENT 2022-07-15 00:30:53 Doctor Unassigned, Wamic [facility] POCT URINALYSIS W/O SPECIFIC GRAVITY 2022-07-12 22:01:00 Adum, Dulce Krzysztof [facility] POCT URINALYSIS W/O SPECIFIC GRAVITY 2022-07-05 00:00:00 Adum, Dulce Krzysztof [facility] DME/SUPPLY JUSTIFICATION 2022-06-30 06:01:00 Doc tor Unassigned, Wamic [facility] DSU PRE-OP 2022-06-27 06:01:00 Doctor Unass igned, Wamic [facility] POCT URINALYSIS W/O SPECIFIC GRAVITY 2022-06-27 00:00:00 [facility] POCT URINALYSIS W/O SPECIFIC GRAVITY 2022-06-09 00:00:00 Alexa [facility] POCT URINALYSIS W/O SPECIFIC GRAVITY 2022-05-26 00:00:00 Alexa [facility] ASSIGNMENT OF BENEFITS 2022-05-23 16:41:39 Docto r Unassigned, Wamic [facility] ASSIGNMENT OF BENEFITS 2022-05-10 13:43:54 Docto r Unassigned, Wamic [facility] POCT URINALYSIS W/O SPECIFIC GRAVITY 2022-05-10 00:00:00 Joseph Liu [facility] POCT URINALYSIS W/O SPECIFIC GRAVITY 2022-04-26 00:00:00 Joseph Liu [facility] POCT URINALYSIS 2022-03-30 16:00:00 Dulce [facility] POCT TEST 2021-08-27 14:21:00 Lana Blum ra [facility] URINALYSIS 2021-08-27 14:18:00 [facility] 2021-08-27 14:18:00 Lana Blum ra [facility] NOTICE OF PRIVACY PRACTICES 2021-08-27 14:05:33 Doctor Unassigned, Wamic [facility] NOTICE OF PRIVACY PRACTICES 2021-08-27 14:04:21 Doctor Unassigned, Wamic [facility] NOTICE OF PRIVACY PRACTICES 2017-02-09 22:08:14 Doctor Unassigned, Wamic [facility] CONSENT/REFUSAL FOR DIAGNOSIS AND TREATMENT 2017-02-09 22:07:59 Doctor Unassigned, Wamic [facility] ASSIGNMENT OF BENEFITS 2017-02-09 22:07:48 Docto r Unassigned, Wamic [facility] Encounters Start Date/Time End Date/Time Encounter Type Admission Type Attending [facility] Facility Care Department Encounter ID Source 2022-06-29 01:51:13 Outpatient P [facility] [id number] [facility] 2021-05-31 12:24:50 Emergency [facility] [id number] [facility] 2025-02-08 09:00:00 2025-02-08 09:00:00 Outpatient R UNKNOWN, ATTENDING [facility] [id number] [facility] 2024-10-11 14:00:00 2024-10-11 14:00:00 Outpatient R DULCE MERCEDES VIVIAN [facility] [id number] [facility] 2024-10-03 15:15:00 2024-10-03 15:15:00 Outpatient R DULCE MERCEDES VIVIAN [facility] [id number] [facility] 2024-09-26 14:00:00 2024-09-26 14:00:00 Outpatient R DULCE MERCEDES VIVIAN [facility] [id number] [facility] 2017-02-09 00:00:00 2024 03:43:57 Orders Only Doctor Unassigned, Wamic Doctor Unassigned, Wamic [facility] 1.2.840.114 350.1.13.10 4.2.7.2.686 [id number] [facility] 2024-09-03 16:16:00 2024-09-03 20:54:00 Emergency X ALREY BARRY [facility] [id number] [facility] 2024-09-03 16:16:00 2024-09-03 20:54:00 Emergency Arley Barry [facility] 1.2.840.114 350.1.13.10 4.2.7.2.686 [id number] [facility] 2024-07-09 00:00:00 2024-08-10 18:17:00 Patient Secure Msg Doctor Unassigned, Wamic Doctor Unassigned, Wamic [facility] PROFESSIO [facility] 1.2.840.114 350.1.13.10 4.2.7.2.686 [id number] [facility] 2024-08-09 14:30:00 2024-08-09 14:30:00 Outpatient R DULCE MERCEDES VIVIAN [facility] [id number] [facility] 2024-07-11 10:30:00 2024-07-11 10:30:00 Outpatient R [facility] [id number] [facility] 2024-07-09 15:00:00 2024-07-09 15:00:00 Outpatient R DULCE MERCEDES VIVIAN [facility] [id number] [facility] 2024-05-09 00:00:00 2024-06-15 18:26:51 Patient Secure Msg Doctor Unassigned, Wamic Doctor Unassigned, Wamic [facility] 1.2.840.114 350.1.13.10 4.2.7.2.686 [id number] [facility] 2024-05-31 13:30:00 2024-05-31 13:30:00 Outpatient SHAD ANN [facility] [id number] [facility] 2024-05-29 00:00:00 2024-05-29 17:06:56 Telephone Richard Eason [facility] 1.2.840.114 350.1.13.10 4.2.7.2.686 [id number] [facility] 2024-05-23 08:30:00 2024-05-23 09:38:50 Outpatient R RICHARD EASNO [facility] [id number] [facility] 2024-05-23 08:30:00 2024-05-23 09:38:50 Office Visit Richard Eason [facility] 1.2.840.114 350.1.13.10 4.2.7.2.686 [id number] [facility] 2024-05-20 00:00:00 2024-05-23 07:15:50 Patient Secure g Shad Comer [facility] 1.2.840.114 350.1.13.10 4.2.7.2.686 [id number] [facility] 2024-05-17 09:53:05 2024-05-17 23:59:00 Outpatient AMIE LAKHANI [facility] [id number] [facility] 2024-05-17 09:53:05 2024-05-17 23:59:00 Hospital Encounter Amie Zhang [facility] 1.840.114 350.1.13.10 4.2.7.2.686 [id number] [facility] 2024-05-17 09:40:00 2024-05-17 10:35:49 Urgent Care Amie Zhang Unknown, Attending [facility] 1.0.114 350.1.13.10 4.2.7.2.686 [id number] [facility] 2024-05-16 16:00:00 2024-05-16 16:00:00 Outpatient R UNKNOWN, ATTENDING [facility] [id number] [facility] 2024-05-03 00:00:00 2024-05-03 14:01:04 Letter (Out) [facility] 1..114 350.1.13.10 4.2.7.2.686 [id number] [facility] 2024-05-01 16:00:00 2024-05-01 16:25:55 Graphic Design Teacher Visit Lab, Shad Harrington Lab, Dusty Meza [facility] 1.840.114 350.1.13.10 4.2.7.2.686 [id number] [facility] 2024-05-01 16:00:00 2024-05-01 16:00:00 Outpatient R SHAD COMER [facility] [id number] [facility] 2024-05-01 15:30:00 2024-05-01 15:54:53 Office Visit Shad Comer [facility] 1.2840.114 350.1.13.10 4.2.7.2.686 [id number] [facility] 2024-04-17 14:00:00 2024-04-17 14:15:00 Nurse Visit Nurse, [facility] Eliseaustyn Dulce L Nurse, [facility] BUILDING 1..840.114 350.1.13.10 4.2.7.2.686 [id number] [facility] 2024-04-17 14:00:00 2024-04-17 14:00:00 Outpatient R ADUM DULCEKIT MERCEDES DULCE [facility] [id number] [facility] 2024-04-09 14:00:00 2024-04-09 14:40:04 Outpatient R ADUM DULCE DAREN DULCE [facility] [id number] [facility] 2024-04-09 14:00:00 2024-04-09 14:40:04 Office Visit Daren Dulce L [facility] 1..840.114 350.1.13.10 4.2.7.2.686 [id number] [facility] 2024-03-04 00:00:00 2024-04-06 18:22:48 Patient Secure Msg Doctor Unassigned, Wamic Doctor Unassigned, Wamic [facility] 1.2.840.114 350.1.13.10 4.2.7.2.686 [id number] [facility] 2024-03-13 13:45:00 2024-03-13 13:45:00 Outpatient R [facility]UM[facility] [id number] [facility] 2024-02-27 00:00:00 2024-02-27 15:00:23 RefShad Ritter [facility] 1.2.840.114 350.1.13.10 4.2.7.2.686 [id number] [facility] 2024-01-04 13:00:00 2024-01-04 13:00:00 Outpatient Lyly WATSON DONALD [facility] [id number] [facility] 2023-12-18 09:30:00 2023-12-18 09:30:00 Outpatient SHAD ANN [facility] [id number] [facility] 2023-12-16 04:19:00 2023-12-16 06:10:00 Emergency X HAWKINS DALTON [facility] [id number] [facility] 2023-12-16 04:19:00 2023-12-16 06:10:00 Emergency Dalton Hawkins [facility] 1.2.840.114 350.1.13.10 4.2.7.2.686 [id number] [facility] 2023-12-03 00:00:00 2023-12-05 11:08:27 Shad Guzmán [facility] 1.2.840.114 350.1.13.10 4.2.7.2.686 [id number] [facility] 2023-11-27 00:00:00 2023-11-27 00:00:00 Outpatient TOBIN RAYA [facility] [id number] [facility] 2023-11-01 23:25:00 2023-11-02 01:41:00 Emergency X MILAGRO CLIFTON [facility] [id number] [facility] 2023-11-01 23:25:00 2023-11-02 01:41:00 Emergency Abdiel Manolofernando [facility] 1.2.840.114 350.1.13.10 4.2.7.2.686 [id number] [facility] 2023-10-23 16:30:00 2023-10-23 16:30:00 Outpatient SHAD ANN [facility] [id number] [facility] 2023-09-27 10:30:00 2023-09-27 10:30:00 Outpatient R SHAD COMER [facility] [id number] [facility] 2023-08-04 08:30:00 2023-08-04 09:01:44 Outpatient R SHAD COMER [facility] [id number] [facility] 2023-08-04 08:30:00 2023-08-04 09:01:44 Office Visit Shad Comer [facility] 1.840.114 350.1.13.10 4.2.7.2.686 [id number] [facility] 2023-08-04 00:00:00 2023-08-04 00:00:00 Orders Only Doctor Unassigned, Wamic [facility] 1.840.114 350.1.13.10 4.2.7.2.686 [id number] [facility] 2023-06-14 09:00:00 2023-06-14 09:00:00 Outpatient R IVAN WALSH [facility] [id number] [facility] 2023-06-13 09:47:20 2023-06-13 23:59:00 Outpatient R DULCE MERCEDES [facility] [id number] [facility] 2023-06-13 09:47:20 2023-06-13 23:59:00 Hospital Encounter Dulce Mercedes [facility] 1.840.114 350.1.13.10 4.2.7.2.686 [id number] [facility] 2023-06-01 13:00:00 2023-06-01 13:20:36 Outpatient R DULCE MERCEDES [facility] [id number] [facility] 2023-06-01 13:00:00 2023-06-01 13:20:36 Office Visit [facility] 1..840.114 350.1.13.10 4.2.7.2.686 [id number] [facility] 2023-06-01 00:00:00 2023-06-01 00:00:00 Orders Only Doctor Unassigned, Wamic [facility] 1.2840.114 350.1.13.10 4.2.7.2.686 [id number] [facility] 2023-03-20 10:00:00 2023-03-20 10:00:00 Outpatient ROCIO TAYLOR [facility] [id number] [facility] 2023-03-17 00:00:00 2023-03-17 00:00:00 Patient Secure Msg Comer Shad [facility] 1..840.114 350.1.13.10 4.2.7.2.686 [id number] [facility] 2023-03-14 00:00:00 2023-03-14 00:00:00 Orders Only Doctor Unassigned, Wamic [facility] 1.2840.114 350.1.13.10 4.2.7.2.686 [id number] [facility] 2023-03-08 12:00:00 2023-03-08 12:15:00 Graphic Design Teacher Visit Lab, Dusty Comer Shad [facility] 1..840.114 350.1.13.10 4.2.7.2.686 [id number] [facility] 2023-03-08 11:00:00 2023-03-08 11:39:59 Outpatient SHAD ANN [facility] [id number] [facility] 2023-03-08 11:00:00 2023-03-08 11:39:59 Office Visit Shad Comer [facility] 1.2840.114 350.1.13.10 4.2.7.2.686 [id number] [facility] 2022-12-07 00:00:00 2022-12-07 00:00:00 Telephone Shad Comer [facility] 1.2840.114 350.1.13.10 4.2.7.2.686 [id number] [facility] 2022-12-06 10:30:00 2022-12-06 10:45:00 Graphic Design Teacher Visit Lab, Dusty Meza Luc[facility] 1.2840.114 350.1.13.10 4.2.7.2.686 [id number] [facility] 2022-12-06 10:00:00 2022-12-06 10:27:11 Outpatient R SHAD COMER [facility] [id number] [facility] 2022-12-06 10:00:00 2022-12-06 10:27:11 Office Visit Shad Comer [facility] 1.2840.114 350.1.13.10 4.2.7.2.686 [id number] [facility] 2022-12-06 00:00:00 2022-12-06 00:00:00 Telephone Shad Comer [facility] 1.284.114 350.1.13.10 4.2.7.2.686 [id number] [facility] 2022-10-10 12:30:00 2022-10-10 12:30:00 Outpatient R ROCIO WESTON [facility] [id number] [facility] 2022-10-05 00:00:00 2022-10-05 00:00:00 Telephone Adum, Dulce [facility] 1.2.840.114 350.1.13.10 4.2.7.2.686 [id number] [facility] 2022-09-07 11:00:00 2022-09-07 11:27:10 Outpatient R ADUM, [facility] [id number] [facility] 2022-09-07 11:00:00 2022-09-07 11:27:10 Routine Visit Adaustyn Dulce [facility] 1.2.840.114 350.1.13.10 4.2.7.2.686 [id number] [facility] 2022-09-07 00:00:00 2022-09-07 00:00:00 Orders Only Doctor Unassigned, Wamic [facility] 1.2840.114 350.1.13.10 4.2.7.2.686 [id number] [facility] 2022-08-17 15:30:00 2022-08-17 16:23:38 Outpatient R ADAUSTYN [facility] [id number] [facility] 2022-08-17 15:30:00 2022-08-17 16:23:38 Routine Visit Adum, Dulce [facility] 1.2840.114 350.1.13.10 4.2.7.2.686 [id number] [facility] 2022-08-17 13:30:00 2022-08-17 13:30:00 Outpatient R ADAUSTYN [facility] [id number] [facility] 2022-07-27 18:50:00 2022-07-29 19:50:00 Inpatient P ADUM [facility] [id number] [facility] 2022-07-27 18:50:00 2022-07-29 19:50:00 Hospital Encounter AdDulce zaman [facility] 1.2.840.114 350.1.13.10 4.2.7.2.686 [id number] [facility] 2022-07-28 06:30:00 2022-07-28 20:18:00 Anesthesia Event Amna Horvath Fernando [facility] 1.2.840.114 350.1.13.10 4.2.7.2.686 [id number] [facility] 2022-07-27 00:00:00 2022-07-27 00:00:00 Orders Only Doctor Unassigned, Wamic [facility] 1.2.840.114 350.1.13.10 4.2.7.2.686 [id number] [facility] 2022-07-26 13:15:00 2022-07-26 14:00:47 Outpatient R DAREN [facility] [id number] [facility] 2022-07-26 13:15:00 2022-07-26 14:00:47 Routine Visit Ad [employer] 1.2.840.114 350.1.13.10 4.2.7.2.686 [id number] [facility] 2022-07-19 15:45:00 2022-07-19 16:17:30 Routine Visit Adaustyn [employer] 1.2.840.114 350.1.13.10 4.2.7.2.686 [id number] [facility] 2022-07-19 15:45:00 2022-07-19 16:17:30 Outpatient R ADAUSTYN [facility] [id number] [facility] 2022-07-19 00:00:00 2022-07-19 00:00:00 Orders Only Doctor Unassigned, Wamic [facility] 1.2.840.114 350.1.13.10 4.2.7.2.686 [id number] [facility] 2022-07-14 18:47:00 2022-07-14 20:20:00 Outpatient X ADUM, [facility] [id number] [facility] 2022-07-14 18:47:00 2022-07-14 20:20:00 Emergency Adum Dulce [facility] 1.2.840.114 350.1.13.10 4.2.7.2.686 [id number] [facility] 2022-07-14 00:00:00 2022-07-14 00:00:00 Orders Only Doctor Unassigned, Wamic [facility] 1.2.840.114 350.1.13.10 4.2.7.2.686 [id number] [facility] 2022-07-12 15:30:00 2022-07-12 15:45:00 Routine Visit Ad [employer] 1.2.840.114 350.1.13.10 4.2.7.2.686 [id number] 134 [id number] [facility] 2022-07-12 15:30:00 2022-07-12 15:30:00 Outpatient R ADUM [facility] [id number] [facility] 2022-07-05 10:00:00 2022-07-05 10:43:56 Outpatient R ADUM [facility] [id number] [facility] 2022-07-05 10:00:00 2022-07-05 10:43:56 Routine Visit Adaustyn [employer] 1.2.840.114 350.1.13.10 4.2.7.2.686 [id number] [facility] 2022-06-30 00:00:00 2022-06-30 00:00:00 Orders Only Doctor Unassigned, Wamic [facility] 1.2.840.114 350.1.13.10 4.2.7.2.686 [id number] [facility] 2022-06-28 23:03:00 2022-06-29 01:35:00 Outpatient P ELISEDULCE ZAMAN [facility] [id number] [facility] 2022-06-28 23:03:00 2022-06-29 01:35:00 Hospital Encounter Dulce Mercedes [facility] 1.2.840.114 350.1.13.10 4.2.7.2.686 [id number] [facility] 2022-06-29 00:00:00 2022-06-29 00:00:00 Telephone AdaustynDulce [facility] 1.2.840.114 350.1.13.10 4.2.7.2.686 [id number] [facility] 2022-06-28 00:00:00 2022-06-28 00:00:00 [facility] 1.2.840.114 350.1.13.10 4.2.7.2.686 [id number] [facility] 2022-06-27 09:30:00 2022-06-27 10:04:13 Outpatient R JOSEPH LIU CHERYAL [facility] [id number] [facility] 2022-06-27 09:30:00 2022-06-27 10:04:13 Routine Visit Joseph Liu [facility] 1.2.840.114 350.1.13.10 4.2.7.2.686 [id number] [facility] 2022-06-27 00:00:00 2022-06-27 00:00:00 Orders Only Doctor Unassigned, Wamic [facility] 1.2840.114 350.1.13.10 4.2.7.2.686 [id number] [facility] 2022-06-11 00:00:00 2022-06-11 00:00:00 Case Management Alexa [facility] 1..114 350.1.13.10 4.2.7.2.686 [id number] [facility] 2022-06-11 00:00:00 2022-06-11 00:00:00 Letter (Out) Graham Torres [facility] 1..114 350.1.13.10 4.2.7.2.686 [id number] [facility] 2022-06-09 09:30:00 2022-06-09 10:00:36 Outpatient R [facility] [id number] [facility] 2022-06-09 09:30:00 2022-06-09 10:00:36 Routine Visit Joseph Liu [facility] 1.2.114 350.1.13.10 4.2.7.2.686 [id number] 134 [id number] [facility] 2022-05-26 09:30:00 2022-05-26 09:57:24 Outpatient R JOSEPH LIU [facility] [id number] [facility] 2022-05-26 09:30:00 2022-05-26 09:57:24 Routine Visit Joseph Liu [facility] 1..114 350.1.13.10 4.2.7.2.686 [id number] [facility] 2022-05-24 09:45:00 2022-05-24 09:45:00 Outpatient R ALEXA JOSEPH MCLAIN [facility] [id number] [facility] 2022-05-23 12:30:00 2022-05-23 12:45:00 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 Design 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 Visit 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, Adc 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 Main Alexa [facility] 1..114 350.1.13.10 4.2.7.2.686 [id number] [facility] 2022-05-23 12:30:00 2022-05-23 12:30:00 [facility] [id number] [facility] 2022-05-23 00:00:00 2022-05-23 00:00:00 Orders Only Doctor Unassigned, [place] [facility] 1..114 350.1.13.10 4.2.7.2.686 [id number] [facility] 2022-05-11 00:00:00 2022-05-11 00:00:00 Telephone Janna Sung [facility] 1.114 350.1.13.10 4.2.7.2.686 [id number] 134 [id number] [facility] 2022-05-10 09:00:00 2022-05-10 09:37:08 Outpatient R JOSEPH LIU CHERYAL [facility] [id number] [facility] 2022-05-10 09:00:00 2022-05-10 09:37:08 [facility] 1..114 350.1.13.10 4.2.7.2.686 [id number] 134 [id number] [facility] 2022-05-10 00:00:00 2022-05-10 00:00:00 Orders Only Doctor Unassigned, [place] [facility] 1..840.114 350.1.13.10 4.2.7.2.686 [id number] [facility] 2022-04-27 09:30:00 2022-04-27 09:30:00 Outpatient R JOSEPH LIU CHERNYU [facility] [id number] [facility] 2022-04-26 09:30:00 2022-04-26 09:49:31 Outpatient R JOSEPH LIU CHERYAL [facility] [id number] [facility] 2022-04-26 09:30:00 2022-04-26 09:49:31 Routine Visit Joseph Liu [facility] 1..840.114 350.1.13.10 4.2.7.2.686 [id number] 134 [id number] [facility] 2022-04-25 08:00:00 2022-04-25 08:15:00 Graphic Design Teacher Visit Lab, Judd Valentin [facility] 1..840.114 350.1.13.10 4.2.7.2.686 [id number] [facility] 2022-04-25 08:00:00 2022-04-25 08:00:00 Outpatient R JUDD AUGUSTIN [facility] [id number] [facility] 2022-03-30 11:00:00 2022-03-30 12:07:43 Outpatient R DULCE MERCEDES [facility] [id number] [facility] 2022-03-30 11:00:00 2022-03-30 12:07:43 Routine Visit Dulce Mercedes [facility] 1.840.114 350.1.13.10 4.2.7.2.686 [id number] 134 [id number] [facility] 2022-03-30 09:30:00 2022-03-30 09:30:00 Outpatient R JOSEPH LIU CHERYAL [facility] [id number] [facility] 2022-03-29 09:30:00 2022-03-29 09:30:00 Outpatient R JOSEPH LIU CHERYAL [facility] [id number] [facility] 2022-03-24 12:45:00 2022-03-24 13:00:00 Graphic Design Teacher Visit Pob, Adc Lab Main Joseph Liu [facility] 1..840.114 350.1.13.10 4.2.7.2.686 [id number] [facility] 2022-03-24 12:45:00 2022-03-24 12:45:00 Outpatient R JOSEPH LIU CHERYAL [facility] [id number] [facility] 2022-03-22 14:45:00 2022-03-22 16:03:03 Graphic Design Teacher Visit 2, [facility] Sorin Reyna [facility] 1.840.114 350.1.13.10 4.2.7.2.686 [id number] [facility] 2022-03-22 14:45:00 2022-03-22 14:45:00 Outpatient P SORIN MONTERROSO [facility] [id number] [facility] 2022-03-11 09:30:00 2022-03-11 09:30:00 Outpatient P [facility] [id number] [facility] 2022-03-11 09:30:00 2022-03-11 09:30:00 Outpatient P [facility] [id number] [facility] 2022-03-03 02:26:00 2022-03-03 04:34:00 Emergency X GERMÁN MOSES [facility] ERT [id number] [facility] 2022-03-03 02:26:00 2022-03-03 04:34:00 Emergency Germán Moses [facility] 1.0.114 350.1.13.10 4.2.7.2.686 [id number] [facility] 2022-03-03 00:00:00 2022-03-03 00:00:00 Telephone Judd Augustin [facility] 1..114 350.1.13.10 4.2.7.2.686 [id number] 134 [id number] [facility] 2022-03-01 09:30:00 2022-03-01 10:11:20 [facility] [id number] [facility] 2022-03-01 09:30:00 2022-03-01 10:11:20 Routine Visit Joseph Liu [facility] 1..114 350.1.13.10 4.2.7.2.686 [id number] [facility] 2022-03-01 09:30:00 2022-03-01 10:11:20 Outpatient R [facility]PH [facility]U [facility] [id number] [facility] 2022-02-11 00:00:00 2022-02-11 00:00:00 Telephone Judd Augustin [facility] 1..114 350.1.13.10 4.2.7.2.686 [id number] 134 [id number] [facility] 2022-02-11 00:00:2022-02-11 00:00:00 Case Management Joseph Liu [facility] 1..840.114 350.1.13.10 4.2.7.2.686 [id number] [facility] 2022-02-01 09:30:00 2022-02-01 10:14:29 Outpatient R ALEXAJOSEPH YESENIAWOLFJAIDEN MAURANYU [facility] [id number] [facility] 2022-02-01 09:30:00 2022-02-01 10:14:29 [facility]..[facility].114 350.1.13.10 4.2.7.2.686 [id number] 134 [id number] [facility] 2022-02-01 09:30:00 2022-02-01 10:14:29 Outpatient R ALEXAJOSEPH YESENIAWOLFJAIDEN [facility] [id number] [facility] 2022-01-17 09:45:00 2022-01-17 10:36:11 Outpatient R ALEXAJOSEPH YESENIAWOLFJAIDEN [facility] [id number] [facility] 2022-01-17 09:45:00 2022-01-17 10:36:11 Outpatient R ALEXAJOSEPH ALEXA [facility] [id number] [facility] 2022-01-17 09:45:00 2022-01-17 10:00:00 Graphic Design Teacher Visit Lab, Dusty - [facility]rick [facility] 1.2.840.114 350.1.13.10 4.2.7.2.686 [id number] [facility] 2022-01-17 09:30:00 2022-01-17 09:30:00 Outpatient R JOSEPH LIU [facility] [id number] [facility] 2022-01-17 00:00:00 2022-01-17 00:00:00 Orders Only Doctor Unassigned, W[place] [facility] 1.84.114 350.1.13.10 4.2.7.2.686 [id number] [facility] 2022-01-03 13:00:00 2022-01-03 13:34:08 Outpatient R YESENIAJOSEPH DIAZ CHERNYU [facility] [id number] [facility] 2022-01-03 13:00:00 2022-01-03 13:34:08 Routine Visit CinthiaJoseph ovalles [facility] 1.84.114 350.1.13.10 4.2.7.2.686 [id number] [facility] 2022-01-03 13:00:00 2022-01-03 13:34:08 Outpatient R JOSEPH LIU [facility] [id number] [facility] 2022-01-03 00:00:00 2022-01-03 00:00:00 Telephone GaleJoseph almazan [facility] 1.840.114 350.1.13.10 4.2.7.2.686 [id number] [facility] 2021-12-20 09:30:00 2021-12-20 10:00:36 Outpatient R JOSEPH LIU [facility] [id number] [facility] 2021-12-20 09:30:00 2021-12-20 10:00:36 Routine Visit YeseniaJoseph diaz [facility] 1.840.114 350.1.13.10 4.2.7.2.686 [id number] [facility] 2021-12-16 09:35:00 2021-12-16 13:22:00 Emergency X Dulce GERMAN [facility] ERT [id number] [facility] 2021-12-16 09:35:00 2021-12-16 13:22:00 Emergency Dulce German [facility] 1.2.840.114 350.1.13.10 4.2.7.2.686 [id number] [facility] 2021-12-16 00:00:00 2021-12-16 00:00:00 Patient Secure Msg Alexa [facility] 1.2.840.114 350.1.13.10 4.2.7.2.686 [id number] [facility] 2021-12-15 00:00:00 2021-12-15 00:00:00 [facility] 1.2.840.114 350.1.13.10 4.2.7.2.686 [id number] [facility] 2021-12-13 14:33:34 2021-12-13 23:59:00 Outpatient R JOSEPH LIU [facility] [id number] [facility] 2021-12-13 14:33:34 2021-12-13 23:59:00 Hospital Encounter Joseph Liu [facility] 1.2.840.114 350.1.13.10 4.2.7.2.686 [id number] [facility] 2021-11-24 00:00:00 2021-11-24 00:00:00 Telephone Alexa [facility] 1.2.840.114 350.1.13.10 4.2.7.2.686 [id number] [facility] 2021-11-23 00:00:00 2021-11-23 00:00:00 Case Management Joseph Liu [facility] 1.2.840.114 350.1.13.10 4.2.7.2.686 [id number] [facility] 2021-11-22 09:30:00 2021-11-22 11:02:50 Outpatient R JOSEPH LIU CHERNYU [facility] [id number] [facility] 2021-11-22 09:30:00 2021-11-22 11:02:50 Initial Visit Joseph Liu [facility] 1.2.840.114 350.1.13.10 4.2.7.2.686 [id number] 134 [id number] [facility] 2021-09-20 14:00:00 2021-09-20 14:00:00 Telemedici ne [facility] [place] 1.2.840.114 350.1.13.13 1.2.7.2.686 [id number] [facility] 2021-09-20 11:00:00 2021-09-20 11:00:00 Outpatient [facility] JUANIS PATIÑO [id number] [facility] 2021-08-27 08:16:00 2021-08-27 10:07:00 Emergency X BRITNEY BLUM [facility] ERT [id number] [facility] 2021-08-27 08:16:00 2021-08-27 10:07:00 Emergency Britney Blum [facility] 1.2.840.114 350.1.13.10 4.2.7.2.686 [id number] [facility] 2021-08-27 08:16:00 2021-08-27 10:07:00 Emergency X BRITNEY BLUM [facility] ERT [id number] [facility] 2021-08-19 09:00:00 2021-08-19 09:30:00 Office Visit [facility] 1..840.114 350.1.13.13 1.2.7.2.686 [id number] Juanis Bolden 2021-07-12 15:00:00 2021-07-12 15:00:00 Outpatient MARSHALL BORJA JUANIS JUANIS [id number] Juanis [facility] 2021-05-10 00:00:00 2021-05-10 00:00:00 Letter (Out) Pinky Ascencio [facility] 1.2840.114 350.1.13.10 4.2.7.2.686 [id number] [facility] 2021-05-09 09:58:53 2021-05-09 12:37:14 Urgent Care Fabrice amado [facility] 1.84.114 350.1.13.10 4.2.7.2.686 [id number] [facility] 2021-05-09 10:00:00 2021-05-09 10:00:00 Outpatient R FABRICE Amado [facility] [id number] [facility] 2021-05-09 00:00:00 2021-05-09 00:00:00 Orders Only Doctor Unassigned, W[place] [facility] 1.284.114 350.1.13.10 4.2.7.2.686 [id number] [facility] 2021-03-01 11:09:00 2021-03-01 12:27:00 Emergency [address] [facility] 1.2840.114 350.1.13.10 4.2.7.2.686 [id number] [facility] 2021-03-01 00:00:00 2021-03-01 00:00:00 Orders Only Doctor Unassigned, Wamic [facility] 1.2.840.114 350.1.13.10 4.2.7.2.686 [id number] [facility] 2020-03-23 15:37:26 2020-03-23 23:59:00 Hospital Encounter Radiology [facility] 1.2.840.114 350.1.13.10 4.2.7.2.686 [id number] [facility] 2020-03-23 00:00:00 2020-03-23 00:00:00 Outpatient R RADIOLOGY [facility] [id number] [facility] 2020-03-23 00:00:00 2020-03-23 00:00:00 Orders Only Doctor Unassigned, Wamic [facility] 1.2.840.114 350.1.13.10 4.2.7.2.686 [id number] [facility] 2020-03-18 15:00:00 2020-03-18 15:00:00 Outpatient Shaun Sheridan [facility] [id number] [facility] Results Test Description Test Time Test Comments Results Result Co mments Source [facility] 00:19:56* Test Item Value Reference Range Interpretation Comme nts LIPASE (test code = 3713942335) 175 U/L 0-220 Lab Interpretation (test cod e = 78490-3) Normal [facility] WITH [id number] 00:06:55* Test Item Value Reference Range Interpretation [...] 31.6 g/dL 31.6-35.1 RDW-SD (test code = 85611-8) 43.5 fL 39.0-49.9 RDW-CV (test code = 788-0) 13.0 % 12.0-15.5 PLT (test code = 777-3) 386 166-358 H MPV (test code = 56946-9) 9.0 fL 9.5-12.9 L NRBC/100 WBC (test code = 6950609821) 0.0 0.0-10.0 NRBC x10^3 (test code = 5789074835) See_Comment [Automated messa ge] The system which generated this result transmitted reference range: 10*3/?L. The reference range was not used to interpret this result as normal/abnormal. GRAN MAT (NEUT) % (test code = 770-8) 60.5 % IMM GRAN % (test code = 4047293400) 0.30 % LYMPH % (test code = 736-9) 31.9 % MONO % (test code = 5905-5) 6.5 % EOS % (test code = 713-8) 0.4 % BASO % (test code = 706-2) 0.4 % GRAN MAT x10^3(ANC) (test code = 9355429371) 6.91 10*3/uL 1.88-7.09 IMM GRAN x10^3 (test code = 3257028893) 0.04 10*3/uL 0.00-0.06 LYMPH x10^3 (test code = 731-0) 3.65 10*3/uL 1.32-3.29 H MONO x10^3 (test code = 742-7) 0.74 10*3/uL 0.33-0.92 EOS x10^3 (test code = 711-2) 0.05 10*3/uL 0.03-0.39 BASO x10^3 (test code = 704-7) 0.05 10*3/uL 0.01-0.07 Lab Interpretation (test code = 34334-3) Abnormal [facility] Screen - ONCE [id number] 00:02:00* Test Item Value Reference Range Interpretation Comme nts ABO & RH (test code = 20) A POSITIVE IAT (test code = 1185) Negative [facility] Temple[facility] KNEE 3 VW [id number] 02:59:29Ordering Physician: RELL VIERA HISTORY: Left knee pain COMPARISON: none FINDINGS:Three views of the left knee. ?There is no fracture or dislocation. ?Thereis no joint effusion. The joint spacesare normal. Soft tissues are normal. [facility] [id number] 19:26:00* Test Item Value Reference Range Interpretation Comme nts POCT PREG (test code = 1605) Negative On board controls acceptable with C Line (test code = 3574) Yes POCT PREG LOT # (test code = 3575) [id number] POCT PREG TEST DATE (test code = 3576) 2025-10-16 LOGAN (test code = LOGAN) accurate developme nt and interpretation of all internal controls Lab Interpretation (test code = 96554-6) Normal [facility] [id number] 09:35:00* Test Item Value Reference Range Interpretation Comme nts POCT PREG (test code = 1605) Negative On board controls acceptable with C Line (test code = 3574) Yes POCT PREG LOT # (test code = 3575) [id number] POCT PREG TEST DATE ( test code = 3576) 224-12-01 Lab Interpretation (test cod e = 56260-0) Normal [facility] ABDOMEN PELVIS WO [id number] 06:13:00Exam: CT Abdomen and Pelvis without Contrast, [...] appearance. MUSCULOSKELETAL:Bones: No acute osseous abnormality.Soft tissues: Unremarkable.[facility] [id number] 05:04:00* Test Item Value Reference Range Interpretation Comme nts POCT PREG (test code = 1605) Negative On board controls acceptable with C Line (test code = 3574) Yes POCT PREG LOT # (test code = 3575) [id number] POCT PREG TEST DATE ( test code = 3576) 2024-11-05 Lab Interpretation (test cod e = 97250-9) Normal [facility] [id number] 17:02:00* Test Item Value Reference Range Interpretation Comme nts POCT PREG (test code = 1605) Negative On board controls acceptable with C Line (test code = 3574) Yes POCT PREG LOT # (test code = 3575) POCT PREG TEST DATE ( test code = 3576) [facility] Packed RBC (in units)2022-07-29 16:45:11* Test Item Value Reference Range Interpretation Comme nts Cross Match Result (test code = 4409) Compatible ISBT Blood Type Code (test code = 557074) Unit Blood Type (test code = 4410) A Pos Unit Number (test code = 4411) [id number] Blood Expiration Date & Time (test code = 449519) Status Information (test code = 4412) Issued Product Identification (test code = 4413) Red Blood Cells Product Code (test code = 4414) [id number] Performed at [facility] B Laboratory Services - [facility] Blood [address] [place] [id number] Free: [phone] No. [id number] [facility] with [id number] 12:51:12* Test Item Value Reference Range Interpretation [...] g/dL 31.6-35.1 L RDW-SD (test code = 40876-1) 42.5 fL 39.0-49.9 RDW-CV (test code = 788-0) 14.0 % 12.0-15.5 PLT (test code = 777-3) See_Comment [Automated message] The system which generated this result transmitted reference range: 166 - 358 10*3/?L. The reference range was not used to interpret this result as normal/abnormal. MPV (test code = 33863-2) 9.8 fL 9.5-12.9 NRBC/100 WBC (test code = 3424863716) See_Comment [Automated message] The system which generated this result transmitted reference range: 0.0 - 10.0 /100 WBCs. The reference range was not used to interpret this result as normal/abnormal. NRBC x10^3 (test code = 2640631896) See_Comment [Automated message] The system which generated this result transmitted reference range: 10*3/?L. The reference range was not used to interpret this result as normal/abnormal. GRAN MAT (NEUT) % (test code = 770-8) 71.4 % IMM GRAN % (test code = 8965776885) 0.80 % LYMPH % (test code = 736-9) 20.0 % MONO % (test code = 5905-5) 7.5 % EOS % (test code = 713-8) 0.1 % BASO % (test code = 706-2) 0.2 % GRAN MAT x10^3(ANC) (test code = 5077635308) 12.36 10*3/uL 1.88-7.09 H IMM GRAN x10^3 (test code = 9304894839) 0.13 10*3/uL 0.00-0.06 H LYMPH x10^3 (test code = 731-0) 3.47 10*3/uL 1.32-3.29 H MONO x10^3 (test code = 742-7) 1.30 10*3/uL 0.33-0.92 H EOS x10^3 (test code = 711-2) 0.03-0.39 L BASO x10^3 (test code = 704-7) 0.04 10*3/uL 0.01-0.07 Lab Interpretation (test code = 78689-7) Abnormal [facility] WITH [id number] 07:09:59* Test Item Value Reference Range Interpretation [...] 31.8 g/dL 31.6-35.1 RDW-SD (test code = 28548-9) 41.4 fL 39.0-49.9 RDW-CV (test code = 788-0) 13.8 % 12.0-15.5 PLT (test code = 777-3) See_Comment [Automated message] The system which generated this result transmitted reference range: 166 - 358 10*3/?L. The reference range was not used to interpret this result as normal/abnormal. MPV (test code = 33085-6) 10.1 fL 9.5-12.9 NRBC/100 WBC (test code = 2639729328) See_Comment [Automated message] The system which generated this result transmitted reference range: 0.0 - 10.0 /100 WBCs. The reference range was not used to interpret this result as normal/abnormal. NRBC x10^3 (test code = 8151415621) See_Comment [Automated message] The system which generated this result transmitted reference range: 10*3/?L. The reference range was not used to interpret this result as normal/abnormal. GRAN MAT (NEUT) % (test code = 770-8) 71.3 % IMM GRAN % (test code = 2809214544) 0.70 % LYMPH % (test code = 736-9) 20.2 % MONO % (test code = 5905-5) 7.5 % EOS % (test code = 713-8) 0.1 % BASO % (test code = 706-2) 0.2 % GRAN MAT x10^3(ANC) (test code = 7610237131) 13.22 10*3/uL 1.88-7.09 H IMM GRAN x10^3 (test code = 2369337180) 0.13 10*3/uL 0.00-0.06 H LYMPH x10^3 (test code = 731-0) 3.75 10*3/uL 1.32-3.29 H MONO x10^3 (test code = 742-7) 1.39 10*3/uL 0.33-0.92 H EOS x10^3 (test code = 711-2) 0.03-0.39 L BASO x10^3 (test code = 704-7) 0.04 10*3/uL 0.01-0.07 Lab Interpretation (test code = 62628-4) Abnormal [facility] Screen - ONCE [id number] 03:46:16 * Test Item Value Reference Range Interpretation Comme nts ABO & RH (test code = 20) A Positive Performed at [facility] Laboratory [facility] Blood [address] Free: [phone] No. [id number] IAT (test code = 1185) Negative Performed at [facility] Blood [address] Free: [phone] No. [id number] [facility] URINALYS[facility] W SPECIFIC [id number] 19:32:00* Test Item Value Reference Range Interpretation [...] [facility] URIN[facility] W/O SPECIFIC [id number] 21:54:00* Test Item Value Reference Range Interpretation [...] [facility] TempleLACTATE [id number] 01:56:02* Test Item Value Reference Range Interpretation Comme nts LDH (test code = 8382923152) 147 U/L 120-246 Lab Interpretation (test cod e = 20056-2) Normal [facility] TempleALANINE AMINO TRANSFERASE([id number] 01:55:21* Test Item Value Reference Range Interpretation Comme nts ALTv (test code = 1742-6) 13 U/L 5-35 Lab Interpretation (test cod e = 19568-5) Normal [facility] TempleSGOT (ASPARTATE AMINO TRANSFER)2022-07-15 01:55:21* Test Item Value Reference Range Interpretation Comme nts AST(SGOT) (test code = 7998813642) 18 U/L 13-40 Lab Interpretation (test cod e = 01485-0) Normal [facility] TempleURIC [id number] 01:55:21* Test Item Value Reference Range Interpretation Comme nts URIC ACID (test code = 0137124930) 3.3 mg/dL 2.9-6.0 Lab Interpretation (test cod e = 87327-2) Normal [facility] Temple[facility]ATININE2022-12-16 01:55:00* Test Item Value Reference Range Interpretation Comme nts CREATININE (test code = 2180345149) 0.55 mg/dL 0.50-1.04 eGFR (test code = 1228060464) mL/min/1.73m2 LOGAN (test code = LOGAN) Association [...] or urine or abnormalities in imaging tests). [facility] WITH [id number] 01:48:20* Test Item Value Reference Range Interpretation [...] 32.6 g/dL 31.6-35.1 RDW-SD (test code = 60199-2) 37.5 fL 39.0-49.9 L RDW-CV (test code = 788-0) 12.3 % 12.0-15.5 PLT (test code = 777-3) See_Comment H [Automated message] The system which generated this result transmitted reference range: 166 - 358 10*3/?L. The reference range was not used to interpret this result as normal/abnormal. MPV (test code = 56384-6) 9.9 fL 9.5-12.9 NRBC/100 WBC (test code = 0756706415) See_Comment [Automated message] The system which generated this result transmitted reference range: 0.0 - 10.0 /100 WBCs. The reference range was not used to interpret this result as normal/abnormal. NRBC x10^3 (test code = 9101339687) See_Comment [Automated message] The system which generated this result transmitted reference range: 10*3/?L. The reference range was not used to interpret this result as normal/abnormal. GRAN MAT (NEUT) % (test code = 770-8) 69.6 % IMM GRAN % (test code = 8860773811) 0.80 % LYMPH % (test code = 736-9) 22.5 % MONO % (test code = 5905-5) 6.7 % EOS % (test code = 713-8) 0.2 % BASO % (test code = 706-2) 0.2 % GRAN MAT x10^3(ANC) (test code = 9322282816) 11.06 10*3/uL 1.88-7.09 H IMM GRAN x10^3 (test code = 0256025314) 0.12 10*3/uL 0.00-0.06 H LYMPH x10^3 (test code = 731-0) 3.57 10*3/uL 1.32-3.29 H MONO x10^3 (test code = 742-7) 1.06 10*3/uL 0.33-0.92 H EOS x10^3 (test code = 711-2) 0.03 10*3/uL 0.03-0.39 BASO x10^3 (test code = 704-7) 0.03 10*3/uL 0.01-0.07 Lab Interpretation (test code = 56915-2) Abnormal [facility] URINALYSIS W/O SPECIFIC [id number] 22:03:00* Test Item Value Reference Range Interpretation [...] = 3257) n/a Negative - Negati ve [facility] URINALYSIS W/O SPECIFIC [id number] 16:13:00* Test Item Value Reference Range Interpretation [...] = 3257) n/a Negative - Negati ve [facility] URINALYSIS W/O SPECIFIC [id number] 15:49:00* Test Item Value Reference Range Interpretation [...] = 3257) n/a Negative - Negati ve [facility] URINALYSIS W/O SPECIFIC [id number] 15:43:00* Test Item Value Reference Range Interpretation [...] = 3257) N/A Negative - Negati ve [facility] URINALYSIS W/O SPECIFIC [id number] 14:48:00* Test Item Value Reference Range Interpretation [...] = 3257) n/a Negative - Negati ve [facility] URINALYSIS W/O SPECIFIC [id number] 14:29:00* Test Item Value Reference Range Interpretation [...] = 3257) N/A Negative - Negati ve [facility] URINALYSIS W/O SPECIFIC [id number] 14:39:00* Test Item Value Reference Range Interpretation [...] = 3257) N/A Negative - Negati ve [facility] URINALYSIS W/O SPECIFIC [id number] 14:39:00* Test Item Value Reference Range Interpretation [...] = 3257) N/A Negative - Negati ve [facility] URINALYSIS W SPECIFIC [id number] 16:01:00* Test Item Value Reference Range Interpretation [...] [facility] [id number] 14:21:00* Test Item Value Reference Range Interpretation Comme nts POCT PREG (test code = 1605) negative On board controls acceptable with C Line (test code = 3574) present POCT PREG LOT # (test code = 3575) [id number] POCT PREG TEST DATE ( test code = 3576) Lab Interpretation (test cod e = 72495-3) Normal [facility] Notes Date/Time Note Provider Source 2024-09-03 20:52:53 Pt did not want to wait any longer for US, removed IV, refused to sign AMA pw [employer] Michelle Blum RN [facility] 2024-09-03 16:13:46 Pt to ED [place] vaginal bleeding x 6 months. Reports fatigue x 2 days. Received depo shot in March and has been bleeding since. Goes through 5-6 tampons on heavy days. Also reports some mild cramping. [employer] Regla Moncada RN [facility] 2024-05-29 17:05:22 PT order, face sheet and 05/23/2024 office visit notes faxed to [facility] @ [facility] LVN [facility] 2024-05-29 12:50:08 [facility] is calling for PT orders to be sent over . Ph:[phone] Ankur Carpenter [facility] 2024-05-01 16:00:00 Patient was a hard stick and will return another day for her blood work.Patient was also given a stool collection kit with instructions to return at her convenience.Ashley Espinosa 05/01/2024 4:24 PM [facility] 2024-05-01 15:30:00 Addended by: SHAD COMER on: 05/01/2024 08:19 PM Modules accepted: Orders T [facility] 2024-03-04 18:01:14 Unable to leave a voice mail. Sent [employer] message to schedule an appt Bri Fontaine [facility] 2024-02-28 09:31:20 Please call and schedule patient appointment for follow and labs for further medication refills. Erlinda Bazan RN [facility] 2024-02-27 11:33:21 Images from the original note were not included. Endocrinology: Hypothyroid Agents [id number]/27/2024 11:23 AM Protocol Details Manual Review: ENT [...] Please review and advise. Erlinda Bazan RN [facility] 2023-12-16 06:05:57 Pt given printed and verbal [...] no apparent distress, OT Michelle Mendez RN [facility] 2023-12-16 04:12:15 Pt arrives ambulatory to ED [...] in to be seen. Michelle Blum RN [facility] 2023-12-16 04:11:00 EMERGENCY DEPARTMENT ENCOUNTER [facility] Patient Name: Ariella Tam Date of : 2000 23 year old Exam Room:[facility] [id number] Primary Care Physician: Souleymane Gusman [facility]- [facility] Patient Escorted by: Friend [6] Mode of Arrival: Personal means [1] EMS Treatment Prior to ED Arrival: [facility]ER treatment: None ED Events Date/Time Event User Comments 12/16/23 1630 Medical Screening Begins DALTON HAWKINS MD -- 12/16/23 0419 First Provider Evaluation DALTON HAWKINS MD -- [...] BILIRUBIN Negative Negative NITRITE Negative Negative LEUK MYRADNA 500/uL (*) Negative RBC/HPF >182 (*) 0 [...] the patient referral to Dr. Gage for VAT SKIMMER urology. She was discharged to follow-up. She [...] information for follow-up Shad Comer FNP Specialty: [employer]-FAMILY Relationship: PCP - General [facility] [address] [place] [id number] Future Appointments In 2 days Shad Comer FNP [facility] Family Medicine, [place] CLANCY, DUSTY Hawkins Jr., MD Clinical Food And Nutrition Teacher [facility] Emergency Department j-Gr[employer] Dictation Software is used frequently and may produce errors. Promptly contact for obvious discrepancies. Dalton Hawkins MD 12/16/23 0559 [facility] 2023-12-04 09:22:19 Images from the original note [...] LESIA Arciniega Last refill: 09/04/2023 Rx #: [id number] Endocrinology: Hypothyroid Agents [id number]/03/2023 05:22 AM Protocol Details Manual Review: ENT providers forward refill request to PCP. TSH in normal range and within 360 days Valid encounter within last 12 months To be filled at: [id number] - [place] [address] [facility] [address] Recent Labs 03/08/23 1156 TSH 5.44* Recent [...] meeting all other requirements Sheridan Martinez LVN [facility] 2023-11-02 01:40:01 Pt given printed and verbal [...] in no apparent distress. Michelle Blum RN [facility] 2023-11-01 23:20:13 CC: Pt reports left sided [...] amb with steady gait Michelle Mendez RN [facility] 2023-03-17 10:38:02 Formatting of this n ote might be different from the original. Please review and send medication to requested pharmacy if appropriate. Erlinda Bazan RN [facility] 2023-03-08 12:00:00 Formatting of this n ote is different from the original. Images from the original note were not included. Venipuncture collection performed by clean technique on the right anticubitus. Total of 1 attempts were made. Slight pressure and a bandage/dressing were applied to the site(s). The patient experienced no complications. The following specimens were processed according to instructions and sent to [facility] laboratories per lab order on today: LT BLUE SST 5 RED LAV 1 PPT DK GREEN (LiHep) DK GREEN (SodH) PINEDO DK BLUE (K2) DK BLUE (S) ACD Blood Culture NIPT/NTD [facility]
[2025-04-28] MEDS ORDERED: ONDANSETRON 4 MG/2 ML VIAL ONE (23:30)
[2025-04-28] MEDS ORDERED: KETOROLAC 30 MG/ML INJ ONE (23:30)
[2025-04-28] MEDS ORDERED: FENTANYL CITR 100 MCG/2 ML ONE (23:31)
[2025-04-28] MEDS ORDERED: DIAZEPAM 5 MG TABLET ONE (23:31)
[2025-04-28] MEDS ORDERED: NA CHLORIDE 0.9% 1,000 ML ONE (23:31)
[2025-04-29 00:02] LABS: Absolute Lymphocytes (CBC) 4.5 K/uL (0.7-4.9); Hematocrit 39.5 % (36.0-45.0); Hemoglobin 13.2 g/dL (12.0-15.0); MCH 29.1 pg (27.0-35.0); MCHC 33.4 g/dL (32.0-36.0); MCV 87.2 fL (80-100); MPV 7.3 fL (7.6-11.3); Nucleated RBC Absolute Count 0.0 (0-0); Nucleated Red Blood Cells % 0.0 % (0-0); RBC Red Blood Cell Count 4.53 M/uL (3.86-4.86); White Blood Count 13.60 thou/uL (4.3-10.9)
[2025-04-29 00:06] LABS: Sqamous Epithelial <5 /HPF (None Seen); Urine Culture Reflex Order NOT NEEDED; Urine Microscopic Reflex YN ORDER UMIC
[2025-04-29 00:20] LABS: ALT/SGPT 17 U/L (13-56); Albumin 3.3 g/dL (3.4-5.0); Albumin/Globulin Ratio 0.7 (1.1-1.8); Alkaline Phosphatase 90 U/L (45-117); Anion Gap 7.6 mEq/L (5.0-15.0); BUN Blood Urea Nitrogen 12 mg/dL (7-18); Globulin 4.5 g/dL (2.3-3.5); Glucose Level 95 mg/dL (74-106); Potassium 3.6 mEq/L (3.5-5.1)
[2025-04-29 00:22] LABS: AST/SGOT < 10 U/L (15-37)
--- NOTE | 2025-04-29 02:08 | RAD REPORT ---
EXAM: CT Lumbar Spine Without Intravenous Contrast CLINICAL HISTORY: LOWER BACK PAIN TECHNIQUE: Axial computed tomography images of the lumbar spine without intravenous contrast. Sagittal and cor onal reformatted images were created and reviewed. This CT exam was performed using one or more of the following dose reduction techniques: automated exposure control, adjustment of the mA and/or kV according to patient size, and/or use of iterative reconstruction technique. COMPARISON: No relevant prior studies available. FINDINGS: Vertebrae: There are 5 nonrib-bearing lumbar-type vertebral bodies. No acute or remote fracture. No subluxation. Discs/spinal canal/neural foramina: Mild broad-based disc bulge at L4-L5. The central thecal sac is mildly narrowed at this level. Soft tissues: Unremarkable. Kidneys and ureters: Punctate right renal calculus. IMPRESSION: Mild broad-based disc bulge at L4-L5. The central thecal sac is mildly narrowed at this level. Electronically signed by: Hal Rees MD 04/29/2025 01:30 AM CDT RP Due to temporary technical issues with the PACS/VYou reporting system, reports are being sheng d by the in-house radiologist without review as a courtesy to ensure prompt reporting the interpreting radiologist is fully responsible for the content of the report. Transcribed Date/Time: 04/29/2025 2:08 AM
--- NOTE | 2025-04-29 02:12 | ER ---
Nurse's Notes [facility] Name: Eugene Andrew Age: 24 yrs Sex: Female : 2000 Arrival Date: 04/28/2025 Time: 23:02 Bed 7 Private MD: Diagnosis: Sciatica;Strain of muscle, fascia and tendon of abdomen, lower back and pelvis;Low back pain;Intervertebral disc disorders with radiculopathy, lumbar region-mild broad based L4-L5 DISC BULGE, THECAL SAC MILDLY NARROWED AT THIS LEVEL Presentation: 04/28 23:15 Chief complaint: Patient states: PT STATES SHE BENT OVER TO PUT BABY DOWN AND COULDN'T br2 STAND BACK UP. C/O LOWER BACK PAIN THAT RADIATES TO LEFT BUTTOCKS AND LLE. Coronavirus screen: Client denies travel out of the [place] in the last 14 days. Ebola Screen: Patient denies exposure to infectious person. Initial Sepsis Screen: Does the patient meet any 2 criteria? No. Patient's initial sepsis screen is negative. Does the patient have a suspected source of infection? No. Patient's initial sepsis screen is negative. Risk Assessment: Do you want to hurt yourself or someone else? Patient reports no desire to harm self or others. Onset of symptoms was April 28, 2025 at 19:00. 23:15 Method Of Arrival: Wheelchair br2 23:15 Acuity: MIRTHA 3 br2 Triage Assessment: 23:16 General: Appears uncomfortable, Behavior is calm, cooperative. Pain: Complains of pain br2 in lumbar area and left low back Pain radiates to left hamstring, posterior aspect of left knee, left calf and left Achilles Pain currently is 9 out of 10 on a pain scale. 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 - Infectious Disease History:: Denies. - Social history:: Smoking status: Reported history of juuling and/or vaping. Patient uses alcohol, occasionally. Patient/guardian denies using street drugs. - Family history:: not pertinent. Screenin/30 01:23 [facility] ED Fall Risk Assessment (Adult) History of falling in the last 3 months, bm8 including since admission No falls in past 3 months (0 pts) Confusion or Disorientation No (0 pts) Intoxicated or Sedated No (0 pts) Impaired Gait No (0 pts) Mobility Assist Device Used No (0 pt) Altered Elimination No (0 pt) Score/Fall Risk Level 0 - 2 = Low Risk Oriented to surroundings, Maintained a safe environment, Educated pt \T\ family on fall prevention, incl call for assistance when getting out of bed, Assessed \T\ reinforced patient's understanding of fall precautions, Hourly rounding (assess needs \T\ fall precautionary measures) done, Used ambulatory aids as needed (educated on \T\ assisted with), Used gait belt as appropriate. Abuse screen: Denies threats or abuse. Nutritional screening: No deficits noted. Tuberculosis screening: No symptoms or risk factors identified. Assessment: 01:23 Reassessment: Patient appears in no apparent distress at this time. Patient and/or bm8 family updated on plan of care and expected duration. Pain level reassessed. Patient is alert, oriented x 3, equal unlabored respirations, skin warm/dry/pink. Patient denies pain at this time. Patient states feeling better. Patient states symptoms have improved. 01:36 General: Appears in no apparent distress. Behavior is calm, cooperative. Pain: Denies kd3 pain. Pain: Pain currently is 0 out of 10 on a pain scale. Neuro:. Cardiovascular: Capillary refill < 3 seconds Patient's skin is warm and dry. Respiratory: Airway is patent Trachea midline Respiratory effort is even, unlabored, Respiratory pattern is regular, symmetrical. 02:21 Reassessment: Patient and/or family updated on plan of care and expected duration. Pain kd3 level reassessed. Patient is alert, oriented x 3, equal unlabored respirations, skin warm/dry/pink. Patient denies pain at this time. Patient states feeling better. Patient states symptoms have improved. Vital Signs: 04/28 23:15 BP 123 / 76; Pulse 63; Resp 18; Temp 97.2; Pulse Ox 99% ; Weight 104.33 kg; Height 5 br2 ft. 5 in. ; Pain 9/10; 23:46 BP 118 / 76; Pulse 60; Resp 16; Pulse Ox 98% on R/A; kd3 04/29 01:10 BP 111 / 87; Pulse 61; Resp 17; Temp 97.2; Pulse Ox 99% ; Pain 0/10; kd3 02:10 BP 107 / 58; Pulse 56; Resp 18; Pulse Ox 94% on R/A; kd3 02:19 BP 117 / 74; Pulse 61; Resp 16; Pulse Ox 95% on R/A; kd3 04/28 23:15 Body Mass Index 38.27 (104.33 kg, 165.1 cm) br2 04/28 23:15 Pain Scale: Adult br2 04/29 01:10 Pain Scale: Adult kd3 Shy Coma Score: 04/28 23:28 Eye Response: spontaneous(4). Motor Response: obeys commands(6). Verbal Response: martina oriented(5). Total: 15. 04/29 01:23 Eye Response: spontaneous(4). Motor Response: obeys commands(6). Verbal Response: bm8 oriented(5). Total: 15. ED Course: 04/28 23:05 Patient arrived in ED. gm2 23:06 Brian Butt MD is Attending Physician. martina 23:13 Azeb Dudley, RN is Primary Nurse. kd3 23:16 Triage completed. br2 23:16 Arm band placed on right wrist. br2 23:45 Inserted saline lock: 20 gauge in right antecubital area, using aseptic technique. kd3 Blood collected. Flushed with 10 mL NS. 23:45 CMP Sent. kd3 23:46 CBC with Diff Sent. kd3 23:46 PREGU Sent. kd3 23:46 UA Rfx Augusto Cult if indicated Sent. kd3 04/29 00:43 CT Lumbar Spine Wo Con In Process Unspecified. EDMS 01:23 Patient has correct armband on for positive identification. Bed in low position. Call bm8 light in reach. Side rails up X 1. Adult w/ patient. Client placed on continuous cardiac and pulse oximetry monitoring. NIBP monitoring applied. Pulse ox on. NIBP on. Door closed. Noise minimized. Warm blanket given. Pillow given. Verbal reassurance given. 01:23 No provider procedures requiring assistance completed. Patient maintains SpO2 bm8 saturation greater than 95% on room air. 02:10 Gaetano Tucker MD is Referral Physician. martina 02:20 Provided Education on: back pain . kd3 02:20 IV discontinued, intact, bleeding controlled, No redness/swelling at site. Pressure kd3 dressing applied. Administered Medications: 04/28 23:46 Drug: NS 0.9% IV 1000 ml IV at 1000 ml once; to be given as a bolus over 60 minutes kd3 Route: IV; Rate: 1000 ml; Site: right antecubital; 04/29 01:23 Follow up: Response: No adverse reaction; IV Status: Completed infusion bm8 04/28 23:46 Drug: Ketorolac IVP 30 mg IVP once Route: IVP; Site: right antecubital; 3 04/29 01:23 Follow up: Response: No adverse reaction 8 04/28 23:46 Drug: Decadron - Dexamethasone IVP 10 mg IVP once Route: IVP; Site: right antecubital; 3 04/29 01:23 Follow up: Response: No adverse reaction 8 04/28 23:46 Drug: Diazepam PO 10 mg PO once Route: PO; 3 04/29 01:23 Follow up: Response: No adverse reaction 8 04/28 23:46 Drug: Ondansetron IVP 4 mg IVP once; over 2 minutes Route: IVP; Site: right antecubital;kd3 04/29 01:23 Follow up: Response: No adverse reaction 8 04/28 23:46 Drug: fentaNYL (PF) IVP 50 mcg IVP once Route: IVP; Site: right antecubital; kd3 04/29 01:23 Follow up: Response: No adverse reaction bm8 Medication: 01:23 VIS not applicable for this client. bm8 Outcome: 02:12 Discharge ordered by . martina 02:19 Discharged to home ambulatory, with family, kd3 02:19 Condition: stable 02:19 Discharge instructions given to patient, family, Instructed on discharge instructions, follow up and referral plans. medication usage, Demonstrated understanding of instructions, follow-up care, medications, Prescriptions given X 4, 02:29 Patient left the ED. bm8 Signatures: Dispatcher [employer] EDOR Brian Butt MD MD cha Doucette, Kyli RN RN kd3 Fany Leger 2 Marquez Cazares RN RN bm8 Cathi Meadows RN RN br2 Corrections: (The following items were deleted from the chart) 04/28 23:18 23:16 PMHx: thyroid problems; br2 br2 04/29 02:21 02:19 BP 117 / 74; Pulse 59bpm; Resp 16bpm; Pulse Ox 95% RA; kd3 kd3
--- NOTE | 2025-04-29 02:12 | EDPHYS ---
Physician Documentation [facility] Name: Eugene Andrew Age: 24 yrs Sex: Female : 2000 Arrival Date: 04/28/2025 Time: 23:02 Bed 7 Private MD: AILEEN Physician Brian Butt HPI: 04/28 23:28 This 24 yrs old Female presents to ER via Wheelchair with complaints of Low martina Back Pain. 23:28 The patient presents with pain that is acute, with no known mechanism of injury, that martina is chronic, with no known mechanism of injury. The symptoms are located in the low back, lumbar area, left low back and right low back. The pain does not radiate. The problem was sustained when bending over. Modifying factors: The patient symptoms are alleviated by remaining still, the patient symptoms are aggravated by any movement. Associated signs and symptoms: The patient has no apparent associated signs or symptoms. Associated signs and symptoms: Pertinent positives: none Pertinent negatives: constipation, numbness, urinary retention. Severity of symptoms: At their worst the symptoms were moderate, in the emergency department the symptoms are unchanged. The patient has experienced similar episodes in the past, multiple times. 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 - Infectious Disease History:: Denies. - Social history:: Smoking status: Reported history of juuling and/or vaping. Patient uses alcohol, occasionally. Patient/guardian denies using street drugs. - Family history:: not pertinent. ROS: 23:28 Constitutional: Negative for fever, chills, and weight loss, Eyes: Negative for injury, martina pain, redness, and discharge, ENT: Negative for injury, pain, and discharge, Neck: Negative for injury, pain, and swelling, Cardiovascular: Negative for chest pain, palpitations, and edema, Respiratory: Negative for shortness of breath, cough, wheezing, and pleuritic chest pain, Abdomen/GI: Negative for abdominal pain, nausea, vomiting, diarrhea, and constipation, : Negative for injury, bleeding, discharge, and swelling, MS/Extremity: Negative for injury and deformity, Skin: Negative for injury, rash, and discoloration, Neuro: Negative for headache, weakness, numbness, tingling, and seizure, Psych: Negative for depression, anxiety, suicide ideation, homicidal ideation, and hallucinations, Allergy/Immunology: Negative for hives, rash, and allergies, Endocrine: Negative for neck swelling, polydipsia, polyuria, polyphagia, and marked weight changes, Hematologic/Lymphatic: Negative for swollen nodes, abnormal bleeding, and unusual bruising, 23:28 Back: Positive for injury or acute deformity, decreased range of motion, pain at rest, pain with movement, flank pain, 23:28 MS/extremity: Positive for pain, of the left lower back, right lower back, left gluteus licha and right gluteus licha, Exam: 23:28 Constitutional: This is a well developed, well nourished patient who is awake, alert, martina and in no acute distress. Head/Face: Normocephalic, atraumatic. Eyes: Pupils equal round and reactive to light, extra-ocular motions intact. Lids and lashes normal. Conjunctiva and sclera are non-icteric and not injected. Cornea within normal limits. Periorbital areas with no swelling, redness, or edema. ENT: Nares patent. No nasal discharge, no septal abnormalities noted. Tympanic membranes are normal and external auditory canals are clear. Oropharynx with no redness, swelling, or masses, exudates, or evidence of obstruction, uvula midline. Mucous membranes moist. Neck: Trachea midline, no thyromegaly or masses palpated, and no cervical lymphadenopathy. Supple, full range of motion without nuchal rigidity, or vertebral point tenderness. No Meningismus. Chest/axilla: Normal chest wall appearance and motion. Nontender with no deformity. No lesions are appreciated. Cardiovascular: Regular rate and rhythm with a normal S1 and S2. No gallops, murmurs, or rubs. Normal PMI, no JVD. No pulse deficits. Respiratory: Lungs have equal breath sounds bilaterally, clear to auscultation and percussion. No rales, rhonchi or wheezes noted. No increased work of breathing, no retractions or nasal flaring. Abdomen/GI: Soft, non-tender, with normal bowel sounds. No distension or tympany. No guarding or rebound. No evidence of tenderness throughout. Skin: Warm, dry with normal turgor. Normal color with no rashes, no lesions, and no evidence of cellulitis. MS/ Extremity: Pulses equal, no cyanosis. Neurovascular intact. Full, normal range of motion., bilateral aka Neuro: Awake and alert, GCS 15, oriented to person, place, time, and situation. Cranial nerves II-XII grossly intact. Motor strength 5/5 in all extremities. Sensory grossly intact. Cerebellar exam normal. Normal gait. Psych: Awake, alert, with orientation to person, place and time. Behavior, mood, and affect are within normal limits. 23:28 Back: pain, that is moderate, of the lumbar area, left low back and right low back, ROM is painful, with all movement, with rotation to the right, with rotation to the left, with flexion, with extension, normal spinal alignment noted, CVA tenderness, is absent, muscle spasm, is appreciated in the left low back, left mid back, right mid back and right low back, Vital Signs: 23:15 BP 123 / 76; Pulse 63; Resp 18; Temp 97.2; Pulse Ox 99% ; Weight 104.33 kg; Height 5 br2 ft. 5 in. ; Pain 9/10; 23:46 BP 118 / 76; Pulse 60; Resp 16; Pulse Ox 98% on R/A; kd3 04/29 01:10 BP 111 / 87; Pulse 61; Resp 17; Temp 97.2; Pulse Ox 99% ; Pain 0/10; kd3 02:10 BP 107 / 58; Pulse 56; Resp 18; Pulse Ox 94% on R/A; kd3 02:19 BP 117 / 74; Pulse 61; Resp 16; Pulse Ox 95% on R/A; kd3 04/28 23:15 Body Mass Index 38.27 (104.33 kg, 165.1 cm) br2 04/28 23:15 Pain Scale: Adult br2 04/29 01:10 Pain Scale: Adult kd3 [place] Coma Score: 04/28 23:28 Eye Response: spontaneous(4). Motor Response: obeys commands(6). Verbal Response: martina oriented(5). Total: 15. 04/29 01:23 Eye Response: spontaneous(4). Motor Response: obeys commands(6). Verbal Response: bm8 oriented(5). Total: 15. MDM: 04/28 23:06 Medical Screening Exam initiated [facility] 23:31 Differential diagnosis: arthritis, strain, sciatica, Herniated disc UTI. Data reviewed: [facility] vital signs, nurses notes, lab test result(s), radiologic studies, CT scan. Consideration of Admission/Observation Escalation of care including admission/observation considered. I considered the following discharge prescriptions or medication management in the emergency department Medications were administered in the Emergency Department. See MAR. Independent interpretation of the following test(s) in the Emergency Department CT Scan: My interpretation is CT LUMBAR. Test considered but Not performed: MRI: MRI NOT AVALABLE. Historians other than the Patient: Spouse/Significant Other: SPOUSE WELL INFORMED. Care significantly affected by the following chronic conditions: DEPRESSION , ANXIETY, CBP , FALL. 04/28 23:27 Order name: UA Rfx Augusto Cult if indicated; Complete Time: 00:33 [facility] 04/28 23:27 Order name: PREGU; Complete Time: 00:33 [facility] 04/28 23:27 Order name: CBC with Diff; Complete Time: 00: [facility] 04/28 23:27 Order name: CMP; Complete Time: 00:33 [facility] 04/28 23:27 Order name: CT Lumbar Spine Wo Con [facility] Administered Medications: 23:46 Drug: NS 0.9% IV 1000 ml IV at 1000 ml once; to be given as a bolus over 60 minutes kd3 Route: IV; Rate: 1000 ml; Site: right antecubital; 04/29 01:23 Follow up: Response: No adverse reaction; IV Status: Completed infusion [facility] 04/28 23:46 Drug: Ketorolac IVP 30 mg IVP once Route: IVP; Site: right antecubital; 3 04/29 01:23 Follow up: Response: No adverse reaction 04/28 23:46 Drug: Decadron - Dexamethasone IVP 10 mg IVP once Route: IVP; Site: right antecubital; 3 04/29 01:23 Follow up: Response: No adverse reaction 04/28 23:46 Drug: Diazepam PO 10 mg PO once Route: PO; 04/29 01:23 Follow up: Response: No adverse reaction [facility] 04/28 23:46 Drug: Ondansetron IVP 4 mg IVP once; over 2 minutes Route: IVP; Site: right antecubital;04/29 01:23 Follow up: Response: No adverse reaction bm8 04/28 23:46 Drug: fentaNYL (PF) IVP 50 mcg IVP once Route: IVP; Site: right antecubital; kd3 04/29 01:23 Follow up: Response: No adverse reaction bm8 Disposition Summary: 04/29/25 02:12 Discharge Ordered Notes: Location: Home martina Problem: new martina Symptoms: have improved martina Condition: Stable martina Diagnosis - Sciatica martina - Strain of muscle, fascia and tendon of abdomen, lower back and pelvis martina - Low back pain martina - Intervertebral disc disorders with radiculopathy, lumbar region - mild broad based martina L4-L5 DISC BULGE, THECAL SAC MILDLY NARROWED AT THIS LEVEL Followup: martina - With: Private Physician - When: 2 - 3 days - Reason: Recheck today's complaints, Continuance of care, Re-evaluation by your physician Followup: martina - With: Gaetano Tucker MD - When: 2 - 3 days - Reason: Recheck today's complaints, Re-evaluation by your physician Discharge Instructions: - Discharge Summary Sheet martina - Acute Back Pain, Adult martina - Chronic Back Pain martina - Herniated Disk martina - Musculoskeletal Pain martina - Sciatica martina - Chronic Back Pain, [id number] martina - Sciatica, [id number] [facility] Forms: - Medication Reconciliation Form [facility] - Antibiotic Education martina - Prescription Opioid Use martina - Patient Portal Instructions [facility] - Leadership Thank You Letter [facility] Prescriptions: - methocarbamol 750 mg Oral tablet - take 1 tablet ORAL route 4 times per day; 30 tablet; Refills: 0, Product martina Selection Permitted - Diclofenac Sodium 75 mg Oral tablet, delayed release (enteric coated) - take 1 tablet ORAL route 2 times per day; 20 tablet; Refills: 0, Product martina Selection Permitted - Tylenol-Codeine #3 300mg-30mg Oral tablet - take 2 tablets ORAL route every 6 hours As needed; 16 tablet; Refills: 0, [facility] Product Selection Permitted - Dexamethasone 4mg Oral tablet - take 1 tablet ORAL route daily for 4 days; 4 tablet; Refills: 0, Product martina Selection Permitted Signatures: Dispatcher [employer] Brian Nayak MD MD cha Doucette, Kyli, RN RN kd3 Cathi Meadows RN RN br2 Marquez Cazares RN bm8 Corrections: (The following items were deleted from the chart) 04/28 23:18 23:16 PMHx: thyroid problems; br2 br2
[2025-04-29 02:44] VITALS: TEMP 97.2
[2025-04-29 02:51] VITALS: BP 117/74; O2SAT 95
== END 2025-04-29 02:29 | disposition home or self-care (01) ==
LOC: ER 23:02
DX: S39.011A Strain of muscle, fascia and tendon of abdomen, initial encounter (principal); M51.16 Intervertebral disc disorders with radiculopathy, lumbar region; M54.50 Low back pain, unspecified; R10.2 Pelvic and perineal pain; F17.290 Nicotine dependence, other tobacco product, uncomplicated
CPT/HCPCS: 36415; 72131; 80053; 81001; 81025; 85025; 96361; 96374; 96375; 99284; J1100; J1885; J2405; J3010; J7030